=== PATIENT | female | born 1965 | race Two or more races ===

== ENCOUNTER 2020-04-18 11:33 | Emergency (ER) | payer OTHER, SELFPAY ==
--- NOTE | 2020-04-18 | US_ITS ---
EXAMINATION: UNILATERAL TRIPLEX SCANNING OF THE RIGHT LOWER EXTREMITY CLINICAL INFORMATION: Right lower extremity pain and swelling. COMPARISON: None. TECHNIQUE: Color-flow triplex imaging with spectral analysis and compression Doppler were performed on the right lower extremity. FINDINGS: Respiratory variation, normal compression and augmented flow are noted throughout the lower extremity. The visualized common femoral vein, superficial femoral vein, profunda femoral vein, popliteal vein and mid calf peroneal and posterior tibial venous segments show no evidence of deep venous thrombosis. There is no Winter's cyst. IMPRESSION: Normal triplex scan without evidence of deep venous thrombosis involving the right lower extremity.
--- NOTE | 2020-04-18 | XR_ITS ---
EXAMINATION: XR KNEE, RIGHT CLINICAL INFORMATION: Knee pain COMPARISON: None TECHNIQUE: Three views of the right knee. FINDINGS: Normal alignment. No fracture. No joint effusion. Mild medial and patellofemoral compartment osteoarthritis. IMPRESSION: Mild medial and patellofemoral compartment osteoarthritis.
--- NOTE | 2020-04-18 11:39 | ED_ITS ---
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 NKI. No redness, fevers, chills. Has some swelling and pain of the posterior knee. No calf pain. No cough/sob or CP. No h/o DVT. No family history of same. No OCP/estrogen use, recent surgery or travel. MD Complaint: extremity pain Onset (ago): day(s) Pain Consistency: constant Location: right Quality: sharp Radiation: none Relieving factors: immobilization Exacerbating factors: range of motion, weight bearing, walking, exertion and palpation Associated symptoms: denies other symptoms Related Data Previous Rx's Medication Instructions Recorded naproxen 500 mg PO BID #20 tab 04/18/20 Allergies Allergy/AdvReac Type Severity Reaction Status Date / Time Sulfa (Sulfonamide Allergy Unknown headache Verified 01/24/20 00:00 Antibiotics) SEAFOOD Allergy Intermediate RASH Uncoded 03/29/20 18:39 SEASONAL ALLERGIES Allergy Mild RUNNY Uncoded 03/29/20 18:39 NOSE/SNEEZING Clindamycin Phosphate Allergy Unknown Unknown Uncoded 04/18/20 11:35 crab Allergy Unknown itch Uncoded 12/27/19 00:00 crabs Allergy Unknown itch Uncoded 01/24/20 00:00 Sulfacetamide Sodium Allergy Unknown Unknown Uncoded 04/18/20 11:35 Review of Systems Review of Systems: Yes all other systems are reviewed and are negative Constitutional: Constitutional: Reports no additional constitutional complaints, Denies body ache(s), Denies chills, Denies fever(s), Denies headache(s) and Denies weakness Eyes: Eyes: Reports no additional eye complaints and Denies change in vision ENT: Reports system reviewed and no additional complaints, except as documented, Denies dizziness, Denies headache(s), Denies nasal congestion, Denies nasal discharge and Denies neck pain Cardiovascular: Cardiovascular: Reports no additional cardiovascular complaints, Denies chest pain, Denies leg edema and Denies dyspnea Respiratory: Respiratory: Reports no additional respiratory complaints, Denies cough and Denies dyspnea Gastrointestinal: Gastrointestinal: Reports no additional gastrointestinal complaints, Denies abdominal pain, Denies diarrhea, Denies nausea and Denies vomiting Genitourinary: Genitourinary: Reports no additional female genitourinary complaints and Denies urinary incontinence Musculoskeletal: Musculoskeletal: Reports no additional musculoskeletal complaints, Denies back pain, Reports arthralgias, Denies joint swelling, Reports limited range of motion, Denies neck pain, Denies numbness and Denies tingling Integumentary/Breasts: Skin/Breast: Reports system reviewed and no additional complaints, except as docu and Denies rash Neurologic: Reports system reviewed and no additional complaints, except as documented, Denies Abnormal speech present, Denies dizziness, Denies headache(s), Denies numbness, Denies tingling and Denies weakness PMFSH Past Medical History Attestation statement: The following information was validated with the patient. Source: obtained from family and nursing notes reviewed Medical History Colon polyps Diabetes High cholesterol Surgical History H/O thyroidectomy H/O: hysterectomy History of cholecystectomy Social History Social History Alcohol intake: never Smoking Status: Never smoker Use of substances other than those prescribed or required for medical reasons: No Advance Directives: No Advance Directives Information Provided: Yes Physical Exam Vital Signs and I&O and Narrative: Vital Signs and I&O: Vital Signs Temp 97.6 F 04/18/20 11:45 Pulse 85 04/18/20 11:45 Resp 16 04/18/20 11:45 BP 127/76 04/18/20 11:45 Pulse Ox 97 04/18/20 11:45 Intake & Output 04/17/20 04/18/20 04/18/20 18:59 06:59 18:59 Weight 88.451 kg Body Mass Index 35.6 Const: General: cooperative, healthy appearing, comfortable and no acute distress Orientation/consciousness: patient oriented x3 Limitations: no limitations HENMT: Head: Yes normal to inspection Ears: hearing grossly normal bilaterally General nose exam: Normal external nose present Face and sinus: Yes normal facial exam Mouth: Normal oral and palatal mucosa present Throat: Yes posterior oropharynx normal Eyes: General: appearance normal, both eyes and all related structures Pupils: Equal, round and reactive pupils present Neck: Neck: Yes normal visual inspection Chest: Chest palpation & inspection: normal inspection of the chest Resp: Effort & Inspection: normal respiratory effort Auscultation: clear to auscultation bilaterally Cardio: Rate: regular rate Rhythm: regular rhythm Peripheral pulses: Peripheral pulses 2+ throughout GI: Inspection: Yes normal to inspection Palpation (GI): Soft to palpation and nontender Auscultation: normal bowel sounds Back/Spine/Pelvis: Thoracic/Lumbar Spine: thoracic and lumbar spine normal to inspection Skin: General skin exam: no rashes or lesions noted Neuro: General: patient oriented x3, no focal motor deficits and normal sensation to monofilament Cranial nerves: Yes Equal, round and reactive pupils present Cognition (Neuro): normal cognition Speech: No Abnormal speech present Gait exam (Neuro): Normal gait present Motor exam (neuro): 5/5 motor strength present throughout Extrem: Other: pain with flexion of right knee. Able to extend with no difficultly. Pain to both posterior and medial knee with swelling. No calf tenderness. No warmth/redness. NV intact distally. General: Yes normal to inspection MDM - Extremity (Nontraumatic) MDM Narrative Medical decision making narrative: Atraumatic right knee medial and posterior pain and swelling. Will need imaging including x-ray and US (r/o DVT). 1400- x-rays shows arthritic changes. Ultrasound negative for DVT. Imaging Data knee x-ray: My impression: OA R knee Radiologist's impression: EXAMINATION: XR KNEE, RIGHT CLINICAL INFORMATION: Knee pain COMPARISON: None TECHNIQUE: Three views of the right knee. FINDINGS: Normal alignment. No fracture. No joint effusion. Mild medial and patellofemoral compartment osteoarthritis. IMPRESSION: Mild medial and patellofemoral compartment osteoarthritis. US venous RLE: Attestation: I personally reviewed and interpreted this imaging study as follows: My impression: Unremarkable Radiologist's impression: EXAMINATION: UNILATERAL TRIPLEX SCANNING OF THE RIGHT LOWER EXTREMITY CLINICAL INFORMATION: Right lower extremity pain and swelling. COMPARISON: None. TECHNIQUE: Color-flow triplex imaging with spectral analysis and compression Doppler were performed on the right lower extremity. FINDINGS: Respiratory variation, normal compression and augmented flow are noted throughout the lower extremity. The visualized common femoral vein, superficial femoral vein, profunda femoral vein, popliteal vein and mid calf peroneal and posterior tibial venous segments show no evidence of deep venous thrombosis. There is no Winter's cyst. IMPRESSION: Normal triplex scan without evidence of deep venous thrombosis involving the right lower extremity. Discharge Plan Discharge Clinical Impression: Osteoarthritis Qualifiers: Osteoarthritis location: knee Osteoarthritis type: primary Laterality: right Qualified Code(s): M17.11 - Unilateral primary osteoarthritis, right knee Patient Disposition: Home, Self-Care Instructions: Osteoarthritis (ED) Additional Instructions: follow-up with primary care doctor in 5-7 days if no improvement in her symptoms Ice, elevation of the extremity on 3 or more pillows. Prescriptions: New naproxen 500 mg tablet 500 mg PO BID Qty: 20 RF: 0
[2020-04-18 11:45] VITALS: BP 127/76; PULSE 85; RESP 16; TEMP 36.4; O2SAT 97; BMI 35.6
== END 2020-04-18 14:35 | disposition home or self-care (01) ==
PROVIDERS: Emergency Provider Emergency Medicine; PCP Internal Medicine
DX: M17.11 Unilateral primary osteoarthritis, right knee (principal); E11.9 Type 2 diabetes mellitus without complications
CPT/HCPCS: 73562; 93971; 99284

== ENCOUNTER 2020-05-03 13:12 | Outpatient (REF) | payer OTHER, SELFPAY ==
--- NOTE | 2020-05-03 | US_ITS ---
EXAMINATION: US RETROPERITONEAL LIMITED (RENAL ONLY) CLINICAL INFORMATION: Nephrolithiasis. COMPARISON: X-ray abdomen KUB same date and 06/29/2019. Renal ultrasound 07/20/2019. CT abdomen and pelvis 03/18/2019. Ultrasound abdomen complete 02/08/2019. TECHNIQUE: Real-time imaging of the kidney. FINDINGS: RIGHT KIDNEY: 12.0 x 4.8 x 4.7 cm (SAG x AP x TRV). The kidney is normal in size, contour and echogenicity. Renal cortical thickness is normal. No renal calculi or hydronephrosis. There is an anechoic cyst lower pole measuring 1.3 x 0.9 x 1.2 cm. LEFT KIDNEY: 12.1 x 5.1 x 4.4 cm (SAG x AP x TRV). The kidney is normal in size, contour and echogenicity. Renal cortical thickness is normal. No focal parenchymal lesions or hydronephrosis. There is an echogenic stone in the lower pole measuring 0.7 x 0.4 x 0.5 cm. No additional echogenic stone seen. No caliectasis. Previously visualized cyst is not seen on the present exam. US/US renal BI IMPRESSION: Right renal cyst measuring 1.3 cm. On the previous ultrasound 07/20/2027, it measured 1.0 cm. Left renal cyst has resolved and not seen. There is an echogenic stone lower pole measuring 0.7 cm. Previously, it measured 1.1 cm. No caliectasis or hydronephrosis seen.
--- NOTE | 2020-05-03 13:31 | XR_ITS ---
EXAMINATION: XR ABDOMEN KUB CLINICAL INDICATION: Nephrolithiasis. COMPARISON: 06/29/[address] scan of 03/18/2019 TECHNIQUE: AP view of the abdomen. FINDINGS: There are 4 stone fragments seen overlying the lower pole of the left kidney, the largest of which is 4 mm diameter. No definite new calcifications along the paths of the ureters are identified, and no calcifications are seen overlying the expected location of the ureters. Multiple calcified phleboliths are seen about the pelvis. Psoas margins are intact. No dilated loops of large or small bowel. Degenerative disc disease is seen L4 through S1 with facet arthropathy L5 through S1. XR/XR KUB IMPRESSION: 4 calcific densities seen overlying the expected location of the lower pole of the left kidney, as described. Previously, there had been a 1.1 cm calculus present.
== END 2020-05-03 13:13 | disposition home or self-care (01) ==
LOC: HO.US 13:12
PROVIDERS: PCP Internal Medicine; Visit Provider Urology
DX: N20.0 Calculus of kidney (principal)
CPT/HCPCS: 74018; 76775

== ENCOUNTER 2020-05-08 10:09 | Outpatient (REF) | payer OTHER, SELFPAY ==
--- NOTE | 2020-05-08 10:47 | MM_ITS ---
EXAMINATION: MM SCREENING DIGITAL BREAST TOMOSYNTHESIS, BILATERAL CLINICAL INFORMATION: Screening. Asymptomatic. The lifetime risk of breast cancer based on the Tyrer-Cuzick Model is 7%. COMPARISON: Mammography: 03/04/2019; outside mammography 03/12/2018 ([place], [place]). TECHNIQUE: Digital breast tomosynthesis is performed in both the craniocaudal and mediolateral oblique views along with computer-aided detection (CAD). Synthesized 2D images are generated from the tomosynthesis. FINDINGS: There are scattered areas of fibroglandular density (ACR BI-RADS breast composition Category b). There are no significant masses, abnormal calcifications, or other abnormalities. Parenchymal pattern is similar to prior studies. No significant changes. MM/MM tomosynthesis screening BI IMPRESSION: No significant changes from prior exams. ASSESSMENT: BI-RADS 1: Negative RECOMMENDATION: Routine annual mammography screening. This patient's information was entered into a reminder system with a target due date for their next mammogram.
[2020-05-08 11:15] LABS: MANUAL DIFF FLAG NO
[2020-05-08 11:27] LABS: Basophils Percent Auto 0.8 % (0-2); Eosinophils Absolute Auto 0.1 X10*3/uL (0.0-0.4); Eosinophils Percent Auto 2.6 % (0-4); Hematocrit 39.4 % (37-47); Imm Gran Abs Auto 0.01 X10*3/uL (0.00-0.03); Imm Gran Pct Auto 0.3 % (0.0-0.4); Lymphocytes Absolute Auto 1.5 X10*3/uL (1.2-4.9); Mean Corpuscular Hemoglobin 30.2 pg (27.0-33.0); Mean Corpuscular Volume 91.6 fL (80-98); Mean Platelet Volume 10.5 fL (9.4-12.3); Monocytes Absolute Auto 0.2 X10*3/uL (0.1-1.2); Monocytes Percent Auto 4.4 % (2-11); Neutrophils Absolute Auto 2.1 X10*3/uL (2.0-8.3); Neutrophils Percent Auto 53.9 % (45-73); Platelet Count 272 X10*3/uL (160-400); Red Cell Distribution Width 12.7 % (11.0-16.0); White Blood Count 3.8 X10*3/uL (4.8-10.8)
[2020-05-08 12:05] LABS: Alanine Aminotransferase 16 U/L (0-31); Albumin Level 4.4 g/dL (3.5-5.0); Alkaline Phosphatase 94 U/L (39-117); Anion Gap 12 (12-20); Aspartate Amino Transferase 17 U/L (5-31); Bilirubin Total 0.6 mg/dL (0.0-1.0); Blood Urea Nitrogen 14 mg/dL (9-16); Calcium 9.1 mg/dL (8.4-10.2); Carbon Dioxide 29 mmol/L (22-29); Chloride 105 mmol/L (96-108); Cholesterol 149 mg/dL; Estimated Glomerular Filt Rate > 60; Glucose Fasting 110 mg/dL (60-99); HDL Cholesterol 52 mg/dL; LDL Cholesterol Calculated 73 mg/dl; Potassium 4.3 mmol/l (3.3-5.1); Sodium 142 mmol/L (135-145); Total Protein 7.8 g/dL (6.5-8.0); Triglycerides 123 mg/dL
[2020-05-08 12:15] LABS: TSH reflex Free T4 1.45 mIU/mL (0.32-4.0)
[2020-05-08 12:28] LABS: Folate 8.8 ng/mL (> or = 4.0); Vitamin B12 193 pg/mL (200-900)
== END 2020-05-08 10:10 | disposition home or self-care (01) ==
LOC: HO.MAMMO 10:09
PROVIDERS: PCP Internal Medicine; Visit Provider Internal Medicine
DX: E78.00 Pure hypercholesterolemia, unspecified (principal); E03.9 Hypothyroidism, unspecified; E11.9 Type 2 diabetes mellitus without complications; E53.8 Deficiency of other specified B group vitamins
CPT/HCPCS: 36415; 77063; 77067; 80053; 80061; 82607; 82746; 84443; 85025

== ENCOUNTER → 2020-05-17 12:01 | Outpatient (BNVA) | payer OTHER, SELFPAY | PROVIDERS: PCP Internal Medicine; Referring Provider Internal Medicine; Visit Provider Urology | DX: Z76.89 Persons encountering health services in other specified circumstances (principal) ==

== ENCOUNTER 2020-06-20 08:11 | Day surgery (SDC) | payer OTHER, SELFPAY ==
[2020-06-14 10:45] VITALS: BMI 36.0
--- NOTE | 2020-06-19 09:02 | HO.ANESPROP2 ---
Documented by User: Aleisha Mc 06/19/20 09:04 HPI - Anesthesia Eval Consult details Narrative: 54yo F for Colonoscopy PMFSH Past Medical History Medical History (Updated 06/20/20 @ 09:20 by Esther Salcido) Anxiety and depression Arthritis Colon polyps Diabetes GERD (gastroesophageal reflux disease) High cholesterol History of postoperative nausea and vomiting Hx of gastritis Hx of renal calculi Hypothyroid Surgical History Surgical History (Updated 06/14/20 @ 10:44 by Maile Whitfield) H/O thyroidectomy H/O: hysterectomy History of cholecystectomy History of esophagogastroduodenoscopy (EGD) Hx of colonoscopy Hx of lithotripsy Social History Social History (Updated 06/14/20 @ 10:39 by Maile Whitfield) Alcohol intake: never Smoking Status: Never smoker Use of substances other than those prescribed or required for medical reasons: No Advance Directives: No Advance Directives Information Provided: No Advance Directives on File: No Meds Allergies Allergy/AdvReac Type Severity Reaction Status Date / Time Sulfa (Sulfonamide Allergy Unknown headache Verified 06/14/20 10:38 Antibiotics) SEAFOOD Allergy Intermediate RASH Uncoded 06/14/20 10:38 SEASONAL ALLERGIES Allergy Mild RUNNY Uncoded 06/14/20 10:38 NOSE/SNEEZING Clindamycin Phosphate Allergy Unknown Unknown Uncoded 06/14/20 10:38 crabs Allergy Unknown itch Uncoded 06/14/20 10:38 Home Medications Medication Instructions Recorded Confirmed Type atorvastatin 10 mg tablet 10 mg PO DAILY 05/14/20 06/14/20 History blood sugar diagnostic #10 ea 05/14/20 05/17/20 History buspirone 5 mg tablet 5 mg PO TID 05/14/20 06/14/20 History clonazepam 0.5 mg tablet 1.5 mg PO Q OTHER DAY PRN 05/14/20 06/14/20 History folic acid 1 mg tablet 1 mg PO DAILY 05/14/20 06/14/20 History glipizide 5 mg tablet 5 mg PO DAILY 05/14/20 06/14/20 History loratadine 10 mg tablet 10 mg PO DAILY 05/14/20 06/14/20 History nortriptyline 10 mg capsule 10 mg PO BEDTIME 05/14/20 06/14/20 History polyethylene glycol 3350 17 g PO DIRECTED 05/14/20 05/17/20 History gram/dose oral powder syringe with needle 3 mL 25 x 5/8 #1 ea 05/14/20 05/17/20 History zolpidem 10 mg tablet 10 mg PO BEDTIME PRN 05/14/20 06/14/20 History omeprazole 1 cap PO DAILY 06/14/20 06/14/20 History Exam Exam Date and Time: June 19, 2020 09 Height,Weight and Vital Signs: Height 5 ft 2 in Weight 89.358 kg Pertinent Lab Results Pertinent Lab Results: Laboratory Tests 05/08/20 05/08/20 10:30 10:30 WBC 3.8 L Hgb 13.0 Hct 39.4 Plt Count 272 Sodium 142 Potassium 4.3 Chloride 105 Carbon Dioxide 29 BUN 14 Creatinine 0.79 Assessment and Plan Assessment Anesthesia Assessment: Chart Reviewed Documented by User: Esther Salcido 06/20/20 09:21 [facility] Past Medical History Medical History (Updated 06/20/20 @ 09:20 by Esther Salcido) Anxiety and depression Arthritis Colon polyps Diabetes GERD (gastroesophageal reflux disease) High cholesterol History of postoperative nausea and vomiting Hx of gastritis Hx of renal calculi Hypothyroid Family History Family history of problems with anesthesia: No Surgical History Surgical History (Updated 06/14/20 @ 10:44 by Maile Whitfield) H/O thyroidectomy H/O: hysterectomy History of cholecystectomy History of esophagogastroduodenoscopy (EGD) Hx of colonoscopy Hx of lithotripsy History of Problems with Anesthesia: No (Denies h/o N/V) Social History Social History (Updated 06/14/20 @ 10:39 by Maile Whitfield) Alcohol intake: never Smoking Status: Never smoker Use of substances other than those prescribed or required for medical reasons: No Advance Directives: No Advance Directives Information Provided: No Advance Directives on File: No Meds Allergies Allergy/AdvReac Type Severity Reaction Status Date / Time Sulfa (Sulfonamide Allergy Unknown headache Verified 06/14/20 10:38 Antibiotics) SEAFOOD Allergy Intermediate RASH Uncoded 06/14/20 10:38 SEASONAL ALLERGIES Allergy Mild RUNNY Uncoded 06/14/20 10:38 NOSE/SNEEZING Clindamycin Phosphate Allergy Unknown Unknown Uncoded 06/14/20 10:38 crabs Allergy Unknown itch Uncoded 06/14/20 10:38 Home Medications Medication Instructions Recorded Confirmed Type atorvastatin 10 mg tablet 10 mg PO DAILY 05/14/20 06/14/20 History blood sugar diagnostic #10 ea 05/14/20 05/17/20 History buspirone 5 mg tablet 5 mg PO TID 05/14/20 06/14/20 History clonazepam 0.5 mg tablet 1.5 mg PO Q OTHER DAY PRN 05/14/20 06/14/20 History folic acid 1 mg tablet 1 mg PO DAILY 05/14/20 06/14/20 History glipizide 5 mg tablet 5 mg PO DAILY 05/14/20 06/14/20 History loratadine 10 mg tablet 10 mg PO DAILY 05/14/20 06/14/20 History nortriptyline 10 mg capsule 10 mg PO BEDTIME 05/14/20 06/14/20 History polyethylene glycol 3350 17 g PO DIRECTED 05/14/20 05/17/20 History gram/dose oral powder syringe with needle 3 mL 25 x 5/8 #1 ea 05/14/20 05/17/20 History zolpidem 10 mg tablet 10 mg PO BEDTIME PRN 05/14/20 06/14/20 History omeprazole 1 cap PO DAILY 06/14/20 06/14/20 History Exam Height,Weight and Vital Signs: Vital Signs Temp Pulse Resp BP Pulse Ox 06/20/20 08:49 96.2 F L 86 16 110/75 98 Pertinent Lab Results Pertinent Lab Results: Lab Results 06/20/20 Range/Units 08:24 POC Glucose 131 H (60-115) mg/dL Airway Mallampati Class: II TM Dist: >3cm Neck ROM: Full Heart: RRR Lungs: CTAB Assessment and Plan Assessment Anesthesia Assessment: Anesthesia Plan Discussed and Chart Reviewed Final Anesthetic Review NPO: Yes ASA Class: II Final Preanesthetic Review: No Changes in Pt Med Stat, Meds/Allgs Chart Reviewed, Consent Obtained/Reviewed and Anes Risks/Benef Reviewed Patient Risk: Low Procedure Risk: Low Anesthetic Plan Anesthetic Plan: MAC:
[2020-06-20 08:29] LABS: Glucose, Whole Blood 131 mg/dL (60-115)
[2020-06-20 08:49] VITALS: BP 110/75; PULSE 86; RESP 16; TEMP 35.7; O2SAT 98
--- NOTE | 2020-06-20 08:58 | P.HPSUR_ITS ---
Pre-Procedural Eval Section B Chief Complaint: HX OF POLYP Relevant Social History: None Present Medications: see Short Stay Collaborative assessment Medical History: Significant History (Arthritis Colon polyps Diabetes GERD (gastroesophageal reflux disease) High cholesterol History of postoperative nausea and vomiting, Hx of gastritis, Hx of renal calculi Hypothyroid) History of Previous Operations: Relevant previous surgery/procedure and date(s) (cholecystectomy, hysterectomy, thyroidectomy, lithotripsy) Allergies: Allergies Allergy/AdvReac Type Severity Reaction Status Date / Time Sulfa (Sulfonamide Allergy Unknown headache Verified 06/14/20 10:38 Antibiotics) SEAFOOD Allergy Intermediate RASH Uncoded 06/14/20 10:38 SEASONAL ALLERGIES Allergy Mild RUNNY Uncoded 06/14/20 10:38 NOSE/SNEEZING Clindamycin Phosphate Allergy Unknown Unknown Uncoded 06/14/20 10:38 crabs Allergy Unknown itch Uncoded 06/14/20 10:38 Review of Systems Sugical H&P ROS: Negative: Constitution, Cardiovascular, Respiratory, Neurological, Psychiatric, Hem-Onc, Allergic/Immunologic, Gastrointestinal, Apoorva tourinary, Musculoskeletal, Integumentary, Endocrine and Eyes/Ears/Nose/Throat Exam Surgical H&P Exam: Normal: HEENT, Normal: Heart, Normal: Lungs, Normal: Extremities, Normal: Abdomen, Normal: Skin and Normal: Neurological Plan Diagnosis/Plan: Unchanged Patient has been examined and remains a candidate for the planned procedure
--- NOTE | 2020-06-20 09:00 | PM.OP ---
Brief Operative Note Date of Service: 06/20/20 Pre-op diagnosis: colon screen, hx of poor prep and polyps Post-op diagnosis: same Procedure: see op note Surgeon: Papi Greene MD Anesthesia: MAC Estimated blood loss (mL): 0 Condition: stable Disposition: PACU
--- NOTE | 2020-06-20 09:01 | W.PM.OPN ---
Operative Note Operative Note Date of Service: 06/20/20 Narrative: Operative Information Procedure Description: Colonoscopy COLONOSCOPY Instrument: Olympus variable stiffness pediatric scope 190L Colonoscopy Monitoring: Vital signs and clinical assessment, continuous EKG monitoring, Pulse oximetry, Carbon Dioxide monitoring and blood pressure monitoring were done throughout the procedure. Colon withdrawal time was 9 minutes. Procedure: The patient was placed in the left lateral decubitis position and pre-procedure medications were administered. After a digital rectal examination of the ano-rectum, the video colonoscope was inserted into the rectum and advanced through the colon to the cecum/TI. The colonoscope was slowly withdrawn in a retrograde panoramic fashion and the colon mucosa was carefully examined including a retroflexed view of the rectum. Findings and interventions are described below. Procedure Difficulty:moderate difficulty due to redundant colon, had to use adult scope and sigmoid lift Findings: Terminal Ileum-unable to intubate due to looping Cecum:normal Ascending Colon: normal Transverse Colon -normal Descending Colon:normal Sigmoid Colon: diverticular disease, 10 mm sessile polyp removed with cold snare, another sessile polyp 6-7 mm removed with forceps Rectum: Retroflexion with small internal hemorrhoids, grade I Anorectum - normal Colon preparation: [place] Bowel Preparation Scale Right colon; 3 Transverse colon: 3 Left colon; 3 (0 = Unprepared colon segment with mucosa not seen due to solid stool that cannot be cleared. 1 = Portion of mucosa of the colon segment seen, but other areas of the colon segment not well seen due to staining, residual stool and/or opaque liquid. 2 = Minor amount of residual staining, small fragments of stool and/or opaque liquid, but mucosa of colon segment seen well. 3 = Entire mucosa of colon segment seen well with no residual staining, small fragments of stool or opaque liquid) Impression and Post Procedure Diagnosis: polyps internal hemorrhoids diverticular disease Plan: High fiber diet leaflet Avoid straining at stool, epsom salts and sitz bath, anusol supps or cream prn Repeat Colonoscopy in 5 years or earlier if clinically indicated Above findings were reviewed with the patient and relevant handouts were provided if indicated.
[2020-06-20] MEDS: Lactated Ringers 1,000 ML 100 ML IVCONT (09:11)
[2020-06-20 09:59] VITALS: BP 110/59; PULSE 71; RESP 16; TEMP 36.4; O2SAT 98
[2020-06-20 10:13] VITALS: BP 102/59; PULSE 76; RESP 16; TEMP 36.4; O2SAT 99
--- NOTE | 2020-06-20 10:42 | HO.POSTANES ---
Post Anesthesia Evaluation Post Anesthesia Evaluation Vital Signs: Vital Signs Temp Pulse Resp BP Pulse Ox 06/20/20 10:13 97.5 F 76 16 102/59 L 99 06/20/20 09:59 97.5 F 71 16 110/59 L 98 06/20/20 08:49 96.2 F L 86 16 110/75 98 Anesthesia: Monitored Mental Status: Awake Pain Control: Satisfactory Nausea/Vomiting: None Hydration: Adequate Anesthesia-Related Issues: No Anes. Related Issues
--- NOTE | 2020-06-20 11:34 | PC.NURSE ---
INTERPRETTOR USED FOR [employer] INSTRUCTIONS
== END 2020-06-20 11:20 | disposition home or self-care (01) ==
PROVIDERS: PCP Internal Medicine; Visit Provider Internal Medicine Gastroenterology
PROC: 0DJD8ZZ Inspection of Lower Intestinal Tract, Via Natural or Artificial Opening Endoscopic (ICD-10-PCS; CPT 45378; principal; 2020-06-20 09:30)
DX: Z12.11 Encounter for screening for malignant neoplasm of colon (principal); D12.5 Benign neoplasm of sigmoid colon; K63.5 Polyp of colon; K64.0 First degree hemorrhoids; K57.30 Diverticulosis of large intestine without perforation or abscess without bleeding; K56.2 Volvulus; Q43.8 Other specified congenital malformations of intestine; Z86.010 Personal history of colon polyps; E11.9 Type 2 diabetes mellitus without complications; Z79.84 Long term (current) use of oral hypoglycemic drugs; Z80.0 Family history of malignant neoplasm of digestive organs; Z88.2 Allergy status to sulfonamides
CPT/HCPCS: 45385; 45380; 82947; 88305; J2370

== ENCOUNTER → 2020-06-26 09:25 | Outpatient (BNVA) | payer OTHER, SELFPAY | PROVIDERS: PCP Internal Medicine; Referring Provider Internal Medicine; Visit Provider Internal Medicine Gastroenterology | DX: Z76.89 Persons encountering health services in other specified circumstances (principal) ==

== ENCOUNTER → 2020-07-12 15:45 | Outpatient (BNV) | payer OTHER, SELFPAY | PROVIDERS: PCP Internal Medicine; Visit Provider Internal Medicine Medical Oncology | DX: D72.819 Decreased white blood cell count, unspecified (principal); E55.9 Vitamin D deficiency, unspecified | CPT/HCPCS: 99212; 99213; 99214 ==

== ENCOUNTER 2020-07-25 14:19 | Outpatient (REF) | payer OTHER, SELFPAY ==
--- NOTE | 2020-07-25 | US_ITS ---
EXAMINATION: ULTRASOUND PELVIS COMPLETE. CLINICAL INFORMATION: Lower abdominal pain. Rule out pelvic lesion. History of hysterectomy and oophorectomy. COMPARISON: None TECHNIQUE: Transabdominal and transvaginal imaging of pelvis was performed. FINDINGS: Imaging through the pelvis reveals nonvisualization of uterus and ovaries from previous hysterectomy and oophorectomy. There is no adnexal mass, free fluid or collection. US/US transvaginal IMPRESSION: Unremarkable ultrasound pelvis.
--- NOTE | 2020-07-25 14:25 | US_ITS ---
EXAMINATION: ULTRASOUND PELVIS COMPLETE. CLINICAL INFORMATION: Lower abdominal pain. Rule out pelvic lesion. History of hysterectomy and oophorectomy. COMPARISON: None TECHNIQUE: Transabdominal and transvaginal imaging of pelvis was performed. FINDINGS: Imaging through the pelvis reveals nonvisualization of uterus and ovaries from previous hysterectomy and oophorectomy. There is no adnexal mass, free fluid or collection. US/US pelvic complete IMPRESSION: Unremarkable ultrasound pelvis.
--- NOTE | 2020-07-25 14:25 | XR_ITS ---
EXAMINATION: XR ABDOMEN KUB CLINICAL INDICATION: Renal calculus. COMPARISON: 05/03/2020 TECHNIQUE: AP view of the abdomen. FINDINGS: There is a stable appearance of a few left renal lower pole calculi, the largest one measures 4 mm in diameter. No calculi seen overlying the right kidney. No definite calculi seen along the expected paths of the ureters. Numerous phleboliths are seen about the pelvis. Psoas margins are intact. No dilatation of loops of large or small bowel evident. There is mild scoliosis of the lumbar spine convex left. There is some degenerative disc disease seen at the L5-S1 level. Sacroiliac joints appear unremarkable. XR/XR KUB IMPRESSION: Stable appearance of multiple left renal calculi overlying the expected location of the lower pole.
== END 2020-07-25 14:20 | disposition home or self-care (01) ==
LOC: HO.US 14:19
PROVIDERS: Visit Provider Internal Medicine Gastroenterology
DX: R10.30 Lower abdominal pain, unspecified (principal); N20.0 Calculus of kidney
CPT/HCPCS: 74018; 76830; 76856

== ENCOUNTER 2020-07-31 10:52 | Outpatient (REF) | payer OTHER, SELFPAY ==
[2020-07-31 12:23] LABS: Alanine Aminotransferase 13 U/L (0-31); Albumin Level 4.4 g/dL (3.5-5.0); Alkaline Phosphatase 98 U/L (39-117); Anion Gap 14 (12-20); Aspartate Amino Transferase 16 U/L (5-31); Bilirubin Total 0.5 mg/dL (0.0-1.0); Blood Urea Nitrogen 13 mg/dL (9-16); Calcium 9.3 mg/dL (8.4-10.2); Carbon Dioxide 27 mmol/L (22-29); Chloride 105 mmol/L (96-108); Cholesterol 170 mg/dL; Estimated Glomerular Filt Rate > 60; Glucose Fasting 112 mg/dL (60-99); HDL Cholesterol 52 mg/dL; LDL Cholesterol Calculated 96 mg/dl; Potassium 4.2 mmol/l (3.3-5.1); Sodium 142 mmol/L (135-145); Total Protein 7.8 g/dL (6.5-8.0); Triglycerides 110 mg/dL
== END 2020-07-31 10:53 | disposition home or self-care (01) ==
LOC: HO.LAB 10:52
PROVIDERS: Visit Provider Internal Medicine
DX: E78.5 Hyperlipidemia, unspecified (principal); E03.9 Hypothyroidism, unspecified
CPT/HCPCS: 36415; 80053; 80061; 84443

== ENCOUNTER 2020-08-08 12:10 | Outpatient (REF) | payer OTHER, SELFPAY ==
--- NOTE | 2020-08-08 12:16 | XR_ITS ---
EXAMINATION: XR KNEE AP STANDING CLINICAL INFORMATION: Pain. M25.569 - Pain in unspecified knee COMPARISON: Radiographs right knee 04/18/2020 and left knee 03/23/2019 TECHNIQUE: AP view of both knees is performed with patient weightbearing. FINDINGS: Right: Normal bony mineralization. No significant joint narrowing. No erosive change or chondrocalcinosis. No destructive process. Left: Mild periarticular demineralization. Marginal osteophyte medial femoral condyle and medial tibial plateau with sharpening tibial spines. No erosive change or chondrocalcinosis. No destructive process. XR/XR knee standing BI IMPRESSION: 1. Right: Unremarkable. 2. Left: Mild degenerative changes medial compartment.
== END 2020-08-08 12:11 | disposition home or self-care (01) ==
LOC: HO.XRAY 12:10
PROVIDERS: PCP Internal Medicine; Visit Provider Internal Medicine
DX: M25.559 Pain in unspecified hip (principal)
CPT/HCPCS: 73565

== ENCOUNTER → 2020-08-22 10:18 | Outpatient (BNVA) | payer OTHER, SELFPAY | PROVIDERS: PCP Internal Medicine; Visit Provider Orthopaedic Surgery | DX: M22.2X1 Patellofemoral disorders, right knee (principal) | CPT/HCPCS: 20610; 99202; J1040 ==

== ENCOUNTER 2020-08-29 13:38 | Outpatient (REF) | payer OTHER, SELFPAY ==
--- NOTE | ~2020-08-29 | CT_ITS ---
EXAMINATION: CT ABDOMEN AND PELVIS WITH CONTRAST CLINICAL INFORMATION: Lower abdominal pain. COMPARISON: Previous CT of the abdomen and pelvis March 2019, renal ultrasound April 2020 and pelvic ultrasound July 2020 TECHNIQUE: Multidetector volumetric images were obtained from the superior aspect of the liver through the pubic symphysis following administration 85 mL of Omnipaque 350 intravenous contrast. Sagittal and coronal reformatted images were obtained on the technologist's workstation. Oral Contrast: Yes. This CT examination was performed using dose optimization techniques as appropriate, variously including the following: *Automated exposure control. *Adjustment of mA and/or kV according to patient size (this includes techniques or standardized protocols for targeted exams where dose is matched to indication/reason for exam; i.e. extremities or head). *Use of iterative reconstruction technique. DLP: 589 mGy-cm FINDINGS: LUNG BASES: The visualized lung bases are unremarkable. LIVER, GALLBLADDER, AND BILIARY TREE: The liver is low in attenuation suggestive of fatty infiltration. No focal liver lesion is seen. The gallbladder has been removed. There is no biliary duct dilatation. PANCREAS: Unremarkable. SPLEEN: Unremarkable. ADRENAL GLANDS: Unremarkable. KIDNEYS AND URETERS: There are bilateral renal stones. There is a 2 mm stone in the lower pole of the right kidney. There are 4 adjacent small 2 mm stones in the lower pole of the left kidney. There is a small 1 cm cyst in the lower pole of the right kidney. No hydronephrosis, ureteral dilatation or ureteral stone is seen. BLADDER: Unremarkable. GASTROINTESTINAL TRACT: There are duodenal diverticuli adjacent to the pancreas. There is mild diverticulosis of the colon. Small and large bowel is otherwise unremarkable. The appendix is unremarkable. ABDOMINAL WALL: There are postsurgical changes to the anterior abdominal wall. LYMPH NODES: Normal. VASCULAR: Unremarkable. PELVIC VISCERA: The uterus appears to have been removed. No pelvic mass is seen. OSSEOUS STRUCTURES: There is scoliosis and degenerative change of the spine. CT/CT abdomen pelvis w con IMPRESSION: 1. Small bilateral renal stones. 2. Fatty liver. 3. Diverticulosis.
[2020-08-29] MEDS: iohexoL 350 MG/ML 100 ML INFUS..BTL 85 ML IV (14:39)
== END 2020-08-29 13:39 | disposition home or self-care (01) ==
LOC: HO.CT 13:38
PROVIDERS: PCP Internal Medicine; Visit Provider Internal Medicine
DX: R10.30 Lower abdominal pain, unspecified (principal)
CPT/HCPCS: 74177; Q9967

== ENCOUNTER → 2020-09-04 08:15 | Outpatient (BNVA) | payer OTHER, SELFPAY | PROVIDERS: PCP Internal Medicine; Visit Provider Internal Medicine Gastroenterology ==

== ENCOUNTER 2020-09-07 11:30 | Outpatient (REF) | payer OTHER, SELFPAY | END 2020-09-07 11:31 | disposition home or self-care (01) | LOC: HO.LAB 11:30 | PROVIDERS: PCP Internal Medicine; Visit Provider Internal Medicine Gastroenterology | DX: R10.13 Epigastric pain (principal) | CPT/HCPCS: 36415 ==

== ENCOUNTER 2020-10-05 14:00 | Outpatient (RCR) | payer OTHER, SELFPAY ==
--- NOTE | 2020-09-07 13:55 | MHC.PT.EP ---
[facility] [place] Office [place] Office [place] Office [address] Dianelys Juárez [address] [phone] F: [phone] F: [phone] F: [phone] F: [phone] Physical Therapy Plan of Care Date of Evaluation: 09/07/20 Date of Surgery: N/A Diagnosis: patellofemoral disorders, right knee Assessment: pt presents w/ weakness of hip and knee musculature and knee valgus alignment which are likely contributing to her pain. pt presents to physical therapy with pain, decreased range of motion, decreased strength, impaired functional mobility, impaired postural awareness, and gait deviations. pt is a good candidate for skilled PT due to age, potential remediation of impairments, typical disease/condition progression and prognosis, comorbidities, and motivation. pt would benefit from tailored strengthening and stretching exercise program, fun ctional training, gait training, postural re-training, neuromuscular re-education, modalities as needed for pain, equipment safety demonstration. Frequency and Duration: The patient will be seen 2x/wk for 4 wks Short Term Goals: pt will be I w/ HEP to promote self-management of condition. pt will improve B quad strength by 1 MMT grade to facilitate ease in ascending/descending stairs to access primary living spaces. Detention Goals: pt will report statistically significant improvement in self-reported outcome measure, LEFI, to promote return to PLOF. pt will ascend/descend 12 stairs w/ LRAD reporting <2/10 knee pain to promote easier access to primary living spaces. Treatment Plan: Modalities to reduce pain, spasms and effusion. Manual therapy to restore motion and function. Therapeutic exercise to improve strength and flexibility. Neuromuscular re-education for posture and balance. Therapeutic activities to return to functional activities of daily living. Electronically signed by: Ro Wilhelm PT, DPT Please sign and return to therapist. Thank you for your referral.
--- NOTE | 2020-10-05 14:53 | MHC.PT.DC ---
[facility] [place] Office [place] Office [place] Office [address] Dianelys Juárez [address] [facility] [phone] F: [phone] F: [phone] F: [phone] F: [phone] Physical Therapy Discharge Report Diagnosis: patellofemoral disorders, right knee Date of Surgery: N/A Date of Evaluation: 09/07/20 Date of Discharge: 10/05/20 Treatments to Date: 9 Cancellations to Date: 0 No Shows to Date: 0 Discharge Status: Recommend MD Follow-up Discharge Summary: The patient overall reported no change in her pain tolerance or ability to tolerate activities of daily living. Upon assessment today her pain appears to be referred from her lumbar spine. She responded well to repeated extensions and was able to abolish her pain. Her current script is for treatment of her knee. She was educated to contact her primary care physician to receive a new order to return to physical therapy for her lumbar spine. She verbalized understanding. She is discharged from this physical therapy plan of care at this time. Electronically signed by: Ro Wilhelm PT, DPT Please sign and return to therapist. Thank you for your referral.
== END 2020-10-05 14:54 | disposition other institution (70) ==
LOC: HO.PT 14:00
PROVIDERS: Visit Provider Orthopaedic Surgery
DX: M22.2X1 Patellofemoral disorders, right knee (principal)
CPT/HCPCS: 97110; 97140; 97162; 97530

== ENCOUNTER → 2020-10-17 11:38 | Outpatient (BNVA) | payer OTHER, SELFPAY | PROVIDERS: PCP Internal Medicine; Visit Provider Orthopaedic Surgery | DX: S83.241D Other tear of medial meniscus, current injury, right knee, subsequent encounter (principal) | CPT/HCPCS: 99212 ==

== ENCOUNTER 2020-10-19 15:20 | Outpatient (REF) | payer OTHER, SELFPAY ==
--- NOTE | ~2020-10-19 | MR_ITS ---
EXAMINATION: MR KNEE WITHOUT CONTRAST, RIGHT CLINICAL INFORMATION: Right knee pain and swelling. Evaluate for a medial meniscal tear. COMPARISON: Multiple priors, most recent knee radiographs dated 08/08/2020. TECHNIQUE: MRI of the knee without contrast was performed using routine sequences on a high-field scanner. FINDINGS: MENISCI: Medial Meniscus: Minimal inner margin fraying of the posterior horn. Lateral Meniscus: Intact LIGAMENTS: Cruciate: Intact Collateral: Minimal grade 1 sprain of the medial collateral ligament. Intact fibular collateral ligament. EXTENSOR MECHANISM: The quadriceps and patellar tendons are intact. ARTICULAR CARTILAGE/BONE: Patellofemoral Compartment: Full-thickness articular cartilage loss at the inferior aspect of the lateral patellar facet with diffuse bilateral facet articular cartilage signal heterogeneity and surface irregularity. Mild underlying subchondral cystic change. Diffuse trochlear articular cartilage signal heterogeneity and surface irregularity with areas of full-thickness loss and underlying subchondral cystic change. Marginal osteophytes. Medial Compartment: Full-thickness articular cartilage loss at the weightbearing medial femoral condyle with diffuse articular cartilage thinning and signal heterogeneity. Minimal underlying subchondral cystic change. Medial tibial plateau articular cartilage thinning. Marginal osteophytes. Lateral Compartment: Mild articular cartilage signal heterogeneity with tiny marginal osteophytes. JOINT FLUID AND BURSAE: Small joint effusion and small Winter's cyst. MR/MR knee RT wo con IMPRESSION: 1. Minimal inner margin fraying of the medial meniscus posterior horn. 2. Grade 1 sprain of the medial collateral ligament. 3. Moderate patellofemoral and medial compartment as well as mild lateral compartment osteoarthritis. Small joint effusion and small Winter's cyst.
== END 2020-10-19 15:21 | disposition home or self-care (01) ==
LOC: HO.MRI 15:20
PROVIDERS: Visit Provider Orthopaedic Surgery
DX: S83.241A Other tear of medial meniscus, current injury, right knee, initial encounter (principal)
CPT/HCPCS: 73721

== ENCOUNTER 2020-11-02 13:09 | Outpatient (REF) | payer OTHER, SELFPAY ==
--- NOTE | ~2020-11-02 | XR_ITS ---
EXAMINATION: XR CHEST CLINICAL INFORMATION: Chest pain COMPARISON: None TECHNIQUE: 2 views of the chest were obtained. FINDINGS: No significant abnormality is noted involving the heart, lungs, mediastinum, bony thorax or soft tissues. XR/XR chest 2V IMPRESSION: Unremarkable examination.
== END 2020-11-02 13:10 | disposition home or self-care (01) ==
LOC: HO.XRAY 13:09
PROVIDERS: PCP Internal Medicine; Visit Provider Internal Medicine
DX: R07.9 Chest pain, unspecified (principal)
CPT/HCPCS: 71046

== ENCOUNTER → 2020-11-07 12:53 | Outpatient (BNVA) | payer OTHER, SELFPAY | PROVIDERS: PCP Internal Medicine; Visit Provider Orthopaedic Surgery | DX: M17.11 Unilateral primary osteoarthritis, right knee (principal) | CPT/HCPCS: 99212 ==

== ENCOUNTER 2020-11-14 11:11 | Outpatient (REF) | payer OTHER, SELFPAY ==
[2020-11-14 12:10] LABS: MANUAL DIFF FLAG NO
[2020-11-14 12:15] LABS: Basophils Percent Auto 0.7 % (0-2); Eosinophils Absolute Auto 0.1 X10*3/uL (0.0-0.4); Eosinophils Percent Auto 3.3 % (0-4); Hemoglobin 12.5 g/dl (12.0-16.0); Imm Gran Abs Auto 0.01 X10*3/uL (0.00-0.03); Imm Gran Pct Auto 0.3 % (0.0-0.4); Lymphocytes Absolute Auto 1.2 X10*3/uL (1.2-4.9); Lymphocytes Percent Auto 38.7 % (20-40); Mean Corpuscular HGB Conc 32.9 g/dl (31.0-35.0); Mean Corpuscular Hemoglobin 30.2 pg (27.0-33.0); Mean Corpuscular Volume 91.8 fL (80-98); Mean Platelet Volume 10.3 fL (9.4-12.3); Monocytes Absolute Auto 0.2 X10*3/uL (0.1-1.2); Monocytes Percent Auto 6.3 % (2-11); Neutrophils Absolute Auto 1.5 X10*3/uL (2.0-8.3); Neutrophils Percent Auto 50.7 % (45-73); Platelet Count 260 X10*3/uL (160-400); Red Blood Count 4.14 X10*6/uL (4.20-5.50)
[2020-11-14 12:40] LABS: Alanine Aminotransferase 23 U/L (0-31); Albumin Level 4.3 g/dL (3.5-5.0); Alkaline Phosphatase 96 U/L (39-117); Anion Gap 13 (12-20); Aspartate Amino Transferase 21 U/L (5-31); Bilirubin Total 0.5 mg/dL (0.0-1.0); Blood Urea Nitrogen 12 mg/dL (9-16); Calcium 9.6 mg/dL (8.4-10.2); Carbon Dioxide 28 mmol/L (22-29); Chloride 107 mmol/L (96-108); Cholesterol 206 mg/dL; Estimated Glomerular Filt Rate > 60; Glucose Random 123 mg/dL (60-115); HDL Cholesterol 51 mg/dL; LDL Cholesterol Calculated 118 mg/dl; Potassium 4.2 mmol/L (3.3-5.1); Sodium 144 mmol/L (135-145); Total Protein 7.5 g/dL (6.5-8.0); Triglycerides 185 mg/dL
[2020-11-14 12:53] LABS: Ferritin 38 ng/mL (10-250); Thyroid Stimulating Hormone 0.36 uIU/mL (0.32-4.0)
== END 2020-11-14 11:12 | disposition home or self-care (01) ==
LOC: HO.LAB 11:11
PROVIDERS: Internal Medicine Medical Oncology; PCP Internal Medicine; Visit Provider Internal Medicine
DX: D64.9 Anemia, unspecified (principal); E78.5 Hyperlipidemia, unspecified; E03.9 Hypothyroidism, unspecified
CPT/HCPCS: 36415; 80053; 80061; 82728; 84443; 85025

== ENCOUNTER → 2020-12-04 07:44 | Outpatient (REF) | payer OTHER, SELFPAY ==
--- NOTE | ~2020-12-04 | NM_ITS ---
EXAMINATION: NM RADIONUCLIDE SOLID FOOD GASTRIC EMPTYING 4-HOUR STUDY CLINICAL INFORMATION: Early satiety COMPARISON: None TECHNIQUE: A standard meal consisting of 4 oz of Egg Beaters brand tagged with 1.0 microcuries Tc-99m Sulfur Colloid, 8 oz water and half slice of toast with jelly was administered orally to the patient. Images were obtained using a dual head gamma camera in the anterior and posterior projections over of the stomach immediately post ingestion and at hourly intervals up to 4 hours post ingestion. The anterior and posterior counts at each time interval were averaged using the geometric mean and expressed as percentage of the immediate post ingestion counts. FINDINGS: There is good visualization of activity in the stomach immediately post ingestion. As the study progresses, there is good clearance of activity from the stomach and visualization of progressively increasing small bowel activity. By the end of the study, there is almost no retention noted in the stomach. Retention in the stomach at each time interval was: 1 hour 26% (normal 37%-90%) 2 hours 2% (normal 30%-60%) 3 hours 0% 4 hours 0% (normal 0%-10%) NM/NM gastric emptying study IMPRESSION: Normal 4-hour solid food gastric emptying study.
== END ==
LOC: HO.NUCMED 07:44
PROVIDERS: PCP Internal Medicine; Visit Provider Internal Medicine Gastroenterology
DX: R68.81 Early satiety (principal)
CPT/HCPCS: 78264; A9541

== ENCOUNTER 2020-12-11 11:40 | Outpatient (REF) | payer OTHER, SELFPAY ==
--- NOTE | ~2020-12-11 | XR_ITS ---
EXAMINATION: XR ABDOMEN KUB CLINICAL INDICATION: Nephrolithiasis. COMPARISON: None TECHNIQUE: AP view of the abdomen. FINDINGS: Scattered stool and gas seen throughout the colon consistent mild constipation. No organomegaly. There are small radiopaque densities in the lower pole left kidney likely small stones. No radiopaque calculi seen in the right kidney. There are karissa in the right upper quadrant from previous cholecystectomy. There are several phleboliths in the pelvis. No gross bony abnormality seen. XR/XR KUB IMPRESSION: Thick small to the tumor radiopaque calculi lower pole left kidney. No radiopaque calculi seen in the right kidney. Mild constipation with evidence of previous cholecystectomy.
== END 2020-12-11 11:41 | disposition home or self-care (01) ==
LOC: HO.XRAY 11:40
PROVIDERS: PCP Internal Medicine; Visit Provider Urology
DX: N20.0 Calculus of kidney (principal)
CPT/HCPCS: 74018

== ENCOUNTER → 2020-12-21 11:02 | Outpatient (BNVA) | payer OTHER, SELFPAY | PROVIDERS: Visit Provider Urology ==

== ENCOUNTER → 2020-12-25 09:07 | Outpatient (BNVA) | payer OTHER, SELFPAY | PROVIDERS: PCP Internal Medicine; Visit Provider Advanced Practice Midwife | DX: Z01.419 Encounter for gynecological examination (general) (routine) without abnormal findings (principal); N89.8 Other specified noninflammatory disorders of vagina; N64.4 Mastodynia; R10.13 Epigastric pain | CPT/HCPCS: 99212 ==

== ENCOUNTER 2021-01-04 13:20 | Outpatient (REF) | payer OTHER, SELFPAY ==
--- NOTE | ~2021-01-04 | MM_ITS ---
EXAMINATION: MM DIAGNOSTIC DIGITAL BREAST TOMOSYNTHESIS, BILATERAL US DIAGNOSTIC ULTRASOUND BREAST, LEFT CLINICAL INFORMATION: Left lateral breast pain. No palpable mass or discharge. No known family history breast cancer. The lifetime risk of breast cancer based on the Tyrer-Cuzick Model is 6%. COMPARISON: Mammography: 05/08/2020, 03/04/2019, 03/12/2018 TECHNIQUE: Digital breast tomosynthesis is performed in both the craniocaudal and mediolateral oblique views along with computer-aided detection (CAD). Synthesized 2D images are generated from the tomosynthesis. Ultrasound left breast is targeted to the clinical concern outer breast with grayscale imaging and color Doppler without and with harmonics. FINDINGS: There are scattered areas of fibroglandular density (ACR BI-RADS breast composition Category b). There are no significant masses, abnormal calcifications, or other abnormalities. The skin contours are smooth. The axilla are unremarkable. There is no skin thickening or coarsening of the Michael's ligaments. Ultrasound demonstrates no cystic or solid mass or architectural abnormality. No focal duct ectasia. No hyperemia, skin thickening, or edema tracking in soft tissue planes. Results are discussed with the patient at time of visit. MM/MM tomosynthesis diagnostic BI IMPRESSION: 1. No mammographic evidence of malignancy or inflammatory changes. 2. Unremarkable targeted left breast ultrasound.. ASSESSMENT: BI-RADS 1: Negative RECOMMENDATION: 1. Patient's breast pain should be managed based on the clinical impression. 2. Otherwise, routine annual screening mammography. This patient's information was entered into a reminder system with a target due date for their next mammogram.
== END 2021-01-04 13:21 | disposition home or self-care (01) ==
LOC: HO.MAMMO 13:20
PROVIDERS: Visit Provider Advanced Practice Midwife
DX: N64.4 Mastodynia (principal)
CPT/HCPCS: 76642; 77062; 77066

== ENCOUNTER → 2021-01-21 14:14 | Outpatient (BNVA) | payer OTHER, SELFPAY | PROVIDERS: PCP Internal Medicine; Visit Provider Advanced Practice Midwife ==

== ENCOUNTER 2021-02-28 10:50 | Outpatient (REF) | payer OTHER, SELFPAY ==
[2021-02-28 11:51] LABS: MANUAL DIFF FLAG NO
[2021-02-28 11:54] LABS: Basophils Percent Auto 0.8 % (0-2); Eosinophils Absolute Auto 0.1 X10*3/uL (0.0-0.4); Eosinophils Percent Auto 2.3 % (0-4); Hematocrit 36.2 % (37-47); Hemoglobin 12.4 g/dl (12.0-16.0); Imm Gran Abs Auto 0.01 X10*3/uL (0.00-0.03); Imm Gran Pct Auto 0.3 % (0.0-0.4); Lymphocytes Absolute Auto 1.3 X10*3/uL (1.2-4.9); Lymphocytes Percent Auto 36.3 % (20-40); Mean Corpuscular HGB Conc 34.3 g/dl (31.0-35.0); Mean Corpuscular Hemoglobin 30.6 pg (27.0-33.0); Mean Corpuscular Volume 89.4 fL (80-98); Monocytes Absolute Auto 0.2 X10*3/uL (0.1-1.2); Monocytes Percent Auto 5.1 % (2-11); Neutrophils Percent Auto 55.2 % (45-73); Platelet Count 246 X10*3/uL (160-400); Red Blood Count 4.05 X10*6/uL (4.20-5.50); Red Cell Distribution Width 12.9 % (11.0-16.0); White Blood Count 3.5 X10*3/uL (4.8-10.8)
[2021-02-28 12:21] LABS: Alanine Aminotransferase 24 U/L (0-31); Albumin Level 4.3 g/dL (3.5-5.0); Alkaline Phosphatase 92 U/L (39-117); Anion Gap 13 (12-20); Aspartate Amino Transferase 24 U/L (5-31); Bilirubin Total 0.4 mg/dL (0.0-1.0); Blood Urea Nitrogen 14 mg/dL (9-16); C Reactive Protein 0.49 mg/dL (< or = 0.50); Calcium 9.5 mg/dL (8.4-10.2); Carbon Dioxide 25 mmol/L (22-29); Chloride 111 mmol/L (96-108); Estimated Glomerular Filt Rate > 60; Glucose Random 94 mg/dL (60-115); Potassium 3.5 mmol/L (3.3-5.1); Rheumatoid Factor < 15.0 IU/mL (<15.0); Sodium 145 mmol/L (135-145); Total Protein 7.5 g/dL (6.5-8.0)
[2021-02-28 12:42] LABS: Erythrocyte Sedimentation Rate 13 MM/HR (0-20)
[2021-03-01 13:32] LABS: Anti Nuclear Antibody Screen NEGATIVE (NEGATIVE)
[2021-03-05 16:28] LABS: Cyclic Citrullinated Peptide <16 UNITS
== END 2021-02-28 10:51 | disposition home or self-care (01) ==
LOC: HO.LAB 10:50
PROVIDERS: PCP Internal Medicine; Visit Provider Student in an Organized Health Care Education/Training Program
DX: M79.7 Fibromyalgia (principal)
CPT/HCPCS: 36415; 80053; 85025; 85652; 86038; 86039; 86140; 86200; 86431; 99202

== ENCOUNTER 2021-03-13 14:23 | Emergency (ER) | payer OTHER, SELFPAY ==
--- NOTE | 2021-03-13 | ECG_ITS ---
Test Reason : CP Blood Pressure : / mmHG Vent. Rate : 087 BPM Atrial Rate : 087 BPM P-R Int : 132 ms QRS Dur : 080 ms QT Int : 366 ms P-R-T Axes : 054 012 041 degrees QTc Int : 440 ms Normal sinus rhythm Normal ECG When compared with ECG of 19-SEP-2013 07:00, No significant change was found Referred By: Generic ED Physician Electronically Signed By:KWAKU ARELLANO
[2021-03-13 14:37] VITALS: BP 125/74; PULSE 98; RESP 16; TEMP 36.9; O2SAT 98; BMI 36.6
[2021-03-13 15:11] LABS: COVID-19 Test Positive (Negative); IDNOW Serial# 08D9AD1C
--- NOTE | 2021-03-13 15:44 | ED_ITS ---
HPI - General Adult General Chief complaint: Upper Respiratory Symptoms Stated complaint: flu like symptoms Time Seen by Provider: 03/13/21 15:42 Source: patient Mode of arrival: ambulatory Limitations: no limitations History of Present Illness HPI narrative: 55 y/o Slovak speaking female with history of DM, HLD, fibromyalgia, hypothyroidism, OA, anxiety/depression who is presenting to the ER from home with 3 days of fever, chills, back pain, body pain, skin pain. She received the J&J COVID vaccine. She has no known sick contacts but lives in a home with multiple people who have separate rooms. She reports some central chest pain when she coughs but none at rest or with exertion. No SOB or VIEIRA. She has been taking Tylenol with minimal relief. MD complaint: body aches Onset (ago): day(s) (3) Location: head, back, left, right, upper extremity and lower extremity Radiation: non-radiation Severity: severe Severity scale (1-10): 8 Quality: aching Pain Consistency: constant Relieving factors: medication Exacerbating factors: movement Associated symptoms: cough, fever/chills, headaches, loss of appetite, malaise and weakness Treatments prior to arrival: none Related Data Home Medications Medication Instructions Recorded Confirmed buspirone 5 mg tablet 5 mg PO TID 05/14/20 02/28/21 clonazepam 0.5 mg tablet 0.5 mg PO Q OTHER DAY PRN 05/14/20 02/28/21 folic acid 1 mg tablet 1 mg PO DAILY 05/14/20 02/28/21 syringe with needle 3 mL 25 x 5/8 #1 ea 05/14/20 01/10/21 zolpidem 10 mg tablet 10 mg PO BEDTIME PRN 05/14/20 02/28/21 lancets 28 gauge (FreeStyle #100 ea 08/27/20 01/10/21 Lancets) atorvastatin 20 mg tablet 20 mg PO BEDTIME 01/10/21 02/28/21 bisacodyl 5 mg tablet,delayed 10 mg PO ONCE PRN 01/10/21 01/10/21 release (Dulcolax (bisacodyl)) Previous Rx's Medication Instructions Recorded gabapentin 300 mg capsule 300 mg PO DAILY 90 Days #90 cap 04/20/20 cyanocobalamin (vitamin B-12) 1,000 mcg IM .once a month 30 Days 05/03/20 1,000 mcg/mL injection solution #1 ml syringe with needle, safety 3 mL #1 ea 05/03/20 25 gauge x 5/8 (BD Safety-Nisha Detachable Needle) ibuprofen 600 mg tablet 600 mg PO TID PRN 90 Days #270 tab 07/03/20 lancets 28 gauge (FreeStyle 28 gauge TOPICAL BID 30 Days #100 08/27/20 Lancets) cap loratadine 10 mg tablet 10 mg PO DAILY #30 tab 08/28/20 diclofenac sodium 50 mg 50 mg PO TID PRN 30 Days #90 tab 09/04/20 tablet,delayed release paroxetine HCl 40 mg tablet 40 mg PO QAM #30 tab 09/13/20 diclofenac sodium 1 % topical gel 2 g TOPICAL QID 30 Days #100 g 10/02/20 (Arthritis Pain (diclofenac)) ondansetron 4 mg disintegrating 4 mg PO BID #60 tab 12/06/20 tablet Synthroid 150 mcg tablet 150 mcg PO DAILY 90 Days #90 tab NS 12/13/20 (levothyroxine) pyridoxine (vitamin B6) 100 mg 100 mg PO DAILY 90 Days #90 tab 12/21/20 tablet psyllium husk 3.4 gram/5.4 gram 1 tbsp PO BID #660 g 12/25/20 oral powder (Metamucil) simethicone 80 mg chewable tablet 160 mg PO BID-TID PRN #90 tab 12/25/20 (Gas Relief (simethicone)) blood sugar diagnostic #10 ea 01/10/21 dicyclomine 20 mg tablet 20 mg PO BID #60 tab 01/21/21 glipizide 5 mg tablet 5 mg PO DAILY 90 Days #90 tab 01/21/21 pantoprazole 40 mg tablet,delayed 40 mg PO DAILY #30 tab 01/22/21 release sucralfate 100 mg/mL oral 10 ml PO BID #420 ml 02/07/21 suspension Allergies Allergy/AdvReac Type Severity Reaction Status Date / Time clindamycin Allergy Intermediate Rash Verified 02/28/21 10:57 crab Allergy Intermediate Itch Verified 02/28/21 10:57 seafood Allergy Intermediate Itch,Rash Verified 02/28/21 10:57 Sulfa (Sulfonamide Allergy Intermediate headache Verified 02/28/21 10:57 Antibiotics) milk Allergy Unknown Verified 02/28/21 10:57 shrimp Allergy Unknown Verified 02/28/21 10:57 wheat Allergy Unknown Verified 02/28/21 10:57 SEASONAL ALLERGIES Allergy Mild RUNNY Uncoded 12/05/20 13:14 NOSE/SNEEZING Review of Systems Review of Systems: Constitutional: + Fever, + Chills ENT/Mouth: No sore throat, No Rhinorrhea, No Swallowing Difficulty Cardiovascular: + Chest Pain, No SOB, No Orthopnea, No Edema Respiratory: + Cough, No Sputum, No Wheezing, No dyspnea Gastrointestinal: No Nausea, No Vomiting, No Diarrhea, No abdominal Pain, No Hematochezia, No Melena Genitourinary: No Dysuria, No Urinary Frequency, No Hematuria Musculoskeletal: + joint pain, + Myalgias Skin: No Skin Lesions, No rash Neuro: + Weakness, No Numbness, No Dizziness, + Headache Psych: + Anxiety/Panic, No Depression Heme/Lymph: No Bruising, No Lymphadenopathy Endocrine: No Polyuria, No Polydipsia PMFSH Past Medical History Medical History Anxiety and depression B12 deficiency Colon polyps COVID-19 vaccine administered Diabetes Dyslipidemia GERD (gastroesophageal reflux disease) History of postoperative nausea and vomiting Hx of gastritis Hx of renal calculi Hypothyroid Osteoarthritis of right knee Polyarthralgia Surgical History H/O thyroidectomy H/O: hysterectomy History of cholecystectomy History of esophagogastroduodenoscopy (EGD) History of tubal ligation Hx of colonoscopy Hx of lithotripsy Family History Family History Father Hx of heat stroke History of dementia Mother Hx of benign gastric tumor Family history of high blood pressure Hx of type 1 diabetes mellitus Colon cancer Maternal Uncle Pancreatic cancer Daughter Thyroid cancer Social History Social History Household Members: None Alcohol intake: current Alcohol intake frequency: does not drink Patient Tobacco Use Status: Never used Tobacco Second Hand Smoke Exposure: Yes Advance Directives: No Advance Directives Information Provided: No Physical Exam Vital Signs: Vital Signs: Last Vital Signs Temp 98.4 F 03/13/21 14:37 Pulse 98 03/13/21 14:37 Resp 16 03/13/21 14:37 BP 125/74 03/13/21 14:37 Pulse Ox 98 03/13/21 14:37 Body Mass Index 36.6 Appearance: Alert. Oriented X3. No acute distress. Eyes: Pupils equal, round and reactive to light. ENT: Pharynx normal. Neck: Normal inspection. Neck supple. CVS: Normal heart rate and rhythm. Pulses normal. Respiratory: No respiratory distress. Breath sounds normal. Skin: Skin warm and dry. Normal skin color. Normal skin turgor. No rashes. Extremities: No lower extremity edema. Neuro: Oriented X 3. No motor deficit. No sensory deficit. Course Course Course Narrative: 55 y/o female presenting with COVID symptoms, biggest complaint is muscle and body aches. She is vitally stable with no respiratory distress or abnormal lung sounds. Respiratory symptoms are minimal. Her EKG sh owed no ischemic changes. Her COVID test was found to be positive. Used production staff worker to discuss results, management and warning signs to prompt urgent re-evaluation in the hospital. She is currently stable for d/c home with supportive care. Medical Decision Making Lab Data Labs: Lab Results 03/13/21 Range/Units 14:47 COVID-19 (OZZIE) Positive A (Negative) COVID-19 Clin Com See Note ECG Data Attestation: I personally reviewed and interpreted this ECG as follows: Interpretation: normal sinus rhythm, HR 87 bpm, normal MN interval, normal QTc, no ST segment elevations or depressions Discharge Plan Discharge Clinical Impression: COVID-19 Patient Disposition: Home, Self-Care Instructions: COVID-19 (Coronavirus Disease 2019) (ED) Additional Instructions: You were found to be COVID-19 POSITIVE today. Your exam oxygen levels were normal. Rest. Drink plenty of fluids. Do not go out in public for the next 10 days. Take over the counter cold/flu medications as needed for your symptoms. Take Tylenol and/or Motrin as needed for fevers and body aches. Follow up with your doctor this week. If you shortness of breath worsens , if you develop difficulty breathing or any other concerning symptom come back to the ER for further evaluation. Se descubri? que hoy es COVID-19 POSITIVO. Los niveles de ox?lyndsey de gutierrez examen alessio normales. Descansar. Beber mucho l?quido. No salga en p?blico basil los pr?ximos 10 d?as. [facility] [place] medicamentos de venta [place] para el resfriado / la gripe seg?n sea necesario para basilio s?ntomas. [facility] [place] Tylenol y / o Motrin seg?n sea necesario para la fiebre y los adarsh corporales. Van un seguimiento con gutierrez m?dico esta semana. Si gutierrez dificultad para respirar empeora, si presenta dificultad para respirar o cualquier otro s?ntoma preocupante, regrese a la ac de emergencias para guanaco evaluaci?n adicional. Prescriptions: No Action gabapentin 300 mg capsule 300 mg PO DAILY 90 Days Qty: 90 RF: 3 (DME) BD Safety-Nisha Detachable Needl 3 mL 25 gauge x 5/8 syringe See Rx Instructions .ROUTE .MEDSUPPLY Qty: 1 RF: 11 cyanocobalamin (vitamin B-12) 1,000 mcg/mL solution 1,000 mcg IM .once a month 30 Days Qty: 1 RF: 11 ibuprofen 600 mg tablet 600 mg PO TID PRN (Reason: fever or pain) 90 Days Qty: 270 RF: 1 (DME) lancets [FreeStyle Lancets] 28 gauge misc See Rx Instructions .ROUTE .MEDSUPPLY Qty: 100 RF: 0 lancets [FreeStyle Lancets] 28 gauge misc 28 gauge topical BID 30 Days Qty: 100 RF: 11 loratadine 10 mg tablet 10 mg PO DAILY Qty: 30 RF: 6 diclofenac sodium 50 mg tablet,delayed release (DR/EC) 50 mg PO TID PRN (Reason: pain) 30 Days Qty: 90 RF: 2 paroxetine HCl 40 mg tablet 40 mg PO QAM Qty: 30 RF: 6 diclofenac sodium [Arthritis Pain (diclofenac)] 1 % gel 2 g topical QID 30 Days Qty: 100 RF: 1 ondansetron 4 mg tablet,disintegrating 4 mg PO BID Qty: 60 RF: 1 levothyroxine [Synthroid] 150 mcg tablet 150 mcg PO DAILY 90 Days Qty: 90 RF: 1 (DME) blood sugar diagnostic Strip See Rx Instructions strip Not Applicable BID Qty: 10 RF: 11 glipizide 5 mg tablet 5 mg PO DAILY 90 Days Qty: 90 RF: 2 dicyclomine 20 mg tablet 20 mg PO BID Qty: 60 RF: 1 pantoprazole 40 mg tablet,delayed release (DR/EC) 40 mg PO DAILY Qty: 30 RF: 4 sucralfate 100 mg/mL suspension 10 ml PO BID Qty: 420 RF: 2 atorvastatin 20 mg tablet 20 mg PO BEDTIME RF: 0 bisacodyl [Dulcolax (bisacodyl)] 5 mg tablet,delayed release (DR/EC) 10 mg PO ONCE PRN (Reason: Constipation) RF: 0 buspirone 5 mg tablet 5 mg PO TID RF: 0 (DME) BD Luer-Nisha Syringe 3 mL 25 x 5/8 syringe See Rx Instructions ea .ROUTE .MEDSUPPLY Qty: 1 RF: 0 folic acid 1 mg tablet 1 mg PO DAILY RF: 0 zolpidem 10 mg tablet 10 mg PO BEDTIME PRN (Reason: Insomnia) RF: 0 clonazepam 0.5 mg tablet 0.5 mg PO Q OTHER DAY PRN (Reason: Anxiety) RF: 0 pyridoxine (vitamin B6) 100 mg tablet 100 mg PO DAILY 90 Days Qty: 90 RF: 1 Metamucil 3.4 gram/5.4 gram powder 1 tbsp PO BID Qty: 660 RF: 2 simethicone [Gas Relief (simethicone)] 80 mg tablet,chewable 160 mg PO BID-TID PRN (Reason: abdominal distention) Qty: 90 RF: 1
== END 2021-03-13 16:49 | disposition home or self-care (01) ==
LOC: HO.ED 15:51
PROVIDERS: Emergency Provider Emergency Medicine Emergency Medical Services; PCP Internal Medicine
DX: U07.1 COVID-19 (principal); R50.9 Fever, unspecified; E11.9 Type 2 diabetes mellitus without complications; E78.5 Hyperlipidemia, unspecified; Z79.02 Long term (current) use of antithrombotics/antiplatelets; Z79.899 Other long term (current) drug therapy; Z79.4 Long term (current) use of insulin
CPT/HCPCS: 36415; 87635; 93005; 99283

== ENCOUNTER 2021-03-26 10:46 | Outpatient (REF) | payer OTHER, SELFPAY ==
--- NOTE | ~2021-03-26 | XR_ITS ---
EXAMINATION: XR CHEST CLINICAL INFORMATION: COVID 19. COMPARISON: Chest radiograph done on 11/02/2020. TECHNIQUE: 2 views of the chest were obtained. FINDINGS: Asymmetric elevated left hemidiaphragm is noted. Both lung balbuena are otherwise symmetrically expanded and appear clear, unchanged. No evidence of any interstitial or alveolar pneumonia. Cardiac mediastinal silhouette is within normal limit. No evidence of any pleural effusion or pneumothorax. The visualized upper abdomen shows postsurgical changes of prior cholecystectomy, unchanged. XR/XR chest 2V IMPRESSION: No radiographic evidence of acute cardiopulmonary disease. Persistent stable asymmetric elevated left hemidiaphragm.
[2021-03-26 11:49] LABS: MANUAL DIFF FLAG NO
[2021-03-26 12:02] LABS: Basophils Percent Auto 0.6 % (0-2); Eosinophils Absolute Auto 0.1 X10*3/uL (0.0-0.4); Hematocrit 38.1 % (37-47); Hemoglobin 12.5 g/dl (12.0-16.0); Lymphocytes Absolute Auto 1.5 X10*3/uL (1.2-4.9); Lymphocytes Percent Auto 43.3 % (20-40); Mean Corpuscular HGB Conc 32.8 g/dl (31.0-35.0); Mean Corpuscular Hemoglobin 29.8 pg (27.0-33.0); Mean Corpuscular Volume 90.7 fL (80-98); Mean Platelet Volume 9.5 fL (9.4-12.3); Monocytes Absolute Auto 0.2 X10*3/uL (0.1-1.2); Monocytes Percent Auto 6.1 % (2-11); Neutrophils Absolute Auto 1.6 X10*3/uL (2.0-8.3); Platelet Count 381 X10*3/uL (160-400); Red Cell Distribution Width 13.2 % (11.0-16.0); White Blood Count 3.4 X10*3/uL (4.8-10.8)
[2021-03-26 12:08] LABS: Alanine Aminotransferase 21 U/L (0-31); Albumin Level 4.3 g/dL (3.5-5.0); Alkaline Phosphatase 82 U/L (39-117); Anion Gap 13 (12-20); Aspartate Amino Transferase 23 U/L (5-31); Bilirubin Total 0.7 mg/dL (0.0-1.0); Blood Urea Nitrogen 12 mg/dL (9-16); Calcium 9.7 mg/dL (8.4-10.2); Carbon Dioxide 27 mmol/L (22-29); Chloride 110 mmol/L (96-108); Cholesterol 230 mg/dL; Estimated Glomerular Filt Rate > 60; Glucose Fasting 116 mg/dL (60-99); HDL Cholesterol 45 mg/dL; LDL Cholesterol Calculated 133 mg/dl; Potassium 4.7 mmol/L (3.3-5.1); Sodium 145 mmol/L (135-145); Total Protein 7.4 g/dL (6.5-8.0); Triglycerides 263 mg/dL
[2021-03-26 12:31] LABS: Thyroid Stimulating Hormone 16.43 uIU/mL (0.32-4.0)
[2021-03-26 12:42] LABS: Folate 11.9 ng/mL (> or = 4.0); Vitamin B12 579 pg/mL (200-900)
[2021-03-26 13:33] LABS: Microalbum/Creatinine Ratio Ur 5.4 ug/mg cr
[2021-04-01 13:02] LABS: Vitamin D 25-OH, D2 <4 ng/mL; Vitamin D 25-OH, D3 15 ng/mL; Vitamin D 25-OH, Total 15 ng/mL (30-100)
== END 2021-03-26 10:47 | disposition home or self-care (01) ==
LOC: HO.XRAY 10:46
PROVIDERS: PCP Internal Medicine; Visit Provider Internal Medicine
DX: U07.1 COVID-19 (principal); E55.9 Vitamin D deficiency, unspecified; D64.9 Anemia, unspecified; E53.8 Deficiency of other specified B group vitamins; E11.9 Type 2 diabetes mellitus without complications; E03.9 Hypothyroidism, unspecified; E78.5 Hyperlipidemia, unspecified
CPT/HCPCS: 36415; 71046; 80053; 80061; 82043; 82306; 82607; 82746; 84443; 85025

== ENCOUNTER → 2021-04-23 10:44 | Outpatient (BNVA) | payer OTHER, SELFPAY | PROVIDERS: Referring Provider Internal Medicine; Visit Provider Internal Medicine Gastroenterology | DX: R10.11 Right upper quadrant pain (principal) | CPT/HCPCS: 99212 ==

== ENCOUNTER 2021-05-13 12:55 | Outpatient (REF) | payer OTHER, SELFPAY | END 2021-05-13 12:56 | disposition home or self-care (01) | LOC: HO.MAMMO 12:55 | PROVIDERS: Visit Provider Internal Medicine | DX: Z13.89 Encounter for screening for other disorder (principal) ==

== ENCOUNTER 2021-06-10 10:29 | Outpatient (REF) | payer OTHER, SELFPAY ==
[2021-06-10 12:34] LABS: Thyroid Stimulating Hormone 0.84 uIU/mL (0.32-4.0)
[2021-06-10 12:35] LABS: Vitamin B12 220 pg/mL (200-900)
== END 2021-06-10 10:30 | disposition home or self-care (01) ==
LOC: HO.LAB 10:29
PROVIDERS: PCP Internal Medicine; Visit Provider Internal Medicine
DX: E53.8 Deficiency of other specified B group vitamins (principal); E03.9 Hypothyroidism, unspecified
CPT/HCPCS: 36415; 82607; 82746; 84443

== ENCOUNTER 2021-06-12 10:29 | Outpatient (REF) | payer OTHER, SELFPAY ==
--- NOTE | ~2021-06-12 | XR_ITS ---
EXAMINATION: XR HAND, LEFT CLINICAL INFORMATION: Pain COMPARISON: None TECHNIQUE: PA, lateral, and oblique views of the left hand. FINDINGS: Visualized portions of the distal radius and ulna demonstrate no fracture. No carpal, metacarpal or phalangeal fracture. No focal soft tissue swelling. No appreciable degenerative changes of the left hand. No radiopaque foreign body. XR/XR hand LT min 3V IMPRESSION: Unremarkable left hand.
== END 2021-06-12 10:30 | disposition home or self-care (01) ==
LOC: HO.XRAY 10:29
PROVIDERS: PCP Internal Medicine; Visit Provider Nurse Practitioner Family
DX: M79.7 Fibromyalgia (principal); M79.642 Pain in left hand
CPT/HCPCS: 73130; 99212

== ENCOUNTER 2021-06-20 08:18 | Outpatient (REF) | payer OTHER, SELFPAY ==
--- NOTE | ~2021-06-20 | US_ITS ---
EXAMINATION: US ABDOMEN LIMITED WITH LIVER ELASTOGRAPHY CLINICAL INFORMATION: Right upper quadrant pain COMPARISON: Previous CT of the abdomen and pelvis most recent August 2020 and abdominal ultrasound January 2019 TECHNIQUE: Real-time imaging of the abdominal viscera. Noninvasive ultrasound liver fibrosis assessment is performed using Jossy ElastPQ point quantification shear wave elastography (pSWE) with a C5-2 MHz transducer. Multiple elastography samples are obtained. FINDINGS: PANCREAS: The visualized pancreatic head and body are normal in appearance. The remainder of the pancreas is obscured from visualization by the overlying bowel gas. LIVER: Liver echotexture is increased. The liver is normal in size and contour. There is a 1.4 x 1.4 1.6 cm hypoechoic lesion in the right lobe of the liver. There is a 1 x 0.5 x 1 cm cyst in the very posterior left lobe. The lesion in the right lobe may be identified on CT for example axial image 46 series 3 and coronal reconstructed image 64. The left lobe liver lesion is not identified on prior exams. There is no biliary duct dilatation. The right lobe measures 14 cm in length. The left lobe measures 12 cm in length. Portal flow is normal/hepatopedal Shear wave liver elastography median stiffness is 1.3 m/s (reference: normal median stiffness is 1.3 m/s or less). IQR/median stiffness to assess sampling precision is 0.15 (reference: good quality data set is IQR/median stiffness of 0.15 or less). GALLBLADDER: Surgically removed. COMMON BILE DUCT: Normal in caliber measuring 0.3 cm in diameter. RIGHT KIDNEY: There are 2 cysts measuring 1.3 cm and 1.6 cm in the lower pole. No hydronephrosis. No renal calculi or focal parenchymal lesions. The kidney measures 11.6 cm in maximum dimension. FREE FLUID: None. US/US abdomen davidson w elastography IMPRESSION: 1. Impression: echogenic liver suggestive of fatty infiltration. 2 liver lesions not definitely appreciated on previous exams. Follow-up liver MRI should be considered. Right renal cysts. Limited visualization of the tail the pancreas. 2. Liver elastography: Adequate liver sampling. Normal liver stiffness. REFERENCE: Society of Radiologists in Ultrasound Liver Stiffness Thresholds (2020): LIVER STIFFNESS THRESHOLDS: *Liver Stiffness equal or less than 1.3 m/s: High probability of being normal. *Liver Stiffness less than 1.7 m/s: In the absence of other known clinical signs, rules out compensated advanced chronic liver disease. *Liver Stiffness 1.7-2.1 m/s: Suggestive of compensated advanced chronic liver disease but need further test for confirmation. *Liver Stiffness over 2.1 m/s: Rules in compensated advanced chronic liver disease. *Liver Stiffness over 2.4 m/s: Suggestive of clinically significant portal hypertension. QUALITY OF DATA SET: *IQR/Median value equal or less than 0.15 implies a quality data set. *IQR/Median value over 0.15 implies a poor quality data set. SIGNIFICANT CHANGE FROM PRIOR EXAM: Significant change if liver stiffness measurement is 10% or greater from prior exam. OTHER CONSIDERATIONS: The stage of liver fibrosis may be overestimated in the setting of acute hepatitis, liver inflammation, elevated liver function tests, hepatic vascular congestion, obstructive cholestasis, non-fasting state, and infiltrative diseases such as amyloidosis and lymphoma. In some patients with NAFLD, the liver stiffness thresholds for compensated advanced chronic liver disease may be lower. In causes other than viral hepatitis and NAFLD, liver stiffness thresholds are not well established.
== END 2021-06-20 08:19 | disposition home or self-care (01) ==
LOC: HO.US 08:18
PROVIDERS: PCP Internal Medicine; Visit Provider Internal Medicine Gastroenterology
DX: R10.11 Right upper quadrant pain (principal)
CPT/HCPCS: 76705; 76981

== ENCOUNTER 2021-07-08 15:33 | Outpatient (REF) | payer OTHER, SELFPAY ==
--- NOTE | ~2021-07-08 | MR_ITS ---
EXAMINATION: MR ABDOMEN WITHOUT AND WITH CONTRAST CLINICAL INFORMATION: Further evaluation of liver lesions noted on a recent ultrasound. COMPARISON: Abdominal ultrasound dated from 06/20/[address] abdomen/pelvis dated 08/29/2020. TECHNIQUE: MR abdomen was performed without and with use of 10 mL intravenous Gadavist gadolinium contrast. Postcontrast images are performed in multiphase dynamic sequences. Imaging was performed in 3 planes. FINDINGS: LUNG BASES: The visualized lung bases are unremarkable. LIVER, GALLBLADDER, AND BILIARY TREE: There is diffuse loss of signal on opposed phase gradient echo T1 weighted images consistent with diffuse hepatic steatosis. Otherwise, the liver is normal in size and shape. Corresponding to the liver lesion in question within the segment 6 of the right hepatic lobe, there is a 1.5 cm homogeneously arterially enhancing observation (100:87) that is isointense with respect to the background liver parenchyma in other phases. No other liver lesions. The previously described tiny cyst in the very posterior left lobe is not visualized in this examination. Prior cholecystectomy. There is no biliary ductal dilatation. PANCREAS: No focal abnormalities. The main pancreatic duct is nondilated. SPLEEN: Anterior splenule. ADRENAL GLANDS: Normal. KIDNEYS AND URETERS: The lower pole of both kidneys are out of the [id number] on axial images and only included in the sagittal and coronal T2 sequences. The visualized renal parenchyma on postcontrast images demonstrate symmetric enhancement. No hydronephrosis or perinephric fat stranding. On coronal T2 images, there is a 1.1 cm T2 bright lesion in the lower pole of the right kidney (3:12) which correlates with a tiny cyst described on the prior ultrasound. GASTROINTESTINAL TRACT: The visualized segments of the bowel are within normal limits. No ascites. ABDOMINAL WALL: No significant hernia is appreciated. LYMPH NODES: No lymphadenopathy by size criteria. VASCULAR: Unremarkable. OSSEOUS STRUCTURES: No acute or aggressive osseous abnormalities. MR/MR abdomen wo/w con IMPRESSION: The lesion in question on the most recent ultrasound corresponds to a 1.5 cm arterially enhancing observation in segment 6 which blends with the liver parenchyma in the other sequences and later phases of contrast. 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 If definite characterization is desired, further evaluation with an MRI utilizing Eovist could be obtained. If there is a known malignancy or chronic underlying liver disease, this lesion remains indeterminate and should be followed closely. Hepatic steatosis.
[2021-07-08 16:03] LABS: Blood Urea Nitrogen 17 mg/dL (9-16); Estimated Glomerular Filt Rate > 60
== END 2021-07-08 15:34 | disposition home or self-care (01) ==
LOC: HO.MRI 15:33
PROVIDERS: PCP Internal Medicine; Visit Provider Internal Medicine Gastroenterology
DX: R10.11 Right upper quadrant pain (principal); K76.9 Liver disease, unspecified; K21.9 Gastro-esophageal reflux disease without esophagitis
CPT/HCPCS: 36415; 74183; 82565; 84520; A9585

== ENCOUNTER 2021-07-22 12:59 | Outpatient (REF) | payer OTHER, SELFPAY ==
--- NOTE | ~2021-07-22 | US_ITS ---
EXAMINATION: US RETROPERITONEAL LIMITED (RENAL ONLY) CLINICAL INFORMATION: Calculus of kidney. COMPARISON: MRI abdomen 07/08/2021. Limited abdominal ultrasound with elastography 06/20/2021. TECHNIQUE: Real-time imaging of the kidneys. FINDINGS: RIGHT KIDNEY: 12.0 x 4.7 x 5.3 cm (SAG x AP x TRV). The kidney is normal in size, contour, and echogenicity. Renal cortical thickness is normal. No hydronephrosis. There is a 1.1 cm simple cyst in lower pole and a 0.4 cm nonobstructive calculus in the lower pole. LEFT KIDNEY: 10.7 x 5.5 x 4.2 cm (SAG x AP x TRV). The kidney is normal in size and echogenicity. Renal cortical thickness is normal. No calculi or focal parenchymal lesions. No hydronephrosis.Lobulated contour along the lateral surface, corresponding to normal renal parenchyma on the most recent MR and likely related with an anatomic variant. US/US renal BI IMPRESSION: Nonobstructive 0.4 cm calculus in the lower pole the right kidney. Otherwise, unremarkable study.
== END 2021-07-22 13:00 | disposition home or self-care (01) ==
LOC: HO.US 12:59
PROVIDERS: PCP Internal Medicine; Visit Provider Urology
DX: N20.0 Calculus of kidney (principal)
CPT/HCPCS: 76775

== ENCOUNTER → 2021-08-06 09:43 | Outpatient (BNVA) | payer OTHER, SELFPAY | PROVIDERS: PCP Internal Medicine ==

== ENCOUNTER 2021-08-07 09:08 | Outpatient (REF) | payer OTHER, SELFPAY ==
[2021-08-07 10:09] LABS: Alanine Aminotransferase 18 U/L (0-31); Albumin Level 4.2 g/dL (3.5-5.0); Alkaline Phosphatase 97 U/L (39-117); Anion Gap 14 (12-20); Aspartate Amino Transferase 18 U/L (5-31); Bilirubin Total 0.4 mg/dL (0.0-1.0); Blood Urea Nitrogen 13 mg/dL (9-16); Calcium 9.6 mg/dL (8.4-10.2); Carbon Dioxide 24 mmol/L (22-29); Chloride 109 mmol/L (96-108); Cholesterol 151 mg/dL; Estimated Glomerular Filt Rate > 60; Glucose Fasting 150 mg/dL (60-99); HDL Cholesterol 42 mg/dL; LDL Cholesterol Calculated 76 mg/dl; Potassium 4.1 mmol/L (3.3-5.1); Sodium 143 mmol/L (135-145); Total Protein 7.7 g/dL (6.5-8.0); Triglycerides 165 mg/dL
[2021-08-07 10:29] LABS: Creatinine Urine 435.43 mg/dL; Microalbum/Creatinine Ratio Ur 14.4 ug/mg cr
== END 2021-08-07 09:09 | disposition home or self-care (01) ==
LOC: HO.LAB 09:08
PROVIDERS: PCP Internal Medicine; Visit Provider Internal Medicine
DX: E78.5 Hyperlipidemia, unspecified (principal); E11.9 Type 2 diabetes mellitus without complications
CPT/HCPCS: 36415; 80053; 80061; 82043

== ENCOUNTER → 2021-08-20 12:59 | Outpatient (BNVA) | payer OTHER, SELFPAY | PROVIDERS: PCP Internal Medicine; Visit Provider Nurse Practitioner Family | DX: M25.50 Pain in unspecified joint (principal); M47.816 Spondylosis without myelopathy or radiculopathy, lumbar region; M79.18 Myalgia, other site; R10.11 Right upper quadrant pain; E11.40 Type 2 diabetes mellitus with diabetic neuropathy, unspecified | CPT/HCPCS: 99202 ==

== ENCOUNTER → 2021-09-18 12:56 | Outpatient (BNVA) | payer OTHER, SELFPAY | PROVIDERS: PCP Internal Medicine; Visit Provider Nurse Practitioner Family | DX: M25.50 Pain in unspecified joint (principal); M47.816 Spondylosis without myelopathy or radiculopathy, lumbar region; M79.18 Myalgia, other site; R10.11 Right upper quadrant pain; E11.40 Type 2 diabetes mellitus with diabetic neuropathy, unspecified | CPT/HCPCS: 99212 ==

== ENCOUNTER 2021-10-18 11:58 | Outpatient (REF) | payer OTHER, SELFPAY | END 2021-10-18 11:59 | disposition home or self-care (01) | LOC: HO.US 11:58 | PROVIDERS: Visit Provider Internal Medicine Gastroenterology | DX: Z13.89 Encounter for screening for other disorder (principal) ==

== ENCOUNTER 2021-10-29 12:57 | Outpatient (REF) | payer OTHER, SELFPAY ==
[2021-10-29 14:16] LABS: Alanine Aminotransferase 16 U/L (0-31); Albumin Level 4.1 g/dL (3.5-5.0); Alkaline Phosphatase 96 U/L (39-117); Anion Gap 13 (12-20); Aspartate Amino Transferase 17 U/L (5-31); Bilirubin Total 0.5 mg/dL (0.0-1.0); Blood Urea Nitrogen 13 mg/dL (9-16); Calcium 9.6 mg/dL (8.4-10.2); Carbon Dioxide 25 mmol/L (22-29); Chloride 107 mmol/L (96-108); Cholesterol 136 mg/dL; Estimated Glomerular Filt Rate > 60; Glucose Random 141 mg/dL (60-115); HDL Cholesterol 45 mg/dL; LDL Cholesterol Calculated 65 mg/dl; Potassium 4.2 mmol/L (3.3-5.1); Sodium 141 mmol/L (135-145); Total Protein 7.3 g/dL (6.5-8.0); Triglycerides 132 mg/dL
[2021-10-29 14:38] LABS: TSH reflex Free T4 0.36 uIU/mL (0.32-4.0); Vitamin D 25-OH Total 11.5 ng/mL (>30)
[2021-10-29 14:54] LABS: Vitamin B12 152 pg/mL (200-900)
[2021-11-02 13:15] LABS: Vitamin D 25-OH, D2 9 ng/mL; Vitamin D 25-OH, D3 6 ng/mL; Vitamin D 25-OH, Total 15 ng/mL (30-100)
== END 2021-10-29 12:58 | disposition home or self-care (01) ==
LOC: HO.LAB 12:57
PROVIDERS: Nurse Practitioner Family; PCP Internal Medicine; Visit Provider Internal Medicine Gastroenterology
DX: R79.89 Other specified abnormal findings of blood chemistry (principal); E53.8 Deficiency of other specified B group vitamins; E11.9 Type 2 diabetes mellitus without complications; E03.9 Hypothyroidism, unspecified; E78.2 Mixed hyperlipidemia
CPT/HCPCS: 36415; 80053; 80061; 82306; 82607; 82746; 84443

== ENCOUNTER 2021-11-07 11:13 | Outpatient (REF) | payer OTHER, SELFPAY ==
--- NOTE | ~2021-11-07 | MR_ITS ---
EXAMINATION: MR ABDOMEN WITHOUT AND WITH CONTRAST CLINICAL INFORMATION: Liver disease. Liver lesion. COMPARISON: 07/08/2021 TECHNIQUE: MR abdomen was performed without and with use of 9 mL intravenous Eovist gadolinium contrast. Postcontrast images are performed in multiphase dynamic sequences. Imaging was performed in 3 planes. FINDINGS: LUNG BASES: The visualized lung bases are unremarkable. LIVER, GALLBLADDER, AND BILIARY TREE: The liver is normal in size, smooth in contour, with dropout of signal on out of phase imaging, consistent with hepatic steatosis. No biliary ductal dilatation. Once again seen at the inferior aspect of segment 6 of the liver there is an arterially enhancing lesion measuring 1.3 cm. This is faintly hyperintense compared to the surrounding liver on the subsequent phases. On the delayed phase, this is faintly hyperintense in signal compared to the surrounding liver parenchyma. This appearance is consistent with focal nodular hyperplasia. No new liver lesion. The gallbladder is absent. PANCREAS: Unremarkable. SPLEEN: Normal. ADRENAL GLANDS: Normal. KIDNEYS AND URETERS: The kidneys are normal in size, shape, and enhance symmetrically. No hydronephrosis. No perinephric stranding. GASTROINTESTINAL TRACT: No bowel obstruction. No ascites or fluid collection. ABDOMINAL WALL: No significant hernia is appreciated. LYMPH NODES: No lymphadenopathy. VASCULAR: Unremarkable. OSSEOUS STRUCTURES: Marrow signal normal. MR/MR abdomen wo/w con IMPRESSION: 1.3 cm arterially enhancing lesion in the right lobe of the liver, which remains slightly hyperintense in signal on delayed post contrast imaging. This is therefore consistent with focal nodular hyperplasia. Hepatic steatosis.
[2021-11-07] MEDS: Gadoxetate Disodium 10 ML VIAL IVPUSH (12:53)
[2021-11-08 12:11] LABS: Glucose, Whole Blood 90 mg/dL (60-115)
[2021-11-11 08:02] LABS: Glucose, Whole Blood 90 mg/dL (60-115)
== END 2021-11-07 11:14 | disposition home or self-care (01) ==
LOC: HO.MRI 11:13
PROVIDERS: Visit Provider Internal Medicine Gastroenterology
DX: K76.9 Liver disease, unspecified (principal)
CPT/HCPCS: 74183; 82947; A9581

== ENCOUNTER 2021-12-25 09:05 | Outpatient (REF) | payer OTHER, SELFPAY ==
[2021-12-25 10:57] LABS: Alanine Aminotransferase 19 U/L (0-31); Albumin Level 4.3 g/dL (3.5-5.0); Alkaline Phosphatase 100 U/L (39-117); Anion Gap 15 (12-20); Aspartate Amino Transferase 19 U/L (5-31); Bilirubin Total 0.5 mg/dL (0.0-1.0); Blood Urea Nitrogen 10 mg/dL (9-16); Calcium 9.4 mg/dL (8.4-10.2); Carbon Dioxide 25 mmol/L (22-29); Chloride 108 mmol/L (96-108); Estimated Glomerular Filt Rate > 60; Glucose Random 146 mg/dL (60-115); Potassium 4.6 mmol/L (3.3-5.1); Sodium 143 mmol/L (135-145); Total Protein 7.5 g/dL (6.5-8.0)
[2021-12-25 11:04] LABS: Vitamin D 25-OH Total 23.7 ng/mL (>30)
[2021-12-25 11:37] LABS: Folate 16.7 ng/mL (> or = 4.0); Vitamin B12 741 pg/mL (200-900)
== END 2021-12-25 09:06 | disposition home or self-care (01) ==
LOC: HO.LAB 09:05
PROVIDERS: Internal Medicine Gastroenterology; PCP Internal Medicine; Visit Provider Nurse Practitioner Family
DX: K75.81 Nonalcoholic steatohepatitis (NASH) (principal); R79.89 Other specified abnormal findings of blood chemistry; E53.8 Deficiency of other specified B group vitamins
CPT/HCPCS: 36415; 80053; 82306; 82607; 82746

== ENCOUNTER 2021-12-26 14:04 | Outpatient (REF) | payer OTHER, SELFPAY ==
[2021-12-27 07:32] LABS: Syphilis Screen Nonreactive (Nonreactive)
[2021-12-27 07:41] LABS: HBc Num1 0.11 S/CO (0.00-0.79); HIV AB/AG Nonreactive (Nonreactive); HIV Num 1 0.11 S/CO (0.00-0.99); Hepatitis B Core Antibody Nonreactive (Nonreactive); ~HepC Num1 0.09 S/CO (0.00-0.79); ~Hepatitis C Antibody Nonreactive (Nonreactive)
== END 2021-12-26 14:05 | disposition home or self-care (01) ==
LOC: HO.LAB 14:04
PROVIDERS: PCP Internal Medicine; Visit Provider Advanced Practice Midwife
DX: Z11.4 Encounter for screening for human immunodeficiency virus [HIV] (principal); Z20.2 Contact with and (suspected) exposure to infections with a predominantly sexual mode of transmission
CPT/HCPCS: 36415; 86704; 86780; 86803; 87389

== ENCOUNTER 2022-01-02 09:53 | Outpatient (REF) | payer OTHER, SELFPAY ==
[2022-01-02 11:12] LABS: Creatinine Urine 389.38 mg/dL; Microalbum/Creatinine Ratio Ur 11.8 ug/mg cr
[2022-01-02 11:15] LABS: Alanine Aminotransferase 17 U/L (0-31); Albumin Level 4.4 g/dL (3.5-5.0); Alkaline Phosphatase 103 U/L (39-117); Anion Gap 13 (12-20); Aspartate Amino Transferase 17 U/L (5-31); Bilirubin Total 0.6 mg/dL (0.0-1.0); Blood Urea Nitrogen 11 mg/dL (9-16); Calcium 9.5 mg/dL (8.4-10.2); Carbon Dioxide 27 mmol/L (22-29); Chloride 107 mmol/L (96-108); Cholesterol 154 mg/dL; Estimated Glomerular Filt Rate > 60; Glucose Fasting 137 mg/dL (60-99); HDL Cholesterol 48 mg/dL; LDL Cholesterol Calculated 73 mg/dl; Potassium 4.2 mmol/L (3.3-5.1); Sodium 143 mmol/L (135-145); Total Protein 7.7 g/dL (6.5-8.0); Triglycerides 166 mg/dL
[2022-01-02 11:25] LABS: Vitamin D 25-OH Total 23.6 ng/mL (>30)
[2022-01-02 11:35] LABS: Thyroid Stimulating Hormone 0.69 uIU/mL (0.32-4.0)
== END 2022-01-02 09:54 | disposition home or self-care (01) ==
LOC: HO.LAB 09:53
PROVIDERS: Internal Medicine Gastroenterology; Nurse Practitioner Family; PCP Internal Medicine; Visit Provider Internal Medicine
DX: E11.40 Type 2 diabetes mellitus with diabetic neuropathy, unspecified (principal); E78.5 Hyperlipidemia, unspecified; E03.9 Hypothyroidism, unspecified; R79.89 Other specified abnormal findings of blood chemistry
CPT/HCPCS: 36415; 80053; 80061; 82043; 82306; 84443

== ENCOUNTER 2022-01-06 12:54 | Outpatient (REF) | payer OTHER, SELFPAY ==
--- NOTE | ~2022-01-06 | MM_ITS ---
EXAMINATION: MM SCREENING DIGITAL BREAST TOMOSYNTHESIS, BILATERAL CLINICAL INFORMATION: Screening. Asymptomatic. The lifetime risk of breast cancer based on the Tyrer-Cuzick Model is 8%. COMPARISON: Mammography: 01/04/2021, 05/08/2020, 03/04/2019, outside mammography 03/12/2018 ([place], [place]). TECHNIQUE: Digital breast tomosynthesis is performed in both the craniocaudal and mediolateral oblique views along with computer-aided detection (CAD). Synthesized 2D images are generated from the tomosynthesis. FINDINGS: There are scattered areas of fibroglandular density (ACR BI-RADS breast composition Category b). Parenchymal pattern is similar to prior studies. Minor bilateral parenchymal asymmetries are stable. There is no developing density or interval mass or architectural abnormality. No abnormal calcifications. The axilla and skin contours are unremarkable. MM/MM tomosynthesis screening BI IMPRESSION: No mammographic evidence of malignancy. ASSESSMENT: BI-RADS 2: Benign RECOMMENDATION: Routine annual mammography screening. This patient's information was entered into a reminder system with a target due date for their next mammogram.
== END 2022-01-06 12:55 | disposition home or self-care (01) ==
LOC: HO.MAMMO 12:54
PROVIDERS: PCP Internal Medicine; Visit Provider Internal Medicine
DX: Z12.31 Encounter for screening mammogram for malignant neoplasm of breast (principal)
CPT/HCPCS: 77063; 77067

== ENCOUNTER 2022-01-17 12:06 | Outpatient (REF) | payer OTHER, SELFPAY ==
[2022-01-17 13:59] LABS: Blood Urea Nitrogen 14 mg/dL (9-16); Estimated Glomerular Filt Rate > 60
== END 2022-01-17 12:07 | disposition home or self-care (01) ==
LOC: HO.LAB 12:06
PROVIDERS: PCP Internal Medicine; Visit Provider Internal Medicine Gastroenterology
DX: R10.13 Epigastric pain (principal)
CPT/HCPCS: 36415; 82565; 84520

== ENCOUNTER 2022-01-22 13:55 | Outpatient (REF) | payer OTHER, SELFPAY ==
--- NOTE | ~2022-01-22 | US_ITS ---
EXAMINATION: US RETROPERITONEAL LIMITED (RENAL ONLY) CLINICAL INFORMATION: Kidney stone. COMPARISON: MR abdomen 11/07/2021. Ultrasound renal 07/22/2021. Ultrasound abdomen 06/20/2021. X-ray KUB 12/11/2020. CT abdomen pelvis 08/29/2020. TECHNIQUE: Real-time imaging of the kidneys. FINDINGS: RIGHT KIDNEY: 11.8 x 4.8 x 5.9 cm (SAG x AP x TRV). The kidney is normal in size, contour, and echogenicity. Renal cortical thickness is normal. No renal calculi or hydronephrosis. There is an anechoic cyst in the midpole measuring 0.90 x 0.97 x 0.68 cm. LEFT KIDNEY: 11.5 x 5.0 x 5.0 cm (SAG x AP x TRV). The kidney is normal in size, contour, and echogenicity. Renal cortical thickness is normal. No focal parenchymal lesions or hydronephrosis. There is an echogenic area measuring 0.30 x 0.1 x 0.25 cm. Question vascular calcification or tiny stone. US/US renal BI IMPRESSION: 1. Anechoic cyst midpole right kidney. 2. Likely vascular calcification left kidney. 3. There is no caliectasis or hydronephrosis.
== END 2022-01-22 13:56 | disposition home or self-care (01) ==
LOC: HO.US 13:55
DX: N20.0 Calculus of kidney (principal)
CPT/HCPCS: 76775

== ENCOUNTER → 2022-01-28 13:57 | Outpatient (BNVA) | payer OTHER, SELFPAY | PROVIDERS: PCP Internal Medicine | DX: N20.0 Calculus of kidney (principal) | CPT/HCPCS: 99212 ==

== ENCOUNTER 2022-01-31 10:57 | Emergency (ER) | payer OTHER, SELFPAY ==
--- NOTE | 2022-01-31 | ECG_ITS ---
Test Reason : chest pain Blood Pressure : / mmHG Vent. Rate : 089 BPM Atrial Rate : 089 BPM P-R Int : 152 ms QRS Dur : 080 ms QT Int : 356 ms P-R-T Axes : 025 003 040 degrees QTc Int : 433 ms Normal sinus rhythm Normal ECG When compared with ECG of 13-MAR-2021 14:43, No significant change was found Referred By: Generic ED Physician Electronically Signed By:Panfilo Romero
--- NOTE | ~2022-01-31 | XR_ITS ---
EXAMINATION: XR CHEST CLINICAL INFORMATION: Shortness of breath COMPARISON: March 26, 2021 TECHNIQUE: AP portable view of the chest was obtained. FINDINGS: No significant abnormality is noted involving the heart, lungs, mediastinum, bony thorax or soft tissues. XR/XR chest 1V IMPRESSION: No acute disease.
[2022-01-31 11:05] VITALS: BP 149/82; PULSE 92; RESP 20; TEMP 36.7; O2SAT 96; BMI 34.5
[2022-01-31 12:08] LABS: MANUAL DIFF FLAG NO
[2022-01-31 12:10] LABS: Basophils Percent Auto 0.3 % (0-2); Eosinophils Absolute Auto 0.1 X10*3/uL (0.0-0.4); Eosinophils Percent Auto 3.2 % (0-4); Hematocrit 34.7 % (37.0-47.0); Hemoglobin 11.5 g/dl (12.0-16.0); Imm Gran Abs Auto 0.01 X10*3/uL (0.00-0.03); Imm Gran Pct Auto 0.3 % (0.0-0.4); Lymphocytes Absolute Auto 1.2 X10*3/uL (1.2-4.9); Lymphocytes Percent Auto 32.9 % (20-40); Mean Corpuscular HGB Conc 33.1 g/dl (31.0-35.0); Mean Corpuscular Hemoglobin 29.7 pg (27.0-33.0); Mean Corpuscular Volume 89.7 fL (80.0-98.0); Mean Platelet Volume 9.6 fL (9.4-12.3); Monocytes Absolute Auto 0.2 X10*3/uL (0.1-1.2); Monocytes Percent Auto 5.7 % (2-11); Neutrophils Absolute Auto 2.1 x10*3/uL (2.0-8.3); Neutrophils Percent Auto 57.6 % (45-73); Platelet Count 218 X10*3/uL (160-400); Red Blood Count 3.87 X10*6/uL (4.20-5.50); Red Cell Distribution Width 13.1 % (11.0-16.0); White Blood Count 3.7 X10*3/uL (4.8-10.8)
[2022-01-31 12:29] LABS: Troponin-I High Sensitivity < 3.5 ng/L (<3.5-17.0)
[2022-01-31 12:30] LABS: Anion Gap 10 (12-20); Blood Urea Nitrogen 13 mg/dL (9-16); Carbon Dioxide 26 mmol/L (22-29); Chloride 112 mmol/L (96-108); Creatinine Clr Calc Pharmacy 77.9; Estimated Glomerular Filt Rate > 60; Glucose Random 89 mg/dL (60-115); Potassium 4.2 mmol/L (3.3-5.1); Sodium 144 mmol/L (135-145)
--- NOTE | 2022-01-31 14:20 | ED_ITS ---
HPI - Chest Pain General Chief Complaint: Chest Pain Stated Complaint: DIFFICULT BREATHING, CHEST PAIN Time Seen by Provider: 01/31/22 14:20 History of Present Illness HPI narrative: Patient complains of a week of increased burning pain radiating from her upper abdomen into her chest similar to prior episodes of GERD This had been controlled with pantoprazole but now the symptoms have returned, they do radiate into the chest and when she has these symptoms she feels mild shortness of breath The episodes have been happening frequently for the past week and are not related to exertion, no sweating, no fainting or feeling faint no palpitations The symptoms she has had for the last week are similar to the symptoms she had before she started pantoprazole No vomiting, no anorexia no fever no chills no dysuria no diarrhea no blood in the stool Nurse's note stated chest pain and shortness of breath, patient says the chest pain is only when she has the burning epigastric pain radiating up into her chest Related Data Home Medications Medication Instructions Recorded Confirmed buspirone 5 mg tablet 5 mg PO TID 05/14/20 01/10/22 clonazepam 0.5 mg tablet 0.5 mg PO Q OTHER DAY PRN Anxiety 05/14/20 01/10/22 folic acid 1 mg tablet 1 mg PO DAILY 05/14/20 01/10/22 syringe with needle 3 mL 25 x 5/8 #1 ea 05/14/20 01/10/22 zolpidem 10 mg tablet 10 mg PO BEDTIME PRN Insomnia 05/14/20 01/10/22 venlafaxine 37.5 mg 37.5 mg PO DAILY 08/06/21 01/10/22 capsule,extended release 24 hr (Effexor XR) Previous Rx's Medication Instructions Recorded ibuprofen 600 mg tablet 600 mg PO TID PRN fever or pain 90 07/03/20 days #270 tabs pyridoxine (vitamin B6) 100 mg 100 mg PO DAILY 90 days #90 tabs 12/21/20 tablet psyllium husk 3.4 gram/5.4 gram 1 tbsp PO BID #660 grams 12/25/20 oral powder (Metamucil) simethicone 80 mg chewable tablet 160 mg PO BID-TID PRN abdominal 12/25/20 (Gas Relief (simethicone)) distention #90 tabs sucralfate 100 mg/mL oral 10 ml PO BID #420 mL 02/07/21 suspension blood sugar diagnostic #30 ea 04/23/21 lancets 28 gauge (FreeStyle #100 ea 05/13/21 Lancets) blood sugar diagnostic (FreeStyle #200 ea 05/15/21 Lite Strips) syringe with needle, safety 3 mL #1 ea 05/15/21 25 gauge x 5/8 (BD Safety-Nisha Detachable Needle) nabumetone 500 mg tablet 500 mg PO BID #28 tabs 05/23/21 lidocaine 4 % topical patch 1 patch topical DAILY PRN pain #15 08/15/21 (Aspercreme (lidocaine)) ea tizanidine 2 mg tablet 2 mg PO BEDTIME PRN muscle 08/23/21 spasticity #30 tabs atorvastatin 40 mg tablet 40 mg PO BEDTIME 90 days #90 tabs 09/25/21 dicyclomine 20 mg tablet 20 mg PO BID #60 tabs 10/01/21 glipizide 5 mg tablet 5 mg PO DAILY 90 days #90 tabs 10/06/21 cyanocobalamin (vitamin B-12) 1,000 mcg PO DAILY #90 caps 10/30/21 1,000 mcg capsule paroxetine HCl 40 mg tablet 40 mg PO QAM #30 tabs 10/30/21 cholecalciferol (vitamin D3) 25 25 mcg PO DAILY 90 days #90 caps 11/18/21 mcg (1,000 unit) capsule ondansetron 4 mg disintegrating 4 mg PO BID #60 tabs 11/27/21 tablet gabapentin 300 mg capsule 300 mg PO DAILY 90 days #90 caps 12/02/21 pantoprazole 40 mg tablet,delayed 40 mg PO DAILY #90 tabs 12/02/21 release Synthroid 150 mcg tablet 150 mcg PO DAILY 90 days #90 tabs 12/09/21 (levothyroxine) docusate sodium 100 mg capsule 100 mg PO DAILY PRN constipation 12/20/21 90 days #90 caps fenofibrate 54 mg tablet 54 mg PO DAILY 90 days #90 tabs 12/22/21 acetaminophen 500 mg tablet 500 - 1,000 mg PO Q6H PRN pain 30 12/31/21 days #120 tabs famotidine 20 mg tablet (Pepcid) 20 mg PO BEDTIME PRN For reflux 01/31/22 #10 tabs Allergies Allergy/AdvReac Type Severity Reaction Status Date / Time clindamycin Allergy Intermediate Rash Verified 01/28/22 14:00 crab Allergy Intermediate Itch Verified 01/28/22 14:00 seafood Allergy Intermediate Itch,Rash Verified 01/28/22 14:00 Sulfa (Sulfonamide Allergy Intermediate headache Verified 01/28/22 14:00 Antibiotics) milk Allergy Unknown Verified 01/28/22 14:00 shrimp Allergy Unknown Verified 01/28/22 14:00 wheat Allergy Unknown Verified 01/28/22 14:00 SEASONAL ALLERGIES Allergy Mild RUNNY Uncoded 01/28/22 14:00 NOSE/SNEEZING Review of Systems Review of Systems: Positive for burning epigastric pain radiating into the chest Negatives are no fever no chills no dizziness or weakness no fainting no feeling faint no palpitations no headache no difficulty breathing or swallowing no neck pain no stiff neck no no difficulty breathing or chest pain now no vomiting no diarrhea no blood in the stool no dysuria no rash Yes all other systems are reviewed and are negative PMFSH Past Medical History Source: nursing notes reviewed Medical History (Updated 01/31/22 @ 16:17 by NICOLÁS Gordon) Anxiety and depression B12 deficiency Colon polyps COVID-19 vaccine administered Diabetes Dyslipidemia GERD (gastroesophageal reflux disease) History of postoperative nausea and vomiting Hx of gastritis Hx of renal calculi Hypothyroid Mild recurrent major depression Mixed hyperlipidemia Osteoarthritis of right knee Polyarthralgia Renal calculi Renal cyst Surgical History H/O thyroidectomy H/O: hysterectomy History of cholecystectomy History of esophagogastroduodenoscopy (EGD) History of tubal ligation Hx of colonoscopy Hx of lithotripsy Family History Family History Father Hx of heat stroke History of dementia Mother Hx of benign gastric tumor Family history of high blood pressure Hx of type 1 diabetes mellitus Colon cancer Maternal Uncle Pancreatic cancer Daughter Thyroid cancer Maternal Aunt Ovarian cancer Social History Social History Household Members: None Housing: Apartment Are you a primary child care attendant to a significant other at home: No Do you presently have visiting nurse or other home services: No Alcohol intake: never Patient Tobacco Use Status: Never used Tobacco e-Cigarette/Vaping Use: Never Used Second Hand Smoke Exposure: Yes Advance Directives: No Advance Directives Information Provided: Yes service: No Current occupational status: disabled Cognitive needs: No Hearing needs: No Vision needs: No Physical Exam Vital Signs: Vital Signs: Last Vital Signs Temp 98.1 F 01/31/22 11:05 Pulse 92 01/31/22 11:05 Resp 20 01/31/22 11:05 BP 149/82 H 01/31/22 11:05 Pulse Ox 96 01/31/22 11:05 O2 Del Method 01/31/22 11:05 BMI result Body Mass Index 34.5 General appearance is no acute distress The eyes anicteric no pallor The pharynx is clear with moist mucous membranes Neck is supple Chest clear to auscultation bilateral no chest wall tenderness Heart no murmur Abdomen is soft and nontender Rectal exam was guaiac-negative, nontender no masses palpated Extremities full range of motion x4 Neuro no gross focal deficits Course Course Course Narrative: Patient symptoms are consistent with acid reflux, as it is the same as prior episodes and the description of a burning sensation radiating up with some reflux into her throat and sometimes into her nose are likely reflux To rule out cardiac disease EKG was done EKG was a normal sinus rhythm with a rate of 89 normal UT normal QRS, no ST elevations no acute ischemic changes Patient had no exertional symptoms and the chest pain from reflex radiating upwards was similar to many prior episodes that had previously been controlled with pantoprazole CB see showed hemoglobin hematocrit 11 and 34, rectal exam was negative for any bleeding, patient does not feel dizzy or weak and has no symptoms of anemia, will follow with primary doctor Other lab evaluation was unremarkable Pepcid will be added at night for 10 days once a day to see if that reduces her reflux symptoms, she will contact her GI doctor, and will continue her pantoprazole MDM - Chest Pain Lab Data Attestation: I reviewed the patient's lab results. Result diagrams: 01/31/22 12:03 01/31/22 12:03 Labs: Lab Results 01/31/22 01/31/22 01/31/22 Range/Units 12:03 12:03 12:03 WBC 3.7 L (4.8-10.8) X10*3/uL RBC 3.87 L (4.20-5.50) X10*6/uL Hgb 11.5 L (12.0-16.0) g/dl Hct 34.7 L (37.0-47.0) % MCV 89.7 (80.0-98.0) fL MCH 29.7 (27.0-33.0) pg MCHC 33.1 (31.0-35.0) g/dl RDW 13.1 (11.0-16.0) % Plt Count 218 (160-400) X10*3/uL MPV 9.6 (9.4-12.3) fL Immature Gran % (Auto) 0.3 (0.0-0.4) % Neut % (Auto) 57.6 (45-73) % Lymph % (Auto) 32.9 (20-40) % [place] % (Auto) 5.7 (2-11) % Eos % (Auto) 3.2 (0-4) % Baso % (Auto) 0.3 (0-2) % Lymph # (Auto) 1.2 (1.2-4.9) X10*3/uL [place] # (Auto) 0.2 (0.1-1.2) X10*3/uL Eos # (Auto) 0.1 (0.0-0.4) X10*3/uL Baso # (Auto) 0.0 (0.0-0.2) X10*3/uL Abs Immat Gran (auto) 0.01 (0.00-0.03) X10*3/uL Absolute Neuts (auto) 2.1 (2.0-8.3) x10*3/uL Absolute Nucleated RBC 0.000 (0.0-0.012) X10*3/uL Nucleated RBC % (auto) 0.0 (0.0-0.2) /100WBC Sodium 144 (135-145) mmol/L Potassium 4.2 (3.3-5.1) mmol/L Chloride 112 H (96-108) mmol/L Carbon Dioxide 26 (22-29) mmol/L Anion Gap 10 L (12-20) BUN 13 (9-16) mg/dL Creatinine 0.80 (0.5-1.4) mg/dL Estim Creat Clear Calc 77.9 Estimated GFR > 60 Random Glucose 89 (60-115) mg/dL Calcium 9.0 (8.4-10.2) mg/dL Total Bilirubin 0.4 (0.0-1.0) mg/dL Direct Bilirubin 0.2 (0.0-0.5) mg/dL AST 17 (5-31) U/L ALT 18 (0-31) U/L Alkaline Phosphatase 93 (39-117) U/L Troponin I High Sens < 3.5 (<3.5-17.0) ng/L Total Protein 7.2 (6.5-8.0) g/dL Albumin 4.2 (3.5-5.0) g/dL Lipase 13 (8-78) U/L 01/31/22 Range/Units 14:58 WBC (4.8-10.8) X10*3/uL RBC (4.20-5.50) X10*6/uL Hgb (12.0-16.0) g/dl Hct (37.0-47.0) % MCV (80.0-98.0) fL MCH (27.0-33.0) pg MCHC (31.0-35.0) g/dl RDW (11.0-16.0) % Plt Count (160-400) X10*3/uL MPV (9.4-12.3) fL Immature Gran % (Auto) (0.0-0.4) % Neut % (Auto) (45-73) % Lymph % (Auto) (20-40) % [place] % (Auto) (2-11) % Eos % (Auto) (0-4) % Baso % (Auto) (0-2) % Lymph # (Auto) (1.2-4.9) X10*3/uL [place] # (Auto) (0.1-1.2) X10*3/uL Eos # (Auto) (0.0-0.4) X10*3/uL Baso # (Auto) (0.0-0.2) X10*3/uL Abs Immat Gran (auto) (0.00-0.03) X10*3/uL Absolute Neuts (auto) (2.0-8.3) x10*3/uL Absolute Nucleated RBC (0.0-0.012) X10*3/uL Nucleated RBC % (auto) (0.0-0.2) /100WBC Sodium (135-145) mmol/L Potassium (3.3-5.1) mmol/L Chloride (96-108) mmol/L Carbon Dioxide (22-29) mmol/L Anion Gap (12-20) BUN (9-16) mg/dL Creatinine (0.5-1.4) mg/dL Estim Creat Clear Calc Estimated GFR Random Glucose (60-115) mg/dL Calcium (8.4-10.2) mg/dL Total Bilirubin (0.0-1.0) mg/dL Direct Bilirubin (0.0-0.5) mg/dL AST (5-31) U/L ALT (0-31) U/L Alkaline Phosphatase (39-117) U/L Troponin I High Sens < 3.5 (<3.5-17.0) ng/L Total Protein (6.5-8.0) g/dL Albumin (3.5-5.0) g/dL Lipase (8-78) U/L Discharge Plan Discharge Clinical Impression: Chest pain due to GERD Patient Disposition: Home, Self-Care Additional Instructions: Our workup today did not show any dangerous condition Her EKG and blood tests for heart attack or negative, the pain you are having is similar to prior reflux and is most likely a flare up of her reflux Continue your pantoprazole for reflux and we are adding 10 days of Pepcid only at night as well as Maalox to be used only if you have reflux symptoms Maalox is inexpensive and available [id number] Do not take your muscle relaxer tizanidine while you using Pepcid Contact your regulatory compliance manager for an appointment Return to the ER any time for vomiting difficulty breathing worse pain any worse condition or any concerns Prescriptions: New famotidine [Pepcid] 20 mg tablet 20 mg PO BEDTIME PRN (Reason: For reflux) Qty: 10 0RF No Action ibuprofen 600 mg tablet 600 mg PO TID PRN (Reason: fever or pain) 90 Days Qty: 270 1RF Hold Instructions: new NSAIDs short term sucralfate 100 mg/mL suspension 10 ml PO BID Qty: 420 2RF (DME) blood sugar diagnostic Strip See Rx Instructions Not Applicable BID Qty: 30 11RF Rx Instructions: Use 1 test strip once a day (DME) lancets [FreeStyle Lancets] 28 gauge misc See Rx Instructions .ROUTE .MEDSUPPLY Qty: 100 3RF Rx Instructions: Test 2 times daily (DME) FreeStyle Lite Strips Strip See Rx Instructions .Route Qty: 200 3RF Rx Instructions: Test 2 times daily (DME) BD Safety-Nisha Detachable Needl 3 mL 25 gauge x 5/8 syringe See Rx Instructions .ROUTE .MEDSUPPLY Qty: 1 11RF Rx Instructions: once a month tizanidine 2 mg tablet 2 mg PO BEDTIME PRN (Reason: muscle spasticity) Qty: 30 0RF Rx Instructions: start with 1/2 tab as medication can be sedating atorvastatin 40 mg tablet 40 mg PO BEDTIME 90 Days Qty: 90 1RF dicyclomine 20 mg tablet 20 mg PO BID Qty: 60 3RF glipizide 5 mg tablet 5 mg PO DAILY 90 Days Qty: 90 2RF paroxetine HCl 40 mg tablet 40 mg PO QAM Qty: 30 6RF cyanocobalamin (vitamin B-12) 1,000 mcg capsule 1,000 mcg PO DAILY Qty: 90 0RF cholecalciferol (vitamin D3) 25 mcg (1,000 unit) capsule 25 mcg PO DAILY 90 Days Qty: 90 0RF ondansetron 4 mg tablet,disintegrating 4 mg PO BID Qty: 60 1RF gabapentin 300 mg capsule 300 mg PO DAILY 90 Days Qty: 90 0RF pantoprazole 40 mg tablet,delayed release (DR/EC) 40 mg PO DAILY Qty: 90 1RF levothyroxine [Synthroid] 150 mcg tablet 150 mcg PO DAILY 90 Days Qty: 90 1RF docusate sodium 100 mg capsule 100 mg PO DAILY PRN (Reason: constipation) 90 Days Qty: 90 0RF fenofibrate 54 mg tablet 54 mg PO DAILY 90 Days Qty: 90 2RF buspirone 5 mg tablet 5 mg PO TID (DME) BD Luer-Nisha Syringe 3 mL 25 x 5/8 syringe See Rx Instructions .ROUTE .MEDSUPPLY Qty: 1 Rx Instructions: As directed folic acid 1 mg tablet 1 mg PO DAILY zolpidem 10 mg tablet 10 mg PO BEDTIME PRN (Reason: Insomnia) clonazepam 0.5 mg tablet 0.5 mg PO Q OTHER DAY PRN (Reason: Anxiety) lidocaine [Aspercreme (lidocaine)] 4 % adhesive patch,medicated 1 patch topical DAILY PRN (Reason: pain) Qty: 15 0RF nabumetone 500 mg tablet 500 mg PO BID Qty: 28 0RF acetaminophen 500 mg tablet 500 - 1,000 mg PO Q6H PRN (Reason: pain) 30 Days Qty: 120 0RF pyridoxine (vitamin B6) 100 mg tablet 100 mg PO DAILY 90 Days Qty: 90 1RF Metamucil 3.4 gram/5.4 gram powder 1 tbsp PO BID Qty: 660 2RF Rx Instructions: mix into at least 8 oz of water or juice before administering simethicone [Gas Relief (simethicone)] 80 mg tablet,chewable 160 mg PO BID-TID PRN (Reason: abdominal distention) Qty: 90 1RF venlafaxine [Effexor XR] 37.5 mg capsule,extended release 24hr 37.5 mg PO DAILY
[2022-01-31 15:30] LABS: Troponin-I High Sensitivity < 3.5 ng/L (<3.5-17.0)
[2022-01-31 15:51] LABS: Alanine Aminotransferase 18 U/L (0-31); Albumin Level 4.2 g/dL (3.5-5.0); Alkaline Phosphatase 93 U/L (39-117); Aspartate Amino Transferase 17 U/L (5-31); Bilirubin Direct 0.2 mg/dL (0.0-0.5); Bilirubin Total 0.4 mg/dL (0.0-1.0); Lipase 13 U/L (8-78); Total Protein 7.2 g/dL (6.5-8.0)
[2022-01-31 16:00] VITALS: BP 122/86; PULSE 76; RESP 16; TEMP 36.4; O2SAT 97
== END 2022-01-31 16:58 | disposition home or self-care (01) ==
PROVIDERS: Physician Assistant Medical; Emergency Provider Internal Medicine; PCP Internal Medicine
DX: R07.89 Other chest pain (principal); K21.9 Gastro-esophageal reflux disease without esophagitis; R10.13 Epigastric pain; E11.9 Type 2 diabetes mellitus without complications; E78.5 Hyperlipidemia, unspecified; Z90.49 Acquired absence of other specified parts of digestive tract; Z90.710 Acquired absence of both cervix and uterus; Z98.51 Tubal ligation status; Z79.02 Long term (current) use of antithrombotics/antiplatelets; Z79.899 Other long term (current) drug therapy
CPT/HCPCS: 36415; 71045; 80048; 80076; 83690; 84484; 85025; 93005; 99283; 99284

== ENCOUNTER → 2022-02-17 11:19 | Outpatient (BNVA) | payer OTHER, SELFPAY | PROVIDERS: PCP Internal Medicine; Visit Provider Internal Medicine Gastroenterology | DX: R07.2 Precordial pain (principal) | CPT/HCPCS: 99212 ==

== ENCOUNTER 2022-03-27 08:58 | Day surgery (SDC) | payer OTHER, SELFPAY ==
--- NOTE | 2022-03-26 11:48 | P.CONAN_ITS ---
Documented by User: Aleisha Mc NP 03/26/22 11:50 HPI - Anesthesia Eval Consult details Narrative: 56yo F for Upper Endo Srivastava PH Pillcam PMFSH Active Problems Active Problems: All Active Problems (Updated 02/01/22 @ 00:02 by Naveen Pierce) Renal cyst (Acute) Leukopenia (Acute) Encounter for annual routine gynecological examination (Acute) B12 deficiency (Acute) Myofascial pain (Acute) Spondylosis of lumbar region without myelopathy or radiculopathy (Acute) Diabetic neuropathy (Acute) Swelling of lower leg (Acute) Low vitamin D level (Acute) Cough (Acute) Renal calculi (Acute) Liver lesion (Acute) Left hand pain (Acute) Cervicalgia (Acute) Right low back pain (Acute) Low back pain (Acute) Right flank pain (Acute) RUQ pain (Acute) Mild recurrent major depression (Acute) GERD (gastroesophageal reflux disease) (Acute) Mixed hyperlipidemia (Acute) COVID-19 (Acute) Fibromyalgia (Acute) Breast pain, left (Acute) Vaginal dryness (Acute) Encounter for annual routine gynecological examination (Acute) B12 deficiency (Acute) Polyarthralgia (Acute) Epigastric abdominal pain (Acute) Patellofemoral pain syndrome of right knee (Acute) Osteoarthritis of right knee (Acute) Diabetes (Acute) Dyslipidemia (Acute) Leukopenia (Acute) Lower abdominal pain (Acute) Anxiety and depression (Acute) Nephrolithiasis (Acute) Hypothyroid (Acute) Past Medical History Medical History Anxiety and depression B12 deficiency Colon polyps COVID-19 vaccine administered Diabetes Dyslipidemia GERD (gastroesophageal reflux disease) History of postoperative nausea and vomiting Hx of gastritis Hx of renal calculi Hypothyroid Mild recurrent major depression Mixed hyperlipidemia Osteoarthritis of right knee Polyarthralgia Renal calculi Renal cyst Family History Family History Father Hx of heat stroke History of dementia Mother Hx of benign gastric tumor Family history of high blood pressure Hx of type 1 diabetes mellitus Colon cancer Maternal Uncle Pancreatic cancer Daughter Thyroid cancer Maternal Aunt Ovarian cancer Family history of problems with anesthesia: No Surgical History Surgical History H/O thyroidectomy H/O: hysterectomy History of cholecystectomy History of esophagogastroduodenoscopy (EGD) History of tubal ligation Hx of colonoscopy Hx of lithotripsy History of Problems with Anesthesia: No (Denies h/o N/V) Social History Social History Household Members: None Housing: Apartment Are you a primary healthcare risk control consultant to a significant other at home: No Do you presently have visiting nurse or other home services: No Alcohol intake: never Patient Tobacco Use Status: Never used Tobacco e-Cigarette/Vaping Use: Never Used Second Hand Smoke Exposure: Yes service: No Current occupational status: disabled Cognitive needs: No Hearing needs: No Vision needs: No Meds Allergies Allergy/AdvReac Type Severity Reaction Status Date / Time clindamycin Allergy Intermediate Rash Verified 02/17/22 11:31 crab Allergy Intermediate Itch Verified 02/17/22 11:31 seafood Allergy Intermediate Itch,Rash Verified 02/17/22 11:31 Sulfa (Sulfonamide Allergy Intermediate headache Verified 02/17/22 11:31 Antibiotics) milk Allergy Unknown Verified 02/17/22 11:31 shrimp Allergy Unknown Verified 02/17/22 11:31 wheat Allergy Unknown Verified 02/17/22 11:31 SEASONAL ALLERGIES Allergy Mild RUNNY Uncoded 02/17/22 11:31 NOSE/SNEEZING Home Medications Medication Instructions Recorded Confirmed Last Taken Type buspirone 5 mg tablet 5 mg PO TID 05/14/20 01/10/22 Unknown History clonazepam 0.5 mg tablet 0.5 mg PO Q OTHER DAY PRN Anxiety 05/14/20 01/10/22 Unknown History folic acid 1 mg tablet 1 mg PO DAILY 05/14/20 01/10/22 Unknown History syringe with needle 3 mL 25 x 5/8 #1 ea 05/14/20 01/10/22 Unknown History zolpidem 10 mg tablet 10 mg PO BEDTIME PRN Insomnia 05/14/20 01/10/22 Unknown History venlafaxine 37.5 mg 37.5 mg PO DAILY 08/06/21 01/10/22 Unknown History capsule,extended release 24 hr (Effexor XR) Exam Exam Date and Time: March 26, 2022 1148 Pertinent Lab Results Pertinent Lab Results: Laboratory Tests 01/31/22 01/31/22 12:03 12:03 WBC 3.7 L Hgb 11.5 L Hct 34.7 L Plt Count 218 Sodium 144 Potassium 4.2 Chloride 112 H Carbon Dioxide 26 BUN 13 Creatinine 0.80 Narrative Narrative: EKG 01/2022 Vent. Rate : 089 BPM ? ? Atrial Rate : 089 BPM ?? P-R Int : 152 ms? QRS Dur : 080 ms ? ? QT Int : 356 ms ? ? ? P-R-T Axes : 025 003 040 degrees ?? QTc Int : 433 ms ? Normal sinus rhythm Normal ECG When compared with ECG of 13-MAR-2021 14:43, No significant change was found Assessment and Plan Assessment Anesthesia Assessment: Chart Reviewed Final Anesthetic Review Family History of Problems with Anesthesia: No History of Problems with Anesthesia: No (Denies h/o N/V) Documented by User: Samm Blandon MD 03/27/22 16:57 HPI - Anesthesia Eval Consult details Narrative: 56yo F for Upper Endo Srivastava PH [facility]cam back pain with radiation to b/l LE right greater than left with tingling and numbness . neck pain b/l UE radiation with tingling and numbness PMFSH Past Medical History Medical History Anxiety and depression B12 deficiency Colon polyps COVID-19 vaccine administered Diabetes Dyslipidemia GERD (gastroesophageal reflux disease) History of postoperative nausea and vomiting Hx of gastritis Hx of renal calculi Hypothyroid Mild recurrent major depression Mixed hyperlipidemia Osteoarthritis of right knee Polyarthralgia Renal calculi Renal cyst Family History Family History Father Hx of heat stroke History of dementia Mother Hx of benign gastric tumor Family history of high blood pressure Hx of type 1 diabetes mellitus Colon cancer Maternal Uncle Pancreatic cancer Daughter Thyroid cancer Maternal Aunt Ovarian cancer Surgical History Surgical History H/O thyroidectomy H/O: hysterectomy History of cholecystectomy History of esophagogastroduodenoscopy (EGD) History of tubal ligation Hx of colonoscopy Hx of lithotripsy Social History Social History Household Members: None Housing: Apartment Are you a primary healthcare risk control consultant to a significant other at home: No Do you presently have visiting nurse or other home services: No Alcohol intake: never Patient Tobacco Use Status: Never used Tobacco e-Cigarette/Vaping Use: Never Used Second Hand Smoke Exposure: Yes service: No Current occupational status: disabled Cognitive needs: No Hearing needs: No Vision needs: No Meds Allergies Allergy/AdvReac Type Severity Reaction Status Date / Time clindamycin Allergy Intermediate Rash Verified 02/17/22 11:31 crab Allergy Intermediate Itch Verified 02/17/22 11:31 seafood Allergy Intermediate Itch,Rash Verified 02/17/22 11:31 Sulfa (Sulfonamide Allergy Intermediate headache Verified 02/17/22 11:31 Antibiotics) milk Allergy Unknown Verified 02/17/22 11:31 shrimp Allergy Unknown Verified 02/17/22 11:31 wheat Allergy Unknown Verified 02/17/22 11:31 SEASONAL ALLERGIES Allergy Mild RUNNY Uncoded 02/17/22 11:31 NOSE/SNEEZING Home Medications Medication Instructions Recorded Confirmed Last Taken Type buspirone 5 mg tablet 5 mg PO TID 05/14/20 01/10/22 Unknown History clonazepam 0.5 mg tablet 0.5 mg PO Q OTHER DAY PRN Anxiety 05/14/20 01/10/22 Unknown History folic acid 1 mg tablet 1 mg PO DAILY 05/14/20 01/10/22 Unknown History syringe with needle 3 mL 25 x 5/8 #1 ea 05/14/20 01/10/22 Unknown History zolpidem 10 mg tablet 10 mg PO BEDTIME PRN Insomnia 05/14/20 01/10/22 Unknown History venlafaxine 37.5 mg 37.5 mg PO DAILY 08/06/21 01/10/22 Unknown History capsule,extended release 24 hr (Effexor XR) Exam Airway Mallampati Class: III TM Dist: >3cm Neck ROM: Limited Loose/Missing/Broken Teeth: Yes (Cracked/chipped upper tooth ) Heart: S1,S2 Lungs: b/l breath sounds Assessment and Plan Assessment Anesthesia Assessment: Anesthesia Plan Discussed Final Anesthetic Review NPO: Yes ASA Class: III Final Preanesthetic Review: Meds/Allgs Chart Reviewed, Consent Obtained/Reviewed and Anes Risks/Benef Reviewed Patient Risk: Intermediate Procedure Risk: Intermediate Anesthetic Plan Anesthetic Plan: MAC: Disposition: Standard PACU
--- NOTE | 2022-03-27 09:21 | MHC.SHP ---
Pre-Procedural Eval Section A Date of Service: 03/27/22 Section B Chief Complaint: Gastro-esophageal reflux disease with esophagitis, Relevant Family History (Specify if Yes): No Relevant Social History: None Present Medications: see Short Stay Collaborative assessment Medical History: Significant History (Anxiety and depression B12 deficiency Colon polyps COVID-19 vaccine administered Diabetes Dyslipidemia GERD (gastroesophageal reflux disease) History of postoperative nausea and vomiting Hx of gastritis Hx of renal calculi Hypothyroid Mild recurrent major depression Mixed hyperlipidemia Osteoarthrit) History of Previous Operations: Relevant previous surgery/procedure and date(s) (H/O thyroidectomy H/O: hysterectomy History of cholecystectomy History of esophagogastroduodenoscopy (EGD) History of tubal ligation Hx of colonoscopy Hx of lithotripsy) Allergies: Allergies Allergy/AdvReac Type Severity Reaction Status Date / Time clindamycin Allergy Intermediate Rash Verified 02/17/22 11:31 crab Allergy Intermediate Itch Verified 02/17/22 11:31 seafood Allergy Intermediate Itch,Rash Verified 02/17/22 11:31 Sulfa (Sulfonamide Allergy Intermediate headache Verified 02/17/22 11:31 Antibiotics) milk Allergy Unknown Verified 02/17/22 11:31 shrimp Allergy Unknown Verified 02/17/22 11:31 wheat Allergy Unknown Verified 02/17/22 11:31 SEASONAL ALLERGIES Allergy Mild RUNNY Uncoded 02/17/22 11:31 NOSE/SNEEZING Review of Systems Sugical H&P ROS: Negative: Constitution, Cardiovascular, Respiratory, Neurological, Psychiatric, Hem-Onc, Allergic/Immunologic, Gastrointestinal, Genitourinary, Musculoskeletal, Integumentary, Endocrine and Eyes/Ears/Nose/Throat Exam Surgical H&P Exam: Normal: HEENT, Normal: Heart, Normal: Lungs, Normal: Extremities, Normal: Abdomen, Normal: Skin and Normal: Neurological Plan Diagnosis/Plan: Unchanged I have reviewed the history and physical and performed a pertinent physical examination on my patient. No changes have occurred unless specified.
[2022-03-27 09:27] VITALS: BMI 35.8
[2022-03-27 09:28] LABS: Glucose, Whole Blood 140 mg/dL (60-115)
[2022-03-27 09:31] VITALS: BP 122/80; PULSE 87; RESP 16; TEMP 36.1; O2SAT 98
[2022-03-27] MEDS: Lactated Ringers 1,000 ML 100 ML IVCONT (09:57)
[2022-03-27 13:34] VITALS: BP 97/61; PULSE 89; RESP 16; TEMP 36.1; O2SAT 100
--- NOTE | 2022-03-27 13:35 | W.PM.OPN ---
Operative Note Operative Note Date of Service: 03/27/22 Narrative: Procedure Description: EGD Indication: GERD Anesthesia: MAC FLEXIBLE TRANSORAL UPPER GASTROINTESTINAL ENDOSCOPY UPPER ENDOSCOPY Consent: Indications for the procedure and potential complications of bleeding, perforation, reaction to medications and missed diagnosis were discussed with the patient and informed consent was obtained. Instrument: Olympus GIF H 190 J mid size upper endoscope Monitoring: Vital signs and clinical assessment, continuous EKG monitoring, Pulse oximetry, Carbon Dioxide monitoring and blood pressure monitoring were done throughout the procedure. Procedure: The patient was placed in the left lateral decubitis position and pre-procedure medications were administered and a bite block was placed. The endoscope was inserted into the mouth and advanced under direct vision to the third part of duodenum. A careful inspection was made as the upper endoscope was withdrawn including a retroflexed examination of the proximal stomach; Findings and interventions are described below. Findings: Larynx:normal Esophagus: GE junction at 36 cm, diaphragm hiatus at 36 cm, irregular z line, bx taken---lax Stomach: Patchy gastric erythema. Biopsies were obtained. Grade 3 flap valve on retroflexed examination of the cardia. BRUSH device was deployed at 30 cm. Duodenum: Normal bulb and descending duodenum, Intervention: Biopsies as noted above, BRUSH deployment Impression/Findings: gastritis irregular z line PLAN: await BRUSH data
[2022-03-27 13:50] VITALS: BP 116/76; PULSE 88; RESP 20; TEMP 36.1; O2SAT 97
== END 2022-03-27 14:35 | disposition home or self-care (01) ==
PROVIDERS: PCP Internal Medicine; Visit Provider Internal Medicine Gastroenterology
PROC: (CPT 43239; principal; 2022-03-27 10:40)
DX: K21.00 Gastro-esophageal reflux disease with esophagitis, without bleeding (principal); K29.50 Unspecified chronic gastritis without bleeding; K22.89 Other specified disease of esophagus; K44.9 Diaphragmatic hernia without obstruction or gangrene; E11.9 Type 2 diabetes mellitus without complications; E03.9 Hypothyroidism, unspecified; E78.2 Mixed hyperlipidemia; E53.8 Deficiency of other specified B group vitamins; F33.0 Major depressive disorder, recurrent, mild; Z79.899 Other long term (current) drug therapy; Z88.1 Allergy status to other antibiotic agents; Z88.2 Allergy status to sulfonamides
CPT/HCPCS: 43239; 82947; 88305; 88342

== ENCOUNTER → 2022-03-31 14:34 | Day surgery (SDC) | payer OTHER, SELFPAY | END | disposition home or self-care (01) | PROVIDERS: Visit Provider Internal Medicine Gastroenterology | DX: R10.13 Epigastric pain (principal); Z53.9 Procedure and treatment not carried out, unspecified reason; K21.9 Gastro-esophageal reflux disease without esophagitis ==

== ENCOUNTER 2022-04-30 10:05 | Outpatient (REF) | payer OTHER, SELFPAY ==
[2022-04-30 12:31] LABS: Alanine Aminotransferase 12 U/L (0-31); Albumin Level 4.5 g/dL (3.5-5.0); Alkaline Phosphatase 93 U/L (39-117); Anion Gap 16 (12-20); Aspartate Amino Transferase 15 U/L (5-31); Bilirubin Total 0.6 mg/dL (0.0-1.0); Blood Urea Nitrogen 14 mg/dL (9-16); Calcium 9.4 mg/dL (8.4-10.2); Carbon Dioxide 25 mmol/L (22-29); Chloride 107 mmol/L (96-108); Cholesterol 143 mg/dL; Estimated Glomerular Filt Rate > 60; Glucose Fasting 119 mg/dL (60-99); HDL Cholesterol 45 mg/dL; LDL Cholesterol Calculated 72 mg/dl; Potassium 3.9 mmol/L (3.3-5.1); Sodium 144 mmol/L (135-145); Total Protein 7.8 g/dL (6.5-8.0); Triglycerides 131 mg/dL
[2022-04-30 12:52] LABS: Creatinine Urine 366.18 mg/dL; Microalbum/Creatinine Ratio Ur 9.2 ug/mg cr
[2022-04-30 12:54] LABS: Thyroid Stimulating Hormone 0.11 uIU/mL (0.32-4.0); Vitamin D 25-OH Total 13.3 ng/mL (>30)
[2022-04-30 12:59] LABS: Folate 17.1 ng/mL (> or = 4.0); Vitamin B12 627 pg/mL (200-900)
== END 2022-04-30 10:06 | disposition home or self-care (01) ==
LOC: HO.LAB 10:05
PROVIDERS: PCP Internal Medicine; Visit Provider Internal Medicine
DX: E11.40 Type 2 diabetes mellitus with diabetic neuropathy, unspecified (principal); E78.5 Hyperlipidemia, unspecified; E03.9 Hypothyroidism, unspecified; E53.8 Deficiency of other specified B group vitamins; E55.9 Vitamin D deficiency, unspecified
CPT/HCPCS: 36415; 80053; 80061; 82043; 82306; 82607; 82746; 84443

== ENCOUNTER → 2022-05-19 13:57 | Outpatient (BNVA) | payer OTHER, SELFPAY | PROVIDERS: PCP Internal Medicine; Visit Provider Anesthesiology | DX: M47.816 Spondylosis without myelopathy or radiculopathy, lumbar region (principal); M79.18 Myalgia, other site; R10.11 Right upper quadrant pain; M25.50 Pain in unspecified joint; E11.40 Type 2 diabetes mellitus with diabetic neuropathy, unspecified | CPT/HCPCS: 99212 ==

== ENCOUNTER → 2022-06-11 09:58 | Outpatient (BNVA) | payer OTHER, SELFPAY | PROVIDERS: PCP Internal Medicine; Referring Provider Internal Medicine; Visit Provider Nurse Practitioner Family | DX: M79.7 Fibromyalgia (principal) | CPT/HCPCS: 99212 ==

== ENCOUNTER 2022-06-13 12:56 | Outpatient (REF) | payer OTHER, SELFPAY ==
--- NOTE | ~2022-06-13 | US_ITS ---
EXAMINATION: US RETROPERITONEAL LIMITED (RENAL ONLY) CLINICAL INFORMATION: Calculus of kidney. COMPARISON: Ultrasound retroperitoneal limited (renal only) 01/22/2022 and 07/22/2021. MR abdomen without and with contrast 11/07/2021. CT abdomen and pelvis with contrast 08/29/2020. X-ray abdomen KUB 12/11/2020 and 07/25/2020. TECHNIQUE: Real-time imaging of the kidneys. FINDINGS: RIGHT KIDNEY: 11.0 x 4.3 x 5.5 cm (SAG x AP x TRV). The kidney is normal in size, contour, and echogenicity. Renal cortical thickness is normal. No hydronephrosis. At the lower pole, a 4 mm nonobstructing calculus is seen, with twinkle artifact. At the interpolar aspect, a 6 mm anechoic, simple cyst is seen. LEFT KIDNEY: 10.7 x 4.7 x 4.9 cm (SAG x AP x TRV). The kidney is normal in size, contour, and echogenicity. Renal cortical thickness is normal. No focal parenchymal lesions or hydronephrosis. At the lower pole, a 4 mm nonobstructing calculus is seen, with twinkle artifact. US/US renal BI IMPRESSION: 1. Nonobstructing bilateral renal calculi are seen, as detailed. There is no hydronephrosis noted bilaterally. 2. A 6 mm right renal interpolar benign, simple cyst is seen, for which no imaging follow-up is recommended.
== END 2022-06-13 12:57 | disposition home or self-care (01) ==
LOC: HO.US 12:56
DX: N20.0 Calculus of kidney (principal); N28.1 Cyst of kidney, acquired
CPT/HCPCS: 76775

== ENCOUNTER 2022-06-24 09:00 | Outpatient (REF) | payer OTHER, SELFPAY ==
[2022-06-24 10:11] LABS: Thyroid Stimulating Hormone 1.14 uIU/mL (0.32-4.0)
== END 2022-06-24 09:01 | disposition home or self-care (01) ==
LOC: HO.LAB 09:00
PROVIDERS: PCP Internal Medicine; Visit Provider Internal Medicine
DX: E03.9 Hypothyroidism, unspecified (principal)
CPT/HCPCS: 36415; 84443

== ENCOUNTER → 2022-07-31 13:37 | Outpatient (BNVA) | payer OTHER, SELFPAY | PROVIDERS: PCP Internal Medicine; Visit Provider Nurse Practitioner Family | DX: Z13.89 Encounter for screening for other disorder (principal) ==

== ENCOUNTER 2022-12-01 08:55 | Outpatient (REF) | payer OTHER, SELFPAY ==
[2022-12-01 10:19] LABS: Creatinine Urine 310.11 mg/dL; Microalbum/Creatinine Ratio Ur 7.7 ug/mg cr
[2022-12-01 10:36] LABS: Alanine Aminotransferase 14 U/L (0-31); Albumin Level 4.2 g/dL (3.5-5.0); Alkaline Phosphatase 86 U/L (39-117); Anion Gap 11 (12-20); Aspartate Amino Transferase 18 U/L (5-31); Bilirubin Total 0.7 mg/dL (0.0-1.0); Blood Urea Nitrogen 14 mg/dL (9-16); Calcium 9.3 mg/dL (8.4-10.2); Carbon Dioxide 27 mmol/L (22-29); Chloride 110 mmol/L (96-108); Cholesterol 137 mg/dL; Estimated Glomerular Filt Rate > 60; Glucose Fasting 142 mg/dL (60-99); HDL Cholesterol 45 mg/dL; LDL Cholesterol Calculated 71 mg/dl; Potassium 3.9 mmol/L (3.3-5.1); Sodium 144 mmol/L (135-145); Total Protein 7.1 g/dL (6.5-8.0); Triglycerides 105 mg/dL
[2022-12-01 10:53] LABS: Vitamin D 25-OH Total 17.8 ng/mL (>30)
== END 2022-12-01 08:56 | disposition home or self-care (01) ==
LOC: HO.LAB 08:55
PROVIDERS: PCP Internal Medicine; Visit Provider Internal Medicine
DX: E78.5 Hyperlipidemia, unspecified (principal); E11.9 Type 2 diabetes mellitus without complications; E55.9 Vitamin D deficiency, unspecified
CPT/HCPCS: 36415; 80053; 80061; 82043; 82306

== ENCOUNTER 2022-12-15 10:56 | Outpatient (REF) | payer OTHER, SELFPAY ==
[2022-12-15 13:22] LABS: TSH reflex Free T4 4.66 uIU/mL (0.32-4.0)
[2022-12-15 13:56] LABS: Free T4 (Free Thyroxine) 0.95 ng/dL (0.71-1.85)
== END 2022-12-15 10:57 | disposition home or self-care (01) ==
LOC: HO.LAB 10:56
PROVIDERS: PCP Internal Medicine; Referring Provider Nurse Practitioner Family; Visit Provider Internal Medicine Gastroenterology
DX: E03.9 Hypothyroidism, unspecified (principal); K21.9 Gastro-esophageal reflux disease without esophagitis
CPT/HCPCS: 36415; 84439; 84443; 99212

== ENCOUNTER 2023-01-06 14:39 | Outpatient (REF) | payer OTHER, SELFPAY ==
[2023-01-07 04:31] LABS: Syphilis Screen Nonreactive (Nonreactive)
[2023-01-07 04:36] LABS: HBc Num1 0.31 S/CO (0.00-0.79); HIV AB/AG Nonreactive (Nonreactive); HIV Num 1 0.07 S/CO (0.00-0.99); Hepatitis B Core Antibody Nonreactive (Nonreactive); ~Hepatitis C Antibody Nonreactive (Nonreactive)
== END 2023-01-06 14:40 | disposition home or self-care (01) ==
LOC: HO.LAB 14:39
PROVIDERS: PCP Internal Medicine; Visit Provider Advanced Practice Midwife
DX: Z01.419 Encounter for gynecological examination (general) (routine) without abnormal findings (principal); R10.2 Pelvic and perineal pain; N83.209 Unspecified ovarian cyst, unspecified side; Z90.710 Acquired absence of both cervix and uterus; Z87.42 Personal history of other diseases of the female genital tract; Z20.2 Contact with and (suspected) exposure to infections with a predominantly sexual mode of transmission
CPT/HCPCS: 36415; 86704; 86780; 86803; 87389

== ENCOUNTER 2023-01-07 12:52 | Outpatient (REF) | payer OTHER, SELFPAY ==
--- NOTE | ~2023-01-07 | MM_ITS ---
EXAMINATION: MM SCREENING DIGITAL BREAST TOMOSYNTHESIS, BILATERAL CLINICAL INFORMATION: Screening. Asymptomatic. The lifetime risk of breast cancer based on the Tyrer-Cuzick Model is 7.8%. COMPARISON: Mammography: This study is compared with the prior exams dating back to 2020. TECHNIQUE: Digital breast tomosynthesis is performed in both the craniocaudal and mediolateral oblique views along with computer-aided detection (CAD). Synthesized 2D images are generated from the tomosynthesis. FINDINGS: There are scattered areas of fibroglandular density (ACR BI-RADS breast composition Category b). There are no significant masses, abnormal calcifications, or other abnormalities. MM/MM tomosynthesis screening BI IMPRESSION: No mammographic evidence of malignancy. ASSESSMENT: BI-RADS BI-RADS 1 - Negative RECOMMENDATION: Routine annual mammography screening. 1 year F/U This patient's information was entered into a reminder system with a target due date for their next mammogram.
== END 2023-01-07 12:53 | disposition home or self-care (01) ==
LOC: HO.MAMMO 12:52
PROVIDERS: PCP Internal Medicine; Visit Provider Internal Medicine
DX: Z12.31 Encounter for screening mammogram for malignant neoplasm of breast (principal)
CPT/HCPCS: 77063; 77067

== ENCOUNTER → 2023-01-07 13:15 | Outpatient (BNV) | payer OTHER, SELFPAY | PROVIDERS: PCP Internal Medicine; Visit Provider Radiology Diagnostic Radiology | DX: Z12.31 Encounter for screening mammogram for malignant neoplasm of breast (principal) | CPT/HCPCS: 77063; 77067 ==

== ENCOUNTER 2023-01-16 12:55 | Outpatient (REF) | payer OTHER, SELFPAY ==
--- NOTE | ~2023-01-16 | US_ITS ---
EXAMINATION: US RETROPERITONEAL LIMITED (RENAL ONLY) CLINICAL INFORMATION: Cyst of kidney, acquired. COMPARISON: Renal ultrasound 06/13/2022 and 01/22/2022. MRI abdomen 11/07/2021. X-ray KUB 12/11/2020 and 07/25/2020. CT abdomen and pelvis 08/29/2020. TECHNIQUE: Real-time imaging of the kidneys. FINDINGS: RIGHT KIDNEY: 11.7 x 4.6 x 5.4 cm (SAG x AP x TRV). The kidney is normal in size, contour, and echogenicity. Renal cortical thickness is normal. No hydronephrosis. Within the midpole there is again noted to be a simple-appearing cyst measuring 7 mm in diameter for which no imaging followup is recommended. Within the lower pole there is a 4 mm echogenic focus consistent with calculus. LEFT KIDNEY: 10.4 x 5.7 x 4.1 cm (SAG x AP x TRV). The kidney is normal in size, contour, and echogenicity. Renal cortical thickness is normal. No focal parenchymal lesions identified. No hydronephrosis. Within the midpole region there is an echogenic focus measuring 4 x 2 x 4 mm in size without definite twinkle artifact and may represent grouping of small calculi or vascular interface. US/US renal BI IMPRESSION: No evidence of obstructive uropathy. Right nephrolithiasis and probable left nephrolithiasis.
== END 2023-01-16 12:56 | disposition home or self-care (01) ==
LOC: HO.US 12:55
PROVIDERS: PCP Internal Medicine; Visit Provider Nurse Practitioner Family
DX: N20.0 Calculus of kidney (principal); N28.1 Cyst of kidney, acquired
CPT/HCPCS: 76775

== ENCOUNTER 2023-02-06 09:39 | Outpatient (REF) | payer OTHER, SELFPAY ==
[2023-02-06 11:14] LABS: Thyroid Stimulating Hormone 2.27 uIU/mL (0.32-4.0)
== END 2023-02-06 09:40 | disposition home or self-care (01) ==
LOC: HO.LAB 09:39
PROVIDERS: PCP Internal Medicine; Visit Provider Internal Medicine
DX: E03.9 Hypothyroidism, unspecified (principal)
CPT/HCPCS: 36415; 84443

== ENCOUNTER 2023-02-24 11:05 | Outpatient (AMB) | payer OTHER, SELFPAY ==
--- NOTE | 2023-02-24 11:06 | A.OFFVIS_ITS ---
Intake Intake Visit Reasons: 6 month follow up (US 01/16) Intake Note: Patient presents for follow up ultrasound/kidney stone (imaging 01/16/23) Urology Medication: none Blood Thinner: none Exchange Consultant Required: Yes Accompanied by: Self / Same As Patient Allergies clindamycin Allergy (Intermediate, Verified 02/24/23 11:32) Rash crab Allergy (Intermediate, Verified 02/24/23 11:32) Itch seafood Allergy (Intermediate, Verified 02/24/23 11:32) Itch,Rash Sulfa (Sulfonamide Antibiotics) Allergy (Intermediate, Verified 02/24/23 11:32) headache milk Allergy (Verified 02/24/23 11:32) Unknown shrimp Allergy (Verified 02/24/23 11:32) Unknown wheat Allergy (Verified 02/24/23 11:32) Unknown SEASONAL ALLERGIES Allergy (Mild, Uncoded 02/24/23 11:32) RUNNY NOSE/SNEEZING Medication List - Last Reconciled 02/24/23 by ADEEL Cohn acetaminophen 500 - 1,000 mg (1 - 2 x 500 mg) PO Q6H PRN 30 days atorvastatin 40 mg PO BEDTIME 90 days blood sugar diagnostic Use 1 test strip once a day blood sugar diagnostic (FreeStyle Lite Strips) Test 2 times daily blood-glucose meter (FreeStyle Lite Meter kit) As directed buspirone 5 mg PO TID cholecalciferol (vitamin D3) 125 mcg PO DAILY 90 days clonazepam 0.5 mg PO Q OTHER DAY PRN dicyclomine 20 mg PO BID docusate sodium 100 mg PO DAILY PRN fenofibrate 54 mg PO DAILY 90 days fluticasone propionate 50 mcg/actuation (Flonase Allergy Relief) 1 spray intranasal DAILY 30 days folic acid 1 mg PO DAILY gabapentin 300 mg PO DAILY 90 days glipizide 5 mg PO DAILY 90 days lancets (FreeStyle Lancets) Test 2 times daily lansoprazole 30 mg PO DAILY levothyroxine (Synthroid) 137 mcg PO DAILY 90 days loratadine (Claritin) 10 mg PO DAILY PRN nortriptyline 10 mg PO BEDTIME ondansetron 4 mg PO BID pyridoxine (vitamin B6) 100 mg PO DAILY 90 days Shower Chair As directed simethicone (Gas Relief (simethicone)) 160 mg (2 x 80 mg) PO BID-TID PRN syringe with needle As directed syringe with needle, safety (BD Safety-Nisha Detachable Needle) once a month tizanidine 2 mg PO Q8H PRN 30 days venlafaxine ER (Effexor XR) 37.5 mg PO DAILY zolpidem 10 mg PO BEDTIME PRN HPI HPI Comments History of Present Illness Details Kamille is a 57-year-old Sammarinese-speaking female of Dr. Mora. She has a past medical history of anxiety, depression, vitamin B12 deficiency, diabetes, GERD, dyslipidemia, osteoarthritis, renal calculi, and renal cysts. She presents to the office today for a follow-up of her renal calculi and renal cyst. In discussion with the patient today she reports to be doing and feeling well. Recent renal imaging results reviewed with the patient today. Right kidney with no hydronephrosis. Simple 7 mm mid pole cyst. With no imaging follow-up recommended per radiology report. 4 mm right lower pole calculi present. Left kidney with no lesions or hydronephrosis noted. Within the midpole region there is an echogenic focus measuring 4 x 2 x 4 mm in size without definite twinkle artifact and may represent grouping of small calculi or vascular interface. In office urinalysis results reviewed with the patient today. She does report intermittent issues with dysuria and vaginal itching. She otherwise denies urinary urgency, urinary frequency, incontinence, nocturia, hematuria, foul smelling urine, changes to urinary stream, flank pain, fever, and or chills. She is happy with her current voiding parameters. She reports to be drinking plenty of water daily and adding 1 oz of lemon juice to water daily. She continues with vitamin B6 as prescribed. She otherwise offers no issues or concerns at this time. [facility] Medical History Anxiety and depression B12 deficiency Colon polyps COVID-19 vaccine administered Diabetes Dyslipidemia GERD (gastroesophageal reflux disease) History of ovarian cyst History of postoperative nausea and vomiting Hx of gastritis Hx of renal calculi Hypothyroid Mild recurrent major depression Mixed hyperlipidemia Osteoarthritis of right knee Polyarthralgia Renal calculi Renal cyst Surgical History H/O thyroidectomy H/O: hysterectomy History of cholecystectomy History of esophagogastroduodenoscopy (EGD) History of tubal ligation Hx of colonoscopy Hx of lithotripsy Family History Father Hx of heat stroke History of dementia Mother Hx of benign gastric tumor Family history of high blood pressure Hx of type 1 diabetes mellitus Colon cancer Maternal Uncle Pancreatic cancer Daughter Thyroid cancer Maternal Aunt Ovarian cancer Social History Household Members: None Housing: Apartment Are you a primary home care scheduler to a significant other at home: No Do you presently have visiting nurse or other home services: No Alcohol intake: never Patient Tobacco Use Status: Never used Tobacco e-Cigarette/Vaping Use: Never Used Second Hand Smoke Exposure: Yes service: No Current occupational status: disabled Sexual orientation: Straight/Heterosexual Gender identity: Female Cognitive needs: No Hearing needs: No Vision needs: No Review of Systems Const Reports as per HPI Eyes Reports no additional complaints ENT Reports no additional complaints Card Reports as per HPI Resp Reports no additional complaints GI Reports as per HPI Reports as per HPI Musc Reports no additional complaints Neuro Reports no additional complaints Psych Reports as per HPI Endo Reports as per HPI Osman/Lymph Reports no additional complaints Aller/Immun Reports no additional complaints Physical Exam Const General: cooperative, healthy appearing, comfortable, no acute distress, well developed, alert and awake Orientation/consciousness: patient oriented x3 Limitations: no limitations HEENT Head: Yes normal to inspection, Yes normocephalic and Yes atraumatic Ears: hearing grossly normal bilaterally Eyes General: appearance normal, both eyes and all related structures Neck Neck: Yes normal visual inspection and Yes trachea midline Chest Chest palpation & inspection: normal inspection of the chest Resp Effort & Inspection: normal respiratory effort and able to speak in complete sentences Cardio Rate: regular rate GI Inspection: Yes normal to inspection General: Yes no CVA tenderness Back/Spine/Pelvis Back: no CVA tenderness Skin General skin exam: no rashes or lesions noted Neuro General: patient oriented x3 Extrem General: Yes normal to inspection Psych Appearance: grossly normal and well kempt Mental Status: mental status grossly normal Speech and movement: Normal speech and movement present and Clear speech present Affect: normal affect Attitude: cooperative Thought process: Normal thought process present Thought content: Normal thought content present Insight: Fair insight present (Psych) Judgement: Fair judgement present (Psych) Results AMB Urinalysis, Automated UA Leukoctes 125 Karin/uL Last Edit by [employer] on 02/24/23 11:29 UA Nitrite Last Edit by [employer] on 02/24/23 11:29 UA Urobilinogen 0.2 mg/dL Last Edit by Brandyce Bress on 02/24/23 11:29 UA Protein 15 mg/dL Last Edit by [employer] on 02/24/23 11:29 UA pH 6.0 Last Edit by Tengrade[employer] Bress on 02/24/23 11:29 UA Blood 10 Davidson/uL Last Edit by [employer] on 02/24/23 11:29 UA Specific [place] 1.030 Last Edit by [employer] on 02/24/23 11:29 UA Ketone Last Edit by [employer] on 02/24/23 11:29 UA Bilirubin 1 mg/dL Last Edit by [employer] on 02/24/23 11:29 UA Glucose 0 mg/dL Last Edit by [employer] on 02/24/23 11:29 Results Reviewed Results Reviewed: Laboratory Last Values Urine pH (Auto) 6.0 02/24/23 11:07 Specific [place] (Auto) 1.030 02/24/23 11:07 Urine Protein (Auto) 15 mg/dL 02/24/23 11:07 Glucose (UA)(Auto) 0 mg/dL 02/24/23 11:07 Urine Blood (Auto) 10 Davidson/uL 02/24/23 11:07 Urine Bilirubin (Auto) 1 mg/dL 02/24/23 11:07 Urine Urobilinogen (Auto) 0.2 mg/dL 02/24/23 11:07 Leukocyte Esterase (Auto) 125 Karin/uL 02/24/23 11:07 Date of Service: 01/16/23 EXAMINATION: US RETROPERITONEAL LIMITED (RENAL ONLY) CLINICAL INFORMATION: Cyst of kidney, acquired. COMPARISON: Renal ultrasound 06/13/2022 and 01/22/2022. MRI abdomen 11/07/2021. X-ray KUB 12/11/2020 and 07/25/2020. CT abdomen and pelvis 08/29/2020. TECHNIQUE: Real-time imaging of the kidneys.? FINDINGS: RIGHT KIDNEY: 11.7 x 4.6 x 5.4 cm (SAG x AP x TRV). The kidney is normal in size, contour, and echogenicity. Renal cortical thickness is normal. No hydronephrosis. Within the midpole there is again noted to be a simple-appearing cyst measuring 7 mm in diameter for which no imaging followup is recommended. Within the lower pole there is a 4 mm echogenic focus consistent with calculus. LEFT KIDNEY: 10.4 x 5.7 x 4.1 cm (SAG x AP x TRV). The kidney is normal in size, contour, and echogenicity. Renal cortical thickness is normal. No focal parenchymal lesions identified. No hydronephrosis. Within the midpole region there is an echogenic focus measuring 4 x 2 x 4 mm in size without definite twinkle artifact and may represent grouping of small calculi or vascular interface. IMPRESSION: No evidence of obstructive uropathy. ? Right nephrolithiasis and probable left nephrolithiasis. Assessment & Plan Assessment & Plan (1) Renal cyst: Code(s): N28.1 - Cyst of kidney, acquired (2) Nephrolithiasis: Code(s): N20.0 - Calculus of kidney (3) Dysuria: Code(s): R30.0 - Dysuria (4) Vaginal pruritus: Code(s): N89.8 - Other specified noninflammatory disorders of vagina Plan In office urinalysis results reviewed with the patient today; will send for urine culture. Recent renal ultrasound results reviewed with the patient today; as noted above. Start Estrace cream as discussed and prescribed. Discussed symptoms can be related to diabetes Discussed at length importance of managing diabetes for improvement in urinary symptoms for improvement in urinary symptoms as well as overall health and well being. Discussed and educated on the importance of drinking plenty of water daily Discussed adding one ounce of lemon juice to water daily Continue vitamin b6 daily as discussed and prescribed Renal ultrasound in 6 months Follow up in 6 months with imaging to be completed prior; or sooner with any questions, concerns, or issues. Orders: Orders US renal BI 6 Months N20.0 - Calculus of kidney, N28.1 - Cyst of kidney, acquired Urine Culture Today N39.0 - Urinary tract infection, site not specified AMB Urinalysis Automated Today Z13.9 - Encounter for screening, unspecified Medications: New estradiol 0.01%(0.1mg/gram) vaginally 3 times a week; pea sized amount to urethra 3 times a week 42.5 grams 0RF 30 days pyridoxine (vitamin B6) 50 mg (1/2 x 100 mg) PO DAILY 45 tabs 3RF 90 days Discontinued pyridoxine (vitamin B6) Discontinued Reason: Doctor's Order 100 mg PO DAILY 90 tabs 2RF 90 days N20.0 - Calculus of kidney Patient Instructions: The patient had an opportunity to ask questions regarding the treatment plan. All questions were answered. Physical exam, labs, and imaging were discussed and reviewed in detail. As well as risks, benefits, and discussion of treatment choices. No major barriers to understanding were identified. The patient expressed understanding and agreement with the above treatment plan. The patient was made aware they should contact our office by phone for worsening of their current condition, the appearance of new symptoms, or with any questions or concerns. Compliance is encouraged with any medications and follow up testing that is ordered. It is a privilege to be allowed the opportunity to participate in? your urological care.? Again, if you have any questions or concerns If you have any questions or concerns please do not hesitate to contact me. The office is [phone]. This note is constructed using voice recognition software. While every effort has been made to ensure accuracy poultry hatchery supervisor errors may have been included. Yours sincerely, ADEEL Cohn Coding Level of Care Code Est Pt Level 4 (48803) Diagnoses Renal cyst N28.1 Nephrolithiasis N20.0 Dysuria R30.0 Vaginal pruritus N89.8
== END 2023-02-24 11:46 | disposition home or self-care (01) ==
PROVIDERS: Visit Provider Nurse Practitioner Family
DX: N28.1 Cyst of kidney, acquired (principal); N20.0 Calculus of kidney; R30.0 Dysuria; N89.8 Other specified noninflammatory disorders of vagina
CPT/HCPCS: 99214

== ENCOUNTER 2023-02-24 11:05 | Outpatient (REF) | payer OTHER, SELFPAY | END 2023-02-24 11:06 | disposition home or self-care (01) | LOC: HO.LNP 11:05 | PROVIDERS: Visit Provider Nurse Practitioner Family | DX: N39.0 Urinary tract infection, site not specified (principal); N28.1 Cyst of kidney, acquired; N20.0 Calculus of kidney; R30.0 Dysuria; N89.8 Other specified noninflammatory disorders of vagina | CPT/HCPCS: 87086; 99212 ==

== ENCOUNTER 2023-03-24 09:59 | Outpatient (REF) | payer OTHER, SELFPAY ==
[2023-03-24 11:16] LABS: Appearance Urine Cloudy; Color Urine Yellow; Glucose Urine UA Negative (Negative); Leukocyte Esterase Urine Small (1+) (Negative); Nitrite Urine Negative (Negative); PH 5.5 (5.0-9.0); Specific Gravity - Urine >= 1.030 (1.005-1.025); UMIC TRIGGER UACC YES; Urine Blood Negative (Negative); Urine Ketones Negative (Negative); Urine Protein Trace mg/dL (Neg-Trace)
[2023-03-24 11:16] LABS: Thyroid Stimulating Hormone 1.28 uIU/mL (0.32-4.0)
[2023-03-24 11:21] LABS: Bacteria Urine 1+ (None Seen); Hyaline Casts Urine 0-2 /LPF (0-2); UACC Culture Trigger YES
== END 2023-03-24 10:00 | disposition home or self-care (01) ==
LOC: HO.LAB 09:59
PROVIDERS: Absent Provider Internal Medicine; PCP Internal Medicine; Visit Provider Nurse Practitioner Family
DX: E03.9 Hypothyroidism, unspecified (principal); R82.90 Unspecified abnormal findings in urine
CPT/HCPCS: 36415; 81001; 84443; 87086

== ENCOUNTER 2023-04-09 13:54 | Outpatient (AMB) | payer OTHER, SELFPAY ==
--- NOTE | 2023-04-09 13:57 | MHC.PC.OV ---
Vital Signs 04/09/23 14:00 Height 5 ft 2 in Weight 199 lb BMI 36.4 BP 102/70 Blood Pressure Location Lt brachial Position Sitting Intake Visit Reasons: DM Intake Note: Patient here for a follow up DM Cat Operator Required: No Accompanied by: Self / Same As Patient Allergies clindamycin Allergy (Intermediate, Verified 04/09/23 14:07) Rash crab Allergy (Intermediate, Verified 04/09/23 14:07) Itch seafood Allergy (Intermediate, Verified 04/09/23 14:07) Itch,Rash Sulfa (Sulfonamide Antibiotics) Allergy (Intermediate, Verified 04/09/23 14:07) headache milk Allergy (Verified 04/09/23 14:07) Unknown shrimp Allergy (Verified 04/09/23 14:07) Unknown wheat Allergy (Verified 04/09/23 14:07) Unknown nitrofurantoin Allergy (Severe, Uncoded 04/09/23 14:07) Abdominal Pain ciprofloxacin Allergy (Intermediate, Uncoded 04/09/23 14:07) Abdominal Pain SEASONAL ALLERGIES Allergy (Mild, Uncoded 04/09/23 14:07) RUNNY NOSE/SNEEZING Medication List - Last Reconciled 04/09/23 by Karyna Murphy MD acetaminophen 500 - 1,000 mg (1 - 2 x 500 mg) PO Q6H PRN 30 days atorvastatin 40 mg PO BEDTIME 90 days blood sugar diagnostic Use 1 test strip once a day blood sugar diagnostic (FreeStyle Lite Strips) Test 2 times daily blood-glucose meter (FreeStyle Lite Meter kit) As directed buspirone 5 mg PO TID cholecalciferol (vitamin D3) 125 mcg PO DAILY 90 days clonazepam 0.5 mg PO Q OTHER DAY PRN dicyclomine 20 mg PO BID docusate sodium 100 mg PO DAILY PRN estradiol 0.01%(0.1mg/gram) vaginally 3 times a week; pea sized amount to urethra 3 times a week 30 days fenofibrate 54 mg PO DAILY 90 days fluticasone propionate 50 mcg/actuation (Flonase Allergy Relief) 1 spray intranasal DAILY 30 days folic acid 1 mg PO DAILY gabapentin 300 mg PO DAILY 90 days glipizide 5 mg PO DAILY 90 days lancets (FreeStyle Lancets) Test 2 times daily lansoprazole 30 mg PO DAILY levothyroxine (Synthroid) 137 mcg PO DAILY 90 days loratadine (Claritin) 10 mg PO DAILY PRN nortriptyline 10 mg PO BEDTIME ondansetron 4 mg PO BID pyridoxine (vitamin B6) 50 mg (1/2 x 100 mg) PO DAILY 90 days Shower Chair As directed simethicone (Gas Relief (simethicone)) 160 mg (2 x 80 mg) PO BID-TID PRN syringe with needle As directed syringe with needle, safety (BD Safety-Nisha Detachable Needle) once a month tizanidine 2 mg PO Q8H PRN 30 days venlafaxine ER (Effexor XR) 37.5 mg PO DAILY zolpidem 10 mg PO BEDTIME PRN Tobacco use date assessed: 12/05/22 Dental Screening Dental Screen Date: 04/09/23 Did you have a dental visit in the last 12 months?: Yes Did you have a dental problem in the last 6 months where you did not have access to dental care?: No Was dental information given to patient?: Patient has dentist HPI HPI Comments History of Present Illness Details This is a 57-year-old female with diabetes mellitus type 2, hypothyroidism, mixed hyperlipidemia, GERD and mild recurrent major depression that comes today for follow-up on her conditions. A1c within goal. Last TSH was normal. Lipid panel will be repeated. GERD stable with medications depression also stable with venlafaxine. No chest pain or shortness of breath. Vitamin B6 for kidney stone prophylaxis. [facility] Medical History History of ovarian cyst Renal cyst Renal calculi Mild recurrent major depression Mixed hyperlipidemia COVID-19 vaccine administered B12 deficiency Polyarthralgia Osteoarthritis of right knee Dyslipidemia Anxiety and depression History of postoperative nausea and vomiting Hx of renal calculi Hx of gastritis GERD (gastroesophageal reflux disease) Hypothyroid Colon polyps Diabetes Surgical History History of tubal ligation Hx of lithotripsy History of esophagogastroduodenoscopy (EGD) Hx of colonoscopy H/O: hysterectomy H/O thyroidectomy History of cholecystectomy Family History Father Hx of heat stroke History of dementia Mother Hx of benign gastric tumor Family history of high blood pressure Hx of type 1 diabetes mellitus Colon cancer Maternal Uncle Pancreatic cancer Daughter Thyroid cancer Maternal Aunt Ovarian cancer Social History Household Members: None Housing: Apartment Are you a primary career consultant to a significant other at home: No Do you presently have visiting nurse or other home services: No Alcohol intake: never Patient Tobacco Use Status: Never used Tobacco e-Cigarette/Vaping Use: Never Used Second Hand Smoke Exposure: Yes service: No Current occupational status: disabled Sexual orientation: Straight/Heterosexual Gender identity: Female Cognitive needs: No Hearing needs: No Vision needs: No Questionnaire Thrive Questionnaire Date Thrive assessed: 12/05/22 JUDY-7 AMB Questionnaire JUDY-7 Date JUDY - 7 assessed: 12/05/22 Source: Developed by Drs. Tom Crawford, Olivia Tesfaye, Jay Jay Stover and colleagues, with an educational reddy from [email or web address]. Review of Systems Const All systems reviewed & are unremarkable except as noted in HPI and below Eyes Reports no additional complaints, Denies change in vision and Denies other visual disturbances Card Denies chest pain at rest, Denies chest pain with activity, Denies edema, Denies irregular heart rhythm, Denies claudication, Denies dyspnea, Denies dyspnea on exertion, Denies orthopnea, Denies paroxysmal nocturnal dyspnea and Denies slow heart rate Resp Denies cough, Denies dyspnea and Denies dyspnea on exertion GI Denies abdominal pain, Denies change in bowel habits, Denies excessive flatus, Denies nausea and Denies vomiting Denies urinary incontinence, Denies urinary hesitancy and Denies urinary urgency Musc Denies abnormal gait, Denies atrophy, Denies deformity and Denies limited range of motion Skin/Breast Denies bleeding lesions, Denies changing lesions and Denies rash Neuro Denies abnormal gait and Denies lack of coordination Physical exam (Primary Care) Vital Signs: Last Vital Signs BP 102/70 04/09/23 14:00 BMI result Body Mass Index 36.4 Tobacco/Smoking Status: Tobacco use Status Tobacco use date assessed 12/05/22 04/09/23 13:59 Patient Tobacco Use Status Never used Tobacco 04/09/23 13:59 e-Cigarette/Vaping Use Never Used 04/09/23 13:59 Thrive Assessment: Date of Thrive Assessment Date Thrive assessed 12/05/22 04/09/23 13:59 Eyes General: appearance normal, both eyes and all related structures Eyelids: Yes eyelids normal Conjunctivae: conjunctivae normal Neck Neck: Yes normal visual inspection and Yes supple Resp Effort & Inspection: normal respiratory effort Auscultation: clear to auscultation bilaterally Cardio Jugular venous distension: no JVD Rate: regular rate Rhythm: regular rhythm Heart sounds: S1 normal heart sound present and S2 normal heart sound present Extrem General: Yes full ROM Results AMB Hemoglobin A1c AMB Hemoglobin A1c 6.3 % Last Edit by KAMRON Sanchez on 04/09/23 14:06 Results Reviewed Results Reviewed: Laboratory Last Values Hgb A1c (Clinic) 6.3 % (4.0-6.0) H 04/09/23 13:56 Assessment and Plan Assessment & Plan (1) Mild recurrent major depression: Code(s): F33.0 - Major depressive disorder, recurrent, mild Plan: Continue venlafaxine. (2) GERD (gastroesophageal reflux disease): Code(s): K21.9 - Gastro-esophageal reflux disease without esophagitis Plan: Continue PPIs as needed. 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 A1c goal is equal or less than 7%. (4) Mixed hyperlipidemia: Code(s): E78.2 - Mixed hyperlipidemia Plan: Continue statins and fibrates. LDL goal is less than 70. (5) Hypothyroid: Code(s): E03.9 - Hypothyroidism, unspecified Qualifiers: Hypothyroidism type: acquired Qualified Code(s): E03.9 - Hypothyroidism, unspecified Plan: Continue levothyroxine. Orders: Orders Lipid Panel Today E78.5 - Hyperlipidemia, unspecified Microalbumin, Random (w Creat) Today E11.9 - Type 2 diabetes mellitus without complications AMB Hemoglobin A1c Today E11.9 - Type 2 diabetes mellitus without complications Vitamin D 25-OH Total Today E55.9 - Vitamin D deficiency, unspecified Thyroid Stimulating Hormone Today E03.9 - Hypothyroidism, unspecified Medications: New fluconazole (Diflucan) 150 mg PO Q3D 2 tabs 0RF 2 doses Refilled fluticasone propionate 50 mcg/actuation (Flonase Allergy Relief) administer into each nostril 1 spray intranasal DAILY 16 grams 2RF 30 days J32.9 - Chronic sinusitis, unspecified Coding Level of Care Code Est Pt Level 4 (35629) Diagnoses Mild recurrent major depression F33.0 GERD (gastroesophageal reflux disease) K21.9 Type 2 diabetes mellitus without complication, without long-term current use of insulin E11.9 Diabetes mellitus type: type 2 Diabetes mellitus hot dimpling machine operator insulin use: without hot dimpling machine operator use Diabetes mellitus complication status: without complication Mixed hyperlipidemia E78.2 Acquired hypothyroidism E03.9 Hypothyroidism type: acquired Time Spent (min) 23
[2023-04-09 14:00] VITALS: BP 102/70; BMI 36.4
== END 2023-04-09 14:19 | disposition home or self-care (01) ==
PROVIDERS: Visit Provider Internal Medicine
DX: E11.9 Type 2 diabetes mellitus without complications (principal); F33.0 Major depressive disorder, recurrent, mild; K21.9 Gastro-esophageal reflux disease without esophagitis; E78.2 Mixed hyperlipidemia; E03.9 Hypothyroidism, unspecified
CPT/HCPCS: 83036; 99214

== ENCOUNTER 2023-04-27 10:55 | Outpatient (REF) | payer OTHER, SELFPAY ==
[2023-04-27 12:47] LABS: MANUAL DIFF FLAG NO
[2023-04-27 12:50] LABS: Basophils Percent Auto 0.9 % (0-2); Eosinophils Absolute Auto 0.1 X10*3/uL (0.0-0.4); Eosinophils Percent Auto 2.6 % (0-4); Hematocrit 39.1 % (37.0-47.0); Hemoglobin 13.1 g/dl (12.0-16.0); Imm Gran Abs Auto 0.01 X10*3/uL (0.00-0.03); Imm Gran Pct Auto 0.3 % (0.0-0.4); Lymphocytes Absolute Auto 1.2 X10*3/uL (1.2-4.9); Lymphocytes Percent Auto 33.7 % (20-40); Mean Corpuscular HGB Conc 33.5 g/dl (31.0-35.0); Mean Corpuscular Hemoglobin 30.3 pg (27.0-33.0); Mean Corpuscular Volume 90.3 fL (80.0-98.0); Monocytes Absolute Auto 0.2 X10*3/uL (0.1-1.2); Monocytes Percent Auto 4.3 % (2-11); Neutrophils Percent Auto 58.2 % (45-73); Platelet Count 245 X10*3/uL (160-400); Red Blood Count 4.33 X10*6/uL (4.20-5.50); Red Cell Distribution Width 12.6 % (11.0-16.0); White Blood Count 3.5 X10*3/uL (4.8-10.8)
[2023-04-27 13:28] LABS: Alanine Aminotransferase 19 U/L (0-31); Albumin Level 4.6 g/dL (3.5-5.0); Alkaline Phosphatase 92 U/L (39-117); Anion Gap 15 (12-20); Aspartate Amino Transferase 20 U/L (5-31); Bilirubin Total 0.5 mg/dL (0.0-1.0); Blood Urea Nitrogen 16 mg/dL (9-16); Calcium 9.9 mg/dL (8.4-10.2); Carbon Dioxide 25 mmol/L (22-29); Chloride 107 mmol/L (96-108); Estimated Glomerular Filt Rate > 60; Ferritin 47 ng/mL (10-250); Glucose Random 115 mg/dL (60-115); Potassium 3.7 mmol/L (3.3-5.1); Sodium 143 mmol/L (135-145); TSH reflex Free T4 0.89 uIU/mL (0.32-4.0); Total Protein 8.4 g/dL (6.5-8.0); Vitamin D 25-OH Total 32.6 ng/mL (>30)
[2023-04-27 13:44] LABS: Folate 13.5 ng/mL (> or = 4.0); Vitamin B12 693 pg/mL (200-900)
[2023-04-30 09:13] LABS: Vitamin A 46 mcg/dL (38-98)
[2023-04-30 15:32] LABS: Vitamin B6 8.3 ng/mL (2.1-21.7)
[2023-05-01 04:53] LABS: Alpha-Tocopherol 8.8 mg/L (5.7-19.9); Beta-Gamma Tocopherol 2.4 mg/L (<=4.3)
[2023-05-01 17:39] LABS: Vitamin K1 369 pg/mL (130-1500)
[2023-05-01 19:28] LABS: Vitamin B5 (Pantothenic Acid) 45 ng/mL (<275)
[2023-05-02 10:28] LABS: Vitamin B1 12 nmol/L (8-30)
[2023-05-02 16:34] LABS: Vitamin C 0.2 mg/dL (0.3-2.7)
[2023-05-02 20:50] LABS: Nicotinamide <20 ng/mL; Vit B3 - Nicotinic Acid <20 ng/mL
== END 2023-04-27 10:56 | disposition home or self-care (01) ==
LOC: HO.LAB 10:55
PROVIDERS: PCP Internal Medicine; Visit Provider Internal Medicine Gastroenterology
DX: E46 Unspecified protein-calorie malnutrition (principal); E53.8 Deficiency of other specified B group vitamins; D72.819 Decreased white blood cell count, unspecified; R79.89 Other specified abnormal findings of blood chemistry; K75.81 Nonalcoholic steatohepatitis (NASH)
CPT/HCPCS: 36415; 80053; 82180; 82306; 82607; 82728; 82746; 84207; 84425; 84443; 84446; 84590; 84591; 84597; 85025; 99212

== ENCOUNTER 2023-04-27 10:55 | Outpatient (AMB) | payer OTHER, SELFPAY ==
--- NOTE | 2023-04-27 11:25 | A.OFFVIS_ITS ---
Intake Vital Signs 04/27/23 11:36 Height 5 ft 2 in Weight 198 lb 6.656 oz BMI 36.3 Intake Visit Reasons: 4 month follow up Intake Note: Kamille presents in the office as a 4 month follow up. CC: She states that she is getting dryness in her mouth and she is not having any saliva. She has to get up in he middle of the night due to this and this has never happened before. Body And Fender Mechanic Apprentice Required: Yes Body And Fender Mechanic Apprentice Name: [id number] Allergies clindamycin Allergy (Intermediate, Verified 04/27/23 11:36) Rash crab Allergy (Intermediate, Verified 04/27/23 11:36) Itch seafood Allergy (Intermediate, Verified 04/27/23 11:36) Itch,Rash Sulfa (Sulfonamide Antibiotics) Allergy (Intermediate, Verified 04/27/23 11:36) headache milk Allergy (Verified 04/27/23 11:36) Unknown shrimp Allergy (Verified 04/27/23 11:36) Unknown wheat Allergy (Verified 04/27/23 11:36) Unknown nitrofurantoin Allergy (Severe, Uncoded 04/27/23 11:36) Abdominal Pain ciprofloxacin Allergy (Intermediate, Uncoded 04/27/23 11:36) Abdominal Pain SEASONAL ALLERGIES Allergy (Mild, Uncoded 04/27/23 11:36) RUNNY NOSE/SNEEZING HPI 4 month follow up HPI Details RECAP: ? She had noted more constipation, new for her ? she wants to go, but she can't pass any stool, sometimes 2 d before passes stool ? takes laxatives to help ? denies blood in stool but had pos stool FOB 10/2018 ? going on for 2 months ? before that she was going every other day to toilet, but no tenesmus like sensation ? she also has epigastric pain and discomfort, worse wt food ? she takes advil occasionally, meloxicam on chart but takes occasionally ? she has nausea, and some reflux sx ? she is on omeprazole 40 mg once daily ? seh also has pernicious anemia, on b12 shots ? she had EGD 08/12/2017- severe gastritis noted ? colonoscopy done 5 yrs ago and one polyp removed ? FH of crc in mother aged 72 ? [facility], hgb 12.6. ? She had EGD/colonoscopy:04/2019-- chronic gastritis, and chronic GEJ junction, severe diverticulosis, mycosis, ADENOMATOUS polyps prep was fair ? H pylori breath test done and was negative ? advised on high fiber diet ? she still had epigastric pain and discomfort at f/u, she was stressed due to daughter with thyroid cancer and mum with stomach tumour she endorsed anxiety ? she was changed from omeprazole to pantoprazole and given low dose TCA she had been taking the pantoprazole and it was helping a lot ? ? she was given flagly in case of SIBO and pelvic us was ordered (CT then ordered by PCP-as below) she feels nortriptiline didn;t help her she did feel lansoprazole has been helping a lot Srivastava with out any significant reflux REPT COLONOSCOPY 2019-- redundant colon, tubular adenoma and hyperplastic polyps pelvic us 07/2020--nml CT A/P- 08/2020--renal stones, diverticuli, incl duodenum, fatty liver GES 11/2020--rapid gastric emptying,? 1 hr 26% left and 2 hr 2% left RAST--low level pos for wheat, cows milk, shrimp TSH--nml MRI 11/01 steatosis, focal nodular hyperplasia US 01/31: 1. Anechoic cyst midpole right kidney. ? 2. Likely vascular calcification left ki dney. ? 3. There is no caliectasis or hydronephr osis. ?INTERIM: she has dryness of the throat which irritates her she also has dry eyes, no nausea or vomiting appetite is good, bloating at times no diarrhea, no constipation uses bentyl prn and it helps with abdo cramps, uses 3 times a week EXAM: GENERAL: The patient is well developed and nontoxic. VITAL SIGNS:see workflow HEENT: Nonicteric sclerae, PERRLA, EOMI. Oropharynx clear. Moist mucous membranes. Conjunctivae appear well perfused. No thyroid mass. CHEST: Chest wall is nontender. HEART: Regular rate and rhythm without murmurs. LUNGS: Clear to auscultation bilaterally. ABDOMEN: Soft, positive bowel sounds, mildly tender epigastrium, no organomegaly.no flank tenderness SKIN: No rash, no excessive bruising, petechiae, or purpura. NEUROLOGIC: Cranial nerves II-XII intact without motor/sensory deficit. Assessment & Plan (1) Retrosternal pain and reflux type sy mptoms, much improved, now mostly c/o dry mouth and eyes --on multiple meds and also has DM which may be playing a role, also possible vit A defc ? ? ? Plan: 1/ cont lansoprazole and, can use zofran prn 2/ mutliviatamin daily, is taking vit D daily 3/ check Vit levels, mallory Vit A 4/ articifical saliva sent [facility] Medical History History of ovarian cyst Renal cyst Renal calculi Mild recurrent major depression Mixed hyperlipidemia COVID-19 vaccine administered B12 deficiency Polyarthralgia Osteoarthritis of right knee Dyslipidemia Anxiety and depression History of postoperative nausea and vomiting Hx of renal calculi Hx of gastritis GERD (gastroesophageal reflux disease) Hypothyroid Colon polyps Diabetes Surgical History History of tubal ligation Hx of lithotripsy History of esophagogastroduodenoscopy (EGD) Hx of colonoscopy H/O: hysterectomy H/O thyroidectomy History of cholecystectomy Family History Father Hx of heat stroke History of dementia Mother Hx of benign gastric tumor Family history of high blood pressure Hx of type 1 diabetes mellitus Colon cancer Maternal Uncle Pancreatic cancer Daughter Thyroid cancer Maternal Aunt Ovarian cancer Social History Household Members: None Housing: Apartment Are you a primary healthcare social worker to a significant other at home: No Do you presently have visiting nurse or other home services: No Alcohol intake: never Patient Tobacco Use Status: Never used Tobacco e-Cigarette/Vaping Use: Never Used Second Hand Smoke Exposure: Yes service: No Current occupational status: disabled Sexual orientation: Straight/Heterosexual Gender identity: Female Cognitive needs: No Hearing needs: No Vision needs: No Physical Exam Vital Signs: BMI result Body Mass Index 36.3 Assessment & Plan Assessment & Plan (1) Malnutrition: Code(s): E46 - Unspecified protein-calorie malnutrition (2) B12 deficiency: Code(s): E53.8 - Deficiency of other specified B group vitamins (3) Leukopenia: Code(s): D72.819 - Decreased white blood cell count, unspecified (4) Low vitamin D level: Code(s): R79.89 - Other specified abnormal findings of blood chemistry (5) B12 deficiency: Code(s): E53.8 - Deficiency of other specified B group vitamins Orders: Orders Vitamin B12 and Folate Today D72.819 - Decreased white blood cell count, unspecified, E46 - Unspecified protein-calorie malnutrition, E53.8 - Deficiency of other specified B group vitamins, R79.89 - Other specified abnormal findings of blood chemistry Vitamin B3 (Niacin) Today D72.819 - Decreased white blood cell count, unspecified, E46 - Unspecified protein-calorie malnutrition, E53.8 - Deficiency of other specified B group vitamins, R79.89 - Other specified abnormal findings of blood chemistry Vitamin B5 (Pantothenic Acid) Today D72.819 - Decreased white blood cell count, unspecified, E46 - Unspecified protein-calorie malnutrition, E53.8 - Deficiency of other specified B group vitamins, R79.89 - Other specified abnormal findings of blood chemistry Vitamin B6 Today D72.819 - Decreased white blood cell count, unspecified, E46 - Unspecified protein-calorie malnutrition, E53.8 - Deficiency of other specified B group vitamins, R79.89 - Other specified abnormal findings of blood chemistry Vitamin D 25-OH Total Today D72.819 - Decreased white blood cell count, unspecified, E46 - Unspecified protein-calorie malnutrition, E53.8 - Deficiency of other specified B group vitamins, R79.89 - Other specified abnormal findings of blood chemistry Zinc Today D72.819 - Decreased white blood cell count, unspecified, E46 - Unspecified protein-calorie malnutrition, E53.8 - Deficiency of other specified B group vitamins, R79.89 - Other specified abnormal findings of blood chemistry Ferritin Today D72.819 - Decreased white blood cell count, unspecified, E46 - Unspecified protein-calorie malnutrition, E53.8 - Deficiency of other specified B group vitamins, R79.89 - Other specified abnormal findings of blood chemistry Complete Blood Count Auto Diff Today D72.819 - Decreased white blood cell count, unspecified, E46 - Unspecified protein-calorie malnutrition, E53.8 - Deficiency of other specified B group vitamins, R79.89 - Other specified abnormal findings of blood chemistry TSH reflex Free T4 Today D72.819 - Decreased white blood cell count, unspecified, E46 - Unspecified protein-calorie malnutrition, E53.8 - Deficiency of other specified B group vitamins, R79.89 - Other specified abnormal findings of blood chemistry Vitamin A Today D72.819 - Decreased white blood cell count, unspecified, E46 - Unspecified protein-calorie malnutrition, E53.8 - Deficiency of other specified B group vitamins, R79.89 - Other specified abnormal findings of blood chemistry Vitamin B1 Today D72.819 - Decreased white blood cell count, unspecified, E46 - Unspecified protein-calorie malnutrition, E53.8 - Deficiency of other specified B group vitamins, R79.89 - Other specified abnormal findings of blood chemistry Vitamin C Today D72.819 - Decreased white blood cell count, unspecified, E46 - Unspecified protein-calorie malnutrition, E53.8 - Deficiency of other specified B group vitamins, R79.89 - Other specified abnormal findings of blood chemistry Vitamin E Today D72.819 - Decreased white blood cell count, unspecified, E46 - Unspecified protein-calorie malnutrition, E53.8 - Deficiency of other specified B group vitamins, R79.89 - Other specified abnormal findings of blood chemistry Vitamin K1 Today D72.819 - Decreased white blood cell count, unspecified, E46 - Unspecified protein-calorie malnutrition, E53.8 - Deficiency of other specified B group vitamins, R79.89 - Other specified abnormal findings of blood chemistry Comprehensive Met. Panel Today D72.819 - Decreased white blood cell count, unspecified, E46 - Unspecified protein-calorie malnutrition, E53.8 - Deficiency of other specified B group vitamins, K75.81 - Nonalcoholic steatohepatitis ([place]), R79.89 - Other specified abnormal findings of blood chemistry Medications: New saliva stimulant comb. no.4 administer directly into mouth; do not follow immediately with water/other beverage/food 3 sprays mucous membrane Q2-3H PRN 45 mL 3RF dry mouth Coding Level of Care Code Est Pt Level 3 (78128) Diagnoses Malnutrition E46 B12 deficiency E53.8 Leukopenia D72.819 Low vitamin D level R79.89
[2023-04-27 11:36] VITALS: BMI 36.3
== END 2023-04-27 12:17 | disposition home or self-care (01) ==
PROVIDERS: PCP Internal Medicine; Visit Provider Internal Medicine Gastroenterology
DX: E46 Unspecified protein-calorie malnutrition (principal); E53.8 Deficiency of other specified B group vitamins; D72.819 Decreased white blood cell count, unspecified; R79.89 Other specified abnormal findings of blood chemistry
CPT/HCPCS: 99213

== ENCOUNTER 2023-05-08 12:50 | Emergency (ER) | payer OTHER, SELFPAY ==
[2023-05-08 12:59] VITALS: BP 125/74; PULSE 87; RESP 18; TEMP 35.8; O2SAT 97; BMI 37.0
--- NOTE | 2023-05-08 12:59 | ED_ITS ---
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 Patient also reports dry cough. Patient had 1 episode yesterday of cough with blood streaks. Patient denies any runny nose, nasal congestion, fevers, chills, headache, neck stiffness or neck pain, shortness of breath, chest pain, vomiting or diarrhea, Leg swelling or leg pain, difficulty swallowing. Related Data Home Medications Medication Instructions Recorded Confirmed buspirone 5 mg tablet 5 mg PO TID 05/14/20 04/09/23 clonazepam 0.5 mg tablet 0.5 mg PO Q OTHER DAY PRN Anxiety 05/14/20 04/09/23 folic acid 1 mg tablet 1 mg PO DAILY 05/14/20 04/09/23 syringe with needle 3 mL 25 x 5/8 #1 ea 05/14/20 04/09/23 zolpidem 10 mg tablet 10 mg PO BEDTIME PRN Insomnia 05/14/20 04/09/23 venlafaxine 37.5 mg 37.5 mg PO DAILY 08/06/21 04/09/23 capsule,extended release 24 hr (Effexor XR) Previous Rx's Medication Instructions Recorded blood sugar diagnostic #30 ea 04/23/21 syringe with needle, safety 3 mL #1 ea 05/15/21 25 gauge x 5/8 (BD Safety-Nisha Detachable Needle) blood sugar diagnostic (FreeStyle #200 ea 07/28/22 Lite Strips) fenofibrate 54 mg tablet 54 mg PO DAILY 90 days #90 tabs 09/14/22 blood-glucose meter (FreeStyle #1 ea 12/02/22 Lite Meter kit) loratadine 10 mg tablet (Claritin) 10 mg PO DAILY PRN allergy 12/05/22 symptoms #14 tabs simethicone 80 mg chewable tablet 160 mg (2 x 80 mg) PO BID-TID PRN 12/15/22 (Gas Relief (simethicone)) abdominal distention #90 tabs levothyroxine 137 mcg tablet 137 mcg PO DAILY 90 days #90 tabs 12/25/22 (Synthroid) Shower Chair #1 ea 01/01/23 estradiol 0.01% (0.1 mg/gram) See Rx Instructions vaginal 3XW 30 02/24/23 vaginal cream days #42.5 grams pyridoxine (vitamin B6) 100 mg 50 mg (1/2 x 100 mg) PO DAILY 90 02/24/23 tablet days #45 tabs tizanidine 2 mg tablet 2 mg PO Q8H PRN muscle spasticity 03/01/23 30 days #30 tabs atorvastatin 40 mg tablet 40 mg PO BEDTIME 90 days #90 tabs 03/14/23 glipizide 5 mg tablet 5 mg PO DAILY 90 days #90 tabs 03/14/23 acetaminophen 500 mg tablet 500 - 1,000 mg (1 - 2 x 500 mg) PO 03/17/23 Q6H PRN pain 30 days #120 tabs ondansetron 4 mg disintegrating 4 mg PO BID #60 tabs 03/17/23 tablet cholecalciferol (vitamin D3) 125 125 mcg PO DAILY 90 days #90 caps 03/19/23 mcg (5,000 unit) capsule lancets 28 gauge (FreeStyle #100 ea 03/19/23 Lancets) lansoprazole 30 mg capsule,delayed 30 mg PO DAILY #90 caps 03/31/23 release fluconazole 150 mg tablet 150 mg PO Q3D 2 doses #2 tabs 04/09/23 (Diflucan) fluticasone propionate 50 1 spray intranasal DAILY 30 days 04/09/23 mcg/actuation nasal #16 grams spray,suspension (Flonase Allergy Relief) dicyclomine 20 mg tablet 20 mg PO BID #60 tabs 04/27/23 nortriptyline 10 mg capsule 10 mg PO BEDTIME #30 caps 04/27/23 saliva stimulant comb. no.4 3 spray mucous membrane Q2-3H PRN 04/27/23 dry mouth #45 mL ascorbic acid (vitamin C) 1,000 mg 1 g PO DAILY #90 tabs 05/03/23 tablet docusate sodium 100 mg capsule 100 mg PO DAILY PRN for 05/04/23 constipation #90 caps gabapentin 300 mg capsule 300 mg PO DAILY #90 caps 05/05/23 benzonatate 200 mg capsule 200 mg PO TID PRN cough #20 caps 05/08/23 ibuprofen 600 mg tablet 600 mg PO Q8H PRN pain #30 tabs 05/08/23 prednisone 20 mg tablet 20 mg PO DAILY #5 tabs 05/08/23 Allergies Allergy/AdvReac Type Severity Reaction Status Date / Time clindamycin Allergy Intermediate Rash Verified 04/27/23 11:36 crab Allergy Intermediate Itch Verified 04/27/23 11:36 seafood Allergy Intermediate Itch,Rash Verified 04/27/23 11:36 Sulfa (Sulfonamide Allergy Intermediate headache Verified 04/27/23 11:36 Antibiotics) milk Allergy Unknown Verified 04/27/23 11:36 shrimp Allergy Unknown Verified 04/27/23 11:36 wheat Allergy Unknown Verified 04/27/23 11:36 nitrofurantoin Allergy Severe Abdominal Uncoded 04/27/23 11:36 Pain ciprofloxacin Allergy Intermediate Abdominal Uncoded 04/27/23 11:36 Pain SEASONAL ALLERGIES Allergy Mild RUNNY Uncoded 04/27/23 11:36 NOSE/SNEEZING Review of Systems 2 Review of Systems: Yes all other systems are reviewed and are negative Constitutional: Constitutional: Reports no additional constitutional complaints, Denies body ache(s), Denies chills, Denies fever(s), Denies headache(s) and Denies weakness Eyes: Eyes: Reports no additional eye complaints and Denies change in vision ENT: Reports system reviewed and no additional complaints, except as documented, Denies dizziness, Denies headache(s), Denies nasal congestion, Denies nasal discharge, Denies neck pain and Reports sore throat Cardiovascular: Cardiovascular: Reports no additional cardiovascular complaints, Denies chest pain, Denies leg edema and Denies dyspnea Respiratory: Respiratory: Reports no additional respiratory complaints, Reports cough and Denies dyspnea Gastrointestinal: Gastrointestinal: Reports no additional gastrointestinal complaints, Denies abdominal pain, Denies diarrhea, Denies nausea and Denies vomiting Genitourinary: Genitourinary: Reports no additional female genitourinary complaints and Denies urinary incontinence Musculoskeletal: Musculoskeletal: Reports no additional musculoskeletal complaints, Denies back pain, Denies arthralgias, Denies joint swelling, Denies neck pain, Denies numbness and Denies tingling Integumentary/Breasts: Skin/Breast: Reports system reviewed and no additional complaints, except as docu and Denies rash Neurologic: Reports system reviewed and no additional complaints, except as documented, Denies Abnormal speech present, Denies dizziness, Denies headache(s), Denies numbness, Denies tingling and Denies weakness PMFSH Past Medical History Attestation statement: The following information was validated with the patient. Source: old records reviewed and nursing notes reviewed Medical History History of ovarian cyst Renal cyst Renal calculi Mild recurrent major depression Mixed hyperlipidemia COVID-19 vaccine administered B12 deficiency Polyarthralgia Osteoarthritis of right knee Dyslipidemia Anxiety and depression History of postoperative nausea and vomiting Hx of renal calculi Hx of gastritis GERD (gastroesophageal reflux disease) Hypothyroid Colon polyps Diabetes Surgical History History of tubal ligation Hx of lithotripsy History of esophagogastroduodenoscopy (EGD) Hx of colonoscopy H/O: hysterectomy H/O thyroidectomy History of cholecystectomy Family History Family History Father Hx of heat stroke History of dementia Mother Hx of benign gastric tumor Family history of high blood pressure Hx of type 1 diabetes mellitus Colon cancer Maternal Uncle Pancreatic cancer Daughter Thyroid cancer Maternal Aunt Ovarian cancer Social History Social History Household Members: None Housing: Apartment Are you a primary complex care nurse practitioner to a significant other at home: No Do you presently have visiting nurse or other home services: No Alcohol intake: never Patient Tobacco Use Status: Never used Tobacco e-Cigarette/Vaping Use: Never Used Second Hand Smoke Exposure: Yes Advance Directives: No Advance Directives Information Provided: Yes service: No Current occupational status: disabled Sexual orientation: Straight/Heterosexual Gender identity: Female Cognitive needs: No Hearing needs: No Vision needs: No Physical Exam ED Vital Signs: Vital Signs - 24 hr 05/08/23 12:59 Temperature 96.5 F L Pulse Rate 87 Respiratory Rate 18 Blood Pressure 125/74 Pulse Oximetry 97 Oxygen Delivery Method Room Air BMI result Body Mass Index 37.0 Const General: cooperative, healthy appearing, comfortable and no acute distress Orientation/consciousness: patient oriented x3 Limitations: no limitations HENMT Head: Yes normal to inspection Ears: hearing grossly normal bilaterally and TM's normal bilaterally General nose exam: Normal external nose present Face and sinus: Yes normal facial exam Mouth: Normal oral and palatal mucosa present Throat: Yes posterior oropharynx normal, Yes tonsils normal and Yes uvula midline Eyes General: appearance normal, both eyes and all related structures Pupils: Equal, round and reactive pupils present Neck Neck: Yes normal visual inspection, Yes full ROM, Yes no lymphadenopathy and Yes no meningeal signs Chest Chest palpation & inspection: normal inspection of the chest Resp Effort & Inspection: normal respiratory effort Auscultation: clear to auscultation bilaterally Cardio Rate: regular rate Rhythm: regular rhythm Peripheral pulses: Peripheral pulses 2+ throughout GI Inspection: Yes normal to inspection Palpation (GI): Soft to palpation and nontender Auscultation: normal bowel sounds Back/Spine/Pelvis Thoracic/Lumbar Spine: thoracic and lumbar spine normal to inspection Skin General skin exam: no rashes or lesions noted Neuro General: patient oriented x3, no meningeal signs, no focal motor deficits and normal sensation to monofilament Cranial nerves: Yes Equal, round and reactive pupils present Cognition (Neuro): normal cognition Speech: No Abnormal speech present Gait exam (Neuro): Normal gait present Motor exam (neuro): 5/5 motor strength present throughout Extrem General: Yes normal to inspection, Yes no pedal edema and Yes no calf tenderness Course Course Course Narrative: RME- 57 year old female presents for evaluation of sore throat and pain radiating down into her chest. She follows with GI and reports that she spit up blood. Possibly GERD/ peptic ulcer disease. Plan for labs and a rapid strep Reevaluation(s) Reevaluation #1: labs are at baseline. Strep and COVID testing are negative. Likely viral pharyngitis. Will discharge home with supportive care. Recommend patient follow-up with primary care doctor for any continued system as she may need additional testing at that point. Reviewed worrisome signs and symptoms of when to return to the emergency room. Comfortable plan for discharge home. Medical Decision Making Medical Decision Making MDM Narrative: 57-year-old female with a history of diabetes, high cholesterol, fibromyalgia, hypothyroidism, osteoarthritis, anxiety, depression presents to the ER with complaints of sore throat for 5 days. Patient also reports dry cough. Patient had 1 episode yesterday of cough with blood streaks. Patient denies any runny nose, nasal congestion, fevers, chills, headache, neck stiffness or neck pain, shortness of breath, chest pain, vomiting or diarrhea, Leg swelling or leg pain, difficulty swallowing. exam is benign. Patient tolerating secretions with no difficulty. No meningeal signs or lymphadenopathy. Lungs are clear. No stridor. Patient had labs, COVID and strep testing ordered from triage which I will review. Differential Diagnosis Differential Diagnoses: The differential diagnosis associated with the presentation includes Likely viral syndrome exam not consistent with strep pharyngitis, RPA, COOK HELPER JUICE, Gaurav's angina, epiglottitis Admission/Observation Consideration of admission/observation: Escalation of care including admission/observation considered patient tolerating secretions with no difficulty. No need for IV fluids or admission Lab Data MDM Lab Attestation statement: I reviewed the patient's lab results. at baseline for patient 05/08/23 13:14 05/08/23 13:14 Labs: Lab Results 05/08/23 05/08/23 Range/Units 13:14 13:29 WBC 3.6 L (4.8-10.8) X10*3/uL RBC 4.10 L (4.20-5.50) X10*6/uL Hgb 12.5 (12.0-16.0) g/dl Hct 36.8 L (37.0-47.0) % MCV 89.8 (80.0-98.0) fL MCH 30.5 (27.0-33.0) pg MCHC 34.0 (31.0-35.0) g/dl RDW 12.8 (11.0-16.0) % Plt Count 231 (160-400) X10*3/uL MPV 10.0 (9.4-12.3) fL Immature Gran % (Auto) 0.3 (0.0-0.4) % Neut % (Auto) 63.0 (45-73) % Lymph % (Auto) 29.6 (20-40) % [place] % (Auto) 4.5 (2-11) % Eos % (Auto) 2.0 (0-4) % Baso % (Auto) 0.6 (0-2) % Lymph # (Auto) 1.1 L (1.2-4.9) X10*3/uL [place] # (Auto) 0.2 (0.1-1.2) X10*3/uL Eos # (Auto) 0.1 (0.0-0.4) X10*3/uL Baso # (Auto) 0.0 (0.0-0.2) X10*3/uL Abs Immat Gran (auto) 0.01 (0.00-0.03) X10*3/uL Absolute Neuts (auto) 2.3 (2.0-8.3) x10*3/uL Absolute Nucleated RBC 0.000 (0.0-0.012) X10*3/uL Nucleated RBC % (auto) 0.0 (0.0-0.2) /100WBC PT 10.8 L (11.1-13.3) SEC INR 0.9 (0.9-1.1) APTT 27.1 (26.0-36.4) SEC Sodium 143 (135-145) mmol/L Potassium 3.4 (3.3-5.1) mmol/L Chloride 110 H (96-108) mmol/L Carbon Dioxide 25 (22-29) mmol/L Anion Gap 11 L (12-20) BUN 12 (9-16) mg/dL Creatinine 0.81 (0.5-1.4) mg/dL Estim Creat Clear Calc 78.7 Estimated GFR > 60 Random Glucose 155 H (60-115) mg/dL Calcium 9.9 (8.4-10.2) mg/dL Total Bilirubin 0.4 (0.0-1.0) mg/dL AST 19 (5-31) U/L ALT 18 (0-31) U/L Alkaline Phosphatase 86 (39-117) U/L Total Protein 7.7 (6.5-8.0) g/dL Albumin 4.2 (3.5-5.0) g/dL Lipase 16 (8-78) U/L COVID-19 (OZZIE) Negative (Negative) COVID-19 Clin Com See Note S. pyogenes GrpA TAMMIE Negative (Negative) Tests considered The following testing was considered but not selected: exam not consistent with COOK HELPER JUICE, no concern for RPA to suggest need for CT soft tissue Prescription Management I considered prescription management with: Antibiotic Chronic Conditions Patient?s care impacted by: Diabetes Discharge Plan Discharge Clinical Impression: Pharyngitis Patient Disposition: Home, Self-Care Instructions: Pharyngitis (ED) Additional Instructions: your blood work is reassuring. Your testing for COVID and strep throat are negative. You likely have a virus. Take the medications as prescribed. Increase fluids, rest at home. We discussed that if you have continued or persistent symptoms you may need to follow-up with your primary care doctor for additional testing. Tu an?lisis de kathleen es tranquilizador. Brandy pruebas de COVID y faringitis estreptoc?cica son negativas. Probablemente tengas un virus. [place] los medicamentos seg?n lo recetado. Aumentar l?quidos, descansar en casa. Discutimos que si tiene s?ntomas continuos o persistentes, es posible que necesite realizar un seguimiento con gutierrez m?dico de atenci?n primaria para realizar pruebas adicionales. Prescriptions: New prednisone 20 mg tablet 20 mg PO DAILY Qty: 5 0RF ibuprofen 600 mg tablet 600 mg PO Q8H PRN (Reason: pain) Qty: 30 0RF benzonatate 200 mg capsule 200 mg PO TID PRN (Reason: cough) Qty: 20 0RF No Action (DME) blood sugar diagnostic Strip See Rx Instructions Not Applicable BID Qty: 30 11RF Rx Instructions: Use 1 test strip once a day (DME) BD Safety-Nisha Detachable Needl 3 mL 25 gauge x 5/8 syringe See Rx Instructions .ROUTE .MEDSUPPLY Qty: 1 11RF Rx Instructions: once a month (DME) FreeStyle Lite Strips Strip See Rx Instructions .Route Qty: 200 3RF Rx Instructions: Test 2 times daily fenofibrate 54 mg tablet 54 mg PO DAILY 90 Days Qty: 90 2RF (DME) blood-glucose meter [FreeStyle Lite Meter] Kit See Rx Instructions .Route Qty: 1 0RF Rx Instructions: As directed levothyroxine [Synthroid] 137 mcg tablet 137 mcg PO DAILY 90 Days Qty: 90 1RF (DME) Shower Chair Misc See Rx Instructions .Route Qty: 1 0RF Rx Instructions: As directed tizanidine 2 mg tablet 2 mg PO Q8H PRN (Reason: muscle spasticity) 30 Days Qty: 30 0RF glipizide 5 mg tablet 5 mg PO DAILY 90 Days Qty: 90 2RF atorvastatin 40 mg tablet 40 mg PO BEDTIME 90 Days Qty: 90 1RF ondansetron 4 mg tablet,disintegrating 4 mg PO BID Qty: 60 1RF acetaminophen 500 mg tablet 500 - 1,000 mg PO Q6H PRN (Reason: pain) 30 Days Qty: 120 0RF cholecalciferol (vitamin D3) 125 mcg (5,000 unit) capsule 125 mcg PO DAILY 90 Days Qty: 90 2RF (DME) lancets [FreeStyle Lancets] 28 gauge misc See Rx Instructions .ROUTE .MEDSUPPLY Qty: 100 3RF Rx Instructions: Test 2 times daily lansoprazole 30 mg capsule,delayed release(DR/EC) 30 mg PO DAILY Qty: 90 3RF nortriptyline 10 mg capsule 10 mg PO BEDTIME Qty: 30 2RF dicyclomine 20 mg tablet 20 mg PO BID Qty: 60 3RF ascorbic acid (vitamin C) 1,000 mg tablet 1 g PO DAILY Qty: 90 1RF docusate sodium 100 mg capsule 100 mg PO DAILY PRN (Reason: for constipation) Qty: 90 0RF gabapentin 300 mg capsule 300 mg PO DAILY Qty: 90 0RF buspirone 5 mg tablet 5 mg PO TID (DME) BD Luer-Nisha Syringe 3 mL 25 x 5/8 syringe See Rx Instructions .ROUTE .MEDSUPPLY Qty: 1 Rx Instructions: As directed folic acid 1 mg tablet 1 mg PO DAILY zolpidem 10 mg tablet 10 mg PO BEDTIME PRN (Reason: Insomnia) clonazepam 0.5 mg tablet 0.5 mg PO Q OTHER DAY PRN (Reason: Anxiety) fluconazole [Diflucan] 150 mg tablet 150 mg PO Q3D Qty: 2 0RF fluticasone propionate [Flonase Allergy Relief] 50 mcg/actuation spray,suspension 1 spray intranasal DAILY 30 Days Qty: 16 2RF Rx Instructions: administer into each nostril loratadine [Claritin] 10 mg tablet 10 mg PO DAILY PRN (Reason: allergy symptoms) Qty: 14 0RF venlafaxine [Effexor XR] 37.5 mg capsule,extended release 24hr 37.5 mg PO DAILY simethicone [Gas Relief (simethicone)] 80 mg tablet,chewable 160 mg PO BID-TID PRN (Reason: abdominal distention) Qty: 90 1RF estradiol 0.01 % (0.1 mg/gram) cream See Rx Instructions vaginal 3XW 30 Days Qty: 42.5 0RF Rx Instructions: vaginally 3 times a week; pea sized amount to urethra 3 times a week pyridoxine (vitamin B6) 100 mg tablet 50 mg PO DAILY 90 Days Qty: 45 3RF saliva stimulant comb. no.4 [place],Non-Aerosol 3 spray mucous membrane Q2-3H PRN (Reason: dry mouth) Qty: 45 3RF Rx Instructions: administer directly into mouth; do not follow immediately with water/other beverage/food Referrals: Karyna Coruch MD [Primary Care Provider] - 1 week Interventions: ED Discharge Assessment Last Done: 05/08/23 14:33 Discharge Date/Time: 05/08/23 14:33 Print Language: Maltese
--- NOTE | 2023-05-08 13:04 | ECG_ITS ---
Test Reason : pain Blood Pressure : / mmHG Vent. Rate : 079 BPM Atrial Rate : 079 BPM P-R Int : 154 ms QRS Dur : 082 ms QT Int : 372 ms P-R-T Axes : 020 -02 013 degrees QTc Int : 426 ms Normal sinus rhythm Minimal voltage criteria for LVH, may be normal variant ( R in aVL ) Borderline ECG When compared with ECG of 31-JAN-2022 11:02, No significant change was found Referred By: John Joe Electronically Signed By:JAYA RANDLE MD
[2023-05-08 13:18] LABS: MANUAL DIFF FLAG NO
[2023-05-08 13:27] LABS: INTERNATIONAL NORM RATIO 0.9 (0.9-1.1); Prothrombin Time 10.8 SEC (11.1-13.3)
[2023-05-08 13:28] LABS: Basophils Percent Auto 0.6 % (0-2); Eosinophils Absolute Auto 0.1 X10*3/uL (0.0-0.4); Hematocrit 36.8 % (37.0-47.0); Hemoglobin 12.5 g/dl (12.0-16.0); Imm Gran Abs Auto 0.01 X10*3/uL (0.00-0.03); Imm Gran Pct Auto 0.3 % (0.0-0.4); Lymphocytes Absolute Auto 1.1 X10*3/uL (1.2-4.9); Lymphocytes Percent Auto 29.6 % (20-40); Mean Corpuscular Hemoglobin 30.5 pg (27.0-33.0); Mean Corpuscular Volume 89.8 fL (80.0-98.0); Monocytes Absolute Auto 0.2 X10*3/uL (0.1-1.2); Monocytes Percent Auto 4.5 % (2-11); Neutrophils Absolute Auto 2.3 x10*3/uL (2.0-8.3); Platelet Count 231 X10*3/uL (160-400); Red Cell Distribution Width 12.8 % (11.0-16.0); White Blood Count 3.6 X10*3/uL (4.8-10.8)
[2023-05-08 13:29] LABS: Partial Thromboplastin Time 27.1 SEC (26.0-36.4)
[2023-05-08 13:31] LABS: IDNOW Serial# 08D9AD1C; Strep A Nucleic Acid Negative (Negative)
[2023-05-08 13:37] LABS: Alanine Aminotransferase 18 U/L (0-31); Albumin Level 4.2 g/dL (3.5-5.0); Alkaline Phosphatase 86 U/L (39-117); Anion Gap 11 (12-20); Aspartate Amino Transferase 19 U/L (5-31); Bilirubin Total 0.4 mg/dL (0.0-1.0); Blood Urea Nitrogen 12 mg/dL (9-16); Calcium 9.9 mg/dL (8.4-10.2); Carbon Dioxide 25 mmol/L (22-29); Chloride 110 mmol/L (96-108); Creatinine Clr Calc Pharmacy 78.7; Estimated Glomerular Filt Rate > 60; Glucose Random 155 mg/dL (60-115); Lipase 16 U/L (8-78); Potassium 3.4 mmol/L (3.3-5.1); Sodium 143 mmol/L (135-145); Total Protein 7.7 g/dL (6.5-8.0)
[2023-05-08 14:16] LABS: COVID-19 Test Negative (Negative); IDNOW Serial# 9DB6401D
== END 2023-05-08 14:33 | disposition home or self-care (01) ==
PROVIDERS: Physician Assistant; Emergency Provider Emergency Medicine Emergency Medical Services; PCP Internal Medicine
DX: J02.9 Acute pharyngitis, unspecified (principal); Z11.52 Encounter for screening for COVID-19; E11.9 Type 2 diabetes mellitus without complications; E78.00 Pure hypercholesterolemia, unspecified; Z79.899 Other long term (current) drug therapy
CPT/HCPCS: 36415; 80053; 83690; 85025; 85610; 85730; 87635; 87651; 93005; 99283; 99284

== ENCOUNTER 2023-05-18 09:53 | Outpatient (REF) | payer OTHER, SELFPAY ==
[2023-05-18 10:55] LABS: Cholesterol 155 mg/dL (<200); HDL Cholesterol 47 mg/dL (>40); LDL Cholesterol Calculated 68 mg/dL (<100); Triglycerides 201 mg/dL (<150)
[2023-05-18 11:06] LABS: Vitamin D 25-OH Total 33.7 ng/mL (>30)
[2023-05-18 14:08] LABS: Creatinine Urine 333.63 mg/dL; Microalbum/Creatinine Ratio Ur 8.6 ug/mg cr (<30)
[2023-05-20 21:59] LABS: Zinc 60 mcg/dL (60-130)
== END 2023-05-18 09:54 | disposition home or self-care (01) ==
LOC: HO.LAB 09:53
PROVIDERS: Internal Medicine Gastroenterology; PCP Internal Medicine; Visit Provider Internal Medicine
DX: E78.5 Hyperlipidemia, unspecified (principal); E11.9 Type 2 diabetes mellitus without complications; E03.9 Hypothyroidism, unspecified; E55.9 Vitamin D deficiency, unspecified; E46 Unspecified protein-calorie malnutrition; E53.8 Deficiency of other specified B group vitamins; D72.819 Decreased white blood cell count, unspecified
CPT/HCPCS: 36415; 80061; 82043; 82306; 82570; 84443; 84630

== ENCOUNTER 2023-05-25 12:54 | Outpatient (AMB) | payer OTHER, SELFPAY ==
--- NOTE | 2023-05-25 12:58 | A.OFFPC_ITS ---
Vital Signs 05/25/23 12:59 Height 5 ft 2 in Weight 198 lb BMI 36.2 BP 118/82 Blood Pressure Location Lt brachial Position Sitting Pulse 86 Pulse Source Pulse Oximeter Pulse Oximetry (%) 99 Oxygen Delivery Method Room Air Intake Visit Reasons: Annual Exam Intake Note: Patient here for a physical exam Instrument Sterilizer Required: No Accompanied by: Self / Same As Patient Allergies clindamycin Allergy (Intermediate, Verified 05/25/23 13:13) Rash crab Allergy (Intermediate, Verified 05/25/23 13:13) Itch seafood Allergy (Intermediate, Verified 05/25/23 13:13) Itch,Rash Sulfa (Sulfonamide Antibiotics) Allergy (Intermediate, Verified 05/25/23 13:13) headache milk Allergy (Verified 05/25/23 13:13) Unknown shrimp Allergy (Verified 05/25/23 13:13) Unknown wheat Allergy (Verified 05/25/23 13:13) Unknown nitrofurantoin Allergy (Severe, Uncoded 05/25/23 13:13) Abdominal Pain ciprofloxacin Allergy (Intermediate, Uncoded 05/25/23 13:13) Abdominal Pain SEASONAL ALLERGIES Allergy (Mild, Uncoded 05/25/23 13:13) RUNNY NOSE/SNEEZING Medication List - Last Reconciled 05/25/23 by Karyna Murphy MD acetaminophen 500 - 1,000 mg (1 - 2 x 500 mg) PO Q6H PRN 30 days ascorbic acid (vitamin C) 1 g PO DAILY atorvastatin 40 mg PO BEDTIME 90 days benzonatate 200 mg PO TID PRN blood sugar diagnostic Use 1 test strip once a day blood sugar diagnostic (FreeStyle Lite Strips) Test 2 times daily blood-glucose meter (FreeStyle Lite Meter kit) As directed buspirone 5 mg PO TID cholecalciferol (vitamin D3) 125 mcg PO DAILY 90 days clonazepam 0.5 mg PO Q OTHER DAY PRN dicyclomine 20 mg PO BID docusate sodium 100 mg PO DAILY PRN estradiol 0.01%(0.1mg/gram) vaginally 3 times a week; pea sized amount to urethra 3 times a week 30 days fenofibrate 54 mg PO DAILY 90 days fluticasone propionate 50 mcg/actuation (Flonase Allergy Relief) 1 spray intranasal DAILY 30 days folic acid 1 mg PO DAILY gabapentin 300 mg PO DAILY glipizide 5 mg PO DAILY 90 days ibuprofen 600 mg PO Q8H PRN lancets (FreeStyle Lancets) Test 2 times daily lansoprazole 30 mg PO DAILY levothyroxine (Synthroid) 137 mcg PO DAILY 90 days loratadine (Claritin) 10 mg PO DAILY PRN nortriptyline 10 mg PO BEDTIME ondansetron 4 mg PO BID pyridoxine (vitamin B6) 50 mg (1/2 x 100 mg) PO DAILY 90 days saliva stimulant comb. no.4 3 sprays mucous membrane Q2-3H PRN Shower Chair As directed simethicone (Gas Relief (simethicone)) 160 mg (2 x 80 mg) PO BID-TID PRN syringe with needle As directed syringe with needle, safety (BD Safety-Nisha Detachable Needle) once a month tizanidine 2 mg PO Q8H PRN 30 days venlafaxine ER (Effexor XR) 37.5 mg PO DAILY zolpidem 10 mg PO BEDTIME PRN Tobacco use date assessed: 12/05/22 Dental Screening Dental Screen Date: 05/25/23 Did you have a dental visit in the last 12 months?: No Did you have a dental problem in the last 6 months where you did not have access to dental care?: No Was dental information given to patient?: Patient has dentist HPI HPI Comments History of Present Illness Details This is a 57-year-old female with mild recurrent major depression and diabetes mellitus type 2 that comes for her physical exam. Depression stable with medications. A1c within goal. Last mammogram 2022 was normal. Last colonoscopy was 2019 showing tubular adenoma and hyperplastic polyp. No need for Pap smears due to hysterectomy. [facility] Medical History (Updated 05/25/23 @ 13:29 by Karyna Murphy MD) Malnutrition History of ovarian cyst Renal cyst Renal calculi Mild recurrent major depression Mixed hyperlipidemia COVID-19 vaccine administered B12 deficiency Polyarthralgia Osteoarthritis of right knee Dyslipidemia Anxiety and depression History of postoperative nausea and vomiting Hx of renal calculi Hx of gastritis GERD (gastroesophageal reflux disease) Hypothyroid Colon polyps Diabetes Surgical History History of tubal ligation Hx of lithotripsy History of esophagogastroduodenoscopy (EGD) Hx of colonoscopy H/O: hysterectomy H/O thyroidectomy History of cholecystectomy Family History Father Hx of heat stroke History of dementia Mother Hx of benign gastric tumor Family history of high blood pressure Hx of type 1 diabetes mellitus Colon cancer Maternal Uncle Pancreatic cancer Daughter Thyroid cancer Maternal Aunt Ovarian cancer Social History Household Members: None Housing: Apartment Are you a primary health care specialist to a significant other at home: No Do you presently have visiting nurse or other home services: No Alcohol intake: never Patient Tobacco Use Status: Never used Tobacco e-Cigarette/Vaping Use: Never Used Second Hand Smoke Exposure: Yes service: No Current occupational status: disabled Sexual orientation: Straight/Heterosexual Gender identity: Female Cognitive needs: No Hearing needs: No Vision needs: No Questionnaire Thrive Questionnaire Date Thrive assessed: 12/05/22 JUDY-7 AMB Questionnaire JUDY-7 Date JUDY - 7 assessed: 12/05/22 Source: Developed by Drs. Tom Crawford, Olivia Tesfaye, Jay Jay Stover and colleagues, with an educational reddy from [employer]. Review of Systems Const All systems reviewed & are unremarkable except as noted in HPI and below Eyes Reports no additional complaints, Denies change in vision and Denies other visual disturbances Card Denies chest pain at rest, Denies chest pain with activity, Denies edema, Denies irregular heart rhythm, Denies claudication, Denies dyspnea, Denies dyspnea on exertion, Denies orthopnea, Denies paroxysmal nocturnal dyspnea and Denies slow heart rate Resp Denies cough, Denies dyspnea and Denies dyspnea on exertion GI Denies abdominal pain, Denies change in bowel habits, Denies excessive flatus, Denies nausea and Denies vomiting Denies urinary incontinence, Denies urinary hesitancy and Denies urinary urgency Musc Denies abnormal gait, Denies atrophy, Denies deformity and Denies limited range of motion Skin/Breast Denies bleeding lesions, Denies changing lesions and Denies rash Neuro Denies abnormal gait and Denies lack of coordination Physical exam (Primary Care) Vital Signs: Last Vital Signs Pulse 86 05/25/23 12:59 BP 118/82 05/25/23 12:59 Pulse Ox 99 05/25/23 12:59 Oxygen Delivery Method Room Air 05/25/23 12:59 BMI result Body Mass Index 36.2 Tobacco/Smoking Status: Tobacco use Status Tobacco use date assessed 12/05/22 05/25/23 12:58 Patient Tobacco Use Status Never used Tobacco 05/25/23 12:58 e-Cigarette/Vaping Use Never Used 05/25/23 12:58 Thrive Assessment: Date of Thrive Assessment Date Thrive assessed 12/05/22 05/25/23 12:58 Const Orientation/consciousness: patient oriented x3 HENMT Head: Yes normal to inspection, Yes normocephalic and Yes atraumatic Ears: external ears normal Eyes General: appearance normal, both eyes and all related structures Eyelids: Yes eyelids normal Conjunctivae: conjunctivae normal Neck Neck: Yes normal visual inspection and Yes supple Resp Effort & Inspection: normal respiratory effort Auscultation: clear to auscultation bilaterally Cardio Jugular venous distension: no JVD Rate: regular rate Rhythm: regular rhythm Heart sounds: S1 normal heart sound present and S2 normal heart sound present GI Inspection: Yes normal to inspection Palpation (GI): Soft to palpation and nontender Auscultation: normal bowel sounds Skin General skin exam: no rashes or lesions noted Neuro General: patient oriented x3 and no focal motor deficits Extrem General: Yes full ROM Psych Appearance: grossly normal Office Procedures Flu Questionnaire Does the patient have a severe egg allergy?: No Immunizations flu vacc [id number] 6mos up(PF) 60 mcg(15 mcgx4)/0.5 mL IM syringe Performing Provider: Karyna Murphy MD [facility] Documented (not given) by: KAMRON Sanchez on 05/25/23 13:07 Reason Not Given: Patient Refused Assessment and Plan Assessment & Plan (1) Physical exam: Code(s): Z00.00 - Encounter for general adult medical examination without abnormal findings Plan: Repeat in a year (2) Diabetes: Comment: NIDDM Code(s): E11.9 - Type 2 diabetes mellitus without complications Qualifiers: Diabetes mellitus type: type 2 Diabetes mellitus correction insulin use: without termite exterminator helper use Diabetes mellitus complication status: without complication Qualified Code(s): E11.9 - Type 2 diabetes mellitus without complications Plan: Continue glipizide. A1c goal is equal or less than 7%. (3) Mild recurrent major depression: Code(s): F33.0 - Major depressive disorder, recurrent, mild Plan: Continue venlafaxine. Orders: Orders Influenza [id number] Immunization Today Z23 - Encounter for immunization Vitamin D 25-OH Total 4 Months E55.9 - Vitamin D deficiency, unspecified Comprehensive Tiller. Panel Fast 4 Months E11.9 - Type 2 diabetes mellitus without complications Thyroid Stimulating Hormone 4 Months E03.9 - Hypothyroidism, unspecified Sjogren's Antibodies 4 Months R68.2 - Dry mouth, unspecified Lipid Panel 4 Months E78.5 - Hyperlipidemia, unspecified Microalbumin, Random (w Creat) 4 Months E11.9 - Type 2 diabetes mellitus without complications Medications: Refilled fenofibrate 54 mg PO DAILY 90 days 90 tabs 2RF Coding Level of Care Code Est Pt Prev Care 40-64y(77032) Diagnoses Physical exam Z00.00 Type 2 diabetes mellitus without complication, without long-term current use of insulin E11.9 Diabetes mellitus type: type 2 Diabetes mellitus correction insulin use: without correction use Diabetes mellitus complication status: without complication Mild recurrent major depression F33.0 Time Spent (min) 35
[2023-05-25 12:59] VITALS: BP 118/82; PULSE 86; O2SAT 99; BMI 36.2
== END 2023-05-25 13:27 | disposition home or self-care (01) ==
PROVIDERS: Visit Provider Internal Medicine
DX: Z00.00 Encounter for general adult medical examination without abnormal findings (principal); E11.9 Type 2 diabetes mellitus without complications; F33.0 Major depressive disorder, recurrent, mild
CPT/HCPCS: 99396

== ENCOUNTER → 2023-05-26 13:53 | Outpatient (BNVA) | payer OTHER, SELFPAY | PROVIDERS: PCP Internal Medicine; Visit Provider Urology ==

== ENCOUNTER 2023-06-18 12:59 | Outpatient (REF) | payer OTHER, SELFPAY | END 2023-06-18 13:00 | disposition home or self-care (01) | LOC: HO.US 12:59 | PROVIDERS: PCP Internal Medicine; Visit Provider Internal Medicine | DX: Z13.89 Encounter for screening for other disorder (principal) ==

== ENCOUNTER 2023-08-11 12:56 | Outpatient (REF) | payer OTHER, SELFPAY ==
--- NOTE | ~2023-08-11 | US_ITS ---
EXAMINATION: US RETROPERITONEAL LIMITED (RENAL ONLY) CLINICAL INFORMATION: Calculus of kidney. COMPARISON: Renal ultrasound 01/16/2023 and 06/13/2022. MRI abdomen 11/07/2021. X-ray abdomen KUB 12/11/2020. CT abdomen and pelvis 08/29/2020. TECHNIQUE: Real-time imaging of the kidneys. FINDINGS: RIGHT KIDNEY: 11.6 x 4.8 x 5.1 cm (SAG x AP x TRV). The kidney is normal in size, contour, and echogenicity. Renal cortical thickness is normal. No hydronephrosis. At the lower pole, a 5 mm nonobstructing calculus is seen, with twinkle artifact. At the lower pole laterally, a 9 mm benign, simple cyst is seen, which requires no imaging follow-up. LEFT KIDNEY: 10.5 x 5.1 x 4.3 cm (SAG x AP x TRV). The kidney is normal in size, contour, and echogenicity. Renal cortical thickness is normal. No focal parenchymal lesions. No hydronephrosis. At the lower pole, a 4 mm nonobstructing calculus is redemonstrated, consistent with prior ultrasound and CT findings. US/US renal BI IMPRESSION: There are nonobstructing bilateral renal calculi. No hydronephrosis is seen.
== END 2023-08-11 12:57 | disposition home or self-care (01) ==
LOC: HO.US 12:56
PROVIDERS: PCP Internal Medicine; Visit Provider Nurse Practitioner Family
DX: N20.0 Calculus of kidney (principal); N28.1 Cyst of kidney, acquired
CPT/HCPCS: 76775

== ENCOUNTER 2023-08-18 09:02 | Outpatient (REF) | payer OTHER, SELFPAY ==
[2023-08-18 11:31] LABS: Alanine Aminotransferase 18 U/L (0-31); Albumin Level 4.2 g/dL (3.5-5.0); Alkaline Phosphatase 83 U/L (39-117); Anion Gap 16 (12-20); Aspartate Amino Transferase 21 U/L (5-31); Bilirubin Total 0.6 mg/dL (0.0-1.0); Blood Urea Nitrogen 13 mg/dL (9-16); Calcium 9.2 mg/dL (8.4-10.2); Carbon Dioxide 22 mmol/L (22-29); Chloride 109 mmol/L (96-108); Cholesterol 139 mg/dL (<200); Estimated Glomerular Filt Rate > 60; Glucose Fasting 154 mg/dL (60-99); HDL Cholesterol 46 mg/dL (>40); LDL Cholesterol Calculated 65 mg/dL (<100); Potassium 3.5 mmol/L (3.3-5.1); Sodium 143 mmol/L (135-145); Total Protein 7.4 g/dL (6.5-8.0); Triglycerides 142 mg/dL (<150)
[2023-08-18 11:35] LABS: Thyroid Stimulating Hormone 2.16 uIU/mL (0.32-4.0); Vitamin D 25-OH Total 31.4 ng/mL (>30)
[2023-08-18 12:05] LABS: Microalbum/Creatinine Ratio Ur 11.7 ug/mg cr (<30)
[2023-08-19 18:33] LABS: Antibody to SS-A Antigen <1.0 NEG AI (<1.0 NEG); Antibody to SS-B Antigen <1.0 NEG AI (<1.0 NEG)
== END 2023-08-18 09:03 | disposition home or self-care (01) ==
LOC: HO.LAB 09:02
PROVIDERS: PCP Internal Medicine; Visit Provider Internal Medicine
DX: E11.9 Type 2 diabetes mellitus without complications (principal); E03.9 Hypothyroidism, unspecified; E78.5 Hyperlipidemia, unspecified; E55.9 Vitamin D deficiency, unspecified; R68.2 Dry mouth, unspecified
CPT/HCPCS: 36415; 80053; 80061; 82043; 82306; 82570; 84443; 86235

== ENCOUNTER 2023-10-06 11:04 | Outpatient (AMB) | payer OTHER, SELFPAY ==
--- NOTE | 2023-10-06 11:04 | MHC.OFFVIS ---
Intake Intake Visit Reasons: OV-3m follow up/PVR Intake Note: Patient presents today for a telehealth follow up on PVR Meds- Vitamin B6 Allergies to Antibiotic- Clindamycin, Sulfa, Nitrofurantoin, Ciprofloxacin Blood Thinner- None Patient would like to discuss MRI results. Fisher Sponge Hooking Required: Yes Fisher Sponge Hooking Name: LASHAWN RIVAS-[facility]I Allergies clindamycin Allergy (Intermediate, Verified 10/06/23 11:27) Rash crab Allergy (Intermediate, Verified 10/06/23 11:27) Itch seafood Allergy (Intermediate, Verified 10/06/23 11:27) Itch,Rash Sulfa (Sulfonamide Antibiotics) Allergy (Intermediate, Verified 10/06/23 11:27) headache milk Allergy (Verified 10/06/23 11:27) Unknown shrimp Allergy (Verified 10/06/23 11:27) Unknown wheat Allergy (Verified 10/06/23 11:27) Unknown nitrofurantoin Allergy (Severe, Uncoded 10/06/23 11:27) Abdominal Pain ciprofloxacin Allergy (Intermediate, Uncoded 10/06/23 11:27) Abdominal Pain SEASONAL ALLERGIES Allergy (Mild, Uncoded 10/06/23 11:27) RUNNY NOSE/SNEEZING Medication List - Last Reconciled 10/06/23 by LISA Cohn-GEE acetaminophen 500 - 1,000 mg (1 - 2 x 500 mg) PO Q6H PRN 30 days ascorbic acid (vitamin C) 1 g PO DAILY ascorbic acid (vitamin C) 1,000 mg (2 x 500 mg) PO DAILY 90 days atorvastatin 40 mg PO BEDTIME 90 days benzonatate 200 mg PO TID PRN blood sugar diagnostic Use 1 test strip once a day blood sugar diagnostic (FreeStyle Lite Strips) Test 2 times daily blood-glucose meter (FreeStyle Lite Meter kit) As directed buspirone 5 mg PO TID cholecalciferol (vitamin D3) 125 mcg PO DAILY 90 days clonazepam 0.5 mg PO Q OTHER DAY PRN dicyclomine 20 mg PO BID docusate sodium 100 mg PO DAILY PRN fenofibrate 54 mg PO DAILY 90 days fluticasone propionate 50 mcg/actuation (Flonase Allergy Relief) 1 spray intranasal DAILY 30 days folic acid 1 mg PO DAILY gabapentin 300 mg PO DAILY glipizide 5 mg PO DAILY 90 days ibuprofen 600 mg PO Q8H PRN lancets (FreeStyle Lancets) Test 2 times daily lansoprazole 30 mg PO DAILY levothyroxine (Synthroid) 137 mcg PO DAILY 90 days loratadine (Claritin) 10 mg PO DAILY PRN nortriptyline 10 mg PO BEDTIME ondansetron 4 mg PO BID pyridoxine (vitamin B6) 50 mg (1/2 x 100 mg) PO DAILY 90 days saliva stimulant comb. no.4 3 sprays mucous membrane Q2-3H PRN saliva substitute combo no.2 1 appl mucous membrane Q4H PRN Shower Chair As directed simethicone (Gas Relief (simethicone)) 160 mg (2 x 80 mg) PO BID-TID PRN syringe with needle As directed syringe with needle, safety (BD Safety-Nisha Detachable Needle) once a month tizanidine 2 mg PO Q8H PRN 30 days venlafaxine ER (Effexor XR) 37.5 mg PO DAILY zinc acetate (Galzin) 50 mg PO DAILY zolpidem 10 mg PO BEDTIME PRN HPI HPI Comments History of Present Illness Details Kamille is a 58-year-old Ivorian-speaking female of Dr. Mora. She has a past medical history of anxiety, depression, vitamin B12 deficiency, diabetes, GERD, dyslipidemia, osteoarthritis, renal calculi, and renal cysts. She is being followed up on today via telehealth for her renal calculi and renal cysts. In discussion with the patient today she reports to have changed her appointment today to telehealth as she believes she has a cold. Recent renal imaging results reviewed with the patient today. Bilateral kidneys with no hydronephrosis. At the lower pole of the right kidney a 5 mm nonobstructing calculus is seen. A 9 mm benign simple cyst is seen which requires no imaging follow-up per radiology. Left kidney with a 4 mm nonobstructing calculus. She does report intermittent infrequent episodes of bilateral flank pain. She otherwise denies urinary urgency, urinary frequency, incontinence, nocturia, hematuria, foul smelling urine, changes to urinary stream, flank pain, fever, and or chills. She is happy with her current voiding parameters. She reports to be drinking plenty of water daily and adding 1 oz of lemon juice to water daily. She continues with vitamin B6 as prescribed. Discussed at length surveillance monitoring verses further surgical intervention. Discussed further metabolic workup with 24 hour urine collection and labs. She otherwise offers no issues or concerns at this time. [facility] Medical History Malnutrition History of ovarian cyst Renal cyst Renal calculi Mild recurrent major depression Mixed hyperlipidemia COVID-19 vaccine administered B12 deficiency Polyarthralgia Osteoarthritis of right knee Dyslipidemia Anxiety and depression History of postoperative nausea and vomiting Hx of renal calculi Hx of gastritis GERD (gastroesophageal reflux disease) Hypothyroid Colon polyps Diabetes Surgical History History of tubal ligation Hx of lithotripsy History of esophagogastroduodenoscopy (EGD) Hx of colonoscopy H/O: hysterectomy H/O thyroidectomy History of cholecystectomy Family History Father Hx of heat stroke History of dementia Mother Hx of benign gastric tumor Family history of high blood pressure Hx of type 1 diabetes mellitus Colon cancer Maternal Uncle Pancreatic cancer Daughter Thyroid cancer Maternal Aunt Ovarian cancer Social History Household Members: None Housing: Apartment Are you a primary care administrative tech to a significant other at home: No Do you presently have visiting nurse or other home services: No Alcohol intake: never Patient Tobacco Use Status: Never used Tobacco e-Cigarette/Vaping Use: Never Used Second Hand Smoke Exposure: Yes service: No Current occupational status: disabled Sexual orientation: Straight/Heterosexual Gender identity: Female Cognitive needs: No Hearing needs: No Vision needs: No Review of Systems Const Reports as per HPI Eyes Reports no additional complaints ENT Reports no additional complaints Card Reports as per HPI Resp Reports no additional complaints GI Reports as per HPI Reports as per HPI Musc Reports no additional complaints Neuro Reports no additional complaints Psych Reports as per HPI Endo Reports as per HPI Osman/Lymph Reports no additional complaints Aller/Immun Reports no additional complaints Physical Exam Const General: cooperative Orientation/consciousness: patient oriented x3 Resp Effort & Inspection: able to speak in complete sentences Neuro General: patient oriented x3 Psych Affect: normal affect Attitude: cooperative Thought content: Normal thought content present Insight: Fair insight present (Psych) Judgement: Fair judgement present (Psych) Results Reviewed Results Reviewed: Date of Service: 08/11/23 EXAMINATION: US RETROPERITONEAL LIMITED (RENAL ONLY) FINDINGS: RIGHT KIDNEY: 11.6 x 4.8 x 5.1 cm (SAG x AP x TRV). The kidney is normal in size, contour, and echogenicity. Renal cortical thickness is normal. No hydronephrosis. At the lower pole, a 5 mm nonobstructing calculus is seen, with twinkle artifact. At the lower pole laterally, a 9 mm benign, simple cyst is seen, which requires no imaging follow-up. LEFT KIDNEY: 10.5 x 5.1 x 4.3 cm (SAG x AP x TRV). The kidney is normal in size, contour, and echogenicity. Renal cortical thickness is normal. No focal parenchymal lesions. No hydronephrosis. At the lower pole, a 4 mm nonobstructing calculus is redemonstrated, consistent with prior ultrasound and CT findings. IMPRESSION: There are nonobstructing bilateral renal calculi. No hydronephrosis is seen. Assessment & Plan Assessment & Plan (1) Renal cyst: Code(s): N28.1 - Cyst of kidney, acquired (2) Renal calculi: Code(s): N20.0 - Calculus of kidney Plan Recent renal imaging results reviewed with the patient today; as noted above. Discussed at length potential causes of nephrolithiasis as well as renal cysts Discussed further treatment options with surveillance monitoring versus surgical intervention; will continue with surveillance monitoring at this time. Discussed further metabolic workup with 24 hour urine collection and labs; however patient declines at this time. Continue vitamin B6 as discussed and prescribed; refill provided. Continue adding 1 oz of lemon juice to water daily. Continue drinking plenty of water daily. Discussed importance of managing diabetes for overall health and well-being. She currently denies any bothersome urinary issues or concerns. She is happy with her current voiding parameters. Will obtain renal ultrasound in 6 months. Follow-up in 6 months with imaging to be completed prior; or sooner with any issues, concerns, and or questions. Orders: Orders US renal BI 6 Months N20.0 - Calculus of kidney Medications: Refilled pyridoxine (vitamin B6) 50 mg (1/2 x 100 mg) PO DAILY 90 days 45 tabs 3RF Patient Instructions: The patient had an opportunity to ask questions regarding the treatment plan. All questions were answered. Physical exam, labs, and imaging were discussed and reviewed in detail. As well as risks, benefits, and discussion of treatment choices. No major barriers to understanding were identified. The patient expressed understanding and agreement with the above treatment plan. The patient was made aware they should contact our office by phone for worsening of their current condition, the appearance of new symptoms, or with any questions or concerns. Compliance is encouraged with any medications and follow up testing that is ordered. It is a privilege to be allowed the opportunity to participate in? your urological care.? Again, if you have any questions or concerns If you have any questions or concerns please do not hesitate to contact me. The office is [phone]. This note is constructed using voice recognition software. While every effort has been made to ensure accuracy electronics installer errors may have been included. Yours sincerely, LIZETH Cohn Telehealth Telehealth Location of provider rendering services: practice address Location of patient: address on file Patient Identification confirmed using: Name, : Yes Telehealth method: voice only Patient verbally consented to treatment: Yes Patient verbally consented to billing insurance company: Yes Patient informed of any privacy concerns related to visit: Yes Minutes spent on Phone/Video with Pt.: 20 Coding Level of Care Code Tele Est Pt Level 4 (60633) Diagnoses Renal cyst N28.1 Renal calculi N20.0 Time Spent (min) 20
== END 2023-10-06 11:23 | disposition home or self-care (01) ==
LOC: HO.HUSH 11:04
PROVIDERS: PCP Internal Medicine; Visit Provider Nurse Practitioner Family
DX: N28.1 Cyst of kidney, acquired (principal); N20.0 Calculus of kidney
CPT/HCPCS: 99214

== ENCOUNTER → 2023-10-06 11:04 | Outpatient (BNVA) | payer OTHER, SELFPAY | PROVIDERS: PCP Internal Medicine; Visit Provider Nurse Practitioner Family ==

== ENCOUNTER 2023-11-02 08:53 | Outpatient (REF) | payer OTHER, SELFPAY ==
[2023-11-02 10:15] LABS: Alanine Aminotransferase 15 U/L (0-31); Albumin Level 4.2 g/dL (3.5-5.0); Alkaline Phosphatase 79 U/L (39-117); Anion Gap 10 (12-20); Aspartate Amino Transferase 19 U/L (5-31); Bilirubin Total 0.7 mg/dL (0.0-1.0); Blood Urea Nitrogen 11 mg/dL (9-16); Calcium 9.2 mg/dL (8.4-10.2); Carbon Dioxide 27 mmol/L (22-29); Chloride 110 mmol/L (96-108); Estimated Glomerular Filt Rate > 60; Glucose Fasting 146 mg/dL (60-99); Potassium 3.3 mmol/L (3.3-5.1); Sodium 144 mmol/L (135-145); Total Protein 7.5 g/dL (6.5-8.0)
== END 2023-11-02 08:54 | disposition home or self-care (01) ==
LOC: HO.LAB 08:53
PROVIDERS: PCP Internal Medicine; Visit Provider Internal Medicine
DX: E11.40 Type 2 diabetes mellitus with diabetic neuropathy, unspecified (principal)
CPT/HCPCS: 36415; 80053

== ENCOUNTER 2023-11-06 08:53 | Outpatient (AMB) | payer OTHER, SELFPAY ==
--- NOTE | 2023-11-06 09:11 | MHC.OFFVIS ---
Vital Signs 11/06/23 09:19 Height 5 ft 2 in Weight 191 lb 12.835 oz BMI 35.1 BP 124/74 Blood Pressure Location Lt brachial Position Sitting Pulse 79 Intake Visit Reasons: 6 month follow up Intake Note: Kamille presents in the office as a 6 month follow up. CC: She states that she was given tamsulosin and prednisone - she has not received the tamsulosin yet. She states that she is having concerns today regarding her stomach and intestines. She has a discomfort with her bowels. Knock Out Hand Required: Yes Knock Out Hand Name: [id number] Angeline Allergies clindamycin Allergy (Intermediate, Verified 11/06/23 09:18) Rash crab Allergy (Intermediate, Verified 11/06/23 09:18) Itch seafood Allergy (Intermediate, Verified 11/06/23 09:18) Itch,Rash Sulfa (Sulfonamide Antibiotics) Allergy (Intermediate, Verified 11/06/23 09:18) headache milk Allergy (Verified 11/06/23 09:18) Unknown shrimp Allergy (Verified 11/06/23 09:18) Unknown wheat Allergy (Verified 11/06/23 09:18) Unknown nitrofurantoin Allergy (Severe, Uncoded 11/06/23 09:18) Abdominal Pain ciprofloxacin Allergy (Intermediate, Uncoded 11/06/23 09:18) Abdominal Pain SEASONAL ALLERGIES Allergy (Mild, Uncoded 11/06/23 09:18) RUNNY NOSE/SNEEZING HPI HPI 6 month follow up: Details: 58 yr old f here for f/u RECAP: She had noted more constipation, new for her she wants to go, but she can't pass any stool, sometimes 2 d before passes stool takes laxatives to help denies blood in stool but had pos stool FOB 10/2018 going on for 2 months before that she was going every other day to toilet, but no tenesmus like sensation she also has epigastric pain and discomfort, worse wt food she takes advil occasionally, meloxicam on chart but takes occasionally she has nausea, and some reflux sx she is on omeprazole 40 mg once daily seh also has pernicious anemia, on b12 shots she had EGD 08/12/2017- severe gastritis noted colonoscopy done 5 yrs ago and one polyp removed FH of crc in mother aged 72 [facility] normal, hgb 12.6. She had EGD/colonoscopy:04/2019-- chronic gastritis, and chronic GEJ junction, severe diverticulosis, mycosis, ADENOMATOUS polyps prep was fair H pylori breath test done and was negative advised on high fiber diet she still had epigastric pain and discomfort at f/u, she was stressed due to daughter with thyroid cancer and mum with stomach tumour she endorsed anxiety she was changed from omeprazole to pantoprazole and given low dose TCA she had been taking the pantoprazole and it was helping a lot she was given flagly in case of SIBO and pelvic us was ordered (CT then ordered by PCP-as below) she feels nortriptiline didn;t help her she did feel lansoprazole has been helping a lot Srivastava with out any significant reflux REPT COLONOSCOPY 2019-- redundant colon, tubular adenoma and hyperplastic polyps pelvic us 07/2020--nml CT A/P- 08/2020--renal stones, diverticuli, incl duodenum, fatty liver GES 11/2020--rapid gastric emptying, 1 hr 26% left and 2 hr 2% left RAST--low level pos for wheat, cows milk, shrimp TSH--nml MRI 11/01 steatosis, focal nodular hyperplasia US 01/31: 1. Anechoic cyst midpole right kidney. 2. Likely vascular calcification left kidney. 3. There is no caliectasis or hydronephrosis. INTERIM: she was in [place], while she was there she developed stomach problems-- she went there September and was there for 3 weeks whatever she ate was giving her pain her daughter gave her meds which helped she has diffuse abdominal pain now, she has some diarrhea but better some relief with bentyl no nausea or vomiting EXAM: GENERAL: The patient is well developed and nontoxic. VITAL SIGNS:see workflow HEENT: Nonicteric sclerae, PERRLA, EOMI. Oropharynx clear. Moist mucous membranes. Conjunctivae appear well perfused. No thyroid mass. CHEST: Chest wall is nontender. HEART: Regular rate and rhythm without murmurs. LUNGS: Clear to auscultation bilaterally. ABDOMEN: Soft, positive bowel sounds, mildly tender epigastrium and mid abdomen, no organomegaly. mild flank tenderness SKIN: No rash, no excessive bruising, petechiae, or purpura. NEUROLOGIC: Cranial nerves II-XII intact without motor/sensory deficit. Assessment & Plan (1) Diffuse abdominal pain, abn bowle habit, recent travel to [place]< could have been infectious etiology, and maybe now post infecitous IBS ddx: IBD, less likely neoplasia (pos FH), renal stones, renal infection Plan: 1/ cont bentyl since helps 2/ US abdo, KUB 3/ labs as below incl urine and stool testing, might need earlier colonoscopy PFSH Medical History Malnutrition History of ovarian cyst Renal cyst Renal calculi Mild recurrent major depression Mixed hyperlipidemia COVID-19 vaccine administered B12 deficiency Polyarthralgia Osteoarthritis of right knee Dyslipidemia Anxiety and depression History of postoperative nausea and vomiting Hx of renal calculi Hx of gastritis GERD (gastroesophageal reflux disease) Hypothyroid Colon polyps Diabetes Surgical History History of tubal ligation Hx of lithotripsy History of esophagogastroduodenoscopy (EGD) Hx of colonoscopy H/O: hysterectomy H/O thyroidectomy History of cholecystectomy Family History Father Hx of heat stroke History of dementia Mother Hx of benign gastric tumor Family history of high blood pressure Hx of type 1 diabetes mellitus Colon cancer Maternal Uncle Pancreatic cancer Daughter Thyroid cancer Maternal Aunt Ovarian cancer Social History Household Members: None Housing: Apartment Are you a primary home care assistant to a significant other at home: No Do you presently have visiting nurse or other home services: No Alcohol intake: never Patient Tobacco Use Status: Never used Tobacco e-Cigarette/Vaping Use: Never Used Second Hand Smoke Exposure: Yes service: No Current occupational status: disabled Sexual orientation: Straight/Heterosexual Gender identity: Female Cognitive needs: No Hearing needs: No Vision needs: No Physical Exam Vital Signs: Last Vital Signs Pulse 79 11/06/23 09:19 BP 124/74 11/06/23 09:19 BMI result Body Mass Index 35.1 Assessment & Plan Assessment & Plan (1) Diffuse abdominal pain: Code(s): R10.84 - Generalized abdominal pain Category: Medical Plan: Plan: 1/ cont bentyl since helps 2/ US abdo, KUB 3/ labs as below incl urine and stool testing, might need earlier colonoscopy Orders: Orders UA CC w/rflx Micro + Cult Today R10.84 - Generalized abdominal pain, R30.0 - Dysuria Comprehensive Met. Panel Today K75.81 - Nonalcoholic steatohepatitis ([place]), R10.84 - Generalized abdominal pain GI Panel Today R10.84 - Generalized abdominal pain, R19.7 - Diarrhea, unspecified Lactoferrin, Fecal, Quant. Today K51.50 - Left sided colitis without complications, R10.84 - Generalized abdominal pain CDiff Gene PCR Today R10.84 - Generalized abdominal pain XR KUB Today R10.84 - Generalized abdominal pain US abdomen complete Today R10.84 - Generalized abdominal pain Complete Blood Count Auto Diff Today R10.84 - Generalized abdominal pain Coding Level of Care Code Est Pt Level 4 (63357) Diagnoses Diffuse abdominal pain R10.84
[2023-11-06 09:19] VITALS: BP 124/74; PULSE 79; BMI 35.1
== END 2023-11-06 09:48 | disposition home or self-care (01) ==
PROVIDERS: PCP Internal Medicine; Visit Provider Internal Medicine Gastroenterology
DX: R10.84 Generalized abdominal pain (principal)
CPT/HCPCS: 99214

== ENCOUNTER 2023-11-06 08:53 | Outpatient (REF) | payer OTHER, SELFPAY ==
--- NOTE | ~2023-11-06 | XR_ITS ---
EXAMINATION: XR ABDOMEN KUB CLINICAL INDICATION: Generalized abdominal pain. COMPARISON: Abdominal x-ray December 2020. Renal ultrasound most recent July 2023. CT abdomen and pelvis August 2020. TECHNIQUE: AP view of the abdomen. FINDINGS: Surgical clips in the right abdomen. Multiple small calcifications overlying the left kidney region compatible with renal stones, 1 of which appears to be increased in size compared to prior x-ray. Stones seen in the left kidney on prior imaging exams. There is a mild convex left curvature of the lumbosacral spine, unchanged. The bone and soft tissues are otherwise unremarkable. Gas pattern is nonobstructive. XR/XR KUB IMPRESSION: 1. Left renal calculi redemonstrated. 2. No acute abnormality. Bowel gas pattern normal. 3. Surgical clips right abdomen.
[2023-11-06 10:14] LABS: MANUAL DIFF FLAG NO
[2023-11-06 10:37] LABS: Basophils Percent Auto 0.6 % (0-2); Eosinophils Absolute Auto 0.1 X10*3/uL (0.0-0.4); Eosinophils Percent Auto 2.2 % (0-4); Hematocrit 37.7 % (37.0-47.0); Hemoglobin 12.6 g/dl (12.0-16.0); Lymphocytes Absolute Auto 1.2 X10*3/uL (1.2-4.9); Lymphocytes Percent Auto 34.6 % (20-40); Mean Corpuscular HGB Conc 33.4 g/dl (31.0-35.0); Mean Corpuscular Hemoglobin 30.1 pg (27.0-33.0); Mean Corpuscular Volume 90.2 fL (80.0-98.0); Mean Platelet Volume 10.2 fL (9.4-12.3); Monocytes Absolute Auto 0.2 X10*3/uL (0.1-1.2); Monocytes Percent Auto 4.5 % (2-11); Neutrophils Absolute Auto 2.1 x10*3/uL (2.0-8.3); Neutrophils Percent Auto 58.1 % (45-73); Platelet Count 217 X10*3/uL (160-400); Red Blood Count 4.18 X10*6/uL (4.20-5.50); Red Cell Distribution Width 12.9 % (11.0-16.0); White Blood Count 3.6 X10*3/uL (4.8-10.8)
[2023-11-06 11:18] LABS: Appearance Urine Cloudy; Color Urine Yellow; Glucose Urine UA Negative (Negative); Leukocyte Esterase Urine Small (1+) (Negative); Nitrite Urine Negative (Negative); PH 5.5 (5.0-9.0); Specific Gravity - Urine >= 1.030 (1.005-1.025); UMIC TRIGGER UACC YES; Urine Blood Negative (Negative); Urine Ketones Trace mg/dL (Negative); Urine Protein Negative (Neg-Trace)
[2023-11-06 11:21] LABS: Bacteria Urine 2+ (None Seen); Hyaline Casts Urine 0-2 /LPF (0-2); RBC Urine 0-2 /HPF (0-2); UACC Culture Trigger YES
[2023-11-06 11:24] LABS: Alanine Aminotransferase 16 U/L (0-31); Albumin Level 4.3 g/dL (3.5-5.0); Alkaline Phosphatase 82 U/L (39-117); Anion Gap 11 (12-20); Aspartate Amino Transferase 17 U/L (5-31); Bilirubin Total 0.5 mg/dL (0.0-1.0); Blood Urea Nitrogen 14 mg/dL (9-16); Calcium 9.6 mg/dL (8.4-10.2); Carbon Dioxide 29 mmol/L (22-29); Chloride 107 mmol/L (96-108); Estimated Glomerular Filt Rate > 60; Glucose Random 147 mg/dL (60-115); Potassium 3.8 mmol/L (3.3-5.1); Sodium 143 mmol/L (135-145); Total Protein 7.8 g/dL (6.5-8.0)
[2023-11-06 15:09] LABS: CDiff Gene PCR NEGATIVE (Negative)
[2023-11-06 16:16] LABS: Adenovirus F 40/41 Not Detected (Not Detect.); Astrovirus Not Detected (Not Detect.); Campylobacter Not Detected (Not Detect.); Cryptosporidium Not Detected (Not Detect.); Cyclospora cayetanensis Not Detected (Not Detect.); E. coli EAEC Not Detected (Not Detect.); E. coli EPEC Not Detected (Not Detect.); E. coli ETEC Not Detected (Not Detect.); E. coli STEC Not Detected (Not Detect.); Entamoeba histolytica Not Detected (Not Detect.); Giardia lamblia Not Detected (Not Detect.); Norovirus GI/GII Not Detected (Not Detect.); Plesiomonas shigelloides Not Detected (Not Detect.); Rotavirus A Not Detected (Not Detect.); Salmonella Not Detected (Not Detect.); Sapovirus Not Detected (Not Detect.); Shigella sp./EIEC Not Detected (Not Detect.); Vibrio Not Detected (Not Detect.); Vibrio Cholerae Not Detected (Not Detect.); Yersinia enterocolitica Not Detected (Not Detect.)
[2023-11-11 21:59] LABS: Lactoferrin, Fecal, Quant. 21.95 mcg/mL (<7.25)
== END 2023-11-06 08:54 | disposition home or self-care (01) ==
LOC: HO.XRAY 08:53
PROVIDERS: PCP Internal Medicine; Visit Provider Internal Medicine Gastroenterology
DX: R10.84 Generalized abdominal pain (principal); K75.81 Nonalcoholic steatohepatitis (NASH); K51.50 Left sided colitis without complications; R19.7 Diarrhea, unspecified; R30.0 Dysuria
CPT/HCPCS: 36415; 74018; 80053; 81001; 83631; 85025; 87086; 87493; 87507; 99212

== ENCOUNTER 2023-11-11 08:17 | Outpatient (REF) | payer OTHER, SELFPAY ==
--- NOTE | ~2023-11-11 | US_ITS ---
EXAMINATION: US ABDOMEN COMPLETE CLINICAL INFORMATION: Generalized abdominal pain. COMPARISON: Renal ultrasound 08/11/2023 and 01/16/2023. MRI abdomen 11/07/2021. CT abdomen and pelvis 08/29/2020. TECHNIQUE: Real-time imaging of the abdominal viscera. FINDINGS: PANCREAS: Normal. ABDOMINAL AORTA: The proximal, mid, and distal segments are normal in caliber. INFERIOR VENA CAVA: Visualized portions are normal. LIVER: The liver is normal in size. The liver contour is normal. Hepatic steatosis. Stable 1.3 cm hypoechoic lesion in segment 6 which is felt to represent focal nodular hyperplasia on MRI. There is no intrahepatic biliary duct dilatation seen. GALLBLADDER: Surgically absent. COMMON BILE DUCT: Normal in caliber measuring 0.4 cm in diameter. RIGHT KIDNEY: No hydronephrosis. The kidney measures 12.5 cm in maximum dimension. 4 mm nonobstructing calculus in the lower pole. 8 mm simple cyst for which no imaging follow-up is recommended. LEFT KIDNEY: No hydronephrosis or focal parenchymal lesions. The kidney measures 11.0 cm in maximum dimension. 6 mm nonobstructing calculus in the lower pole. SPLEEN: Normal. The spleen measures 9.6 cm in maximum dimension. FREE FLUID: None. US/US abdomen complete IMPRESSION: Nonobstructing bilateral renal calculi. No hydronephrosis. Hepatic steatosis. Stable 1.3 cm lesion in segment 6 which on prior MRI was felt to represent focal nodular hyperplasia.
== END 2023-11-11 08:18 | disposition home or self-care (01) ==
LOC: HO.US 08:17
PROVIDERS: PCP Internal Medicine; Visit Provider Internal Medicine Gastroenterology
DX: R10.84 Generalized abdominal pain (principal)
CPT/HCPCS: 76700

== ENCOUNTER 2023-12-02 07:36 | Outpatient (REF) | payer OTHER, SELFPAY ==
--- NOTE | ~2023-12-02 | FL_ITS ---
EXAMINATION: XR FLUOROSCOPY BARIUM SWALLOW WITH AIR CLINICAL INFORMATION: Dysphagia COMPARISON: None TECHNIQUE: Fluoroscopic air contrast barium swallow examination was performed utilizing standard techniques with thin and thick barium and effervescent granules. Numerous spot images were obtained. FINDINGS: Lateral cine images of the oropharynx and hypopharynx demonstrate normal swallow mechanism with normal epiglottic inversion and soft palate elevation. No tracheal penetration, glottic or subglottic aspiration identified. No nasopharyngeal reflux present. Hypopharyngeal structures appear normal without evidence of mass or diverticulum. There was no significant cricopharyngeal achalasia. Dual and single contrast images of the esophagus demonstrate normal caliber, contour, and mucosal pattern. No evidence of stricture, mass, or ulcerations identified. Esophageal peristalsis is mildly disorganized. No evidence of hiatus hernia identified. Significant gastroesophageal reflux is seen up the thoracic inlet. Dual contrast and single contrast images of the stomach demonstrated normal contour and mucosal pattern without evidence of mass, ulceration, or other abnormality. Contrast freely passed into the gastric antrum and duodenal bulb without delay. Surgical clips are present in the right upper quadrant. Single and air-contrast images of the duodenal bulb demonstrate no abnormality. The duodenal sweep has a normal appearance, course, and mucosal fold appearance. There are second and third segment duodenal diverticula present. No malrotation. The imaged proximal jejunum has a normal fold pattern and caliber. FLUOROSCOPY TIME: 4 minutes 30 seconds Number of Spot Images: 10 Number of Cine: 14 DOSE AREA PRODUCT: 3043 uGy-m2 (microgray-meter squared) FL/FL barium swallow with air IMPRESSION: 1. Mildly disorganized esophageal peristalsis. 2. Severe gastroesophageal reflux. 3. Second segment and third segment duodenal diverticula. 4. Status post cholecystectomy. This procedure was performed by John Sanford PA-C, and supervised by Dr. Salamanca
== END 2023-12-02 07:37 | disposition home or self-care (01) ==
LOC: HO.XRAY 07:36
PROVIDERS: PCP Internal Medicine; Visit Provider Internal Medicine
DX: R13.10 Dysphagia, unspecified (principal)
CPT/HCPCS: 74221

== ENCOUNTER → 2023-12-02 07:38 | Outpatient (BNV) | payer OTHER, SELFPAY | PROVIDERS: PCP Internal Medicine; Visit Provider Physician Assistant Surgical | DX: R13.10 Dysphagia, unspecified (principal) | CPT/HCPCS: 74246 ==

== ENCOUNTER 2023-12-08 12:49 | Outpatient (AMB) | payer OTHER, SELFPAY ==
--- NOTE | 2023-12-08 12:57 | A.OFFPC_ITS ---
Vital Signs 12/08/23 12:58 Height 5 ft 2 in Weight 192 lb BMI 35.1 BP 116/72 Blood Pressure Location Lt brachial Position Sitting Intake Visit Reasons: 4 month follow up Intake Note: Patient here for a 4 month follow up Surgical Nurse Required: No Accompanied by: Child Allergies clindamycin Allergy (Intermediate, Verified 12/08/23 13:13) Rash crab Allergy (Intermediate, Verified 12/08/23 13:13) Itch seafood Allergy (Intermediate, Verified 12/08/23 13:13) Itch,Rash Sulfa (Sulfonamide Antibiotics) Allergy (Intermediate, Verified 12/08/23 13:13) headache milk Allergy (Verified 12/08/23 13:13) Unknown shrimp Allergy (Verified 12/08/23 13:13) Unknown wheat Allergy (Verified 12/08/23 13:13) Unknown metformin Adverse Reaction (Intermediate, Verified 12/08/23 13:20) Abdominal Pain nitrofurantoin Allergy (Severe, Uncoded 12/08/23 13:13) Abdominal Pain ciprofloxacin Allergy (Intermediate, Uncoded 12/08/23 13:13) Abdominal Pain SEASONAL ALLERGIES Allergy (Mild, Uncoded 12/08/23 13:13) RUNNY NOSE/SNEEZING Medication List - Last Reconciled 12/08/23 by Karyna Murphy MD acetaminophen 500 - 1,000 mg (1 - 2 x 500 mg) PO Q6H PRN 30 days ascorbic acid (vitamin C) (Vitamin C) 500 mg PO BID atorvastatin 40 mg PO BEDTIME 90 days blood sugar diagnostic Use 1 test strip once a day blood sugar diagnostic (FreeStyle Lite Strips) Test 2 times daily blood-glucose meter (FreeStyle Lite Meter kit) As directed budesonide DR-ER 9 mg (3 x 3 mg) PO DAILY buspirone 5 mg PO TID cholecalciferol (vitamin D3) 125 mcg PO DAILY 90 days clonazepam 0.5 mg PO Q OTHER DAY PRN dicyclomine 20 mg PO BID docusate sodium 100 mg PO DAILY PRN fenofibrate 54 mg PO DAILY 90 days fluticasone propionate 50 mcg/actuation (Flonase Allergy Relief) 1 spray intranasal DAILY 30 days folic acid 1 mg PO DAILY gabapentin 300 mg PO DAILY glipizide 5 mg PO DAILY 90 days lancets (FreeStyle Lancets) Test 2 times daily lansoprazole 30 mg PO DAILY levothyroxine (Synthroid) 137 mcg PO DAILY 90 days loratadine (Claritin) 10 mg PO DAILY PRN nortriptyline 10 mg PO BEDTIME ondansetron 4 mg PO BID pyridoxine (vitamin B6) 50 mg (1/2 x 100 mg) PO DAILY 90 days saliva stimulant comb. no.4 3 sprays mucous membrane Q2-3H PRN saliva substitute combo no.2 1 appl mucous membrane Q4H PRN Shower Chair As directed simethicone (Gas Relief (simethicone)) 160 mg (2 x 80 mg) PO BID-TID PRN syringe with needle As directed syringe with needle, safety (BD Safety-Nisha Detachable Needle) once a month tizanidine 2 mg PO Q8H PRN 30 days venlafaxine ER (Effexor XR) 37.5 mg PO DAILY zinc acetate (Galzin) 50 mg PO DAILY zolpidem 10 mg PO BEDTIME PRN Tobacco use date assessed: 12/08/23 Dental Screening Dental Screen Date: 12/08/23 Did you have a dental visit in the last 12 months?: No Did you have a dental problem in the last 6 months where you did not have access to dental care?: No Was dental information given to patient?: Patient has dentist HPI HPI Comments History of Present Illness Details This is a 58-year-old female with diabetes mellitus type 2, hypot hyroidism, GERD, dyslipidemia and mild major depression that comes today for follow-up on her conditions. A1c slightly elevated and I will increase glipizide from 5 mg to 10 mg. I will also add Ozempic. She has obese with a BMI of 35.1 and was advised to do diet and exercise to reach BMI goal less than 30. She does apply for weight loss surgery but declines it. Last TSH was normal. Last LDL was within goal. Had a recent barium swallow showing disorganized peristalsis and severe GERD and she is aware. Has an appointment with Gastroenterology in February. Mild major depression has improved with medications and this is follow by Psychiatry. [facility] Medical History (Updated 12/08/23 @ 13:47 by Karyna Murphy MD) Malnutrition History of ovarian cyst Renal cyst Renal calculi Mild recurrent major depression Mixed hyperlipidemia COVID-19 vaccine administered B12 deficiency Polyarthralgia Osteoarthritis of right knee Dyslipidemia Anxiety and depression History of postoperative nausea and vomiting Hx of renal calculi Hx of gastritis GERD (gastroesophageal reflux disease) Hypothyroid Colon polyps Diabetes Surgical History History of tubal ligation Hx of lithotripsy History of esophagogastroduodenoscopy (EGD) Hx of colonoscopy H/O: hysterectomy H/O thyroidectomy History of cholecystectomy Family History Father Hx of heat stroke History of dementia Mother Hx of benign gastric tumor Family history of high blood pressure Hx of type 1 diabetes mellitus Colon cancer Maternal Uncle Pancreatic cancer Daughter Thyroid cancer Maternal Aunt Ovarian cancer Social History Household Members: None Housing: Apartment Are you a primary health care coach to a significant other at home: No Do you presently have visiting nurse or other home services: No Alcohol intake: never Patient Tobacco Use Status: Never used Tobacco e-Cigarette/Vaping Use: Never Used Second Hand Smoke Exposure: Yes service: No Current occupational status: disabled Sexual orientation: Straight/Heterosexual Gender identity: Female Cognitive needs: No Hearing needs: No Vision needs: No Questionnaire PHQ-9 Over the last 2 weeks, how often have you been bothered by any of the following problems? 1. Little interest or pleasure in doing things: not at all 2. Feeling down, depressed, or hopeless: not at all 3. Trouble falling or staying asleep, or sleeping too much: not at all 4. Feeling tired or having little energy: not at all 5. Poor appetite or overeating: not at all 6. Feeling bad about yourself - or that you are a failure or have let yourself or your family down: not at all 7. Trouble concentrating on things, such as reading the newspaper or watching television: not at all 8. Moving or speaking so slowly that other people could have noticed. Or the opposite - being so fidgety or restless that you have been moving around a lot more than usual: not at all 9. Thoughts that you would be better off or of hurting yourself in some way: not at all Total score: 0 Depression Screening Interpretation: Negative Depression Screening Done: Yes 27222 - PHQ-9 Billing: Yes Source: Developed by Drs. Tom Crawford, Olivia Tesfaye, Jay Jay Stover and colleagues, with an educational reddy from [employer]. Thrive Questionnaire Date Thrive assessed: 12/08/23 I am a: Patient What is your living situation today?: I have a steady place to live Within the past 12 months, did the food you bought not last and you didn't have the money to get more?: Never true Within the past 12 months, did you worry whether your food would run out before you got money to buy more?: Never true Do you have trouble paying for medicines?: No Do you have trouble getting transportation to medical appointments?: No Do you have trouble paying your heating and electricity bill?: No Do you have trouble taking care of your child, family member or friend?: No Do you have trouble with day-to-day activities such as bathing, preparing meals, shopping, managing finances, etc.?: No Are you currently unemployed and looking for a job?: No Are you interested in more education?: No Please select the resources that you would like help with: None Currently or been in a relationship where the following occur: no concerns rep orted THRIVE Score: 0 AUDIT C Alcohol Use Questionnaire (AUDIT-C) 1. How often do you have a drink containing alcohol?: Never Total Score: 0 Score Reviewed/Action Taken: No JUDY-7 AMB Questionnaire JUDY-7 Date JUDY - 7 assessed: 12/08/23 Feeling nervous, anxious, or on edge: 0 = Not at all Not being able to stop or control worryin = Not at all Worrying too much about different things: 0 = Not at all Trouble relaxin = Not at all Being so restless that it is hard to sit still: 0 = Not at all Becoming easily annoyed or irritable: 0 = Not at all Feeling afraid as if something awful might happen: 0 = Not at all Total JUDY-7 score (0-4 normal; 5-9 mild; 10-14 moderate; 15-21 severe): 0 Source: Developed by Drs. Tom Crawford, Jay Jay Santizo and colleagues, with an educational reddy from [employer]. JUDY-7 Assessment Billing JUDY-7 Assessment Tool: JUDY-7 Assessment 99751 Review of Systems Const All systems reviewed & are unremarkable except as noted in HPI and below Card Denies chest pain at rest, Denies chest pain with activity, Denies edema, Denies irregular heart rhythm, Denies claudication, Denies dyspnea, Denies dyspnea on exertion, Denies orthopnea, Denies paroxysmal nocturnal dyspnea and Denies slow heart rate Resp Denies cough, Denies dyspnea and Denies dyspnea on exertion Physical exam (Primary Care) Vital Signs: Last Vital Signs BP 116/72 12/08/23 12:58 BMI result Body Mass Index 35.1 Tobacco/Smoking Status: Tobacco use Status Tobacco use date assessed 12/08/23 12/08/23 13:10 Patient Tobacco Use Status Never used Tobacco 12/08/23 12:58 e-Cigarette/Vaping Use Never Used 12/08/23 12:58 PHQ-9: PHQ-9 Score PHQ-9: Total score 0 12/08/23 13:41 Depression Screening Interpretation: Negative Thrive Assessment: Date of Thrive Assessment Date Thrive assessed 12/08/23 12/08/23 13:10 Currently or been in a relationship where the following occur: no concerns reported Resp Effort & Inspection: normal respiratory effort Auscultation: clear to auscultation bilaterally Cardio Jugular venous distension: no JVD Rate: regular rate Rhythm: regular rhythm Heart sounds: S1 normal heart sound present and S2 normal heart sound present Extrem General: Yes full ROM Results AMB Hemoglobin A1c AMB Hemoglobin A1c 7.4 % Last Edit by KAMRON Sanchez on 12/08/23 13:1 2 Results Reviewed Results Reviewed: Laboratory Last Values Hgb A1c (Clinic) 7.4 % (4.0-6.0) H 12/08/23 12:59 Assessment and Plan Assessment & Plan (1) Diabetes: Comment: NIDDM Code(s): E11.9 - Type 2 diabetes mellitus without complications Qualifiers: Diabetes mellitus type: type 2 Diabetes mellitus mcc insulin use: without mcc use Diabetes mellitus complication status: without comp lication Qualified Code(s): E11.9 - Type 2 diabetes mellitus without complications Plan: Increase glipizide. Start Ozempic. A1c goal is equal or less than 7%. (2) Hypothyroid: Code(s): E03.9 - Hypothyroidism, unspecified Qualifiers: Hypothyroidism type: acquired Qualified Code(s): E03.9 - Hypothyroidism, unspecified Plan: Continue Synthroid. Monitor TSH. (3) Dyslipidemia: Code(s): E78.5 - Hyperlipidemia, unspecified Plan: Continue statins. LDL goal is less than 70. (4) GERD (gastroesophageal reflux disease): Code(s): K21.9 - Gastro-esophageal reflux disease without esophagitis Qualifiers: Esophagitis presence: esophagitis presence not specified Qualified Code(s): K21.9 - Gastro-esophageal reflux disease without esophagitis Plan: Continue lansoprazole. Follow-up with Gastroenterology. (5) Mild recurrent major depression: Code(s): F33.0 - Major depressive disorder, recurrent, mild Plan: Continue venlafaxine. Follow-up with psychiatry. Orders: Orders AMB Hemoglobin A1c Today E11.9 - Type 2 diabetes mellitus without complications Medications: New semaglutide (Ozempic) for 4 weeks 0.25 mg (0.368 mL) subcut QWEEK 1.472 mL 0RF 4 weeks glipizide 10 mg PO DAILY 90 tabs 1RF 90 days cetirizine 10 mg PO DAILY PRN 90 tabs 0RF allergy symptoms 90 days Changed From levothyroxine (Synthroid) 137 mcg PO DAILY 90 days 90 tabs 1RF To Synthroid (levothyroxine) 137 mcg PO DAILY 90 tabs 1RF 90 days NS Discontinued glipizide Discontinued Reason: Patient Completed Course 5 mg PO DAILY 90 days 90 tabs 2RF loratadine (Claritin) Discontinued Reason: Patient Completed Course 10 mg PO DAILY PRN 14 tabs 0RF allergy symptoms J30.2 - Other seasonal allergic rhinitis Coding Level of Care Code Est Pt Level 4 (39897) Diagnoses Type 2 diabetes mellitus without complication, without long-term current use of insulin E11.9 Diabetes mellitus type: type 2 Diabetes mellitus mcc insulin use: without intermediate project manager use Diabetes mellitus complication status: without complication Acquired hypothyroidism E03.9 Hypothyroidism type: acquired Dyslipidemia E78.5 Gastroesophageal reflux disease, unspecified whether esophagitis present K21.9 Esophagitis presence: esophagitis presence not specified Mild recurrent major depression F33.0 Additional Codes JUDY-7 Assessment Billing - JUDY-7 Assessment Tool: JUDY-7 Assessment 39758 ([id number]) Time Spent (min) 22
[2023-12-08 12:58] VITALS: BP 116/72; BMI 35.1
== END 2023-12-08 13:35 | disposition home or self-care (01) ==
PROVIDERS: PCP Internal Medicine; Visit Provider Internal Medicine
DX: E11.69 Type 2 diabetes mellitus with other specified complication (principal); F33.0 Major depressive disorder, recurrent, mild; E03.9 Hypothyroidism, unspecified; E78.5 Hyperlipidemia, unspecified; K21.9 Gastro-esophageal reflux disease without esophagitis
CPT/HCPCS: 83036; 99214

== ENCOUNTER 2023-12-28 13:57 | Outpatient (AMB) | payer OTHER, SELFPAY ==
--- NOTE | 2023-12-28 14:52 | A.OFFVIS_ITS ---
Intake Visit Reasons: 8 week follow up with US Intake Note: Patient presents today for follow up on: renal cyst, kidney stone, and ultrasound results Imagin11/11/23 Urology Medications: Vitamin B6 Allergies to Antibiotic: Clindamycin, Sulfa, Nitrofurantoin, Ciprofloxacin Blood Thinner: None Sole Cementer Required: Yes Sole Cementer Name: [id number] Allergies clindamycin Allergy (Intermediate, Verified 12/28/23 20:36) Rash crab Allergy (Intermediate, Verified 12/28/23 20:36) Itch seafood Allergy (Intermediate, Verified 12/28/23 20:36) Itch,Rash Sulfa (Sulfonamide Antibiotics) Allergy (Intermediate, Verified 12/28/23 20:36) headache milk Allergy (Verified 12/28/23 20:36) Unknown shrimp Allergy (Verified 12/28/23 20:36) Unknown wheat Allergy (Verified 12/28/23 20:36) Unknown metformin Adverse Reaction (Intermediate, Verified 12/28/23 20:36) Abdominal Pain nitrofurantoin Allergy (Severe, Uncoded 12/28/23 20:36) Abdominal Pain ciprofloxacin Allergy (Intermediate, Uncoded 12/28/23 20:36) Abdominal Pain SEASONAL ALLERGIES Allergy (Mild, Uncoded 12/28/23 20:36) RUNNY NOSE/SNEEZING Medication List - Last Reconciled 12/28/23 by ADEEL Cohn acetaminophen 500 - 1,000 mg (1 - 2 x 500 mg) PO Q6H PRN 30 days ascorbic acid (vitamin C) (Vitamin C) 500 mg PO BID atorvastatin 40 mg PO BEDTIME 90 days blood sugar diagnostic Use 1 test strip once a day blood sugar diagnostic (FreeStyle Lite Strips) Test 2 times daily blood-glucose meter (FreeStyle Lite Meter kit) As directed budesonide DR-ER 9 mg (3 x 3 mg) PO DAILY buspirone 5 mg PO TID cetirizine 10 mg PO DAILY PRN 90 days cholecalciferol (vitamin D3) 125 mcg PO DAILY 90 days clonazepam 0.5 mg PO Q OTHER DAY PRN dicyclomine 20 mg PO BID docusate sodium 100 mg PO DAILY PRN fenofibrate 54 mg PO DAILY 90 days fluticasone propionate 50 mcg/actuation (Flonase Allergy Relief) 1 spray intranasal DAILY 30 days folic acid 1 mg PO DAILY gabapentin 300 mg PO DAILY glipizide 10 mg PO DAILY 90 days lancets (FreeStyle Lancets) Test 2 times daily lansoprazole 30 mg PO DAILY nortriptyline 10 mg PO BEDTIME ondansetron 4 mg PO BID pyridoxine (vitamin B6) 50 mg (1/2 x 100 mg) PO DAILY 90 days saliva stimulant comb. no.4 3 sprays mucous membrane Q2-3H PRN saliva substitute combo no.2 1 appl mucous membrane Q4H PRN semaglutide (Ozempic) 0.25 mg (0.368 mL) subcut QWEEK 4 weeks Shower Chair As directed simethicone (Gas Relief (simethicone)) 160 mg (2 x 80 mg) PO BID-TID PRN Synthroid (levothyroxine) 137 mcg PO DAILY 90 days NS syringe with needle As directed syringe with needle, safety (BD Safety-Nisha Detachable Needle) once a month tizanidine 2 mg PO Q8H PRN 30 days venlafaxine ER (Effexor XR) 37.5 mg PO DAILY zinc acetate (Galzin) 50 mg PO DAILY zolpidem 10 mg PO BEDTIME PRN HPI Comments Details: Kamille is a 58-year-old Bulgarian-speaking female of Dr. Mora. She has a past medical history of anxiety, depression, vitamin B12 deficiency, hyperlipidemia, polyarthralgia, diabetes, GERD, dyslipidemia, osteoarthritis, renal calculi, and renal cysts. She presents to the office today for follow-up of her renal calculi and renal cysts. In discussion with the patient today she reports since her last office visit here she has since passed a kidney stone. Recent renal imaging results reviewed with the patient today. Bilateral kidneys with no hydronephrosis. Right-sided 4 mm nonobstructing calculus in the lower pole. 8 mm simple right renal cyst for which no imaging follow-up is recommended per radiology report. Left kidney with 6 mm nonobstructing calculus in the lower pole. She currently denies any bothersome urinary issues or concerns. She denies urinary urgency, urinary frequency, incontinence, nocturia, hematuria, foul smelling urine, changes to urinary stream, flank pain, fever, and or chills. She is happy with her current voiding parameters. She reports to be drinking plenty of water daily and adding 1 oz of lemon juice to water daily. She reports comlaince vitamin B6 as prescribed. Discussed at length surveillance monitoring verses further surgical intervention. Discussed further metabolic workup with 24 hour urine collection and labs. She otherwise offers no issues or concerns at this time. [facility] Medical History Malnutrition History of ovarian cyst Renal cyst Renal calculi Mild recurrent major depression Mixed hyperlipidemia COVID-19 vaccine administered B12 deficiency Polyarthralgia Osteoarthritis of right knee Dyslipidemia Anxiety and depression History of postoperative nausea and vomiting Hx of renal calculi Hx of gastritis GERD (gastroesophageal reflux disease) Hypothyroid Colon polyps Diabetes Surgical History History of tubal ligation Hx of lithotripsy History of esophagogastroduodenoscopy (EGD) Hx of colonoscopy H/O: hysterectomy H/O thyroidectomy History of cholecystectomy Family History Father Hx of heat stroke History of dementia Mother Hx of benign gastric tumor Family history of high blood pressure Hx of type 1 diabetes mellitus Colon cancer Maternal Uncle Pancreatic cancer Daughter Thyroid cancer Maternal Aunt Ovarian cancer Social History Household Members: None Housing: Apartment Are you a primary hospice care consultant to a significant other at home: No Do you presently have visiting nurse or other home services: No Alcohol intake: never Patient Tobacco Use Status: Never used Tobacco e-Cigarette/Vaping Use: Never Used Second Hand Smoke Exposure: Yes service: No Current occupational status: disabled Sexual orientation: Straight/Heterosexual Gender identity: Female Cognitive needs: No Hearing needs: No Vision needs: No Review of Systems Const Reports as per HPI Eyes Reports no additional complaints ENT Reports no additional complaints Card Reports as per HPI Resp Reports no additional complaints GI Reports as per HPI Reports as per HPI Musc Reports no additional complaints Neuro Reports no additional complaints Psych Reports as per HPI Endo Reports as per HPI Osman/Lymph Reports no additional complaints Aller/Immun Reports no additional complaints Physical Exam Const General: cooperative, healthy appearing, no acute distress, well developed, alert and awake Nutritional Appearance: overweight Orientation/consciousness: patient oriented x3 Limitations: no limitations HEENT Head: Yes normal to inspection, Yes normocephalic and Yes atraumatic Ears: hearing grossly normal bilaterally Eyes General: appearance normal, both eyes and all related structures Neck Neck: Yes normal visual inspection and Yes trachea midline Chest Chest palpation & inspection: normal inspection of the chest Resp Effort & Inspection: able to speak in complete sentences Cardio Rate: regular rate GI Inspection: Yes normal to inspection General: Yes no CVA tenderness Back/Spine/Pelvis Back: no CVA tenderness Skin General skin exam: no rashes or lesions noted Neuro General: patient oriented x3 Extrem General: Yes normal to inspection Psych Appearance: grossly normal and well kempt Mental Status: mental status grossly normal Speech and movement: Normal speech and movement present and Clear speech present Affect: normal affect Attitude: cooperative Thought process: Normal thought process present Thought content: Normal thought content present Insight: Fair insight present (Psych) Judgement: Fair judgement present (Psych) Results AMB Urinalysis, Automated UA Leukoctes 0 Karin/uL Last Edit by Trooval on 12/28/23 15:03 UA Nitrite Negative Last Edit by Organizer on 12/28/23 15:03 UA Urobilinogen 0.2 mg/dL Last Edit by Trooval on 12/28/23 15:03 UA Protein 15 mg/dL Last Edit by Trooval on 12/28/23 15:03 UA pH 6.0 Last Edit by Trooval on 12/28/23 15:03 UA Blood 0 Davidson/uL Last Edit by Trooval on 12/28/23 15:03 UA Specific [place] 1.030 Last Edit by Trooval on 12/28/23 15:03 UA Ketone Positive Last Edit by Trooval on 12/28/23 15:03 UA Bilirubin 1 mg/dL Last Edit by Trooval on 12/28/23 15:03 UA Glucose 0 mg/dL Last Edit by Trooval on 12/28/23 15:03 Results Reviewed Results Reviewed: Laboratory Last Values Urine pH (Auto) 6.0 12/28/23 15:02 Specific [place] (Auto) 1.030 12/28/23 15:02 Urine Protein (Auto) 15 mg/dL 12/28/23 15:02 Glucose (UA)(Auto) 0 mg/dL 12/28/23 15:02 Urine Ketones (Auto) Positive 12/28/23 15:02 Urine Blood (Auto) 0 Davidson/uL 12/28/23 15:02 Urine Nitrite (Auto) Negative 12/28/23 15:02 Urine Bilirubin (Auto) 1 mg/dL 12/28/23 15:02 Urine Urobilinogen (Auto) 0.2 mg/dL 12/28/23 15:02 Leukocyte Esterase (Auto) 0 Karin/uL 12/28/23 15:02 Date of Service: 11/11/23 EXAMINATION: US ABDOMEN COMPLETE FINDINGS: PANCREAS: Normal. ABDOMINAL AORTA: The proximal, mid, and distal segments are normal in caliber. INFERIOR VENA CAVA: Visualized portions are normal. LIVER: The liver is normal in size. The liver contour is normal. Hepatic steatosis. Stable 1.3 cm hypoechoic lesion in segment 6 which is felt to represent focal nodular hyperplasia on MRI. There is no intrahepatic biliary duct dilatation seen. GALLBLADDER: Surgically absent. COMMON BILE DUCT: Normal in caliber measuring 0.4 cm in diameter. RIGHT KIDNEY: No hydronephrosis. The kidney measures 12.5 cm in maximum dimension. 4 mm nonobstructing calculus in the lower pole. 8 mm simple cyst for which no imaging follow-up is recommended. LEFT KIDNEY: No hydronephrosis or focal parenchymal lesions. The kidney measures 11.0 cm in maximum dimension. 6 mm nonobstructing calculus in the lower pole. SPLEEN: Normal. The spleen measures 9.6 cm in maximum dimension. FREE FLUID: None. IMPRESSION: Nonobstructing bilateral renal calculi. No hydronephrosis. Hepatic steatosis. Stable 1.3 cm lesion in segment 6 which on prior MRI was felt to represent focal nodular hyperplasia. Assessment & Plan Assessment & Plan (1) Renal cyst: Code(s): N28.1 - Cyst of kidney, acquired Category: Medical (2) Renal calculi: Code(s): N20.0 - Calculus of kidney Category: Medical Plan In office urinalysis results reviewed with the patient today; as noted above. Recent renal imaging results reviewed with the patient today; as noted above. Patient currently denies any bothersome urinary issues or concerns. She reports be happy with current voiding parameters. Discussed, educated, and stressed the importance of adequate hydration in relation to nephrolithiasis as well as for overall health and well-being. Continue vitamin B6. Continue adding 1 oz of lemon juice to water daily. Will obtain 24 hour urine collection and labs for further metabolic workup. Follow-up in 3 months with labs and 24 hour urine collection to be completed prior; or sooner with any issues, concerns, and or questions. Orders: Orders AMB Urinalysis Automated 12/28/23 Z13.9 - Encounter for screening, unspecified URORISK 12/28/23 N20.0 - Calculus of kidney Uric Acid 12/28/23 N20.0 - Calculus of kidney Magnesium 12/28/23 N20.0 - Calculus of kidney Calcium 12/28/23 N20.0 - Calculus of kidney Basic Metabolic Panel 12/28/23 N20.0 - Calculus of kidney Phosphorus 12/28/23 N20.0 - Calculus of kidney Patient Instructions: The patient had an opportunity to ask questions regarding the treatment plan. All questions were answered. Physical exam, labs, and imaging were discussed and reviewed in detail. As well as risks, benefits, and discussion of treatment choices. No major barriers to understanding were identified. The patient expressed understanding and agreement with the above treatment plan. The patient was made aware they should contact our office by phone for worsening of their current condition, the appearance of new symptoms, or with any questions or concerns. Compliance is encouraged with any medications and follow up testing that is ordered. It is a privilege to be allowed the opportunity to participate in? your urological care.? Again, if you have any questions or concerns If you have any questions or concerns please do not hesitate to contact me. The office is [phone]. This note is constructed using voice recognition software. While every effort has been made to ensure accuracy plate stacker hand errors may have been included. Yours sincerely, ADEEL Cohn Coding Level of Care Code Est Pt Level 4 (88146) Complex EM visit Add On G2211 Diagnoses Renal cyst N28.1 Renal calculi N20.0 Time Spent (min) 25
== END 2023-12-28 15:37 | disposition home or self-care (01) ==
PROVIDERS: PCP Internal Medicine; Visit Provider Nurse Practitioner Family
DX: N28.1 Cyst of kidney, acquired (principal); N20.0 Calculus of kidney
CPT/HCPCS: 99214; G2211

== ENCOUNTER → 2023-12-28 13:57 | Outpatient (BNVA) | payer OTHER, SELFPAY | PROVIDERS: PCP Internal Medicine; Visit Provider Nurse Practitioner Family | DX: N28.1 Cyst of kidney, acquired (principal); N20.0 Calculus of kidney | CPT/HCPCS: 81003; 99212 ==

== ENCOUNTER 2024-01-11 11:56 | Outpatient (REF) | payer OTHER, SELFPAY ==
--- NOTE | ~2024-01-11 | US_ITS ---
EXAMINATION: US RETROPERITONEAL LIMITED (RENAL ONLY) CLINICAL INFORMATION: Calculus of kidney. COMPARISON: Ultrasound abdomen complete 11/11/2023. X-ray abdomen KUB 11/06/2023. Renal ultrasound 08/11/2023. MR abdomen 11/07/2021. X-ray abdomen KUB 12/11/2020. CT abdomen and pelvis 08/29/2020. TECHNIQUE: Real-time imaging of the kidneys. FINDINGS: RIGHT KIDNEY: 11.7 x 4.8 x 6.0 cm (SAG x AP x TRV). The kidney is normal in size, contour, and echogenicity. Renal cortical thickness is normal. No renal calculi or hydronephrosis. 1.0 x 0.6 x 0.6 cm simple cyst is seen in the lateral lower pole, no imaging follow-up is recommended LEFT KIDNEY: 11.1 x 5.2 x 4.1 cm (SAG x AP x TRV). The kidney is normal in size, contour, and echogenicity. Renal cortical thickness is normal. No focal parenchymal lesions or hydronephrosis. 0.9 x 0.4 x 0.5 cm nonobstructing calculus versus cluster of calculi is seen in the lower pole. US/US renal BI IMPRESSION: 0.9 cm nonobstructing calculus versus cluster of calculi in the lower pole of the left kidney.
== END 2024-01-11 11:57 | disposition home or self-care (01) ==
LOC: HO.US 11:56
PROVIDERS: PCP Internal Medicine; Visit Provider Nurse Practitioner Family
DX: N20.0 Calculus of kidney (principal)
CPT/HCPCS: 76775

== ENCOUNTER 2024-01-13 12:52 | Outpatient (REF) | payer OTHER, SELFPAY | END 2024-01-13 12:53 | disposition home or self-care (01) | LOC: HO.MAMMO 12:52 | PROVIDERS: PCP Internal Medicine; Visit Provider Internal Medicine | DX: Z12.31 Encounter for screening mammogram for malignant neoplasm of breast (principal) | CPT/HCPCS: 77063; 77067 ==

== ENCOUNTER → 2024-01-13 13:00 | Outpatient (BNV) | payer OTHER, SELFPAY | PROVIDERS: PCP Internal Medicine; Visit Provider Radiology Diagnostic Radiology | DX: Z12.31 Encounter for screening mammogram for malignant neoplasm of breast (principal) | CPT/HCPCS: 77063; 77067 ==

== ENCOUNTER 2024-02-02 08:54 | Outpatient (REF) | payer OTHER, SELFPAY ==
[2024-02-02 11:00] LABS: Alanine Aminotransferase 14 U/L (0-31); Albumin Level 4.2 g/dL (3.5-5.0); Alkaline Phosphatase 84 U/L (39-117); Anion Gap 13 (12-20); Aspartate Amino Transferase 12 U/L (5-31); Bilirubin Total 0.5 mg/dL (0.0-1.0); Blood Urea Nitrogen 16 mg/dL (9-16); Calcium 9.6 mg/dL (8.4-10.2); Carbon Dioxide 27 mmol/L (22-29); Chloride 108 mmol/L (96-108); Cholesterol 160 mg/dL (<200); Estimated Glomerular Filt Rate > 60; Glucose Fasting 136 mg/dL (60-99); HDL Cholesterol 52 mg/dL (>40); LDL Cholesterol Calculated 74 mg/dL (<100); Potassium 3.8 mmol/L (3.3-5.1); Sodium 144 mmol/L (135-145); Total Protein 7.5 g/dL (6.5-8.0); Triglycerides 171 mg/dL (<150)
[2024-02-02 11:24] LABS: Thyroid Stimulating Hormone 2.79 uIU/mL (0.32-4.0); Vitamin D 25-OH Total 34.4 ng/mL (>30)
[2024-02-02 12:20] LABS: Creatinine Urine 194.94 mg/dL; Microalbum/Creatinine Ratio Ur 8.2 ug/mg cr (<30)
== END 2024-02-02 08:55 | disposition home or self-care (01) ==
LOC: HO.LAB 08:54
PROVIDERS: PCP Internal Medicine; Visit Provider Internal Medicine
DX: E11.40 Type 2 diabetes mellitus with diabetic neuropathy, unspecified (principal); E03.9 Hypothyroidism, unspecified; E55.9 Vitamin D deficiency, unspecified; E78.5 Hyperlipidemia, unspecified; E11.9 Type 2 diabetes mellitus without complications
CPT/HCPCS: 36415; 80053; 80061; 82043; 82306; 82570; 84443

== ENCOUNTER 2024-02-11 13:54 | Outpatient (AMB) | payer OTHER, SELFPAY ==
[2024-02-11 14:09] VITALS: BP 110/70; BMI 35.9
--- NOTE | 2024-02-11 14:09 | MHC.PC.OV ---
Vital Signs 02/11/24 14:09 Height 5 ft 2 in Weight 196 lb 3.382 oz BMI 35.9 BP 110/70 Blood Pressure Location Lt brachial Position Sitting Intake Visit Reasons: 4 month f/u Intake Note: Patient here for a 4 month follow up Manager Workers Compensation Required: No Accompanied by: Self / Same As Patient Allergies clindamycin Allergy (Intermediate, Verified 02/11/24 14:23) Rash crab Allergy (Intermediate, Verified 02/11/24 14:23) Itch seafood Allergy (Intermediate, Verified 02/11/24 14:23) Itch,Rash Sulfa (Sulfonamide Antibiotics) Allergy (Intermediate, Verified 02/11/24 14:23) headache milk Allergy (Verified 02/11/24 14:23) Unknown shrimp Allergy (Verified 02/11/24 14:23) Unknown wheat Allergy (Verified 02/11/24 14:23) Unknown budesonide Adverse Reaction (Severe, Verified 02/11/24 14:23) Nausea metformin Adverse Reaction (Intermediate, Verified 02/11/24 14:23) Abdominal Pain nitrofurantoin Allergy (Severe, Uncoded 02/11/24 14:23) Abdominal Pain ciprofloxacin Allergy (Intermediate, Uncoded 02/11/24 14:23) Abdominal Pain SEASONAL ALLERGIES Allergy (Mild, Uncoded 02/11/24 14:23) RUNNY NOSE/SNEEZING Medication List - Last Reconciled 02/11/24 by Karyna Murphy MD acetaminophen 500 - 1,000 mg (1 - 2 x 500 mg) PO Q6H PRN 30 days ascorbic acid (vitamin C) (Vitamin C) 500 mg PO BID atorvastatin 40 mg PO BEDTIME 90 days blood sugar diagnostic Use 1 test strip once a day blood sugar diagnostic (FreeStyle Lite Strips) Test 2 times daily blood-glucose meter (FreeStyle Lite Meter kit) As directed buspirone 5 mg PO TID cetirizine 10 mg PO DAILY PRN 90 days cholecalciferol (vitamin D3) 125 mcg PO DAILY 90 days clonazepam 0.5 mg PO Q OTHER DAY PRN dicyclomine 20 mg PO BID docusate sodium 100 mg PO DAILY PRN fenofibrate 54 mg PO DAILY 90 days fluticasone propionate 50 mcg/actuation (Flonase Allergy Relief) 1 spray intranasal DAILY 30 days folic acid 1 mg PO DAILY gabapentin 300 mg PO DAILY glipizide 10 mg PO DAILY 90 days lancets (FreeStyle Lancets) Test 2 times daily lansoprazole 30 mg PO DAILY nortriptyline 10 mg PO BEDTIME ondansetron 4 mg PO BID pyridoxine (vitamin B6) 50 mg (1/2 x 100 mg) PO DAILY 90 days saliva stimulant comb. no.4 3 sprays mucous membrane Q2-3H PRN saliva substitute combo no.2 1 appl mucous membrane Q4H PRN Shower Chair As directed simethicone (Gas Relief (simethicone)) 160 mg (2 x 80 mg) PO BID-TID PRN Synthroid (levothyroxine) 137 mcg PO DAILY 90 days NS syringe with needle As directed syringe with needle, safety (BD Safety-Nisha Detachable Needle) once a month tizanidine 2 mg PO Q8H PRN 30 days venlafaxine ER (Effexor XR) 37.5 mg PO DAILY zinc acetate (Galzin) 50 mg PO DAILY zolpidem 10 mg PO BEDTIME PRN Tobacco use date assessed: 12/08/23 Dental Screening Dental Screen Date: 12/08/23 HPI HPI Comments History of Present Illness Details This is a 58-year-old female with mild recurrent major depression, diabetes mellitus type 2, mixed hyperlipidemia, GERD and hypothyroidism that comes today for follow-up on her conditions. Depression stable with venlafaxine. Last A1c was close to goal and I will add Trulicity. Metformin gave her abdominal discomfort. LDL close to goal. GERD stable with lansoprazole. TSH normal. Denies any chest pain or shortness on breath. [facility] Medical History (Updated 02/11/24 @ 17:20 by Karyna Murphy MD) History of ovarian cyst Renal cyst Renal calculi Mild recurrent major depression Mixed hyperlipidemia COVID-19 vaccine administered B12 deficiency Polyarthralgia Osteoarthritis of right knee Dyslipidemia Anxiety and depression History of postoperative nausea and vomiting Hx of renal calculi Hx of gastritis GERD (gastroesophageal reflux disease) Hypothyroid Colon polyps Diabetes Surgical History History of tubal ligation Hx of lithotripsy History of esophagogastroduodenoscopy (EGD) Hx of colonoscopy H/O: hysterectomy H/O thyroidectomy History of cholecystectomy Family History Father Hx of heat stroke History of dementia Mother Hx of benign gastric tumor Family history of high blood pressure Hx of type 1 diabetes mellitus Colon cancer Maternal Uncle Pancreatic cancer Daughter Thyroid cancer Maternal Aunt Ovarian cancer Social History Household Members: None Housing: Apartment Are you a primary day care assistant to a significant other at home: No Do you presently have visiting nurse or other home services: No Alcohol intake: never Patient Tobacco Use Status: Never used Tobacco e-Cigarette/Vaping Use: Never Used Second Hand Smoke Exposure: Yes service: No Current occupational status: disabled Sexual orientation: Straight/Heterosexual Gender identity: Female Cognitive needs: No Hearing needs: No Vision needs: No Questionnaire Thrive Questionnaire Date Thrive assessed: 12/08/23 JUDY-7 AMB Questionnaire JUDY-7 Date JUDY - 7 assessed: 12/08/23 Source: Developed by Drs. Tom Crawford, Olivia Tesfaye, Jay Jay Stover and colleagues, with an educational reddy from [employer]. Review of Systems Const All systems reviewed & are unremarkable except as noted in HPI and below Card Denies chest pain at rest, Denies chest pain with activity, Denies edema, Denies irregular heart rhythm, Denies claudication, Denies dyspnea, Denies dyspnea on exertion, Denies orthopnea, Denies paroxysmal nocturnal dyspnea and Denies slow heart rate Resp Denies cough, Denies dyspnea and Denies dyspnea on exertion GI Denies abdominal pain, Denies change in bowel habits, Denies excessive flatus, Denies nausea and Denies vomiting Denies urinary incontinence, Denies urinary hesitancy and Denies urinary urgency Physical exam (Primary Care) Vital Signs: Last Vital Signs BP 110/70 02/11/24 14:09 BMI result Body Mass Index 35.9 Tobacco/Smoking Status: Tobacco use Status Tobacco use date assessed 12/08/23 02/11/24 14:12 Patient Tobacco Use Status Never used Tobacco 02/11/24 14:12 e-Cigarette/Vaping Use Never Used 02/11/24 14:12 Thrive Assessment: Date of Thrive Assessment Date Thrive assessed 12/08/23 02/11/24 14:12 Resp Effort & Inspection: normal respiratory effort Auscultation: clear to auscultation bilaterally Cardio Jugular venous distension: no JVD Rate: regular rate Rhythm: regular rhythm Heart sounds: S1 normal heart sound present and S2 normal heart sound present Extrem General: Yes full ROM Assessment and Plan Assessment & Plan (1) Mild recurrent major depression: Code(s): F33.0 - Major depressive disorder, recurrent, mild Plan: Continue venlafaxine. (2) GERD (gastroesophageal reflux disease): Code(s): K21.9 - Gastro-esophageal reflux disease without esophagitis Qualifiers: Esophagitis presence: esophagitis presence not specified Qualified Code(s): K21.9 - Gastro-esophageal reflux disease without esophagitis Plan: Continue lansoprazole. (3) Mixed hyperlipidemia: Code(s): E78.2 - Mixed hyperlipidemia Plan: Continue statins and fibrates. LDL goal is less than 70. (4) Diabetes: Comment: NIDDM Code(s): E11.9 - Type 2 diabetes mellitus without complications Qualifiers: Diabetes mellitus type: type 2 Diabetes mellitus mcfp insulin use: without mcfp use Diabetes mellitus complication status: without complication Qualified Code(s): E11.9 - Type 2 diabetes mellitus without complications Plan: Continue glipizide. Start Trulicity. A1c goal is equal or less than 7%. (5) Hypothyroid: Code(s): E03.9 - Hypothyroidism, unspecified Qualifiers: Hypothyroidism type: acquired Qualified Code(s): E03.9 - Hypothyroidism, unspecified Plan: Continue levothyroxine. Monitor TSH. Orders: Orders Microalbumin, Random (w Creat) 4 Months E11.9 - Type 2 diabetes mellitus without complications Complete Blood Count Auto Diff 4 Months D64.9 - Anemia, unspecified Comprehensive [place]. Panel Fast 4 Months E11.40 - Type 2 diabetes mellitus with diabetic neuropathy, unspecified Thyroid Stimulating Hormone 4 Months E03.9 - Hypothyroidism, unspecified Lipid Panel 4 Months E78.5 - Hyperlipidemia, unspecified Vitamin D 25-OH Total 4 Months E55.9 - Vitamin D deficiency, unspecified IRON PROFILE 4 Months D64.9 - Anemia, unspecified Medications: New dulaglutide (Trulicity) 0.75 mg (0.5 mL) subcut QWEEK 6.5 mL 0RF 90 days Coding Level of Care Code Est Pt Level 4 (65420) Complex EM visit Add On G2211 Diagnoses Mild recurrent major depression F33.0 Gastroesophageal reflux disease, unspecified whether esophagitis present K21.9 Esophagitis presence: esophagitis presence not specified Mixed hyperlipidemia E78.2 Type 2 diabetes mellitus without complication, without long-term current use of insulin E11.9 Diabetes mellitus type: type 2 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
== END 2024-02-11 14:34 | disposition home or self-care (01) ==
PROVIDERS: PCP Internal Medicine; Visit Provider Internal Medicine
DX: E11.9 Type 2 diabetes mellitus without complications (principal); F33.0 Major depressive disorder, recurrent, mild; K21.9 Gastro-esophageal reflux disease without esophagitis; E78.2 Mixed hyperlipidemia; E03.9 Hypothyroidism, unspecified
CPT/HCPCS: 99214; G2211

== ENCOUNTER 2024-02-29 14:10 | Outpatient (AMB) | payer OTHER, SELFPAY ==
--- NOTE | 2024-02-29 14:12 | A.OFFVIS_ITS ---
Vital Signs 02/29/24 14:15 Height 5 ft 2 in Weight 194 lb 0.108 oz BMI 35.5 BP 118/77 Blood Pressure Location Lt brachial Position Sitting Pulse 91 Intake Visit Reasons: 4 month f/u Intake Note: Kamille presents in the office as a 4 month follow up. CC: She states that she is still having the issues with pains in her stomach. She states that she had to stop taking her medications because she was having nausea and headaches. When she was put on trulicity it got worse and she could not take it. She called but said there was noone that could help her in chinese so she called her PCP office. She wants you to see the study that she had in her throat - she states she is unsure of what study it. Dry Roller Required: Yes Dry Roller Name: [id number] [id number] Allergies clindamycin Allergy (Intermediate, Verified 02/29/24 14:17) Rash crab Allergy (Intermediate, Verified 02/29/24 14:17) Itch seafood Allergy (Intermediate, Verified 02/29/24 14:17) Itch,Rash Sulfa (Sulfonamide Antibiotics) Allergy (Intermediate, Verified 02/29/24 14:17) headache milk Allergy (Verified 02/29/24 14:17) Unknown shrimp Allergy (Verified 02/29/24 14:17) Unknown wheat Allergy (Verified 02/29/24 14:17) Unknown budesonide Adverse Reaction (Severe, Verified 02/29/24 14:17) Nausea metformin Adverse Reaction (Intermediate, Verified 02/29/24 14:17) Abdominal Pain nitrofurantoin Allergy (Severe, Uncoded 02/29/24 14:17) Abdominal Pain ciprofloxacin Allergy (Intermediate, Uncoded 02/29/24 14:17) Abdominal Pain SEASONAL ALLERGIES Allergy (Mild, Uncoded 02/29/24 14:17) RUNNY NOSE/SNEEZING HPI HPI 4 month f/u: Details: 58 yr old f here for f/u RECAP: She had noted more constipation, new for her she wants to go, but she can't pass any stool, sometimes 2 d before passes stool takes laxatives to help denies blood in stool but had pos stool FOB 10/2018 going on for 2 months before that she was going every other day to toilet, but no tenesmus like sensation she also has epigastric pain and discomfort, worse wt food she takes advil occasionally, meloxicam on chart but takes occasionally she has nausea, and some reflux sx she is on omeprazole 40 mg once daily seh also has pernicious anemia, on b12 shots she had EGD 08/12/2017- severe gastritis noted colonoscopy done 5 yrs ago and one polyp removed FH of crc in mother aged 72 cbc 02/2019 meditech was normal, hgb 12.6. She had EGD/colonoscopy:04/2019-- chronic gastritis, and chronic GEJ junction, severe diverticulosis, mycosis, ADENOMATOUS polyps prep was fair H pylori breath test done and was negative advised on high fiber diet she still had epigastric pain and discomfort at f/u, she was stressed due to daughter with thyroid cancer and mum with stomach tumour she endorsed anxiety she was changed from omeprazole to pantoprazole and given low dose TCA she had been taking the pantoprazole and it was helping a lot she was given flagly in case of SIBO and pelvic us was ordered (CT then ordered by PCP-as below) she feels nortriptiline didn;t help her she did feel lansoprazole has been helping a lot Srivastava with out any significant reflux REPT COLONOSCOPY 2019-- redundant colon, tubular adenoma and hyperplastic polyps pelvic us 07/2020--nml CT A/P- 08/2020--renal stones, diverticuli, incl duodenum, fatty liver GES 11/2020--rapid gastric emptying, 1 hr 26% left and 2 hr 2% left RAST--low level pos for wheat, cows milk, shrimp TSH--nml MRI 11/01 steatosis, focal nodular hyperplasia US 01/31: vascular calcification left kidney and cyst KUB 11/03-- left renal stone, moderate fecal loading, right side more US 11/11/23- renal stones, hepatic stetosis Ba swallow 12/02/23- severe gerd, esophageal dysmotility she did have a high lactoferrin in past but was intolerant of budeosnide trial INTERIM: she has been having ongoing epigastric pain she has ongoing nausea denies diarrhea she has constipation some days she feels reduction in pain if she passes gas and stool EXAM: GENERAL: The patient is well developed and nontoxic. VITAL SIGNS:see workflow HEENT: Nonicteric sclerae, PERRLA, EOMI. Oropharynx clear. Moist mucous membranes. Conjunctivae appear well perfused. No thyroid mass. CHEST: Chest wall is nontender. HEART: Regular rate and rhythm without murmurs. LUNGS: Clear to auscultation bilaterally. ABDOMEN: Soft, positive bowel sounds, mildly tender epigastrium and mid abdomen, no organomegaly. mild flank tenderness SKIN: No rash, no excessive bruising, petechiae, or purpura. NEUROLOGIC: Cranial nerves II-XII intact without motor/sensory deficit. Assessment & Plan (1) Epigastric pain, worsening reflux, prior elevated lactoferrin uncertain if she has underlying IBD, fucntional dyspepsia, severe reflux on ba swallow Plan: 1/ cont bentyl since helps 2/ check the fecal lactoferrin, if high then trial of mesalamine, or biologic 3/ gerd maybe related to inflammation, if neg then can change PPI, surgery or ARAT also discussed [facility] Medical History History of ovarian cyst Renal cyst Renal calculi Mild recurrent major depression Mixed hyperlipidemia COVID-19 vaccine administered B12 deficiency Polyarthralgia Osteoarthritis of right knee Dyslipidemia Anxiety and depression History of postoperative nausea and vomiting Hx of renal calculi Hx of gastritis GERD (gastroesophageal reflux disease) Hypothyroid Colon polyps Diabetes Surgical History History of tubal ligation Hx of lithotripsy History of esophagogastroduodenoscopy (EGD) Hx of colonoscopy H/O: hysterectomy H/O thyroidectomy History of cholecystectomy Family History Father Hx of heat stroke History of dementia Mother Hx of benign gastric tumor Family history of high blood pressure Hx of type 1 diabetes mellitus Colon cancer Maternal Uncle Pancreatic cancer Daughter Thyroid cancer Maternal Aunt Ovarian cancer Social History Household Members: None Housing: Apartment Are you a primary district manager primary care sales to a significant other at home: No Do you presently have visiting nurse or other home services: No Alcohol intake: never Patient Tobacco Use Status: Never used Tobacco e-Cigarette/Vaping Use: Never Used Second Hand Smoke Exposure: Yes service: No Current occupational status: disabled Sexual orientation: Straight/Heterosexual Gender identity: Female Cognitive needs: No Hearing needs: No Vision needs: No Physical Exam Vital Signs: BMI result Body Mass Index 35.5 Assessment & Plan Assessment & Plan (1) Colitis: Code(s): K52.9 - Noninfective gastroenteritis and colitis, unspecified Category: Medical Plan: see above Coding Level of Care Code Est Pt Level 3 (46444) Diagnoses Colitis K52.9
[2024-02-29 14:15] VITALS: BP 118/77; PULSE 91; BMI 35.5
== END 2024-02-29 15:01 | disposition home or self-care (01) ==
PROVIDERS: PCP Internal Medicine; Visit Provider Internal Medicine Gastroenterology
DX: K52.9 Noninfective gastroenteritis and colitis, unspecified (principal)
CPT/HCPCS: 99213

== ENCOUNTER → 2024-02-29 14:10 | Outpatient (BNVA) | payer OTHER, SELFPAY | PROVIDERS: PCP Internal Medicine; Visit Provider Internal Medicine Gastroenterology | DX: K52.9 Noninfective gastroenteritis and colitis, unspecified (principal) | CPT/HCPCS: 99212 ==

== ENCOUNTER 2024-03-02 11:59 | Outpatient (REF) | payer OTHER, SELFPAY ==
[2024-03-10 00:33] LABS: Lactoferrin, Fecal, Quant. 22.63 mcg/mL (<7.25)
== END 2024-03-02 12:00 | disposition home or self-care (01) ==
LOC: HO.LNP 11:59
PROVIDERS: Visit Provider Internal Medicine Gastroenterology
DX: K51.50 Left sided colitis without complications (principal)
CPT/HCPCS: 83631

== ENCOUNTER 2024-03-04 13:00 | Outpatient (REF) | payer OTHER, SELFPAY ==
[2024-03-05 12:59] LABS: Bacterial Vaginosis PCR POSITIVE (Negative); Candida Group PCR NOT DETECTED (Not Detect); Candida glab krusei PCR NOT DETECTED (Not Detect); Trichomonas vaginalis PCR NOT DETECTED (Not Detect)
== END 2024-03-04 13:01 | disposition home or self-care (01) ==
LOC: HO.LNP 13:00
PROVIDERS: PCP Internal Medicine; Visit Provider Advanced Practice Midwife
DX: Z01.419 Encounter for gynecological examination (general) (routine) without abnormal findings (principal); N89.8 Other specified noninflammatory disorders of vagina
CPT/HCPCS: 0352U; 99396

== ENCOUNTER 2024-03-04 13:00 | Outpatient (AMB) | payer OTHER, SELFPAY ==
--- NOTE | 2024-03-04 13:06 | A.OFFVIS_ITS ---
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/ DO not RS/ 30 mins Arc Cutter Plasma Arc Required: Yes Arc Cutter Plasma Arc Language: Ballast Regulator Operator Services: Arc Cutter Plasma Arc Present (in person) Arc Cutter Plasma Arc Name: Anne LUNDY Information Interpreted: non-clinical & clinical Multiple Effect Evaporator Operator: Multiple Effect Evaporator Operator Present (Anne LUNDY) Accompanied by: Self / Same As Patient Allergies clindamycin Allergy (Intermediate, Verified 03/04/24 13:17) Rash crab Allergy (Intermediate, Verified 03/04/24 13:17) Itch seafood Allergy (Intermediate, Verified 03/04/24 13:17) Itch,Rash Sulfa (Sulfonamide Antibiotics) Allergy (Intermediate, Verified 03/04/24 13:17) headache milk Allergy (Verified 03/04/24 13:17) Unknown shrimp Allergy (Verified 03/04/24 13:17) Unknown wheat Allergy (Verified 03/04/24 13:17) Unknown budesonide Adverse Reaction (Severe, Verified 03/04/24 13:17) Nausea metformin Adverse Reaction (Intermediate, Verified 03/04/24 13:17) Abdominal Pain nitrofurantoin Allergy (Severe, Uncoded 03/04/24 13:17) Abdominal Pain ciprofloxacin Allergy (Intermediate, Uncoded 03/04/24 13:17) Abdominal Pain SEASONAL ALLERGIES Allergy (Mild, Uncoded 03/04/24 13:17) RUNNY NOSE/SNEEZING Post menopausal: Yes HPI Comments Details: She is a postmenopausal woman 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 She is doing well with no concerns. Attempting to eat a healthy diet with calcium and vitamin D and stays active with exercise-walking. Currently not sexually active. Denies any vaginal dryness or irritation. STI testing offered; she declines. Last pap smear; 2019. Hysterectomy due to fibroids. Last mammogram; 2023. Colonoscopy is UTD. Denies any family history of breast or colon cancer. FH ovarian cancer. [facility] Medical History History of ovarian cyst Renal cyst Renal calculi Mild recurrent major depression Mixed hyperlipidemia COVID-19 vaccine administered B12 deficiency Polyarthralgia Osteoarthritis of right knee Dyslipidemia Anxiety and depression History of postoperative nausea and vomiting Hx of renal calculi Hx of gastritis GERD (gastroesophageal reflux disease) Hypothyroid Colon polyps Diabetes Surgical History History of tubal ligation Hx of lithotripsy History of esophagogastroduodenoscopy (EGD) Hx of colonoscopy H/O: hysterectomy H/O thyroidectomy History of cholecystectomy Family History Father Hx of heat stroke History of dementia Mother Hx of benign gastric tumor Family history of high blood pressure Hx of type 1 diabetes mellitus Colon cancer Maternal Uncle Pancreatic cancer Daughter Thyroid cancer Maternal Aunt Ovarian cancer Social History Household Members: None Housing: Apartment Are you a primary acute care registered nurse to a significant other at home: No Do you presently have visiting nurse or other home services: No Alcohol intake: never Patient Tobacco Use Status: Never used Tobacco e-Cigarette/Vaping Use: Never Used Second Hand Smoke Exposure: Yes service: No Current occupational status: disabled Sexual orientation: Straight/Heterosexual Gender identity: Female Cognitive needs: No Hearing needs: No Vision needs: No Female Reproductive History Menstrual Menopause type: surgical Total pregnancies: 3 Full term: 4 Number of Living Children: 4 Multiple births: 1 Date of last pap smear: 12/20/19 (neg pap and hpv) Date of Mammogram: 01/13/24 (Birad 1) Review of Systems Const All systems reviewed & are unremarkable except as noted in HPI and below Reports as per HPI Eyes Reports no additional complaints ENT Reports no additional complaints Card Reports no additional complaints Resp Reports no additional complaints GI Reports as per HPI and Reports no additional complaints Reports as per HPI Musc Reports no additional complaints Skin/Breast Reports as per HPI Neuro Reports no additional complaints Psych Reports no additional complaints Endo Reports no additional complaints Osman/Lymph Reports no additional complaints Aller/Immun Reports no additional complaints Physical Exam Vital Signs: Last Vital Signs BP 118/72 03/04/24 13:15 BMI result Body Mass Index 34.7 Const General: cooperative, healthy appearing, no acute distress, well developed and alert Orientation/consciousness: patient oriented x3 HEENT Head: Yes normal to inspection Eyes General: appearance normal, both eyes and all related structures Neck Neck: Yes normal visual inspection Thyroid: Thyroid normal Chest Chest palpation & inspection: normal inspection of the chest and other (no puckering, dimpling, peau de orange, retraction, discharge, masses) Breast/axilla inspection: normal inspection of the breasts Breast/axilla palpation: normal palpation of the breasts Resp Effort & Inspection: normal respiratory effort GI Inspection: Yes normal to inspection and Yes scar Palpation (GI): Soft to palpation Rectal Exam - Female: deferred General: Yes bladder normal to palpation External Female Exam: normal external appearance and normal appearance of the urethra Speculum Exam - Vagina: normal appearance of the vagina, normal palpation, normal vaginal discharge and vagina atrophic Speculum Exam - Cervix: Cervix absent (Vaginal cuff no lesions or nodules) Bimanual exam- vagina & uterus: normal bimanual exam, normal palpation and bladder normal to palpation Bimanual Exam- Adnexa, other: no masses Skin General skin exam: no rashes or lesions noted Rashes: no rashes Neuro General: patient oriented x3 Cognition (Neuro): normal cognition Extrem General: Yes normal to inspection Psych Attitude: cooperative Thought process: Normal thought process present Assessment & Plan Assessment & Plan (1) Encounter for well woman exam with routine gynecological exam: Code(s): Z01.419 - Encounter for gynecological examination (general) (routine) without abnormal findings Category: Medical Plan Discussed: Current recommendations for pap smears per ASCCP guidelines. Breast awareness, periodic self breast exams and yearly mammogram. Maintain a healthy lifestyle, well balanced diet including Calcium 1,200 mg and Vitamin D 600 IU daily, and routine exercise. BV panel taken, await results for plan of care. No external irritation noted, atrophic changes in menopause may contributed to dryness consider using a thin coat of Vaseline, if no improvement in the dry sensation to return to the office. Patient verbalizes understanding and agrees to the plan of care. She was given opportunity to ask questions and all questions were answered to the best of my ability. RTO in 1 year for annual quality assurance associate exam. This note is constructed using voice recognition software. While every effort has been made to ensure accuracy, roofing machine tender errors may have been included. Coding Level of Care Code Est Pt Prev Care 40-64y(22031) Diagnoses Encounter for well woman exam with routine gynecological exam Z01.419
[2024-03-04 13:15] VITALS: BP 118/72; BMI 34.7
== END 2024-03-04 13:43 | disposition home or self-care (01) ==
LOC: HO.HWS 13:00
PROVIDERS: PCP Internal Medicine; Visit Provider Advanced Practice Midwife
DX: Z01.419 Encounter for gynecological examination (general) (routine) without abnormal findings (principal)
CPT/HCPCS: 99396

== ENCOUNTER 2024-03-25 09:54 | Outpatient (REF) | payer OTHER, SELFPAY ==
[2024-03-25 11:07] LABS: Calcium 10.1 mg/dL (8.4-10.2)
[2024-03-25 11:08] LABS: Anion Gap 13 (12-20); Blood Urea Nitrogen 11 mg/dL (9-16); Calcium 9.8 mg/dL (8.4-10.2); Carbon Dioxide 27 mmol/L (22-29); Chloride 109 mmol/L (96-108); Cholesterol 144 mg/dL (<200); Estimated Glomerular Filt Rate > 60; Glucose Random 130 mg/dL (60-115); HDL Cholesterol 45 mg/dL (>40); LDL Cholesterol Calculated 65 mg/dL (<100); Magnesium 2.1 mg/dL (1.6-2.6); Phosphorus 3.9 mg/dL (2.7-4.5); Potassium 4.5 mmol/L (3.3-5.1); Sodium 144 mmol/L (135-145); Triglycerides 173 mg/dL (<150); Uric Acid 5.8 mg/dL (2.4-5.7)
[2024-03-25 11:13] LABS: Appearance Urine Clear; Color Urine Dark Yellow; Glucose Urine UA Negative (Negative); Leukocyte Esterase Urine Trace (Negative); Nitrite Urine Negative (Negative); PH 5.5 (5.0-9.0); Specific Gravity - Urine 1.025 (1.005-1.025); UMIC TRIGGER UACC YES; Urine Blood Negative (Negative); Urine Ketones Trace mg/dL (Negative); Urine Protein 30 (1+) mg/dL (Neg-Trace)
[2024-03-25 11:20] LABS: Bacteria Urine 1+ (None Seen); RBC Urine 0-2 /HPF (0-2); UACC Culture Trigger YES
== END 2024-03-25 09:55 | disposition home or self-care (01) ==
LOC: HO.LAB 09:54
PROVIDERS: Internal Medicine Gastroenterology; Nurse Practitioner Family; PCP Internal Medicine; Visit Provider Nurse Practitioner Family
DX: N20.0 Calculus of kidney (principal); R79.89 Other specified abnormal findings of blood chemistry; E78.5 Hyperlipidemia, unspecified
CPT/HCPCS: 36415; 80048; 80061; 81001; 81003; 82306; 82310; 83735; 84100; 84550; 87086

== ENCOUNTER 2024-03-29 12:52 | Outpatient (AMB) | payer OTHER, SELFPAY ==
--- NOTE | 2024-03-29 13:26 | A.OFFVIS_ITS ---
Intake Visit Reasons: 3m/labs/[facility] Intake Note: Patient presents today for follow up on: kidney stones, litholink and lab results Urology Medications: Vitamin B6 Allergies to Antibiotic: Clindamycin, Sulfa, Nitrofurantoin, Ciprofloxacin Blood Thinner: None Principal Web Developer Required: Yes Principal Web Developer Name: [employer] [id number] Accompanied by: Self / Same As Patient Allergies clindamycin Allergy (Intermediate, Verified 03/29/24 13:54) Rash crab Allergy (Intermediate, Verified 03/29/24 13:54) Itch seafood Allergy (Intermediate, Verified 03/29/24 13:54) Itch,Rash Sulfa (Sulfonamide Antibiotics) Allergy (Intermediate, Verified 03/29/24 13:54) headache milk Allergy (Verified 03/29/24 13:54) Unknown shrimp Allergy (Verified 03/29/24 13:54) Unknown wheat Allergy (Verified 03/29/24 13:54) Unknown budesonide Adverse Reaction (Severe, Verified 03/29/24 13:54) Nausea metformin Adverse Reaction (Intermediate, Verified 03/29/24 13:54) Abdominal Pain nitrofurantoin Allergy (Severe, Uncoded 03/29/24 13:54) Abdominal Pain ciprofloxacin Allergy (Intermediate, Uncoded 03/29/24 13:54) Abdominal Pain SEASONAL ALLERGIES Allergy (Mild, Uncoded 03/29/24 13:54) RUNNY NOSE/SNEEZING Medication List - Last Reconciled 03/29/24 by ADEEL Cohn acetaminophen 500 - 1,000 mg (1 - 2 x 500 mg) PO Q6H PRN 30 days ascorbic acid (vitamin C) (Vitamin C) 500 mg PO BID atorvastatin 10 mg PO BEDTIME blood sugar diagnostic Use 1 test strip once a day blood sugar diagnostic (FreeStyle Lite Strips) Test 2 times daily blood-glucose meter (FreeStyle Lite Meter kit) As directed buspirone 5 mg PO TID cetirizine 10 mg PO DAILY PRN 90 days cholecalciferol (vitamin D3) 125 mcg PO DAILY 90 days clonazepam 0.5 mg PO Q OTHER DAY PRN dicyclomine 20 mg PO BID docusate sodium 100 mg PO DAILY PRN dulaglutide (Trulicity) 0.75 mg (0.5 mL) subcut QWEEK 90 days famotidine 40 mg PO BEDTIME fenofibrate 54 mg PO DAILY 90 days fluticasone propionate 50 mcg/actuation (Flonase Allergy Relief) 1 spray intranasal DAILY 30 days folic acid 1 mg PO DAILY gabapentin 300 mg PO DAILY glipizide 10 mg PO DAILY 90 days lancets (FreeStyle Lancets) TEST 2 TIMES DAILY lansoprazole 30 mg PO BID mesalamine ER (Apriso) 1.5 grams (4 x 0.375 gram) PO QAM metronidazole 0.75%(37.5mg/5gram) 1 appful vaginal BEDTIME 5 days nortriptyline 10 mg PO BEDTIME ondansetron 4 mg PO BID pyridoxine (vitamin B6) 50 mg (1/2 x 100 mg) PO DAILY 90 days saliva stimulant comb. no.4 3 sprays mucous membrane Q2-3H PRN saliva substitute combo no.2 1 appl mucous membrane Q4H PRN Shower Chair As directed simethicone (Gas Relief (simethicone)) 160 mg (2 x 80 mg) PO BID-TID PRN Synthroid (levothyroxine) 137 mcg PO DAILY 90 days NS syringe with needle As directed syringe with needle, safety (BD Safety-Nisha Detachable Needle) once a month tizanidine 2 mg PO Q8H PRN 30 days zinc acetate (Galzin) 50 mg PO DAILY zolpidem 10 mg PO BEDTIME PRN HPI Comments Details: Kamille is a 58-year-old Bengali-speaking female of Dr. Mora. She has a past medical history of anxiety, depression, vitamin B12 deficiency, hyperlipidemia, polyarthralgia, diabetes, GERD, dyslipidemia, osteoarthritis, renal calculi, and renal cysts. She presents to the office today for follow-up of her renal calculi and renal cysts. Recent 24 hour urine collection and lab results reviewed with the patient today. Discussed low urine volume for 24 hour urine collection of 1.4 in correlation of these results with nephrolithiasis. 04/05 sodium 144, potassium 4.5, chloride 109, BUN 11, creatinine 0.88, uric acid 5.8, calcium 10.1, phosphorus 3.9, and magnesium 2.1 Previous workup has included a renal ultrasound 02/02 noting bilateral kidneys with no hydronephrosis. Right-sided 4 mm nonobstructing calculus in the lower pole. 8 mm simple right renal cyst for which no imaging follow-up is recommended per radiology report. Left kidney with 6 mm nonobstructing calculus in the lower pole. She currently denies any bothersome urinary issues or concerns. She denies urinary urgency, urinary frequency, incontinence, nocturia, hematuria, foul smelling urine, changes to urinary stream, flank pain, fever, and or chills. She is happy with her current voiding parameters. She reports to be drinking plenty of water daily and adding 1 oz of lemon juice to water daily. She reports comlaince vitamin B6 as prescribed. We discussed low urine output volume and elevated uric acid. We discussed further treatment options. At this time patient would like to continue with increased water intake. She discusses feeling that despite increase fluid intake she continues with low urine output. In office urinalysis results reviewed with the patient today. We discussed trace proteinuria. She does discuss newly started Trulicity for her diabetes. She otherwise offers no issues or concerns at this time. A1c 12/03 7.4. PFSH Medical History History of ovarian cyst Renal cyst Renal calculi Mild recurrent major depression Mixed hyperlipidemia COVID-19 vaccine administered B12 deficiency Polyarthralgia Osteoarthritis of right knee Dyslipidemia Anxiety and depression History of postoperative nausea and vomiting Hx of renal calculi Hx of gastritis GERD (gastroesophageal reflux disease) Hypothyroid Colon polyps Diabetes Surgical History History of tubal ligation Hx of lithotripsy History of esophagogastroduodenoscopy (EGD) Hx of colonoscopy H/O: hysterectomy H/O thyroidectomy History of cholecystectomy Family History Father Hx of heat stroke History of dementia Mother Hx of benign gastric tumor Family history of high blood pressure Hx of type 1 diabetes mellitus Colon cancer Maternal Uncle Pancreatic cancer Daughter Thyroid cancer Maternal Aunt Ovarian cancer Social History Household Members: None Housing: Apartment Are you a primary foster care social worker to a significant other at home: No Do you presently have visiting nurse or other home services: No Alcohol intake: never Patient Tobacco Use Status: Never used Tobacco e-Cigarette/Vaping Use: Never Used Second Hand Smoke Exposure: Yes service: No Current occupational status: disabled Sexual orientation: Straight/Heterosexual Gender identity: Female Cognitive needs: No Hearing needs: No Vision needs: No Review of Systems Const Reports as per HPI Eyes Reports no additional complaints ENT Reports no additional complaints Card Reports as per HPI Resp Reports no additional complaints GI Reports as per HPI Reports as per HPI Musc Reports no additional complaints Neuro Reports no additional complaints Psych Reports as per HPI Endo Reports as per HPI Osman/Lymph Reports no additional complaints Aller/Immun Reports no additional complaints Physical Exam Const General: cooperative, healthy appearing, comfortable, no acute distress, well developed, alert and awake Nutritional Appearance: overweight Orientation/consciousness: patient oriented x3 Limitations: no limitations HEENT Head: Yes normal to inspection, Yes normocephalic and Yes atraumatic Ears: hearing grossly normal bilaterally Eyes General: appearance normal, both eyes and all related structures Neck Neck: Yes normal visual inspection and Yes trachea midline Chest Chest palpation & inspection: normal inspection of the chest Resp Effort & Inspection: able to speak in complete sentences Cardio Rate: regular rate GI Inspection: Yes normal to inspection General: Yes no CVA tenderness Back/Spine/Pelvis Back: no CVA tenderness Skin General skin exam: no rashes or lesions noted Neuro General: patient oriented x3 Extrem General: Yes normal to inspection Psych Appearance: grossly normal and well kempt Mental Status: mental status grossly normal Speech and movement: Normal speech and movement present and Clear speech present Affect: normal affect Attitude: cooperative Thought process: Normal thought process present Thought content: Normal thought content present Insight: Fair insight present (Psych) Judgement: Fair judgement present (Psych) Results AMB Urinalysis, Automated UA Leukoctes 15 Karin/uL Last Edit by Paul Chou on 03/29/24 13:37 UA Nitrite Last Edit by Paul Chou on 03/29/24 13:37 UA Urobilinogen 0.2 mg/dL Last Edit by Paul Chou on 03/29/24 13:37 UA Protein 15 mg/dL Last Edit by Paul Chou on 03/29/24 13:37 UA pH 5.5 Last Edit by Paul Chou on 03/29/24 13:37 UA Blood 0 Davidson/uL Last Edit by Paul Chou on 03/29/24 13:37 UA Specific [place] 1.030 Last Edit by Paul Chou on 03/29/24 13:37 UA Ketone Last Edit by Paul Chou on 03/29/24 13:37 UA Bilirubin 1 mg/dL Last Edit by Paul Lynnparesh on 03/29/24 13:37 UA Glucose 0 mg/dL Last Edit by Paul Lynnparesh on 03/29/24 13:37 Results Reviewed Results Reviewed: Laboratory Last Values Urine pH (Auto) 5.5 03/29/24 13:36 Specific [place] (Auto) 1.030 03/29/24 13:36 Urine Protein (Auto) 15 mg/dL 03/29/24 13:36 Glucose (UA)(Auto) 0 mg/dL 03/29/24 13:36 Urine Blood (Auto) 0 Davidson/uL 03/29/24 13:36 Urine Bilirubin (Auto) 1 mg/dL 03/29/24 13:36 Urine Urobilinogen (Auto) 0.2 mg/dL 03/29/24 13:36 Leukocyte Esterase (Auto) 15 Karin/uL 03/29/24 13:36 Assessment & Plan Assessment & Plan (1) Proteinuria: Code(s): R80.9 - Proteinuria, unspecified Category: Medical (2) Renal cyst: Code(s): N28.1 - Cyst of kidney, acquired Category: Medical (3) Renal calculi: Code(s): N20.0 - Calculus of kidney Category: Medical Plan In office urinalysis results reviewed with the patient today; as noted above. We discuss trace proteinuria; discussed referral to Nephrology; however patient declines at this time. She currently denies any bothersome urinary issues or concerns. She reports be happy with current voiding parameters mentioned recent metabolic labs as well as 24 hour urine collection results reviewed with the patient today; as noted above. We discussed and stressed the importance Of Increase In Hydration to include urinalysis who of a proximally 2 L per day. Will continue with surveillance monitoring of nephrolithiasis. Will obtain renal ultrasound in 6 months. Follow-up in 6 months with imaging to be completed prior; or sooner with any issues, concerns, and or questions. Orders: Orders AMB Urinalysis Automated Today Z13.9 - Encounter for screening, unspecified US renal BI 6 Months N20.0 - Calculus of kidney Patient Instructions: The patient had an opportunity to ask questions regarding the treatment plan. All questions were answered. Physical exam, labs, and imaging were discussed and reviewed in detail. As well as risks, benefits, and discussion of treatment choices. No major barriers to understanding were identified. The patient expressed understanding and agreement with the above treatment plan. The patient was made aware they should contact our office by phone for worsening of their current condition, the appearance of new symptoms, or with any questions or concerns. Compliance is encouraged with any medications and follow up testing that is ordered. It is a privilege to be allowed the opportunity to participate in? your urological care.? Again, if you have any questions or concerns If you have any questions or concerns please do not hesitate to contact me. The office is [phone]. This note is constructed using voice recognition software. While every effort has been made to ensure accuracy drainage design coordinator errors may have been included. Yours sincerely, ADEEL Cohn Coding Level of Care Code Est Pt Level 3 (66324) Complex EM visit Add On G2211 Diagnoses Proteinuria R80.9 Renal cyst N28.1 Renal calculi N20.0
== END 2024-03-29 13:57 | disposition home or self-care (01) ==
PROVIDERS: PCP Internal Medicine; Visit Provider Nurse Practitioner Family
DX: R80.9 Proteinuria, unspecified (principal); N28.1 Cyst of kidney, acquired; N20.0 Calculus of kidney; Z13.9 Encounter for screening, unspecified
CPT/HCPCS: 99213; G2211

== ENCOUNTER → 2024-03-29 12:52 | Outpatient (BNVA) | payer OTHER, SELFPAY | PROVIDERS: PCP Internal Medicine; Visit Provider Nurse Practitioner Family | DX: N28.1 Cyst of kidney, acquired (principal); R80.9 Proteinuria, unspecified; N20.0 Calculus of kidney | CPT/HCPCS: 81003; 99212 ==

== ENCOUNTER 2024-04-04 11:53 | Outpatient (AMB) | payer OTHER, SELFPAY ==
--- NOTE | 2024-04-04 12:05 | A.OFFVIS_ITS ---
Vital Signs 04/04/24 12:11 Height 5 ft 2 in Weight 193 lb BMI 35.3 BP 96/58 L Blood Pressure Location Lt brachial Position Sitting Pulse 84 Intake Visit Reasons: 4 week follow up meds Intake Note: Patient follow up medication for intestine inflammation. Patient cc: abdominal pain/bloating, intestine pain, acid reflex with a lot of burping, between diarrhea and constipation and swallowing difficulty and dry mouth. Carpet Cleaner Required: Yes Carpet Cleaner Name: [facility] [place] [facility] Accompanied by: Self / Same As Patient Allergies clindamycin Allergy (Intermediate, Verified 04/04/24 12:05) Rash crab Allergy (Intermediate, Verified 04/04/24 12:05) Itch seafood Allergy (Intermediate, Verified 04/04/24 12:05) Itch,Rash Sulfa (Sulfonamide Antibiotics) Allergy (Intermediate, Verified 04/04/24 12:05) headache milk Allergy (Verified 04/04/24 12:05) Unknown shrimp Allergy (Verified 04/04/24 12:05) Unknown wheat Allergy (Verified 04/04/24 12:05) Unknown budesonide Adverse Reaction (Severe, Verified 04/04/24 12:05) Nausea metformin Adverse Reaction (Intermediate, Verified 04/04/24 12:05) Abdominal Pain nitrofurantoin Allergy (Severe, Uncoded 03/29/24 13:54) Abdominal Pain ciprofloxacin Allergy (Intermediate, Uncoded 03/29/24 13:54) Abdominal Pain SEASONAL ALLERGIES Allergy (Mild, Uncoded 03/29/24 13:54) RUNNY NOSE/SNEEZING HPI HPI 4 week follow up meds: Details: 58 yr old f here for f/u RECAP: She had noted more constipation, new for her she wants to go, but she can't pass any stool, sometimes 2 d before passes stool takes laxatives to help denies blood in stool but had pos stool FOB 10/2018 going on for 2 months before that she was going every other day to toilet, but no tenesmus like sensation she also has epigastric pain and discomfort, worse wt food she takes advil occasionally, meloxicam on chart but takes occasionally she has nausea, and some reflux sx she is on omeprazole 40 mg once daily seh also has pernicious anemia, on b12 shots she had EGD 08/12/2017- severe gastritis noted colonoscopy done 5 yrs ago and one polyp removed FH of crc in mother aged 72 cbc 02/2019 meditech was normal, hgb 12.6. She had EGD/colonoscopy:04/2019-- chronic gastritis, and chronic GEJ junction, severe diverticulosis, mycosis, ADENOMATOUS polyps prep was fair H pylori breath test done and was negative advised on high fiber diet she still had epigastric pain and discomfort at f/u, she was stressed due to daughter with thyroid cancer and mum with stomach tumour she endorsed anxiety she was changed from omeprazole to pantoprazole and given low dose TCA she had been taking the pantoprazole and it was helping a lot she was given flagly in case of SIBO and pelvic us was ordered (CT then ordered by PCP-as below) she feels nortriptiline didn;t help her she did feel lansoprazole has been helping a lot Srivastava with out any significant reflux REPT COLONOSCOPY 2019-- redundant colon, tubular adenoma and hyperplastic polyps pelvic us 07/2020--nml CT A/P- 08/2020--renal stones, diverticuli, incl duodenum, fatty liver GES 11/2020--rapid gastric emptying, 1 hr 26% left and 2 hr 2% left RAST--low level pos for wheat, cows milk, shrimp TSH--nml MRI 11/01 steatosis, focal nodular hyperplasia US 01/31: vascular calcification left kidney and cyst KUB 11/03-- left renal stone, moderate fecal loading, right side more US 11/11/23- renal stones, hepatic stetosis Ba swallow 12/02/23- severe gerd, esophageal dysmotility she did have a high lactoferrin in past but was intolerant of budeosnide trial INTERIM: she has not been trying mesalamine as capsules are too high she has dry mouth has trouble swallowing food and tabs she has abdo cramping, and diarrhea EXAM: GENERAL: The patient is well developed and nontoxic. VITAL SIGNS:see workflow HEENT: Nonicteric sclerae, PERRLA, EOMI. Oropharynx clear. Moist mucous membranes. Conjunctivae appear well perfused. No thyroid mass. CHEST: Chest wall is nontender. HEART: Regular rate and rhythm without murmurs. LUNGS: Clear to auscultation bilaterally. ABDOMEN: Soft, positive bowel sounds, mildly tender epigastrium and mid abdomen, no organomegaly. SKIN: No rash, no excessive bruising, petechiae, or purpura. NEUROLOGIC: Cranial nerves II-XII intact without motor/sensory deficit. Assessment & Plan (1) Epigastric pain, worsening reflux, prior elevated lactoferrin uncertain if she has underlying IBD, fucntional dyspepsia, severe reflux on ba swallow --having dysphagia 2/ diarrhea and high fecal lactoferrin, unable to take large caps and foods Plan: 1/ cont bentyl since helps 2/ try mesalamine enema 3/ repeat EGD with dilation 4/ check Vit A, and sjogrens antibodies [facility] Medical History History of ovarian cyst Renal cyst Renal calculi Mild recurrent major depression Mixed hyperlipidemia COVID-19 vaccine administered B12 deficiency Polyarthralgia Osteoarthritis of right knee Dyslipidemia Anxiety and depression History of postoperative nausea and vomiting Hx of renal calculi Hx of gastritis GERD (gastroesophageal reflux disease) Hypothyroid Colon polyps Diabetes Surgical History History of tubal ligation Hx of lithotripsy History of esophagogastroduodenoscopy (EGD) Hx of colonoscopy H/O: hysterectomy H/O thyroidectomy History of cholecystectomy Family History Father Hx of heat stroke History of dementia Mother Hx of benign gastric tumor Family history of high blood pressure Hx of type 1 diabetes mellitus Colon cancer Maternal Uncle Pancreatic cancer Daughter Thyroid cancer Maternal Aunt Ovarian cancer Social History Household Members: None Housing: Apartment Are you a primary dog daycare provider to a significant other at home: No Do you presently have visiting nurse or other home services: No Alcohol intake: never Patient Tobacco Use Status: Never used Tobacco e-Cigarette/Vaping Use: Never Used Second Hand Smoke Exposure: Yes service: No Current occupational status: disabled Sexual orientation: Straight/Heterosexual Gender identity: Female Cognitive needs: No Hearing needs: No Vision needs: No Physical Exam Vital Signs: Last Vital Signs Pulse 84 04/04/24 12:11 BP 96/58 L 04/04/24 12:11 BMI result Body Mass Index 35.3 Assessment & Plan Assessment & Plan (1) B12 deficiency: Code(s): E53.8 - Deficiency of other specified B group vitamins Category: Medical (2) Dysphagia: Code(s): R13.10 - Dysphagia, unspecified Category: Medical (3) Sore throat: Code(s): J02.9 - Acute pharyngitis, unspecified Category: Medical Plan see above Orders: Orders Vitamin A Today E53.8 - Deficiency of other specified B group vitamins Other Ref Test - Misc Today J02.9 - Acute pharyngitis, unspecified, R13.10 - Dysphagia, unspecified [place] Reflex Titer and Pattern Today J02.9 - Acute pharyngitis, unspecified, R13.10 - Dysphagia, unspecified, R79.82 - Elevated C-reactive protein (CRP) Rheumatoid Factor Today J02.9 - Acute pharyngitis, unspecified, R13.10 - Dysphagia, unspecified Medications: New mesalamine 4 grams (60 mL) [place] BEDTIME 1,680 mL 0RF Coding Level of Care Code Est Pt Level 4 (27348) Diagnoses B12 deficiency E53.8 Dysphagia R13.10 Sore throat J02.9
[2024-04-04 12:11] VITALS: BP 96/58; PULSE 84; BMI 35.3
== END 2024-04-04 12:39 | disposition home or self-care (01) ==
PROVIDERS: PCP Internal Medicine; Visit Provider Internal Medicine Gastroenterology
DX: E53.8 Deficiency of other specified B group vitamins (principal); R13.10 Dysphagia, unspecified; J02.9 Acute pharyngitis, unspecified
CPT/HCPCS: 99214

== ENCOUNTER 2024-04-04 11:53 | Outpatient (REF) | payer OTHER, SELFPAY ==
[2024-04-04 14:29] LABS: Rheumatoid Factor < 13.0 IU/mL (<15.0)
[2024-04-05 15:18] LABS: Anti Nuclear Antibody Screen NEGATIVE (NEGATIVE)
[2024-04-07 19:59] LABS: Vitamin A 54 mcg/dL (38-98)
== END 2024-04-04 11:54 | disposition home or self-care (01) ==
LOC: HO.LAB 11:53
PROVIDERS: PCP Internal Medicine; Visit Provider Internal Medicine Gastroenterology
DX: E53.8 Deficiency of other specified B group vitamins (principal); R79.82 Elevated C-reactive protein (CRP); J02.9 Acute pharyngitis, unspecified; R13.10 Dysphagia, unspecified
CPT/HCPCS: 36415; 84590; 86038; 86431; 99212

== ENCOUNTER 2024-05-13 11:54 | Outpatient (REF) | payer OTHER, SELFPAY ==
[2024-05-13 12:58] LABS: Appearance Urine Cloudy; Color Urine Dark Yellow; Glucose Urine UA Negative (Negative); Leukocyte Esterase Urine Small (1+) (Negative); Nitrite Urine Negative (Negative); PH 5.5 (5.0-9.0); Specific Gravity - Urine >= 1.030 (1.005-1.025); UMIC TRIGGER UACC YES; Urine Blood Negative (Negative); Urine Ketones Trace mg/dL (Negative); Urine Protein Trace mg/dL (Neg-Trace)
[2024-05-13 13:01] LABS: Bacteria Urine None Seen (None Seen); Hyaline Casts Urine 0-2 /LPF (0-2); RBC Urine 0-2 /HPF (0-2); UACC Culture Trigger YES
[2024-05-13 13:27] LABS: Creatinine Urine 353.31 mg/dL
[2024-05-18 07:38] LABS: Antibody to SS-A Antigen <1.0 NEG AI (<1.0 NEG); Antibody to SS-B Antigen <1.0 NEG AI (<1.0 NEG)
== END 2024-05-13 11:55 | disposition home or self-care (01) ==
LOC: HO.LAB 11:54
PROVIDERS: PCP Internal Medicine; Visit Provider Internal Medicine Gastroenterology
DX: R80.9 Proteinuria, unspecified (principal)
CPT/HCPCS: 36415; 81001; 82043; 82570; 86235; 87086

== ENCOUNTER 2024-05-19 12:54 | Outpatient (REF) | payer OTHER, SELFPAY ==
[2024-05-20 15:49] LABS: Creatinine POC 0.8 mg/dL (0.5-1.4); GFR POC > 60
== END 2024-05-19 12:55 | disposition home or self-care (01) ==
LOC: HO.CT 12:54
PROVIDERS: PCP Internal Medicine; Visit Provider Internal Medicine Gastroenterology
DX: R10.33 Periumbilical pain (principal)
CPT/HCPCS: 82565

== ENCOUNTER 2024-05-23 12:56 | Outpatient (REF) | payer OTHER, SELFPAY ==
--- NOTE | ~2024-05-23 | CT_ITS ---
EXAMINATION: CT ENTEROGRAPHY ABDOMEN AND PELVIS WITH CONTRAST CLINICAL INFORMATION: Periumbilical pain. COMPARISON: Abdominal ultrasound November 11, 2023 MRI abdomen November 07, 2021 TECHNIQUE: Study performed with oral VoLumen (1500 mL) and 500 mL of water to distend the abdomen. The patient was injected with 85 mL Omnipaque 350 intravenous contrast which was administered without adverse effect. Coronal and sagittal reformatted images were obtained at the technologist's workstation. This CT examination was performed using dose optimization techniques as appropriate, variously including the following: *Automated exposure control *Adjustment of mA and/or kV according to patient size (this includes techniques or standardized protocols for targeted exams where dose is matched to indication/reason for exam; i.e. extremities or head) *Use of iterative reconstruction technique DLP: 528 mGy-cm FINDINGS: GASTROINTESTINAL FINDINGS: Stomach: Satisfactorily distended and unremarkable in appearance. Small intestine: Suboptimally distended. No focal bowel wall thickening or mucosal hyperenhancement. No abnormal small bowel dilatation or small bowel obstruction.. Large intestine: Mucosal hyperenhancement of the rectum. There is rectal wall edema. No abnormal large bowel dilatation. Appendix is within normal limits. Additional findings: No abnormal enhancement of the vasa recta or significant mesenteric or retroperitoneal lymphadenopathy is seen. No abdominal abscess or fistulous tract demonstrated. ABDOMINAL AND PELVIC CT FINDINGS: Liver, gallbladder, biliary tract: The liver is decreased in attenuation. No biliary ductal dilatation. The gallbladder is surgically absent. Pancreas: Unremarkable. Spleen: Unremarkable. Adrenal glands and kidneys: No adrenal mass. The kidneys are symmetric in size and enhance normally. There are nonobstructing calculi in the lower poles of each kidney with the largest measuring 7 mm. No hydronephrosis or perinephric fluid collection. Ureters and bladder: Unremarkable. Lymphovascular structures: No bulky lymphadenopathy. Normal caliber abdominal aorta. Bones: No destructive bone lesions. Lung bases: No pleural or pericardial effusion. CT/CT enterography IMPRESSION: Mucosal hyperenhancement of the rectum with rectal wall edema. This may represent proctitis. Infectious and inflammatory etiologies should be considered. Mild hepatic steatosis. Nephrolithiasis without hydronephrosis. Electronically signed by: Miah Roberts MD 05/23/2024 04:00 PM [facility] [place]
[2024-05-23] MEDS: Sorbitol/Mannit/Xanth Imaging 500 ML LIQUID 1500 ML PO (14:12)
[2024-05-23] MEDS: iohexoL 350 MG/ML 100 ML INFUS..BTL 85 ML IV (14:34)
== END 2024-05-23 12:57 | disposition home or self-care (01) ==
LOC: HO.RADIR 12:56
PROVIDERS: Visit Provider Internal Medicine Gastroenterology
DX: R10.33 Periumbilical pain (principal)
CPT/HCPCS: 74177

== ENCOUNTER 2024-05-25 12:52 | Outpatient (REF) | payer OTHER, SELFPAY ==
[2024-05-25 14:45] LABS: Appearance Urine Clear; Color Urine Yellow; Glucose Urine UA Negative (Negative); Leukocyte Esterase Urine Small (1+) (Negative); Nitrite Urine Negative (Negative); UMIC TRIGGER UACC YES; Urine Blood Negative (Negative); Urine Ketones Negative (Negative); Urine Protein Negative (Neg-Trace)
[2024-05-25 14:50] LABS: Bacteria Urine Trace (None Seen); Hyaline Casts Urine 0-2 /LPF (0-2); RBC Urine 0-2 /HPF (0-2); UACC Culture Trigger YES
[2024-05-26 08:15] LABS: HBc Num1 0.23 S/CO (0.00-0.79); Hepatitis A Antibody IgM 0.16 Index (0-0.79); Hepatitis B Core Antibody Nonreactive (Nonreactive); Hepatitis B Surface Antigen Negative (Negative); ~HepC Num1 0.15 S/CO (0.00-0.79); ~Hepatitis A Antibody IgM Nonreactive (Nonreactive); ~Hepatitis B Surface Antibody NONREACTIVE (Nonreactive); ~Hepatitis C Antibody Nonreactive (Nonreactive)
[2024-05-28 05:13] LABS: TS Negative Control Passed; TS Panel A 1; TS Panel B 0; TS Positive Control Passed; TSpotTB Negative (Negative)
== END 2024-05-25 12:53 | disposition home or self-care (01) ==
LOC: HO.LAB 12:52
PROVIDERS: PCP Internal Medicine; Visit Provider Internal Medicine Gastroenterology
DX: K52.9 Noninfective gastroenteritis and colitis, unspecified (principal)
CPT/HCPCS: 36415; 81001; 86481; 86704; 86706; 86709; 86803; 87086; 87340

== ENCOUNTER 2024-07-18 09:56 | Outpatient (REF) | payer OTHER, SELFPAY ==
[2024-07-18 10:22] LABS: MANUAL DIFF FLAG NO
[2024-07-18 10:46] LABS: Basophils Percent Auto 0.5 % (0-2); Eosinophils Absolute Auto 0.1 X10*3/uL (0.0-0.4); Eosinophils Percent Auto 2.5 % (0-4); Hematocrit 37.3 % (37.0-47.0); Hemoglobin 12.8 g/dl (12.0-16.0); Lymphocytes Absolute Auto 1.3 X10*3/uL (1.2-4.9); Lymphocytes Percent Auto 36.5 % (20-40); Mean Corpuscular HGB Conc 34.3 g/dl (31.0-35.0); Mean Corpuscular Hemoglobin 30.6 pg (27.0-33.0); Mean Corpuscular Volume 89.2 fL (80.0-98.0); Mean Platelet Volume 10.1 fL (9.4-12.3); Monocytes Absolute Auto 0.2 X10*3/uL (0.1-1.2); Monocytes Percent Auto 5.7 % (2-11); Neutrophils Percent Auto 54.8 % (45-73); Platelet Count 226 X10*3/uL (160-400); Red Blood Count 4.18 X10*6/uL (4.20-5.50); Red Cell Distribution Width 12.8 % (11.0-16.0); White Blood Count 3.7 X10*3/uL (4.8-10.8)
[2024-07-18 12:12] LABS: Creatinine Urine 447.22 mg/dL; Microalbum/Creatinine Ratio Ur 8.4 ug/mg cr (<30)
[2024-07-18 12:23] LABS: Vitamin D 25-OH Total 24.1 ng/mL (>30)
[2024-07-18 12:26] LABS: Alanine Aminotransferase 21 U/L (0-31); Albumin Level 4.2 g/dL (3.5-5.0); Alkaline Phosphatase 87 U/L (39-117); Anion Gap 11 (12-20); Aspartate Amino Transferase 23 U/L (5-31); Bilirubin Total 0.4 mg/dL (0.0-1.0); Blood Urea Nitrogen 12 mg/dL (9-16); Calcium 9.5 mg/dL (8.4-10.2); Carbon Dioxide 25 mmol/L (22-29); Chloride 112 mmol/L (96-108); Cholesterol 145 mg/dL (<200); Estimated Glomerular Filt Rate > 60; Glucose Fasting 132 mg/dL (60-99); HDL Cholesterol 45 mg/dL (>40); Iron 53 mcg/dL (30-160); LDL Cholesterol Calculated 65 mg/dL (<100); Percent Iron Saturation 18 % (15-50); Potassium 3.7 mmol/L (3.3-5.1); Sodium 144 mmol/L (135-145); Total Iron Binding Capacity 299 mcg/dL (228-428); Total Protein 7.5 g/dL (6.5-8.0); Triglycerides 176 mg/dL (<150); Unsaturated Iron Binding 246 ug/dL
== END 2024-07-18 09:57 | disposition home or self-care (01) ==
LOC: HO.LAB 09:56
PROVIDERS: PCP Internal Medicine; Visit Provider Internal Medicine
DX: D64.9 Anemia, unspecified (principal); E11.40 Type 2 diabetes mellitus with diabetic neuropathy, unspecified; E03.9 Hypothyroidism, unspecified; E78.5 Hyperlipidemia, unspecified; E55.9 Vitamin D deficiency, unspecified
CPT/HCPCS: 36415; 80053; 80061; 82043; 82306; 82570; 83540; 84443; 85025

== ENCOUNTER 2024-07-26 13:55 | Outpatient (AMB) | payer OTHER, SELFPAY ==
--- NOTE | 2024-07-26 14:03 | MHC.PC.OV ---
Vital Signs 07/26/24 14:06 Height 5 ft 2 in Weight 195 lb BMI 35.7 BP 120/72 Blood Pressure Location Lt brachial Position Sitting Intake Visit Reasons: dm Intake Note: Patient here for a follow up DM Automotive Consultant Required: Yes Automotive Consultant Language: Lamination Spinner Name: Karyna Murphy MD Information Interpreted: non-clinical & clinical Accompanied by: Self / Same As Patient Allergies clindamycin Allergy (Intermediate, Verified 07/26/24 14:37) Rash crab Allergy (Intermediate, Verified 07/26/24 14:37) Itch seafood Allergy (Intermediate, Verified 07/26/24 14:37) Itch,Rash Sulfa (Sulfonamide Antibiotics) Allergy (Intermediate, Verified 07/26/24 14:37) headache milk Allergy (Verified 07/26/24 14:37) Unknown shrimp Allergy (Verified 07/26/24 14:37) Unknown wheat Allergy (Verified 07/26/24 14:37) Unknown budesonide Adverse Reaction (Severe, Verified 07/26/24 14:37) Nausea metformin Adverse Reaction (Intermediate, Verified 07/26/24 14:37) Abdominal Pain nitrofurantoin Allergy (Severe, Uncoded 07/26/24 14:37) Abdominal Pain ciprofloxacin Allergy (Intermediate, Uncoded 07/26/24 14:37) Abdominal Pain SEASONAL ALLERGIES Allergy (Mild, Uncoded 07/26/24 14:37) RUNNY NOSE/SNEEZING Medication List - Last Reconciled 07/26/24 by Karyna Murphy MD acetaminophen 500 - 1,000 mg (1 - 2 x 500 mg) PO Q6H PRN 30 days ascorbic acid (vitamin C) (Vitamin C) 500 mg PO BID atorvastatin 10 mg PO BEDTIME blood sugar diagnostic Use 1 test strip once a day blood sugar diagnostic (FreeStyle Lite Strips) Test 2 times daily blood-glucose meter (FreeStyle Lite Meter kit) As directed buspirone 5 mg PO TID cetirizine 10 mg PO DAILY PRN 90 days cholecalciferol (vitamin D3) 125 mcg PO DAILY 90 days clonazepam 0.5 mg PO Q OTHER DAY PRN dicyclomine 20 mg PO BID docusate sodium 100 mg PO DAILY PRN dulaglutide (Trulicity) 0.75 mg (0.5 mL) subcut QWEEK 90 days famotidine 40 mg PO BEDTIME fenofibrate 54 mg PO DAILY 90 days fluticasone propionate 50 mcg/actuation (Flonase Allergy Relief) 1 spray intranasal DAILY 30 days folic acid 1 mg PO DAILY gabapentin 300 mg PO DAILY glipizide 10 mg PO DAILY 90 days lancets (FreeStyle Lancets) TEST 2 TIMES DAILY lansoprazole 30 mg PO BID mesalamine 1 g (15 mL) [place] BEDTIME mesalamine ER (Apriso) 0.375 grams PO QAM metronidazole 0.75%(37.5mg/5gram) 1 appful vaginal BEDTIME 5 days nortriptyline 10 mg PO BEDTIME ondansetron 4 mg PO BID pyridoxine (vitamin B6) 50 mg (1/2 x 100 mg) PO DAILY 90 days saliva stimulant comb. no.4 3 sprays mucous membrane Q2-3H PRN saliva substitute combo no.2 1 appl mucous membrane Q4H PRN Shower Chair As directed simethicone (Gas Relief (simethicone)) 160 mg (2 x 80 mg) PO BID-TID PRN Synthroid (levothyroxine) 137 mcg PO DAILY 90 days NS syringe with needle As directed syringe with needle, safety (BD Safety-Nisha Detachable Needle) once a month tizanidine 2 mg PO Q8H PRN 30 days zinc acetate (Galzin) 50 mg PO DAILY zolpidem 10 mg PO BEDTIME PRN Tobacco use date assessed: 07/26/24 Dental Screening Dental Screen Date: 07/26/24 Did you have a dental visit in the last 12 months?: Yes Did you have a dental problem in the last 6 months where you did not have access to dental care?: No Was dental information given to patient?: Patient has dentist HPI HPI Comments History of Present Illness Details The patient is a 59-year-old female presenting with a follow-up for Type 2 Diabetes Mellitus. The patient's glycated hemoglobin (HbA1c) was reported to be 6%, indicating good glycemic control over the past two to three months. No specific symptoms or issues related to diabetes were discussed as being problematic currently. The patient has a history of Essential Hypertension, which was noted as being well-controlled. She also has a history of Dyslipidemia, with lipid levels currently within desired ranges. Additionally, the patient has a euthyroid goiter, with thyroid function tests indicating normal thyroid activity. The patient is engaged in regular follow-up and monitoring of these conditions, maintaining a stable clinical status. [facility] Medical History History of ovarian cyst Renal cyst Renal calculi Mild recurrent major depression Mixed hyperlipidemia COVID-19 vaccine administered B12 deficiency Polyarthralgia Osteoarthritis of right knee Dyslipidemia Anxiety and depression History of postoperative nausea and vomiting Hx of renal calculi Hx of gastritis GERD (gastroesophageal reflux disease) Hypothyroid Colon polyps Diabetes Surgical History History of tubal ligation Hx of lithotripsy History of esophagogastroduodenoscopy (EGD) Hx of colonoscopy H/O: hysterectomy H/O thyroidectomy History of cholecystectomy Family History Father Hx of heat stroke History of dementia Mother Hx of benign gastric tumor Family history of high blood pressure Hx of type 1 diabetes mellitus Colon cancer Maternal Uncle Pancreatic cancer Daughter Thyroid cancer Maternal Aunt Ovarian cancer Social History Household Members: None Housing: Apartment Are you a primary childbirth and infant care teacher to a significant other at home: No Do you presently have visiting nurse or other home services: No Alcohol intake: never Patient Tobacco Use Status: Never used Tobacco e-Cigarette/Vaping Use: Never Used Second Hand Smoke Exposure: Yes service: No Current occupational status: disabled Sexual orientation: Straight/Heterosexual Gender identity: Female Cognitive needs: No Hearing needs: No Vision needs: No Questionnaire PHQ-9 Over the last 2 weeks, how often have you been bothered by any of the following problems? 1. Little interest or pleasure in doing things: not at all 2. Feeling down, depressed, or hopeless: not at all 3. Trouble falling or staying asleep, or sleeping too much: not at all 4. Feeling tired or having little energy: not at all 5. Poor appetite or overeating: not at all 6. Feeling bad about yourself - or that you are a failure or have let yourself or your family down: not at all 7. Trouble concentrating on things, such as reading the newspaper or watching television: not at all 8. Moving or speaking so slowly that other people could have noticed. Or the opposite - being so fidgety or restless that you have been moving around a lot more than usual: not at all 9. Thoughts that you would be better off or of hurting yourself in some way: not at all Total score: 0 Depression Screening Interpretation: Negative Depression Screening Done: Yes 87656 - PHQ-9 Billing: Yes Source: Developed by Drs. Tom Crawford, Olivia Tesafye, Jay Jay Stover and colleagues, with an educational reddy from [employer]. Thrive Questionnaire Date Thrive assessed: 07/26/24 I am a: Patient What is your living situation today?: I have a steady place to live Within the past 12 months, did the food you bought not last and you didn't have the money to get more?: Never true Within the past 12 months, did you worry whether your food would run out before you got money to buy more?: Never true Do you have trouble paying for medicines?: No Do you have trouble getting transportation to medical appointments?: No Do you have trouble paying your heating and electricity bill?: No Do you have trouble taking care of your child, family member or friend?: No Do you have trouble with day-to-day activities such as bathing, preparing meals, shopping, managing finances, etc.?: No Are you currently unemployed and looking for a job?: No Are you interested in more education?: No Please select the resources that you would like help with: None Currently or been in a relationship where the following occur: No concerns reported THRIVE Score: 0 AUDIT C Alcohol Use Questionnaire (AUDIT-C) 1. How often do you have a drink containing alcohol?: Never Total Score: 0 Score Reviewed/Action Taken: No JUDY-7 AMB Questionnaire JUDY-7 Date JUDY - 7 assessed: 07/26/24 Feeling nervous, anxious, or on edge: 0 = Not at all Not being able to stop or control worryin = Not at all Worrying too much about different things: 0 = Not at all Trouble relaxin = Not at all Being so restless that it is hard to sit still: 0 = Not at all Becoming easily annoyed or irritable: 0 = Not at all Feeling afraid as if something awful might happen: 0 = Not at all Total JUDY-7 score (0-4 normal; 5-9 mild; 10-14 moderate; 15-21 severe): 0 Source: Developed by Drs. Tom Crawford, Olivia Tesfaye, Jay Jay Stover and colleagues, with an educational reddy from [employer]. JUDY-7 Assessment Billing JUDY-7 Assessment Tool: JUDY-7 Assessment 75579 Review of Systems Const All systems reviewed & are unremarkable except as noted in HPI and below Card Denies chest pain at rest, Denies chest pain with activity, Denies edema, Denies irregular heart rhythm, Denies claudication, Denies dyspnea, Denies dyspnea on exertion, Denies orthopnea, Denies paroxysmal nocturnal dyspnea and Denies slow heart rate Resp Denies cough, Denies dyspnea and Denies dyspnea on exertion Physical exam (Primary Care) Vital Signs: Last Vital Signs BP 120/72 07/26/24 14:06 BMI result Body Mass Index 35.7 Tobacco/Smoking Status: Tobacco use Status Tobacco use date assessed 07/26/24 07/26/24 14:12 Patient Tobacco Use Status Never used Tobacco 07/26/24 14:04 e-Cigarette/Vaping Use Never Used 07/26/24 14:04 PHQ-9: PHQ-9 Score PHQ-9: Total score 0 07/26/24 14:42 Depression Screening Interpretation: Negative Thrive Assessment: Date of Thrive Assessment Date Thrive assessed 07/26/24 07/26/24 14:12 Currently or been in a relationship where the following occur: No concerns reported Resp Effort & Inspection: normal respiratory effort Auscultation: clear to auscultation bilaterally Cardio Jugular venous distension: no JVD Rate: regular rate Rhythm: regular rhythm Heart sounds: S1 normal heart sound present and S2 normal heart sound present Extrem General: Yes full ROM Office Procedures Flu Questionnaire Does the patient have a severe egg allergy?: No Results AMB Hemoglobin A1c AMB Hemoglobin A1c 6.0 % Last Edit by KAMRON Sanchez on 07/26/24 14:14 Immunizations Fluarix Triv [id number] (PF) 45 mcg (15 mcg x 3)/0.5 mL IM syringe Performing Provider: Karyna Murphy MD [facility] [place] [facility] Documented (not given) by: KAMRON Sanchez on 07/26/24 14:12 Reason Not Given: Patient Refused Results Reviewed Results Reviewed: Laboratory Last Values Hgb A1c (Clinic) 6.0 % (4.0-6.0) 07/26/24 14:02 Coding Level of Care Code Est Pt Level 4 (90431) Complex EM visit Add On G2211 Diagnoses Mild recurrent major depression F33.0 Mixed hyperlipidemia E78.2 Gastroesophageal reflux disease, unspecified whether esophagitis present K21.9 Esophagitis presence: esophagitis presence not specified Type 2 diabetes mellitus without complication, without long-term current use of insulin E11.9 Diabetes mellitus type: type 2 Diabetes mellitus senior care insulin use: without senior care use Diabetes mellitus complication status: without complication Acquired hypothyroidism E03.9 Hypothyroidism type: acquired Additional Codes JUDY-7 Assessment Billing - JUDY-7 Assessment Tool: JUDY-7 Assessment 03724 ([id number]) PHQ-9 - 31936 - PHQ-9 Billing: Yes ([id number]) Time Spent (min) 23 Assessment & Plan Assessment & Plan (1) Mild recurrent major depression: Code(s): F33.0 - Major depressive disorder, recurrent, mild Category: Medical (2) Mixed hyperlipidemia: Code(s): E78.2 - Mixed hyperlipidemia Category: Medical (3) GERD (gastroesophageal reflux disease): Code(s): K21.9 - Gastro-esophageal reflux disease without esophagitis Category: Medical Qualifiers: Esophagitis presence: esophagitis presence not specified Qualified Code(s): K21.9 - Gastro-esophageal reflux disease without esophagitis (4) Diabetes: Comment: NIDDM Code(s): E11.9 - Type 2 diabetes mellitus without complications Category: Medical Qualifiers: Diabetes mellitus type: type 2 Diabetes mellitus human performance consultant insulin use: without human performance consultant use Diabetes mellitus complication status: without complication Qualified Code(s): E11.9 - Type 2 diabetes mellitus without complications (5) Hypothyroid: Code(s): E03.9 - Hypothyroidism, unspecified Category: Medical Qualifiers: Hypothyroidism type: acquired Qualified Code(s): E03.9 - Hypothyroidism, unspecified Plan - Continue with current management for Type 2 Diabetes Mellitus, as HbA1c indicates good control. - Maintain current antihypertensive regimen given stable blood pressure. - Continue current lipid-lowering therapy due to controlled cholesterol levels. - Euthyroid goiter does not require adjustment in management as thyroid function remains normal. Patient was informed and verbally consented to the use of an ambient scribe for clinic note documentation during this visit. During the visit, we discussed the current management plan and its effectiveness in controlling blood glucose, blood pressure, and lipid levels. The patient was informed about the importance of continuing her current medication regimen and dietary measures to maintain the stability of her conditions. Treatment options, their risks and benefits, were reviewed. We also discussed the importance of continued monitoring of her thyroid function, despite being euthyroid. Orders: Orders Influenza [id number] Immunization Today Z23 - Encounter for immunization AMB Hemoglobin A1c Today E11.9 - Type 2 diabetes mellitus without complications Lipid Panel 4 Months E78.5 - Hyperlipidemia, unspecified Microalbumin, Random (w Creat) 4 Months R80.9 - Proteinuria, unspecified Vitamin D 25-OH Total 4 Months E55.9 - Vitamin D deficiency, unspecified Comprehensive [place]. Panel Fast 4 Months E11.40 - Type 2 diabetes mellitus with diabetic neuropathy, unspecified Thyroid Stimulating Hormone 4 Months E03.9 - Hypothyroidism, unspecified Medications: New semaglutide (Ozempic) for 4 weeks 0.25 mg (0.368 mL) subcut QWEEK 1.472 mL 0RF 4 weeks E11.9 - Type 2 diabetes mellitus without complications, E78.5 - Hyperlipidemia, unspecified Discontinued dulaglutide (Trulicity) Discontinued Reason: Patient Completed Course 0.75 mg (0.5 mL) subcut QWEEK 90 days 6.5 mL 0RF Patient Instructions: - Continue taking all prescribed medications as directed. - Monitor blood glucose regularly at home. - Maintain a heart-healthy diet and regular exercise routine. - Return for routine monitoring as advised to ensure ongoing control of diabetes, hypertension, and dyslipidemia.
[2024-07-26 14:06] VITALS: BP 120/72; BMI 35.7
== END 2024-07-26 14:48 | disposition home or self-care (01) ==
PROVIDERS: PCP Internal Medicine; Visit Provider Internal Medicine
DX: F33.0 Major depressive disorder, recurrent, mild (principal); E78.2 Mixed hyperlipidemia; K21.9 Gastro-esophageal reflux disease without esophagitis; E11.9 Type 2 diabetes mellitus without complications; E03.9 Hypothyroidism, unspecified; Z23 Encounter for immunization

== ENCOUNTER → 2024-07-26 13:55 | Outpatient (BNVA) | payer OTHER, SELFPAY | PROVIDERS: PCP Internal Medicine; Visit Provider Internal Medicine | DX: E11.40 Type 2 diabetes mellitus with diabetic neuropathy, unspecified (principal); I10 Essential (primary) hypertension; E78.5 Hyperlipidemia, unspecified; F33.0 Major depressive disorder, recurrent, mild; E78.2 Mixed hyperlipidemia; K21.9 Gastro-esophageal reflux disease without esophagitis; E03.9 Hypothyroidism, unspecified; R80.9 Proteinuria, unspecified; Z23 Encounter for immunization; E55.9 Vitamin D deficiency, unspecified | CPT/HCPCS: 83036; 90471; 96127; 99212 ==

== ENCOUNTER 2024-08-08 11:04 | Outpatient (AMB) | payer OTHER, SELFPAY ==
[2024-08-08 11:25] VITALS: BP 143/78; PULSE 80; BMI 35.1
--- NOTE | 2024-08-08 11:25 | MHC.OFFVIS ---
Vital Signs 08/08/24 11:25 Height 5 ft 2 in Weight 191 lb 12.835 oz BMI 35.1 BP 143/78 H Blood Pressure Location Lt brachial Position Sitting Pulse 80 Intake Visit Reasons: 4 month follow up Intake Note: Patient in office today in 4 months follow up of dysphagia. CC: Patient c/o abdominal pain, pain from her intestine inside , and nausea. She states that she will be leaving to [place] to deal with her dad and she is unsure if she will be back for her procedure on 08/31. She also c/o dry mouth and lips and feeling like her tongue is dirty. Cattle Dipper Required: Yes Cattle Dipper Services: Cattle Dipper Present (KHALIF Campos) Cattle Dipper Name: KHALIF Campos Accompanied by: Self / Same As Patient Allergies clindamycin Allergy (Intermediate, Verified 08/08/24 11:51) Rash crab Allergy (Intermediate, Verified 08/08/24 11:51) Itch seafood Allergy (Intermediate, Verified 08/08/24 11:51) Itch,Rash Sulfa (Sulfonamide Antibiotics) Allergy (Intermediate, Verified 08/08/24 11:51) headache milk Allergy (Verified 08/08/24 11:51) Unknown shrimp Allergy (Verified 08/08/24 11:51) Unknown wheat Allergy (Verified 08/08/24 11:51) Unknown budesonide Adverse Reaction (Severe, Verified 08/08/24 11:51) Nausea metformin Adverse Reaction (Intermediate, Verified 08/08/24 11:51) Abdominal Pain nitrofurantoin Allergy (Severe, Uncoded 07/26/24 14:37) Abdominal Pain ciprofloxacin Allergy (Intermediate, Uncoded 07/26/24 14:37) Abdominal Pain SEASONAL ALLERGIES Allergy (Mild, Uncoded 07/26/24 14:37) RUNNY NOSE/SNEEZING HPI HPI 4 month follow up: Details: 59 yr old f here for f/u RECAP: She had noted more constipation, new for her she wants to go, but she can't pass any stool, sometimes 2 d before passes stool takes laxatives to help denies blood in stool but had pos stool FOB 10/2018 going on for 2 months before that she was going every other day to toilet, but no tenesmus like sensation she also has epigastric pain and discomfort, worse wt food she takes advil occasionally, meloxicam on chart but takes occasionally she has nausea, and some reflux sx she is on omeprazole 40 mg once daily seh also has pernicious anemia, on b12 shots she had EGD 08/12/2017- severe gastritis noted colonoscopy done 5 yrs ago and one polyp removed FH of crc in mother aged 72 [facility], hgb 12.6. She had EGD/colonoscopy:04/2019-- chronic gastritis, and chronic GEJ junction, severe diverticulosis, mycosis, ADENOMATOUS polyps prep was fair H pylori breath test done and was negative advised on high fiber diet she still had epigastric pain and discomfort at f/u, she was stressed due to daughter with thyroid cancer and mum with stomach tumour she endorsed anxiety she was changed from omeprazole to pantoprazole and given low dose TCA she had been taking the pantoprazole and it was helping a lot she was given flagly in case of SIBO and pelvic us was ordered (CT then ordered by PCP-as below) she feels nortriptiline didn;t help her she did feel lansoprazole has been helping a lot Srivastava with out any significant reflux REPT COLONOSCOPY 2019-- redundant colon, tubular adenoma and hyperplastic polyps pelvic us 07/2020--nml CT A/P- 08/2020--renal stones, diverticuli, incl duodenum, fatty liver GES 11/2020--rapid gastric emptying, 1 hr 26% left and 2 hr 2% left RAST--low level pos for wheat, cows milk, shrimp TSH--nml MRI 11/01 steatosis, focal nodular hyperplasia US 01/31: vascular calcification left kidney and cyst KUB 11/03-- left renal stone, moderate fecal loading, right side more US 11/11/23- renal stones, hepatic stetosis Ba swallow 12/02/23- severe gerd, esophageal dysmotility she did have a high lactoferrin in past but was intolerant of budeosnide trial --22 x 2 readings INTERIM: she just started entyvio and feels it is starting to help her bowels she has mild epigastric pain, dry mouth still no nausea or vomiting still waiting for EGD EXAM: GENERAL: The patient is well developed and nontoxic. VITAL SIGNS:see workflow HEENT: Nonicteric sclerae, PERRLA, EOMI. Oropharynx clear. Moist mucous membranes. Conjunctivae appear well perfused. No thyroid mass. CHEST: Chest wall is nontender. HEART: Regular rate and rhythm without murmurs. LUNGS: Clear to auscultation bilaterally. ABDOMEN: Soft, positive bowel sounds, mildly tender epigastrium and mid abdomen, no organomegaly. SKIN: No rash, no excessive bruising, petechiae, or purpura. NEUROLOGIC: Cranial nerves II-XII intact without motor/sensory deficit. Assessment & Plan (1) Epigastric pain, worsening reflux, prior elevated lactoferrin uncertain if she has underlying IBD, fucntional dyspepsia, severe reflux on ba swallow --having dysphagia 2/ diarrhea and high fecal lactoferrin, unable to take large caps and foods--now on entyvio Plan: 1/ cont entyvio 2/ await EGD -next month [facility] Medical History History of ovarian cyst Renal cyst Renal calculi Mild recurrent major depression Mixed hyperlipidemia COVID-19 vaccine administered B12 deficiency Polyarthralgia Osteoarthritis of right knee Dyslipidemia Anxiety and depression History of postoperative nausea and vomiting Hx of renal calculi Hx of gastritis GERD (gastroesophageal reflux disease) Hypothyroid Colon polyps Diabetes Surgical History History of tubal ligation Hx of lithotripsy History of esophagogastroduodenoscopy (EGD) Hx of colonoscopy H/O: hysterectomy H/O thyroidectomy History of cholecystectomy Family History Father Hx of heat stroke History of dementia Mother Hx of benign gastric tumor Family history of high blood pressure Hx of type 1 diabetes mellitus Colon cancer Maternal Uncle Pancreatic cancer Daughter Thyroid cancer Maternal Aunt Ovarian cancer Social History Household Members: None Housing: Apartment Are you a primary progressive care manager to a significant other at home: No Do you presently have visiting nurse or other home services: No Alcohol intake: never Patient Tobacco Use Status: Never used Tobacco e-Cigarette/Vaping Use: Never Used Second Hand Smoke Exposure: Yes service: No Current occupational status: disabled Sexual orientation: Straight/Heterosexual Gender identity: Female Cognitive needs: No Hearing needs: No Vision needs: No Physical Exam Vital Signs: Last Vital Signs Pulse 80 08/08/24 11:25 BP 143/78 H 08/08/24 11:25 BMI result Body Mass Index 35.1 Assessment & Plan Assessment & Plan (1) GERD (gastroesophageal reflux disease): Code(s): K21.9 - Gastro-esophageal reflux disease without esophagitis Category: Medical Qualifiers: Esophagitis presence: esophagitis presence not specified Qualified Code(s): K21.9 - Gastro-esophageal reflux disease without esophagitis Plan: as above (2) Colitis: Code(s): K52.9 - Noninfective gastroenteritis and colitis, unspecified Category: Medical Plan: as above Medications: Refilled lansoprazole 30 mg PO BID 90 caps 3RF ondansetron 4 mg PO BID 60 tabs 1RF Coding Level of Care Code Est Pt Level 3 (37765) Diagnoses Gastroesophageal reflux disease, unspecified whether esophagitis present K21.9 Esophagitis presence: esophagitis presence not specified Colitis K52.9
== END 2024-08-08 12:47 | disposition home or self-care (01) ==
PROVIDERS: PCP Internal Medicine; Visit Provider Internal Medicine Gastroenterology
DX: K21.9 Gastro-esophageal reflux disease without esophagitis (principal); K52.9 Noninfective gastroenteritis and colitis, unspecified
CPT/HCPCS: 99213

== ENCOUNTER → 2024-08-08 11:04 | Outpatient (BNVA) | payer OTHER, SELFPAY | PROVIDERS: PCP Internal Medicine; Visit Provider Internal Medicine Gastroenterology | DX: R13.10 Dysphagia, unspecified (principal); K21.9 Gastro-esophageal reflux disease without esophagitis; K52.9 Noninfective gastroenteritis and colitis, unspecified | CPT/HCPCS: 99212 ==

== ENCOUNTER 2024-11-01 10:56 | Outpatient (REF) | payer OTHER, SELFPAY ==
--- NOTE | ~2024-11-01 | US_ITS ---
CLINICAL HISTORY: N20.0 - Calculus of kidney Ultrasound kidneys. COMPARISON: None Technique: Real time sonographic imaging, including color-flow imaging, was performed by the locks tender. Multiple architectural representative static images were saved for review. FINDINGS: Right kidney: Cortical medullary differentiation is maintained. Normal color flow by Doppler. Question vascular calcification within the midpole of the right kidney. No hydronephrosis. Right kidney size: 10.9 x 5.0 x 4.6 cm Left kidney: Cortical medullary differentiation is maintained. Normal color flow by Doppler. Left lower calculus measuring 0.6 x 0.4 x 0.5 cm. Left lower calculus measuring 0.5 x 0.4 x 0.5 cm. No hydronephrosis. Left kidney size: 10.7 x 5.2 x 4.1 cm IMPRESSION: 1. No evidence of renal obstruction. 2. Nonobstructing left renal calculi measuring up to 0.6 cm. 3. Question vascular calcification within the midpole of the right kidney. This document has been electronically signed by: Reji Browne MD on 11/01/2024 21:02:53
== END 2024-11-01 10:57 | disposition home or self-care (01) ==
LOC: HO.US 10:56
PROVIDERS: PCP Internal Medicine; Visit Provider Nurse Practitioner Family
DX: N20.0 Calculus of kidney (principal)
CPT/HCPCS: 76775

== ENCOUNTER → 2024-11-01 10:58 | Outpatient (BNV) | payer OTHER, SELFPAY | PROVIDERS: PCP Internal Medicine; Visit Provider Radiology Diagnostic Radiology | DX: N20.0 Calculus of kidney (principal) | CPT/HCPCS: 76775 ==

== ENCOUNTER 2024-11-02 11:55 | Emergency (ER) | payer OTHER, SELFPAY ==
--- NOTE | ~2024-11-02 | XR_ITS ---
EXAMINATION: XR CHEST CLINICAL INFORMATION: cough, cp COMPARISON: Chest x-ray 01/31/2022 TECHNIQUE: 2 views of the chest were obtained. FINDINGS: The lungs are well-expanded and clear acute process. The heart size and pulmonary vascularity is normal. No gross bony abnormality seen. XR/XR chest 2V IMPRESSION: Unremarkable chest exam. No change from 01/31/2022 chest exam Electronically signed by: Jelani Haq MD 11/02/2024 01:09 PM EDT
--- NOTE | 2024-11-02 12:01 | ECG_ITS ---
Test Reason : cp Blood Pressure : */* mmHG Vent. Rate : 88 BPM Atrial Rate : 88 BPM P-R Int : 146 ms QRS Dur : 82 ms QT Int : 352 ms P-R-T Axes : 45 6 32 degrees QTcB Int : 425 ms Normal sinus rhythm Normal ECG When compared with ECG of 08-May-2023 13:06, No significant change was found Referred By: Generic ED Physician Electronically Signed By: ENRIQUE RAMIREZ
[2024-11-02 12:26] VITALS: BP 123/69; PULSE 90; RESP 16; TEMP 36.7; O2SAT 98; BMI 34.2
--- NOTE | 2024-11-02 12:26 | ED_ITS ---
HPI - Chest Pain General Chief Complaint: Upper Respiratory Symptoms Stated Complaint: Chest pain, cough Time Seen by Provider: 11/02/24 13:47 Source: patient, RN notes reviewed and old records reviewed Mode of arrival: ambulatory History of Present Illness ED Provider: Estrellita Atkins PA-C HPI narrative: 59-year-old [place]-speaking female with a past medical history polyarthralgia, HLD, anxiety, depression, GERD, hypothyroid, diabetes, presenting to the ED complaining of dry cough x4 days and diffuse myalgias x1 week. Reports chest tightness with coughing. Has been taking OTC cough medication without relief. Reports mild SOB. Denies fever, chills, travel, sick contacts Related Data Home Medications ?Medication ?Instructions ?Recorded ?Confirmed buspirone 5 mg tablet 5 mg PO TID 05/14/20 07/26/24 clonazepam 0.5 mg tablet 0.5 mg PO Q OTHER DAY PRN Anxiety 05/14/20 07/26/24 folic acid 1 mg tablet 1 mg PO DAILY 05/14/20 07/26/24 syringe with needle 3 mL 25 x 5/8 #1 ea 05/14/20 07/26/24 zolpidem 10 mg tablet 10 mg PO BEDTIME PRN Insomnia 05/14/20 07/26/24 Previous Rx's ?Medication ?Instructions ?Recorded blood sugar diagnostic #30 ea 04/23/21 syringe with needle, safety 3 mL #1 ea 05/15/21 25 gauge x 5/8 (BD Safety-Nisha Detachable Needle) blood-glucose meter (FreeStyle #1 ea 12/02/22 Lite Meter kit) simethicone 80 mg chewable tablet 160 mg (2 x 80 mg) PO BID-TID PRN 12/15/22 (Gas Relief (simethicone)) abdominal distention #90 tabs Shower Chair #1 ea 01/01/23 saliva substitute combo no.2 1 appl mucous membrane Q4H PRN dry 05/26/23 mouth #960 mL zinc acetate 50 mg (zinc) capsule 50 mg PO DAILY #90 caps 05/27/23 (Galzin) pyridoxine (vitamin B6) 100 mg 50 mg (1/2 x 100 mg) PO DAILY 90 10/06/23 tablet days #45 tabs fenofibrate 54 mg tablet 54 mg PO DAILY 90 days #90 tabs 03/10/24 lancets 28 gauge (FreeStyle #100 ea 03/20/24 Lancets) mesalamine 0.375 gram 0.375 g PO QAM #120 caps 04/11/24 capsule,extended release 24 hr (Apriso) dicyclomine 20 mg tablet 20 mg PO BID #60 tabs 04/26/24 Synthroid 137 mcg tablet 137 mcg PO DAILY 90 days #90 tabs 05/31/24 (levothyroxine) glipizide 10 mg tablet 10 mg PO DAILY 90 days #90 tabs 05/31/24 docusate sodium 100 mg capsule 100 mg PO DAILY PRN for 06/23/24 constipation #90 caps blood sugar diagnostic (FreeStyle #200 ea 07/05/24 Lite Strips) gabapentin 300 mg capsule 300 mg PO DAILY #90 caps 07/15/24 mesalamine 4 gram/60 mL enema 1 g (15 mL) [place] BEDTIME #1,680 mL 07/29/24 ondansetron 4 mg disintegrating 4 mg PO BID #60 tabs 08/08/24 tablet dulaglutide 0.75 mg/0.5 mL 0.75 mg (0.5 mL) subcut QWEEK 90 08/11/24 subcutaneous pen injector days #6.5 mL (Trulicity) atorvastatin 40 mg tablet 40 mg PO BEDTIME 90 days #90 tabs 08/29/24 cetirizine 10 mg tablet 10 mg PO DAILY PRN allergy 08/29/24 symptoms 90 days #90 tabs lansoprazole 30 mg capsule,delayed 30 mg PO BID #90 caps 09/12/24 release cholecalciferol (vitamin D3) 125 125 mcg PO DAILY 90 days #90 caps 09/15/24 mcg (5,000 unit) capsule nortriptyline 10 mg capsule 10 mg PO BEDTIME #30 caps 10/07/24 guaifenesin 600 mg tablet, 600 mg PO BID 5 days #10 tabs 10/29/24 extended release 12 hr (Mucinex) acetaminophen 500 mg tablet 500 - 1,000 mg (1 - 2 x 500 mg) PO 10/31/24 Q6H PRN pain 30 days #120 tabs prednisone 20 mg tablet 40 mg (2 x 20 mg) PO DAILY 5 days 11/02/24 #10 tabs Allergies Allergy/AdvReac Type Severity Reaction Status Date / Time clindamycin Allergy Intermediate Rash Verified 11/02/24 12:26 crab Allergy Intermediate Itch Verified 11/02/24 12:26 seafood Allergy Intermediate Itch,Rash Verified 11/02/24 12:26 Sulfa (Sulfonamide Allergy Intermediate headache Verified 11/02/24 12:26 Antibiotics) milk Allergy Unknown Verified 11/02/24 12:26 shrimp Allergy Unknown Verified 11/02/24 12:26 wheat Allergy Unknown Verified 11/02/24 12:26 budesonide AdvReac Severe Nausea Verified 11/02/24 12:26 metformin AdvReac Intermediate Abdominal Verified 11/02/24 12:26 Pain nitrofurantoin Allergy Severe Abdominal Uncoded 11/02/24 12:26 Pain ciprofloxacin Allergy Intermediate Abdominal Uncoded 11/02/24 12:26 Pain SEASONAL ALLERGIES Allergy Mild RUNNY Uncoded 11/02/24 12:26 NOSE/SNEEZING Review of Systems Review of Systems: Yes all other systems are reviewed and are negative Constitutional: Constitutional: Reports as per [facility] Past Medical History Attestation statement: The following information was validated with the patient. Source: old records reviewed Medical History History of ovarian cyst Renal cyst Renal calculi Mild recurrent major depression Mixed hyperlipidemia COVID-19 vaccine administered B12 deficiency Polyarthralgia Osteoarthritis of right knee Dyslipidemia Anxiety and depression History of postoperative nausea and vomiting Hx of renal calculi Hx of gastritis GERD (gastroesophageal reflux disease) Hypothyroid Colon polyps Diabetes Surgical History History of tubal ligation Hx of lithotripsy History of esophagogastroduodenoscopy (EGD) Hx of colonoscopy H/O: hysterectomy H/O thyroidectomy History of cholecystectomy Family History Family History Father Hx of heat stroke History of dementia Mother Hx of benign gastric tumor Family history of high blood pressure Hx of type 1 diabetes mellitus Colon cancer Maternal Uncle Pancreatic cancer Daughter Thyroid cancer Maternal Aunt Ovarian cancer Social History Social History Household Members: None Housing: Apartment Are you a primary healthcare architect to a significant other at home: No Do you presently have visiting nurse or other home services: No Alcohol intake: never Patient Tobacco Use Status: Never used Tobacco e-Cigarette/Vaping Use: Never Used Second Hand Smoke Exposure: Yes service: No Current occupational status: disabled Sexual orientation: Straight/Heterosexual Gender identity: Female Cognitive needs: No Hearing needs: No Vision needs: No Physical Exam Vital Signs: Vital Signs: Last Vital Signs Temp 98.1 F 11/02/24 12:26 Pulse 90 11/02/24 12:26 Resp 16 11/02/24 12:26 BP 123/69 11/02/24 12:26 Pulse Ox 98 11/02/24 12:26 O2 Del Method Room Air 11/02/24 12:26 BMI result Body Mass Index 34.2 Const: General: cooperative, healthy appearing and no acute distress Orientation/consciousness: patient oriented x3 Limitations: no limitations HEENT: Head: Yes normal to inspection and Yes atraumatic Ears: hearing grossly normal bilaterally General nose exam: Normal external nose present Face and sinus: Yes normal facial exam Throat: Yes posterior oropharynx normal, Yes uvula midline, No peritonsillar mass, No uvula laterally displaced and No uvular edema Eyes: General: appearance normal, both eyes and all related structures EOM: EOMs intact bilaterally Neck: Neck: Yes normal visual inspection and Yes no meningeal signs Resp: Effort & Inspection: normal respiratory effort and no respiratory distress Auscultation: clear to auscultation bilaterally, no crackles, no rales, no rhonchi and no wheezes Cardio: Rate: regular rate Heart sounds: S1 normal heart sound present and S2 normal heart sound present Skin: Rashes: no rashes Wounds: no wounds Neuro: General: patient oriented x3, tone normal and no meningeal signs Cranial nerves: Yes CN's II-XII intact bilaterally Gait exam (Neuro): Normal gait present Extrem: General: Yes normal to inspection Course Course Course Narrative: This is a Rapid Medical Exam performed in triage by Estrellita Atkins PA-C. Full HPI, ROS and PE to be performed by primary ED provider. 59-year-old [place]-speaking female with a past medical history polyarthralgia, HLD, anxiety, depression, GERD, hypothyroid, diabetes presenting to the ED c/o dry cough x4 days, myalgias x1 week, taking coughing meds w/o relief. PE: Nontoxic appearing, lungs CTA. Plan: EKG, CXR, SARs XR chest 2V IMPRESSION: Unremarkable chest exam. No change from 01/31/2022 chest exam -viral testing negative > patient given albuterol inhaler in the ED Results discussed with patient including worrisome signs and symptoms and strict return precautions, and when to return to the emergency department. They verbalized understanding and feel safe for discharge at this time. Medications Administered Discontinued Medications Generic Name Dose Route Start Last Admin Trade Name Freq PRN Reason Stop Dose Admin Albuterol Sulfate 4 puff 11/02/24 13:49 11/02/24 13:57 Albuterol Sulfate 90 Mcg 8 Gm Inhaler INHALE 11/02/24 13:50 4 puff ONCE ONE Administration Medical Decision Making Medical Decision Making [facility] Narrative: 59-year-old [place]-speaking female with a past medical history polyarthralgia, HLD, anxiety, depression, GERD, hypothyroid, diabetes, presenting to the ED complaining of dry cough x4 days and diffuse myalgias x1 week. On exam vital signs stable, NAD, nontoxic appearing, talking in complete sentences, lungs CTA, no respiratory distress. Concern for viral illness vs pneumonia vs bronchitis. Low suspicion for acute ACS, PE, CHF Plan: EKG, viral testing, CXR Please refer to course for remaining clinical decision making, interpretation of labs/imaging results, and discussions with consultants and/or family members. Differential Diagnosis Differential Diagnoses: The differential diagnosis associated with the presentation includes As above Admission/Observation Consideration of admission/observation: Escalation of care including admission/observation considered Lab Data [facility] Lab Attestation statement: I reviewed the patient's lab results. Labs: Lab Results 11/02/24 Range/Units 12:48 Influenza Type A (PCR) NEGATIVE (Negative) Influenza Type B (PCR) NEGATIVE (Negative) RSV RNA Qual (PCR) NEGATIVE (Negative) SARS-CoV-2 RNA (RT-PCR) NEGATIVE (Negative) Independent Interpretation I performed an independent interpretation of an: EKG (My interpretation EKG normal sinus rhythm rate of 88. [place] interval 146. QTC 425. No significant change when compared to prior. No STEMI) and Plain X-Ray Radiology Impression Discussion of test interpretation with radiology: I have reviewed the radiologist's reading. External Record Review External record reviewed: Inpatient record, Office record, Outpatient record, Prior outpatient labs, Prior outpatient radiology, Primary care record and Outside ED record Tests considered The following testing was considered but not selected: As above Prescription Management I considered prescription management with: Pain Medication and Antibiotic Chronic Conditions Patient?s care impacted by: Diabetes Discharge Plan Discharge Clinical Impression: Bronchitis Patient Disposition: Home, Self-Care Instructions: Acute Bronchitis (ED) Additional Instructions: Your x-ray does not show pneumonia, you likely have bronchitis You tested negative for COVID, flu, RSV Please use albuterol inhaler at home as needed for shortness of breath/wheezing In addition take prednisone as prescribed until completion. Prednisone will make your sugar elevate, watch closely and adjust as needed If your symptoms persist or worsen, pain becomes unbearable, you persistent worsening shortness breath, chest pain or fever return to the ED Prescriptions: New prednisone 20 mg tablet 40 mg PO DAILY 5 Days Qty: 10 0RF No Action (DME) blood sugar diagnostic Strip See Rx Instructions Not Applicable BID Qty: 30 11RF Rx Instructions: Use 1 test strip once a day (DME) BD Safety-Nisha Detachable Needl 3 mL 25 gauge x 5/8 syringe See Rx Instructions .ROUTE .MEDSUPPLY Qty: 1 11RF Rx Instructions: once a month (DME) blood-glucose meter [FreeStyle Lite Meter] Kit See Rx Instructions .Route Qty: 1 0RF Rx Instructions: As directed (DME) Shower Chair Misc See Rx Instructions .Route Qty: 1 0RF Rx Instructions: As directed saliva substitute combo no.2 Solution 1 appl mucous membrane Q4H PRN (Reason: dry mouth) Qty: 960 2RF Galzin 50 mg (zinc) capsule 50 mg PO DAILY Qty: 90 1RF fenofibrate 54 mg tablet 54 mg PO DAILY 90 Days Qty: 90 2RF (DME) lancets [FreeStyle Lancets] 28 gauge misc See Rx Instructions .ROUTE .COMPLEX Qty: 100 3RF Dose Instruction: TEST 2 TIMES DAILY Rx Instructions: TEST 2 TIMES DAILY mesalamine [Apriso] 0.375 gram capsule,extended release 24hr 0.375 g PO QAM Qty: 120 0RF dicyclomine 20 mg tablet 20 mg PO BID Qty: 60 3RF glipizide 10 mg tablet 10 mg PO DAILY 90 Days Qty: 90 1RF levothyroxine [Synthroid] 137 mcg tablet 137 mcg PO DAILY 90 Days Qty: 90 1RF docusate sodium 100 mg capsule 100 mg PO DAILY PRN (Reason: for constipation) Qty: 90 0RF (DME) FreeStyle Lite Strips Strip See Rx Instructions .Route Qty: 200 3RF Rx Instructions: Test 2 times daily gabapentin 300 mg capsule 300 mg PO DAILY Qty: 90 0RF mesalamine 4 gram/60 mL enema 1 g [place] BEDTIME Qty: 1680 0RF Trulicity 0.75 mg/0.5 mL pen injector 0.75 mg subcut QWEEK 90 Days Qty: 6.5 1RF atorvastatin 40 mg tablet 40 mg PO BEDTIME 90 Days Qty: 90 1RF cetirizine 10 mg tablet 10 mg PO DAILY PRN (Reason: allergy symptoms) 90 Days Qty: 90 0RF lansoprazole 30 mg capsule,delayed release(DR/EC) 30 mg PO BID Qty: 90 3RF cholecalciferol (vitamin D3) 125 mcg (5,000 unit) capsule 125 mcg PO DAILY 90 Days Qty: 90 2RF nortriptyline 10 mg capsule 10 mg PO BEDTIME Qty: 30 2RF guaifenesin [Mucinex] 600 mg tablet extended release 12hr 600 mg PO BID 5 Days Qty: 10 0RF acetaminophen 500 mg tablet 500 - 1,000 mg PO Q6H PRN (Reason: pain) 30 Days Qty: 120 0RF buspirone 5 mg tablet 5 mg PO TID (DME) BD Luer-Nisha Syringe 3 mL 25 x 5/8 syringe See Rx Instructions .ROUTE .MEDSUPPLY Qty: 1 Rx Instructions: As directed folic acid 1 mg tablet 1 mg PO DAILY zolpidem 10 mg tablet 10 mg PO BEDTIME PRN (Reason: Insomnia) clonazepam 0.5 mg tablet 0.5 mg PO Q OTHER DAY PRN (Reason: Anxiety) simethicone [Gas Relief (simethicone)] 80 mg tablet,chewable 160 mg PO BID-TID PRN (Reason: abdominal distention) Qty: 90 1RF pyridoxine (vitamin B6) 100 mg tablet 50 mg PO DAILY 90 Days Qty: 45 3RF ondansetron 4 mg tablet,disintegrating 4 mg PO BID Qty: 60 1RF Referrals: Karyna Crouch MD [Primary Care Provider] - 3 days Print Language: [place]
[2024-11-02 13:31] LABS: Influenza A PCR NEGATIVE (Negative); Influenza B PCR NEGATIVE (Negative); Resp Syncy Virus RNA Qual PCR NEGATIVE (Negative); SARS COV2 PCR INHOUSE NEGATIVE (Negative)
[2024-11-02] MEDS: Albuterol Sulfate 90 MCG 8 GM INHALER 4 PUFF INHALE (13:57)
[2024-11-02 14:09] VITALS: BP 123/69; PULSE 90; RESP 16; TEMP 36.7; O2SAT 98
== END 2024-11-02 14:09 | disposition home or self-care (01) ==
LOC: HO.ED 14:00
PROVIDERS: Physician Assistant; Emergency Provider Emergency Medicine; PCP Internal Medicine
DX: J40 Bronchitis, not specified as acute or chronic (principal); R07.9 Chest pain, unspecified; E11.9 Type 2 diabetes mellitus without complications; E03.9 Hypothyroidism, unspecified; R05.9 Cough, unspecified; Z03.818 Encounter for observation for suspected exposure to other biological agents ruled out
CPT/HCPCS: 0241U; 71046; 93005; 99283; 99284

== ENCOUNTER → 2024-11-02 12:01 | Outpatient (BNV) | payer OTHER, SELFPAY | PROVIDERS: Emergency Provider Emergency Medicine; PCP Internal Medicine; Visit Provider Internal Medicine | DX: R07.9 Chest pain, unspecified (principal) | CPT/HCPCS: 93010 ==

== ENCOUNTER → 2024-11-02 12:27 | Outpatient (BNV) | payer OTHER, SELFPAY | PROVIDERS: Emergency Provider Emergency Medicine; PCP Internal Medicine; Visit Provider Radiology Diagnostic Radiology | DX: R05.9 Cough, unspecified (principal); R07.9 Chest pain, unspecified | CPT/HCPCS: 71046 ==

== ENCOUNTER 2024-11-07 11:16 | Outpatient (AMB) | payer OTHER, SELFPAY ==
--- NOTE | 2024-11-07 11:24 | A.OFFVIS_ITS ---
Intake Visit Reasons: 6m/US(set) Intake Note: Patient presents today for follow up on: kidney stones and ultrasound results Imaging Completed: 11/01/24 Urology Medications: Vitamin B6 Allergies to Antibiotic: Clindamycin, Sulfa, Nitrofurantoin, Ciprofloxacin Blood Thinner: None Patient Accounts Manager Required: Yes Patient Accounts Manager Name: Jennifer [id number] Accompanied by: Self / Same As Patient Allergies clindamycin Allergy (Intermediate, Verified 11/07/24 11:55) Rash crab Allergy (Intermediate, Verified 11/07/24 11:55) Itch seafood Allergy (Intermediate, Verified 11/07/24 11:55) Itch,Rash Sulfa (Sulfonamide Antibiotics) Allergy (Intermediate, Verified 11/07/24 11:55) headache milk Allergy (Verified 11/07/24 11:55) Unknown shrimp Allergy (Verified 11/07/24 11:55) Unknown wheat Allergy (Verified 11/07/24 11:55) Unknown budesonide Adverse Reaction (Severe, Verified 11/07/24 11:55) Nausea metformin Adverse Reaction (Intermediate, Verified 11/07/24 11:55) Abdominal Pain nitrofurantoin Allergy (Severe, Uncoded 11/07/24 11:55) Abdominal Pain ciprofloxacin Allergy (Intermediate, Uncoded 11/07/24 11:55) Abdominal Pain SEASONAL ALLERGIES Allergy (Mild, Uncoded 11/07/24 11:55) RUNNY NOSE/SNEEZING Medication List - Last Reconciled 11/07/24 by ADEEL Cohn acetaminophen 500 - 1,000 mg (1 - 2 x 500 mg) PO Q6H PRN 30 days atorvastatin 40 mg PO BEDTIME 90 days blood sugar diagnostic Use 1 test strip once a day blood sugar diagnostic (FreeStyle Lite Strips) Test 2 times daily blood-glucose meter (FreeStyle Lite Meter kit) As directed buspirone 5 mg PO TID cetirizine 10 mg PO DAILY PRN 90 days cholecalciferol (vitamin D3) 125 mcg PO DAILY 90 days clonazepam 0.5 mg PO Q OTHER DAY PRN dicyclomine 20 mg PO BID docusate sodium 100 mg PO DAILY PRN dulaglutide (Trulicity) 0.75 mg (0.5 mL) subcut QWEEK 90 days fenofibrate 54 mg PO DAILY 90 days folic acid 1 mg PO DAILY gabapentin 300 mg PO DAILY glipizide 10 mg PO DAILY 90 days guaifenesin ER (Mucinex) 600 mg PO BID 5 days lancets (FreeStyle Lancets) TEST 2 TIMES DAILY lansoprazole 30 mg PO BID mesalamine 1 g (15 mL) ME BEDTIME mesalamine ER (Apriso) 0.375 grams PO QAM nortriptyline 10 mg PO BEDTIME ondansetron 4 mg PO BID prednisone 40 mg (2 x 20 mg) PO DAILY 5 days pyridoxine (vitamin B6) 50 mg (1/2 x 100 mg) PO DAILY 90 days saliva substitute combo no.2 1 appl mucous membrane Q4H PRN Shower Chair As directed simethicone (Gas Relief (simethicone)) 160 mg (2 x 80 mg) PO BID-TID PRN Synthroid (levothyroxine) 137 mcg PO DAILY 90 days NS syringe with needle As directed syringe with needle, safety (BD Safety-Nisha Detachable Needle) once a month zinc acetate (Galzin) 50 mg PO DAILY zolpidem 10 mg PO BEDTIME PRN HPI Comments Details: Kamille is a 59-year-old Martiniquais-speaking female of Dr. Mora. She has a past medical history of anxiety, depression, vitamin B12 deficiency, hyperlipidemia, polyarthralgia, diabetes, GERD, dyslipidemia, osteoarthritis, renal calculi, and renal cysts. She presents to the office today for follow-up of her renal calculi and renal cysts. In discussion with the patient today she denies having had any bothersome urinary issues or concerns since her last office visit here. However she does discuss her recent ER visit for respiratory and pulmonary issue she had been experiencing at which time she was diagnosed with bronchitis and has been on a course of steroids as well as inhaler. She discusses her upcoming appointment with her PCP to follow-up from this ER visit. Recent renal imaging results were reviewed with the patient today 11/04 no evidence of renal obstruction. Nonobstructing left renal calculi measuring up to 6 mm. Question vascular calcification with in the mid pole of the right kidney. Previous workup has also included a 24 hour urine collection that noted low urine volume of 1.4 L. labs are as follows: 04/05 sodium 144, potassium 4.5, chloride 109, BUN 11, creatinine 0.88, uric acid 5.8, calcium 10.1, phosphorus 3.9, and magnesium 2.1 She currently denies any bothersome urinary issues or concerns. She denies urinary urgency, urinary frequency, incontinence, nocturia, hematuria, foul smelling urine, changes to urinary stream, flank pain, fever, and or chills. She is happy with her current voiding parameters. She reports to be drinking plenty of water daily and adding 1 oz of lemon juice to water daily. She reports comlaince vitamin B6 as prescribed. In office urinalysis results reviewed with the patient today. We discussed bilirubinemia. She reports she will follow-up with her PCP regarding this issue. She otherwise offers no issues or concerns at this time. A1c 08/06 6.0 Plan 1. Repeat ultrasound in six months to monitor stone changes, extending the reassessment window upon consistent stability. Patient to report any new urinary issues, adhering to lifestyle modifications.: Patient was informed and verbally consented to the use of an ambient scribe for clinic note documentation during this visit. Discussion Notes For nephrolithiasis, I explained the stable nature of her kidney stone and the plan to continue current treatments, highlighting the role of hydration and vitamin B6 in stone management. The rationale for monitoring stone size with a six-month ultrasound was communicated, and potential future plans to extend monitoring intervals were addressed. The patient consented to the planned diagnostic approach. COUNT INCLUDES THE [facility] Medical History History of ovarian cyst Renal cyst Renal calculi Mild recurrent major depression Mixed hyperlipidemia COVID-19 vaccine administered B12 deficiency Polyarthralgia Osteoarthritis of right knee Dyslipidemia Anxiety and depression History of postoperative nausea and vomiting Hx of renal calculi Hx of gastritis GERD (gastroesophageal reflux disease) Hypothyroid Colon polyps Diabetes Surgical History History of tubal ligation Hx of lithotripsy History of esophagogastroduodenoscopy (EGD) Hx of colonoscopy H/O: hysterectomy H/O thyroidectomy History of cholecystectomy Family History Father Hx of heat stroke History of dementia Mother Hx of benign gastric tumor Family history of high blood pressure Hx of type 1 diabetes mellitus Colon cancer Maternal Uncle Pancreatic cancer Daughter Thyroid cancer Maternal Aunt Ovarian cancer Social History Household Members: None Housing: Apartment Are you a primary career services director to a significant other at home: No Do you presently have visiting nurse or other home services: No Alcohol intake: never Patient Tobacco Use Status: Never used Tobacco e-Cigarette/Vaping Use: Never Used Second Hand Smoke Exposure: Yes service: No Current occupational status: disabled Sexual orientation: Straight/Heterosexual Gender identity: Female Cognitive needs: No Hearing needs: No Vision needs: No Review of Systems Const Reports as per HPI Eyes Reports no additional complaints ENT Reports no additional complaints Card Reports as per HPI Resp Reports no additional complaints GI Reports as per HPI Reports as per HPI Musc Reports no additional complaints Neuro Reports no additional complaints Psych Reports as per HPI Endo Reports as per HPI Osman/Lymph Reports no additional complaints Aller/Immun Reports no additional complaints Physical Exam Const General: cooperative, healthy appearing, comfortable, no acute distress, well developed, alert and awake Nutritional Appearance: overweight Orientation/consciousness: patient oriented x3 Limitations: no limitations HEENT Head: Yes normal to inspection, Yes normocephalic and Yes atraumatic Ears: hearing grossly normal bilaterally Eyes General: appearance normal, both eyes and all related structures Neck Neck: Yes normal visual inspection and Yes trachea midline Chest Chest palpation & inspection: normal inspection of the chest Resp Effort & Inspection: able to speak in complete sentences Cardio Rate: regular rate GI Inspection: Yes normal to inspection General: Yes no CVA tenderness Back/Spine/Pelvis Back: no CVA tenderness Skin General skin exam: no rashes or lesions noted Neuro General: patient oriented x3 Extrem General: Yes normal to inspection Psych Appearance: grossly normal and well kempt Mental Status: mental status grossly normal Speech and movement: Normal speech and movement present and Clear speech present Affect: normal affect Attitude: cooperative Thought process: Normal thought process present Thought content: Normal thought content present Insight: Fair insight present (Psych) Judgement: Fair judgement present (Psych) Results AMB Urinalysis, Automated UA Leukoctes 15 Karin/uL Last Edit by Paul Chou on 11/07/24 11:36 UA Nitrite Last Edit by Paul Chou on 11/07/24 11:36 UA Urobilinogen 0.2 mg/dL Last Edit by Paul Chou on 11/07/24 11:36 UA Protein 30 mg/dL Last Edit by Paul Chou on 11/07/24 11:36 UA pH 6.0 Last Edit by Paul Chou on 11/07/24 11:36 UA Blood 0 Davidson/uL Last Edit by Paul Chou on 11/07/24 11:36 UA Specific [place] 1.025 Last Edit by Paul Chou on 11/07/24 11:36 UA Ketone Positive Last Edit by Paul Chou on 11/07/24 11:36 UA Bilirubin 3 mg/dL Last Edit by Paul Chou on 11/07/24 11:36 UA Glucose 0 mg/dL Last Edit by Paul Chou on 11/07/24 11:36 Results Reviewed Results Reviewed: Date of Service: 11/01/24 Procedure(s): US renal BI FINDINGS: Right kidney: Cortical medullary differentiation is maintained. Normal color flow by Doppler. Question vascular calcification within the midpole of the right kidney. No hydronephrosis. Right kidney size: 10.9 x 5.0 x 4.6 cm Left kidney: Cortical medullary differentiation is maintained. Normal color flow by Doppler. Left lower calculus measuring 0.6 x 0.4 x 0.5 cm. Left lower calculus measuring 0.5 x 0.4 x 0.5 cm. No hydronephrosis. Left kidney size: 10.7 x 5.2 x 4.1 cm IMPRESSION: 1. No evidence of renal obstruction. 2. Nonobstructing left renal calculi measuring up to 0.6 cm. 3. Question vascular calcification within the midpole of the right kidney. Assessment & Plan Assessment & Plan (1) Renal cyst: Code(s): N28.1 - Cyst of kidney, acquired Category: Medical (2) Nephrolithiasis: Code(s): N20.0 - Calculus of kidney Category: Medical Plan In office urinalysis results reviewed with the patient today; as noted above; we discussed bilirubinemia She currently denies any bothersome urinary issues or concerns. She reports be happy with current voiding parameters. Recent renal imaging results reviewed with the patient today; as noted above. Will continue with surveillance monitoring. Continue vitamin B6 as discussed and prescribed. Discussed, educated, and stressed the importance of continuing to drink plenty of water daily. Continue adding 1 oz of lemon juice to water daily. Will obtain renal ultrasound in 6 months. Follow-up in 6 months with imaging to be completed prior; or sooner with any issues, concerns, and or questions. Orders: Orders AMB Urinalysis Automated Today Z13.9 - Encounter for screening, unspecified US renal BI 6 Months N20.0 - Calculus of kidney Patient Instructions: The patient had an opportunity to ask questions regarding the treatment plan. All questions were answered. Physical exam, labs, and imaging were discussed and reviewed in detail. As well as risks, benefits, and discussion of treatment choices. No major barriers to understanding were identified. The patient expressed understanding and agreement with the above treatment plan. The patient was made aware they should contact our office by phone for worsening of their current condition, the appearance of new symptoms, or with any questions or concerns. Compliance is encouraged with any medications and follow up testing that is ordered. It is a privilege to be allowed the opportunity to participate in? your urological care.? Again, if you have any questions or c oncerns If you have any questions or concerns please do not hesitate to contact me. The office is [phone]. This note is constructed using voice recognition software. While every effort has been made to ensure accuracy vice president regulatory errors may have been included. Yours sincerely, ADEEL Cohn Coding Level of Care Code Est Pt Level 3 (62844) Complex EM visit Add On G2211 Diagnoses Renal cyst N28.1 Nephrolithiasis N20.0
== END 2024-11-07 11:56 | disposition home or self-care (01) ==
LOC: HO.HUSH 11:16
PROVIDERS: PCP Internal Medicine; Visit Provider Nurse Practitioner Family
DX: N28.1 Cyst of kidney, acquired (principal); N20.0 Calculus of kidney; Z13.9 Encounter for screening, unspecified
CPT/HCPCS: 99213; G2211

== ENCOUNTER → 2024-11-07 11:16 | Outpatient (BNVA) | payer OTHER, SELFPAY | PROVIDERS: PCP Internal Medicine; Visit Provider Nurse Practitioner Family | DX: J06.9 Acute upper respiratory infection, unspecified (principal); F33.0 Major depressive disorder, recurrent, mild; E78.2 Mixed hyperlipidemia; E11.9 Type 2 diabetes mellitus without complications; E03.9 Hypothyroidism, unspecified; E78.5 Hyperlipidemia, unspecified; E53.8 Deficiency of other specified B group vitamins; R80.9 Proteinuria, unspecified; D64.9 Anemia, unspecified; E55.9 Vitamin D deficiency, unspecified; N20.0 Calculus of kidney; N28.1 Cyst of kidney, acquired; Z09 Encounter for follow-up examination after completed treatment for conditions other than malignant neoplasm | CPT/HCPCS: 81003; 83036; 96127; 99212 ==

== ENCOUNTER 2024-11-07 13:10 | Outpatient (AMB) | payer OTHER, SELFPAY ==
--- NOTE | 2024-11-07 13:13 | A.OFFPC_ITS ---
Vital Signs 11/07/24 13:14 Height 5 ft 2 in Weight 186 lb BMI 34.0 BP 130/82 Blood Pressure Location Lt brachial Position S[place] Int[place] [facility] [place] Bronchitis Installation Service Representative Required: No Accompanied by: Self / Same As Patient Allergies clindamycin Allergy (Intermediate, Verified 11/07/24 13:33) Rash crab Allergy (Intermediate, Verified 11/07/24 13:33) Itch seafood Allergy (Intermediate, Verified 11/07/24 13:33) Itch,Rash Sulfa (Sulfonamide Antibiotics) Allergy (Intermediate, Verified 11/07/24 13:33) headache milk Allergy (Verified 11/07/24 13:33) Unknown shrimp Allergy (Verified 11/07/24 13:33) Unknown wheat Allergy (Verified 11/07/24 13:33) Unknown budesonide Adverse Reaction (Severe, Verified 11/07/24 13:33) Nausea metformin Adverse Reaction (Intermediate, Verified 11/07/24 13:33) Abdominal Pain nitrofurantoin Allergy (Severe, Uncoded 11/07/24 13:33) Abdominal Pain ciprofloxacin Allergy (Intermediate, Uncoded 11/07/24 13:33) Abdominal Pain SEASONAL ALLERGIES Allergy (Mild, Uncoded 11/07/24 13:33) RUNNY NOSE/SNEEZING Medication List - Last Reconciled 11/07/24 by Karyna Murphy MD acetaminophen 500 - 1,000 mg (1 - 2 x 500 mg) PO Q6H PRN 30 days atorvastatin 40 mg PO BEDTIME 90 days blood sugar diagnostic Use 1 test strip once a day blood sugar diagnostic (FreeStyle Lite Strips) Test 2 times daily blood-glucose meter (FreeStyle Lite Meter kit) As directed buspirone 5 mg PO TID cetirizine 10 mg PO DAILY PRN 90 days cholecalciferol (vitamin D3) 125 mcg PO DAILY 90 days clonazepam 0.5 mg PO Q OTHER DAY PRN dicyclomine 20 mg PO BID docusate sodium 100 mg PO DAILY PRN dulaglutide (Trulicity) 0.75 mg (0.5 mL) subcut QWEEK 90 days fenofibrate 54 mg PO DAILY 90 days folic acid 1 mg PO DAILY gabapentin 300 mg PO DAILY glipizide 10 mg PO DAILY 90 days lancets (FreeStyle Lancets) TEST 2 TIMES DAILY lansoprazole 30 mg PO BID mesalamine 1 g (15 mL) NM BEDTIME mesalamine ER (Apriso) 0.375 grams PO QAM nortriptyline 10 mg PO BEDTIME ondansetron 4 mg PO BID prednisone 40 mg (2 x 20 mg) PO DAILY 5 days pyridoxine (vitamin B6) 50 mg (1/2 x 100 mg) PO DAILY 90 days saliva substitute combo no.2 1 appl mucous membrane Q4H PRN Shower Chair As directed simethicone (Gas Relief (simethicone)) 160 mg (2 x 80 mg) PO BID-TID PRN Synthroid (levothyroxine) 137 mcg PO DAILY 90 days NS syringe with needle As directed syringe with needle, safety (BD Safety-Nisha Detachable Needle) once a month zinc acetate (Galzin) 50 mg PO DAILY zolpidem 10 mg PO BEDTIME PRN Tobacco use date assessed: 07/26/24 Dental Screening Dental Screen Date: 07/26/24 HPI HPI Comments History of Present Illness Details The patient is a 59-year-old female presenting with persistent cough and associated symptoms. She experienced muscle aches and cough beginning five days prior, without improvement. COVID-19, RSV, and influenza tests were negative, and a chest X-ray indicated no pneumonia. Her Hemoglobin A1c elevated from 6% in July to 7.1%, attributed in part to a recent prednisone course. The patient reports a history of inflammatory bowel disease, allergy reactions, hypothyroidism, and anxiety, managed with an array of medications. The cough has negatively impacted her quality of life, with feelings of chest tightness and difficulty breathing, especially nocturnally. [facility] Medical History (Updated 11/07/24 @ 13:50 by Karyna Murphy MD) History of ovarian cyst Renal cyst Renal calculi Mild recurrent major depression Mixed hyperlipidemia COVID-19 vaccine administered B12 deficiency Polyarthralgia Osteoarthritis of right knee Dyslipidemia Anxiety and depression History of postoperative nausea and vomiting Hx of renal calculi Hx of gastritis GERD (gastroesophageal reflux disease) Hypothyroid Colon polyps Diabetes Surgical History History of tubal ligation Hx of lithotripsy History of esophagogastroduodenoscopy (EGD) Hx of colonoscopy H/O: hysterectomy H/O thyroidectomy History of cholecystectomy Family History Father Hx of heat stroke History of dementia Mother Hx of benign gastric tumor Family history of high blood pressure Hx of type 1 diabetes mellitus Colon cancer Maternal Uncle Pancreatic cancer Daughter Thyroid cancer Maternal Aunt Ovarian cancer Social History Household Members: None Housing: Apartment Are you a primary resident care provider to a significant other at home: No Do you presently have visiting nurse or other home services: No Alcohol intake: never Patient Tobacco Use Status: Never used Tobacco e-Cigarette/Vaping Use: Never Used Second Hand Smoke Exposure: Yes service: No Current occupational status: disabled Sexual orientation: Straight/Heterosexual Gender identity: Female Cognitive needs: No Hearing needs: No Vision needs: No Questionnaire PHQ-9 Over the last 2 weeks, how often have you been bothered by any of the following problems? 1. Little interest or pleasure in doing things: several days 2. Feeling down, depressed, or hopeless: several days 3. Trouble falling or staying asleep, or sleeping too much: nearly every day 4. Feeling tired or having little energy: several days 5. Poor appetite or overeating: several days 6. Feeling bad about yourself - or that you are a failure or have let yourself or your family down: not at all 7. Trouble concentrating on things, such as reading the newspaper or watching television: not at all 8. Moving or speaking so slowly that other people could have noticed. Or the opposite - being so fidgety or restless that you have been moving around a lot more than usual: not at all 9. Thoughts that you would be better off or of hurting yourself in some way: not at all Total score: 7 Depression Screening Interpretation: Positive Depression Screening Follow-up: Existing condition and Follow-up Visit Requested Depression Screening Done: Yes 34031 - PHQ-9 Billing: Yes Source: Developed by Drs. Tom Crawford, Olivia Tesfaye, Jay Jay Stover and colleagues, with an educational reddy from [employer]. Thrive Questionnaire Date Thrive assessed: 07/26/24 I am a: Patient What is your living situation today?: I have a steady place to live Within the past 12 months, did the food you bought not last and you didn't have the money to get more?: I choose not to answer this question Within the past 12 months, did you worry whether your food would run out before you got money to buy more?: I choose not to answer this question Do you have trouble paying for medicines?: No Do you have trouble getting transportation to medical appointments?: No Do you have trouble paying your heating and electricity bill?: No Do you have trouble taking care of your child, family member or friend?: No Do you have trouble with day-to-day activities such as bathing, preparing meals, shopping, managing finances, etc.?: No Are you currently unemployed and looking for a job?: Yes Are you interested in more education?: No Please select the resources that you would like help with: None Currently or been in a relationship where the following occur: No concerns reported THRIVE Score: 0 AUDIT C Alcohol Use Questionnaire (AUDIT-C) 1. How often do you have a drink containing alcohol?: Never Total Score: 0 Score Reviewed/Action Taken: No JUDY-7 AMB Questionnaire JUDY-7 Date JUDY - 7 assessed: 07/26/24 Feeling nervous, anxious, or on edge: 0 = Not at all Not being able to stop or control worryin = Not at all Worrying too much about different things: 0 = Not at all Trouble relaxin = Not at all Being so restless that it is hard to sit still: 0 = Not at all Becoming easily annoyed or irritable: 0 = Not at all Feeling afraid as if something awful might happen: 0 = Not at all Total JUDY-7 score (0-4 normal; 5-9 mild; 10-14 moderate; 15-21 severe): 0 Source: Developed by Drs. Tom Crawford, Olivia Tesfaye, Jay Jay Stover and colleagues, with an educational reddy from [employer]. JUDY-7 Assessment Billing JUDY-7 Assessment Tool: JUDY-7 Assessment 29556 Review of Systems Const All systems reviewed & are unremarkable except as noted in HPI and below Card Denies chest pain at rest, Denies chest pain with activity, Denies edema, Denies irregular heart rhythm, Denies claudication, Reports dyspnea, Reports dyspnea on exertion, Denies orthopnea, Denies paroxysmal nocturnal dyspnea and Denies slow heart rate Resp Reports cough, Reports dyspnea, Reports dyspnea on exertion and Reports wheezing GI Denies abdominal pain, Denies change in bowel habits, Denies excessive flatus, Denies nausea and Denies vomiting Denies urinary incontinence, Denies urinary hesitancy and Denies urinary urgency Musc Denies atrophy, Denies deformity and Denies limited range of motion Aller/Immun Reports wheezing Physical exam (Primary Care) Vital Signs: Last Vital Signs BP 130/82 11/07/24 13:14 BMI result Body Mass Index 34.0 Tobacco/Smoking Status: Tobacco use Status Tobacco use date assessed 07/26/24 11/07/24 13:22 Patient Tobacco Use Status Never used Tobacco 11/07/24 13:22 e-Cigarette/Vaping Use Never Used 11/07/24 13:22 PHQ-9: PHQ-9 Score PHQ-9: Total score 7 11/07/24 13:22 Depression Screening Interpretation: Positive Depression Screening Follow-up: Existing condition and Follow-up Visit Requested Thrive Assessment: Date of Thrive Assessment Date Thrive assessed 07/26/24 11/07/24 13:22 Currently or been in a relationship where the following occur: No concerns reported Resp Effort & Inspection: normal respiratory effort Auscultation: clear to auscultation bilaterally Cardio Jugular venous distension: no JVD Rate: regular rate Rhythm: regular rhythm Heart sounds: S1 normal heart sound present and S2 normal heart sound present Skin General skin exam: no rashes or lesions noted Extrem General: Yes full ROM Results AMB Urinalysis, Automated UA Leukoctes 15 Karin/uL Last Edit by [employer] on 11/07/24 11:36 UA Nitrite Last Edit by [employer] on 11/07/24 11:36 UA Urobilinogen 0.2 mg/dL Last Edit by [employer] on 11/07/24 11:36 UA Protein 30 mg/dL Last Edit by [employer] on 11/07/24 11:36 UA pH 6.0 Last Edit by [employer] on 11/07/24 11:36 UA Blood 0 Davidson/uL Last Edit by [employer] on 11/07/24 11:36 UA Specific [place] 1.025 Last Edit by [employer] on 11/07/24 11:36 UA Ketone Positive Last Edit by Paul Chou on 11/07/24 11:36 UA Bilirubin 3 mg/dL Last Edit by Paul Chou on 11/07/24 11:36 UA Glucose 0 mg/dL Last Edit by Paul Chou on 11/07/24 11:36 AMB Hemoglobin A1c AMB Hemoglobin A1c 7.1 % Last Edit by KMARON Sanchez on 11/07/24 13:2 4 Results Reviewed Results Reviewed: Laboratory Last Values Hgb A1c (Clinic) 7.1 % (4.0-6.0) H 11/07/24 13:13 Coding Level of Care Code Est Pt Level 4 (67284) Complex EM visit Add On G2211 Diagnoses Hospital discharge follow-up Z09 URI (upper respiratory infection) J06.9 Mild recurrent major depression F33.0 Mixed hyperlipidemia E78.2 Type 2 diabetes mellitus without complication, without long-term current use of insulin E11.9 Diabetes mellitus type: type 2 Diabetes mellitus cna caregiver insulin use: without cna caregiver use Diabetes mellitus complication status: without complication Acquired hypothyroidism E03.9 Hypothyroidism type: acquired Additional Codes PHQ-9 - 07045 - PHQ-9 Billing: Yes ([id number]) JUDY-7 Assessment Billing - JUDY-7 Assessment Tool: JUDY-7 Assessment 06774 ([id number]) Time Spent (min) 24 Assessment & Plan Assessment & Plan (1) Hospital discharge follow-up: Code(s): Z09 - Encounter for follow-up examination after completed treatment for conditions other than malignant neoplasm Category: Medical (2) URI (upper respiratory infection): Code(s): J06.9 - Acute upper respiratory infection, unspecified Category: Medical (3) Mild recurrent major depression: Code(s): F33.0 - Major depressive disorder, recurrent, mild Category: Medical (4) Mixed hyperlipidemia: Code(s): E78.2 - Mixed hyperlipidemia Category: Medical (5) Diabetes: Comment: NIDDM Code(s): E11.9 - Type 2 diabetes mellitus without complications Category: Medical Qualifiers: Diabetes mellitus type: type 2 Diabetes mellitus cna caregiver insulin use: without mcc use Diabetes mellitus complication status: without complication Qualified Code(s): E11.9 - Type 2 diabetes mellitus without complications (6) Hypothyroid: Code(s): E03.9 - Hypothyroidism, unspecified Category: Medical Qualifiers: Hypothyroidism type: acquired Qualified Code(s): E03.9 - Hypothyroidism, unspecified Plan I have prescribed benzonatate for the persistent cough and will assess the patient's response. Her muscle aches might be related to prednisone use, and her treatment will be reviewed. I discussed the elevated Hemoglobin A1c, emphasizing diabetes control with her current medications. Her inflammatory bowel symptoms are managed with mesalamine. Attention was given to her allergies, advising avoidance to prevent reactions. Anxiety and sleep disturbance medications were updated and will be monitored. A follow-up appointment was scheduled. Patient was informed and verbally consented to the use of an ambient scribe for clinic note documentation during this visit. I addressed the patient's concerns regarding the persistent cough, explaining the potential benefits of benzonatate and the plan to monitor its effectiveness. We reviewed her current medication regimen for glucose management, understanding the impact of prednisone use and her Hemoglobin A1c results. I discussed the allergen avoidance strategy and management of inflammatory bowel symptoms with mesalamine. For anxiety and sleep disturbances, I reviewed her current medication, adjusting doses as necessary. Follow-up care and monitoring were emphasized to ensure symptom resolution and management efficacy. Orders: Orders AMB Hemoglobin A1c Today E11.9 - Type 2 diabetes mellitus without complications Lipid Panel Today E78.5 - Hyperlipidemia, unspecified Vitamin B12 and Folate Today E53.8 - Deficiency of other specified B group vitamins Comprehensive Lena. Panel Fast Today E78.2 - Mixed hyperlipidemia Microalbumin, Random (w Creat) Today R80.9 - Proteinuria, unspecified Complete Blood Count Auto Diff Today D64.9 - Anemia, unspecified IRON PROFILE Today D64.9 - Anemia, unspecified Vitamin D 25-OH Total Today E55.9 - Vitamin D deficiency, unspecified Thyroid Stimulating Hormone Today E03.9 - Hypothyroidism, unspecified Medications: New azithromycin Take 2 tabs the first day, then 2 tabs for the next 4 days 250 mg PO DAILY 5 days 6 tabs 0RF benzonatate 100 mg PO BID 5 days PRN 10 caps 0RF cough Patient Instructions: - Take benzonatate as prescribed for cough relief. - Avoid allergens that cause skin reactions. - Monitor blood sugar levels closely and report high readings. - Continue using current medications for inflammatory bowel disease. - Follow prescribed regimen for anxiety and sleep disturbances. - Schedule and attend follow-up appointment as planned. - Contact us if symptoms worsen or new symptoms develop.
[2024-11-07 13:14] VITALS: BP 130/82; BMI 34.0
== END 2024-11-07 13:46 | disposition home or self-care (01) ==
LOC: HO.HMCH 13:11
PROVIDERS: PCP Internal Medicine; Visit Provider Internal Medicine
DX: E78.2 Mixed hyperlipidemia (principal); E11.9 Type 2 diabetes mellitus without complications; Z09 Encounter for follow-up examination after completed treatment for conditions other than malignant neoplasm; J06.9 Acute upper respiratory infection, unspecified; F33.0 Major depressive disorder, recurrent, mild; E03.9 Hypothyroidism, unspecified

== ENCOUNTER 2024-11-15 09:53 | Outpatient (REF) | payer OTHER, SELFPAY ==
[2024-11-15 10:03] LABS: MANUAL DIFF FLAG NO
[2024-11-15 10:36] LABS: Basophils Percent Auto 0.7 % (0-2); Eosinophils Absolute Auto 0.1 X10*3/uL (0.0-0.4); Eosinophils Percent Auto 2.6 % (0-4); Hematocrit 37.5 % (37.0-47.0); Hemoglobin 12.7 g/dl (12.0-16.0); Lymphocytes Absolute Auto 1.2 X10*3/uL (1.2-4.9); Lymphocytes Percent Auto 40.1 % (20-40); Mean Corpuscular HGB Conc 33.9 g/dl (31.0-35.0); Mean Corpuscular Hemoglobin 30.3 pg (27.0-33.0); Mean Corpuscular Volume 89.5 fL (80.0-98.0); Mean Platelet Volume 9.9 fL (9.4-12.3); Monocytes Absolute Auto 0.2 X10*3/uL (0.1-1.2); Monocytes Percent Auto 7.9 % (2-11); Neutrophils Absolute Auto 1.5 x10*3/uL (2.0-8.3); Neutrophils Percent Auto 48.7 % (45-73); Platelet Count 251 X10*3/uL (160-400); Red Blood Count 4.19 X10*6/uL (4.20-5.50); Red Cell Distribution Width 13.2 % (11.0-16.0)
[2024-11-15 11:22] LABS: Alanine Aminotransferase 22 U/L (0-31); Albumin Level 4.2 g/dL (3.5-5.0); Alkaline Phosphatase 83 U/L (39-117); Anion Gap 13 (12-20); Aspartate Amino Transferase 21 U/L (5-31); Bilirubin Total 0.5 mg/dL (0.0-1.0); Blood Urea Nitrogen 14 mg/dL (9-16); Calcium 9.2 mg/dL (8.4-10.2); Carbon Dioxide 25 mmol/L (22-29); Chloride 110 mmol/L (96-108); Cholesterol 148 mg/dL (<200); Estimated Glomerular Filt Rate > 60; Glucose Fasting 140 mg/dL (60-99); Iron 70 mcg/dL (30-160); Percent Iron Saturation 25 % (15-50); Potassium 3.9 mmol/L (3.3-5.1); Sodium 144 mmol/L (135-145); Total Iron Binding Capacity 277 mcg/dL (228-428); Total Protein 7.4 g/dL (6.5-8.0); Triglycerides 194 mg/dL (<150); Unsaturated Iron Binding 207 ug/dL
[2024-11-15 11:27] LABS: Creatinine Urine 466.46 mg/dL; Microalbum/Creatinine Ratio Ur 7.5 ug/mg cr (<30)
[2024-11-15 11:31] LABS: Thyroid Stimulating Hormone 2.53 uIU/mL (0.32-4.0); Vitamin D 25-OH Total 26.2 ng/mL (>30)
[2024-11-15 11:38] LABS: HDL Cholesterol 45 mg/dL (>40); LDL Cholesterol Calculated 65 mg/dL (<100)
[2024-11-15 11:41] LABS: Vitamin B12 1096 pg/mL (200-900)
== END 2024-11-15 09:54 | disposition home or self-care (01) ==
LOC: HO.LAB 09:53
PROVIDERS: PCP Internal Medicine; Visit Provider Internal Medicine
DX: E78.2 Mixed hyperlipidemia (principal); E78.5 Hyperlipidemia, unspecified; D64.9 Anemia, unspecified; E55.9 Vitamin D deficiency, unspecified; R80.9 Proteinuria, unspecified; E03.9 Hypothyroidism, unspecified
CPT/HCPCS: 36415; 80053; 80061; 82043; 82306; 82570; 82607; 82746; 83540; 84443; 85025

== ENCOUNTER 2024-11-23 12:54 | Outpatient (AMB) | payer OTHER, SELFPAY ==
--- NOTE | 2024-11-23 13:09 | A.OFFPC_ITS ---
Vital Signs 11/23/24 13:10 Height 5 ft 2 in Weight 186 lb BMI 34.0 BP 122/70 Blood Pressure Location Lt brachial Position Sitting Intake Visit Reasons: dm, needs 30 minutes Intake Note: Patient here for a follow up DM Emergency Preparedness Manager Required: No Accompanied by: Self / Same As Patient Allergies clindamycin Allergy (Intermediate, Verified 11/23/24 13:34) Rash crab Allergy (Intermediate, Verified 11/23/24 13:34) Itch seafood Allergy (Intermediate, Verified 11/23/24 13:34) Itch,Rash Sulfa (Sulfonamide Antibiotics) Allergy (Intermediate, Verified 11/23/24 13:34) headache milk Allergy (Verified 11/23/24 13:34) Unknown shrimp Allergy (Verified 11/23/24 13:34) Unknown wheat Allergy (Verified 11/23/24 13:34) Unknown budesonide Adverse Reaction (Severe, Verified 11/23/24 13:34) Nausea metformin Adverse Reaction (Intermediate, Verified 11/23/24 13:34) Abdominal Pain nitrofurantoin Allergy (Severe, Uncoded 11/23/24 13:34) Abdominal Pain ciprofloxacin Allergy (Intermediate, Uncoded 11/23/24 13:34) Abdominal Pain SEASONAL ALLERGIES Allergy (Mild, Uncoded 11/23/24 13:34) RUNNY NOSE/SNEEZING Medication List - Last Reconciled 11/23/24 by Karyna Murphy MD acetaminophen 500 - 1,000 mg (1 - 2 x 500 mg) PO Q6H PRN 30 days atorvastatin 40 mg PO BEDTIME 90 days blood sugar diagnostic Use 1 test strip once a day blood sugar diagnostic (FreeStyle Lite Strips) Test 2 times daily blood-glucose meter (FreeStyle Lite Meter kit) As directed buspirone 5 mg PO TID cetirizine 10 mg PO DAILY PRN 90 days cholecalciferol (vitamin D3) 125 mcg PO DAILY 90 days clonazepam 0.5 mg PO Q OTHER DAY PRN dicyclomine 20 mg PO BID docusate sodium 100 mg PO DAILY PRN dulaglutide (Trulicity) 0.75 mg (0.5 mL) subcut QWEEK 90 days fenofibrate 54 mg PO DAILY 90 days folic acid 1 mg PO DAILY gabapentin 300 mg PO DAILY glipizide 10 mg PO DAILY 90 days lancets (FreeStyle Lancets) TEST 2 TIMES DAILY lansoprazole 30 mg PO BID mesalamine 1 g (15 mL) [place] BEDTIME mesalamine ER (Apriso) 0.375 grams PO QAM nortriptyline 10 mg PO BEDTIME ondansetron 4 mg PO BID prednisone 40 mg (2 x 20 mg) PO DAILY 5 days pyridoxine (vitamin B6) 50 mg (1/2 x 100 mg) PO DAILY 90 days saliva substitute combo no.2 1 appl mucous membrane Q4H PRN Shower Chair As directed simethicone (Gas Relief (simethicone)) 160 mg (2 x 80 mg) PO BID-TID PRN Synthroid (levothyroxine) 137 mcg PO DAILY 90 days NS syringe with needle As directed syringe with needle, safety (BD Safety-Nisha Detachable Needle) once a month zinc acetate (Galzin) 50 mg PO DAILY zolpidem 10 mg PO BEDTIME PRN Tobacco use date assessed: 07/26/24 Dental Screening Dental Screen Date: 07/26/24 HPI HPI Comments History of Present Illness Details The patient is a 59-year-old female presenting with follow-up concerns related to her Type 2 Diabetes Mellitus and esophageal reflux symptoms. Her diabetes is being managed with medication, including Trulicity, and her last hemoglobin A1c was 7.1% with a fasting glucose of 140 mg/dL. She is experiencing ongoing issues with gastric symptoms such as nausea following her current diabetes medication regimen. Additionally, the patient reports feelings of a blockage in her throat, indicative of esophageal reflux, which has prompted the requirement for an upper endoscopy. Current management includes Synthroid for hypothyroidism and vehement LDL control through atorvastatin, resulting in satisfactory levels. The patient is participating in ongoing surveillance for recurrent kidney stones and is maintaining compliance with her prescribed vitamin B6 supplement. Recent res piratory symptoms have delayed esophageal treatment assessment, and she awaits the rescheduling of her upper endoscopy. Additionally, an electrocardiogram was suggested following reports of chest discomfort, with attention to potential sugar levels affecting sensations of itchiness or scalp irritation. [facility] Medical History (Updated 11/23/24 @ 13:42 by Karyna Murphy MD) History of ovarian cyst Renal cyst Renal calculi Mild recurrent major depression Mixed hyperlipidemia COVID-19 vaccine administered B12 deficiency Polyarthralgia Osteoarthritis of right knee Dyslipidemia Anxiety and depression History of postoperative nausea and vomiting Hx of renal calculi Hx of gastritis GERD (gastroesophageal reflux disease) Hypothyroid Colon polyps Diabetes Surgical History History of tubal ligation Hx of lithotripsy History of esophagogastroduodenoscopy (EGD) Hx of colonoscopy H/O: hysterectomy H/O thyroidectomy History of cholecystectomy Family History Father Hx of heat stroke History of dementia Mother Hx of benign gastric tumor Family history of high blood pressure Hx of type 1 diabetes mellitus Colon cancer Maternal Uncle Pancreatic cancer Daughter Thyroid cancer Maternal Aunt Ovarian cancer Social History Household Members: None Housing: Apartment Are you a primary tire care manager to a significant other at home: No Do you presently have visiting nurse or other home services: No Alcohol intake: never Patient Tobacco Use Status: Never used Tobacco e-Cigarette/Vaping Use: Never Used Second Hand Smoke Exposure: Yes service: No Current occupational status: disabled Sexual orientation: Straight/Heterosexual Gender identity: Female Cognitive needs: No Hearing needs: No Vision needs: No Questionnaire Thrive Questionnaire Date Thrive assessed: 11/07/24 I am a: Patient What is your living situation today?: I have a steady place to live Within the past 12 months, did the food you bought not last and you didn't have the money to get more?: I choose not to answer this question Within the past 12 months, did you worry whether your food would run out before you got money to buy more?: I choose not to answer this question Do you have trouble paying for medicines?: No Do you have trouble getting transportation to medical appointments?: No Do you have trouble paying your heating and electricity bill?: No Do you have trouble taking care of your child, family member or friend?: No Do you have trouble with day-to-day activities such as bathing, preparing meals, shopping, managing finances, etc.?: No Are you currently unemployed and looking for a job?: Yes Are you interested in more education?: No Please select the resources that you would like help with: None Currently or been in a relationship where the following occur: No concerns reported THRIVE Score: 0 JUDY-7 AMB Questionnaire JUDY-7 Date JUDY - 7 assessed: 07/26/24 Source: Developed by DrsYue Crawford, Olivia Tesfaye, Jay Jay Stover and colleagues, with an educational reddy from [employer]. Review of Systems Const All systems reviewed & are unremarkable except as noted in HPI and below Card Denies chest pain at rest, Denies chest pain with activity, Denies edema, Denies irregular heart rhythm, Denies claudication, Denies dyspnea, Denies dyspnea on exertion, Denies orthopnea, Denies paroxysmal nocturnal dyspnea and Denies slow heart rate Resp Denies cough, Denies dyspnea and Denies dyspnea on exertion Physical exam (Primary Care) Vital Signs: Last Vital Signs BP 122/70 11/23/24 13:10 BMI result Body Mass Index 34.0 Tobacco/Smoking Status: Tobacco use Status Tobacco use date assessed 07/26/24 11/23/24 13:18 Patient Tobacco Use Status Never used Tobacco 11/23/24 13:18 e-Cigarette/Vaping Use Never Used 11/23/24 13:18 Thrive Assessment: Date of Thrive Assessment Date Thrive assessed 11/07/24 11/23/24 13:18 Currently or been in a relationship where the following occur: No concerns reported Resp Effort & Inspection: normal respiratory effort Auscultation: clear to auscultation bilaterally Cardio Jugular venous distension: no JVD Rate: regular rate Rhythm: regular rhythm Heart sounds: S1 normal heart sound present and S2 normal heart sound present Extrem General: Yes full ROM Coding Level of Care Code Est Pt Level 4 (70005) Complex EM visit Add On G2211 Diagnoses Chest pain R07.9 Vaginal pruritus N89.8 Mild recurrent major depression F33.0 Gastroesophageal reflux disease, unspecified whether esophagitis present K21.9 Esophagitis presence: esophagitis presence not specified Mixed hyperlipidemia E78.2 Type 2 diabetes mellitus without complication, without long-term current use of insulin E11.9 Diabetes mellitus type: type 2 Diabetes mellitus intermediate teacher insulin use: without assisted use Diabetes mellitus complication status: without complication Acquired hypothyroidism E03.9 Hypothyroidism type: acquired Time Spent (min) 23 Assessment & Plan Assessment & Plan (1) Chest pain: Code(s): R07.9 - Chest pain, unspecified Category: Medical (2) Vaginal pruritus: Code(s): N89.8 - Other specified noninflammatory disorders of vagina Category: Medical (3) Mild recurrent major depression: Code(s): F33.0 - Major depressive disorder, recurrent, mild Category: Medical (4) GERD (gastroesophageal reflux disease): Code(s): K21.9 - Gastro-esophageal reflux disease without esophagitis Category: Medical Qualifiers: Esophagitis presence: esophagitis presence not specified Qualified Code(s): K21.9 - Gastro-esophageal reflux disease without esophagitis (5) Mixed hyperlipidemia: Code(s): E78.2 - Mixed hyperlipidemia Category: Medical (6) Diabetes: Comment: NIDDM Code(s): E11.9 - Type 2 diabetes mellitus without complications Category: Medical Qualifiers: Diabetes mellitus type: type 2 Diabetes mellitus intermediate teacher insulin use: without intermediate teacher use Diabetes mellitus complication status: without complication Qualified Code(s): E11.9 - Type 2 diabetes mellitus without com plications (7) Hypothyroid: Code(s): E03.9 - Hypothyroidism, unspecified Category: Medical Qualifiers: Hypothyroidism type: acquired Qualified Code(s): E03.9 - Hypothyroidism, unspecified Plan Continued use of the current medication regimen appears effective in managing her dyslipidemia and hypothyroidism. Trulicity will be maintained for her blood sugar control, with further lifestyle interventions to enhance management. Scheduled upper endoscopy will proceed for comprehensive evaluation of her esophageal dysfunction. Her Vitamin levels will continue to be monitored. Strategies to mitigate reflux symptoms include dietary modifications and postural changes. An ECG was proposed to ensure cardiac health in response to current reports of chest discomfort. Patient was informed and verbally consented to the use of an ambient scribe for clinic note documentation during this visit. I informed the patient about the stable control of her cholesterol and thyroid functions, highlighting the effectiveness of atorvastatin and Synthroid. Dietary modifications and medication adherence were displayed as beneficial for stabilizing blood glucose ranges. We reviewed possible causes and management strategies for her esophageal reflux and confirmed the requirement of a follow- up endoscopic procedure, providing guidance on pre-existent dietary patterns to minimize reflux occurrences. For the report of chest discomfort, I detailed ECG testing as a precautionary step to assess cardiac health. Orders: Orders ECG 12 lead EKG Today R07.9 - Chest pain, unspecified Medications: New fluconazole 150 mg PO Q3D 2 tabs 0RF 2 doses Patient Instructions: - Continue with current medication regimen as prescribed. - Schedule an upper endoscopy for further evaluation of esophageal symptoms. - Avoid eating or drinking three hours before bedtime to reduce reflux symptoms. - Arrange for an electrocardiogram at the hospital as discussed. - Report any increased chest discomfort or new symptoms promptly.
[2024-11-23 13:10] VITALS: BP 122/70; BMI 34.0
== END 2024-11-23 13:44 | disposition home or self-care (01) ==
LOC: HO.HMCH 12:55
PROVIDERS: PCP Internal Medicine; Visit Provider Internal Medicine
DX: E11.9 Type 2 diabetes mellitus without complications (principal); R07.9 Chest pain, unspecified; N89.8 Other specified noninflammatory disorders of vagina; F33.0 Major depressive disorder, recurrent, mild; K21.9 Gastro-esophageal reflux disease without esophagitis; E78.2 Mixed hyperlipidemia; E03.9 Hypothyroidism, unspecified

== ENCOUNTER → 2024-11-23 12:54 | Outpatient (BNVA) | payer OTHER, SELFPAY | PROVIDERS: PCP Internal Medicine; Visit Provider Internal Medicine | DX: E11.9 Type 2 diabetes mellitus without complications (principal); R07.9 Chest pain, unspecified; N89.8 Other specified noninflammatory disorders of vagina; F33.0 Major depressive disorder, recurrent, mild; K21.9 Gastro-esophageal reflux disease without esophagitis; E78.2 Mixed hyperlipidemia; E03.9 Hypothyroidism, unspecified | CPT/HCPCS: 99212 ==

== ENCOUNTER → 2024-11-25 11:54 | Outpatient (REF) | payer OTHER, SELFPAY ==
--- NOTE | 2024-11-25 11:57 | ECG_ITS ---
Test Reason : CHEST PAIN Blood Pressure : */* mmHG Vent. Rate : 69 BPM Atrial Rate : 69 BPM P-R Int : 164 ms QRS Dur : 80 ms QT Int : 382 ms P-R-T Axes : 40 12 23 degrees QTcB Int : 409 ms Normal sinus rhythm Normal ECG When compared with ECG of 02-Nov-2024 11:58, No significant change was found Referred By: Karyna Murphy Electronically Signed By: ROB NGUYEN MD
== END ==
LOC: HO.CARD 11:54
PROVIDERS: PCP Internal Medicine; Visit Provider Internal Medicine
DX: R07.9 Chest pain, unspecified (principal)
CPT/HCPCS: 93005

== ENCOUNTER → 2024-11-25 11:57 | Outpatient (BNV) | payer OTHER, SELFPAY | PROVIDERS: PCP Internal Medicine; Visit Provider Internal Medicine Cardiovascular Disease | DX: R07.9 Chest pain, unspecified (principal) | CPT/HCPCS: 93010 ==

== ENCOUNTER 2024-12-20 10:01 | Day surgery (SDC) | payer OTHER, SELFPAY ==
[2024-10-21 13:50] VITALS: BMI 34.9
--- NOTE | 2024-12-19 09:39 | HO.ANESPROP2 ---
HPI - Anesthesia Eval Consult details Narrative: 59yo F for Upper Endoscopy with Dilitation Anesthesia Pre-Procedure Meds Is the patient on any of the following meds?: GLP1/DPP4 PMFSH Active Problems Active Problems: All Active Problems Chest pain (Acute) Hospital discharge follow-up (Acute) URI (upper respiratory infection) (Acute) Poor intravenous access (Acute) Proteinuria (Acute) Encounter for well woman exam with routine gynecological exam (Acute) Colitis (Acute) Diffuse abdominal pain (Acute) Sore throat (Acute) Dysphagia (Acute) Thyroid nodule (Acute) Dry mouth (Acute) Vaginal pruritus (Acute) Dysuria (Acute) History of ovarian cyst (Acute) Seasonal allergies (Acute) Physical exam (Acute) Chronic sinusitis (Acute) Renal cyst (Acute) Leukopenia (Acute) Encounter for annual routine gynecological examination (Acute) B12 deficiency (Acute) Myofascial pain (Acute) Spondylosis of lumbar region without myelopathy or radiculopathy (Acute) Diabetic neuropathy (Acute) Swelling of lower leg (Acute) Low vitamin D level (Acute) Cough (Acute) Renal calculi (Acute) Liver lesion (Acute) Left hand pain (Acute) Cervicalgia (Acute) Right low back pain (Acute) Low back pain (Acute) Right flank pain (Acute) RUQ pain (Acute) Mild recurrent major depression (Acute) GERD (gastroesophageal reflux disease) (Acute) Mixed hyperlipidemia (Acute) COVID-19 (Acute) Fibromyalgia (Acute) Breast pain, left (Acute) Vaginal dryness (Acute) Encounter for annual routine gynecological examination (Acute) B12 deficiency (Acute) Polyarthralgia (Acute) Epigastric abdominal pain (Acute) Patellofemoral pain syndrome of right knee (Acute) Osteoarthritis of right knee (Acute) Diabetes (Acute) Dyslipidemia (Acute) Leukopenia (Acute) Lower abdominal pain (Acute) Anxiety and depression (Acute) Nephrolithiasis (Acute) Hypothyroid (Acute) Past Medical History Medical History History of ovarian cyst Renal cyst Renal calculi Mild recurrent major depression Mixed hyperlipidemia COVID-19 vaccine administered B12 deficiency Polyarthralgia Osteoarthritis of right knee Dyslipidemia Anxiety and depression History of postoperative nausea and vomiting Hx of renal calculi Hx of gastritis GERD (gastroesophageal reflux disease) Hypothyroid Colon polyps Diabetes Family History Family History Father Hx of heat stroke History of dementia Mother Hx of benign gastric tumor Family history of high blood pressure Hx of type 1 diabetes mellitus Colon cancer Maternal Uncle Pancreatic cancer Daughter Thyroid cancer Maternal Aunt Ovarian cancer Family history of problems with anesthesia: No Surgical History Surgical History History of tubal ligation Hx of lithotripsy History of esophagogastroduodenoscopy (EGD) Hx of colonoscopy H/O: hysterectomy H/O thyroidectomy History of cholecystectomy History of Problems with Anesthesia: No Social History Social History Household Members: None Housing: Apartment Are you a primary director long term care to a significant other at home: No Do you presently have visiting nurse or other home services: No Alcohol intake: never Patient Tobacco Use Status: Never used Tobacco e-Cigarette/Vaping Use: Never Used Second Hand Smoke Exposure: Yes service: No Current occupational status: disabled Sexual orientation: Straight/Heterosexual Gender identity: Female Cognitive needs: No Hearing needs: No Vision needs: No Meds Allergies Allergy/AdvReac Type Severity Reaction Status Date / Time clindamycin Allergy Intermediate Rash Verified 11/23/24 13:34 crab Allergy Intermediate Itch Verified 11/23/24 13:34 seafood Allergy Intermediate Itch,Rash Verified 11/23/24 13:34 Sulfa (Sulfonamide Allergy Intermediate headache Verified 11/23/24 13:34 Antibiotics) milk Allergy Unknown Verified 11/23/24 13:34 shrimp Allergy Unknown Verified 11/23/24 13:34 wheat Allergy Unknown Verified 11/23/24 13:34 budesonide AdvReac Severe Nausea Verified 11/23/24 13:34 metformin AdvReac Intermediate Abdominal Verified 11/23/24 13:34 Pain nitrofurantoin Allergy Severe Abdominal Uncoded 11/23/24 13:34 Pain ciprofloxacin Allergy Intermediate Abdominal Uncoded 11/23/24 13:34 Pain SEASONAL ALLERGIES Allergy Mild RUNNY Uncoded 11/23/24 13:34 NOSE/SNEEZING Home Medications ?Medication ?Instructions ?Recorded ?Confirmed ?Last Taken ?Type buspirone 5 mg tablet 5 mg PO TID 05/14/20 12/20/24 Unknown History clonazepam 0.5 mg tablet 0.5 mg PO Q OTHER DAY PRN Anxiety 05/14/20 12/20/24 Unknown History folic acid 1 mg tablet 1 mg PO DAILY 05/14/20 12/20/24 Unknown History syringe with needle 3 mL 25 x 5/8 #1 ea 05/14/20 12/20/24 Unknown History Exam Height,Weight and Vital Signs: Height 5 ft 2 in Weight 86.636 kg Pertinent Lab Results Pertinent Lab Results: Laboratory Tests 11/15/24 09:56 WBC 3.0 L Hgb 12.7 Hct 37.5 Plt Count 251 Sodium 144 Potassium 3.9 Chloride 110 H Carbon Dioxide 25 BUN 14 Creatinine 0.81 Narrative Narrative: EKG 11/2024 Vent. Rate : 69 BPM Atrial Rate : 69 BPM P-R Int : 164 ms QRS Dur : 80 ms QT Int : 382 ms P-R-T Axes : 40 12 23 degrees QTcB Int : 409 ms Normal sinus rhythm Normal ECG When compared with ECG of 02-Nov-2024 11:58, No significant change was found Assessment and Plan Assessment Anesthesia Assessment: Chart Reviewed Final Anesthetic Review Family History of Problems with Anesthesia: No History of Problems with Anesthesia: No
[2024-12-20 10:06] VITALS: BP 126/78; PULSE 82; RESP 19; TEMP 36.9; O2SAT 97; BMI 34.0
[2024-12-20] MEDS: Lactated Ringers 1,000 ML 100 ML IVCONT (10:27)
[2024-12-20 10:33] LABS: Glucose, Whole Blood 157 mg/dL (60-115)
--- NOTE | 2024-12-20 12:34 | P.HPSUR_ITS ---
Pre-Procedural Eval Section A - 24 Hr Update-Section A only Date of Service: 12/20/24 Section B - Complete if H&P > 30 days Chief Complaint: Dysphagia, unspecified Relevant Family History (Specify if Yes): No Relevant Social History: None Present Medications: see Short Stay Collaborative assessment Medical History: Significant History (History of ovarian cyst Renal cyst Renal calculi Mild recurrent major depression Mixed hyperlipidemia COVID-19 vaccine administered B12 deficiency Polyarthralgia Osteoarthritis of right knee Dyslipidemia Anxiety and depression History of postoperative nausea and vomiting Hx of renal calculi Hx of ga) History of Previous Operations: Relevant previous surgery/procedure and date(s) ( History of tubal ligation Hx of lithotripsy History of esop hagogastroduodenoscopy (EGD) Hx of colonoscopy H/O: hysterectomy H/O thyroidectomy History of cholecystectomy) Allergies: Allergies Allergy/AdvReac Type Severity Reaction Status Date / Time clindamycin Allergy Intermediate Rash Verified 11/23/24 13:34 crab Allergy Intermediate Itch Verified 11/23/24 13:34 seafood Allergy Intermediate Itch,Rash Verified 11/23/24 13:34 Sulfa (Sulfonamide Allergy Intermediate headache Verified 11/23/24 13:34 Antibiotics) milk Allergy Unknown Verified 11/23/24 13:34 shrimp Allergy Unknown Verified 11/23/24 13:34 wheat Allergy Unknown Verified 11/23/24 13:34 budesonide AdvReac Severe Nausea Verified 11/23/24 13:34 metformin AdvReac Intermediate Abdominal Verified 11/23/24 13:34 Pain nitrofurantoin Allergy Severe Abdominal Uncoded 11/23/24 13:34 Pain ciprofloxacin Allergy Intermediate Abdominal Uncoded 11/23/24 13:34 Pain SEASONAL ALLERGIES Allergy Mild RUNNY Uncoded 11/23/24 13:34 NOSE/SNEEZING Review of Systems Sugical H&P ROS: Negative: Constitution, Cardiovascular, Respiratory, Neurological, Psychiatric, Hem-Onc, Allergic/Immunologic, Gastrointestinal, Genitourinary, Musculoskeletal, Integumentary, Endocrine and Eyes/Ears/Nose/Throat Exam Surgical H&P Exam: Normal: HEENT, Normal: Heart, Normal: Lungs, Normal: Extremities, Normal: Abdomen, Normal: Skin and Normal: Neurological Plan Diagnosis/Plan: Unchanged I have reviewed the history and physical and performed a pertinent physical examination on my patient. No changes have occurred unless specified. Time Spent With Patient Time: Total time managing care of this patient today ____ minutes.
--- NOTE | 2024-12-20 13:18 | W.PM.OPN ---
Operative Note Operative Note Date of Service: 12/20/24 Narrative: Procedure Description: EGD Indication: Dysphagia Anesthesia: MAC FLEXIBLE TRANSORAL UPPER GASTROINTESTINAL ENDOSCOPY UPPER ENDOSCOPY Consent: Indications for the procedure and potential complications of bleeding, perforation, reaction to medications and missed diagnosis were discussed with the patient and informed consent was obtained. Instrument: Olympus GIF H 190 J mid size upper endoscope Monitoring: Vital signs and clinical assessment, continuous EKG monitoring, Pulse oximetry, Carbon Dioxide monitoring and blood pressure monitoring were done throughout the procedure. Procedure: The patient was placed in the left lateral decubitis position and pre-procedure medications were administered and a bite block was placed. The endoscope was inserted into the mouth and advanced under direct vision to the third part of duodenum. A careful inspection was made as the upper endoscope was withdrawn including a retroflexed examination of the proximal stomach; Findings and interventions are described below. Findings: Larynx:normal Esophagus: GE junction at 34 cm, diaphragm hiatus at 36 cm, 2 cm sliding hiatal hernia with schatzki ring, balloon dilation done at UES and LES to 20mm, no tears seen, bx taken from GEJ and distal esophagus Stomach: patchy erythema . Biopsies were obtained. Grade 2 flap valve on retroflexed examination of the cardia. Bile acid refluxate noted Duodenum: Normal bulb and descending duodenum, Intervention: Biopsies as noted above, balloon dilation Impression/Findings: gastritis, bile acid reflux schatzki ring and hiatal hernia PLAN: consider adding ursodiol with PPI, maybe change to welchol if that doesnt work GERD precautions
[2024-12-20 13:23] VITALS: BP 88/47; PULSE 84; RESP 18; TEMP 36.6; O2SAT 96
[2024-12-20 13:38] VITALS: BP 110/73; PULSE 78; RESP 18; TEMP 36.6; O2SAT 98
== END 2024-12-20 14:44 | disposition home or self-care (01) ==
PROVIDERS: PCP Internal Medicine; Visit Provider Internal Medicine Gastroenterology
PROC: (CPT 43249; principal; 2024-12-20 13:00)
DX: R13.10 Dysphagia, unspecified (principal); K22.2 Esophageal obstruction; K29.50 Unspecified chronic gastritis without bleeding; K31.A19 Gastric intestinal metaplasia without dysplasia, unspecified site; K21.9 Gastro-esophageal reflux disease without esophagitis; K44.9 Diaphragmatic hernia without obstruction or gangrene; K52.9 Noninfective gastroenteritis and colitis, unspecified; E78.2 Mixed hyperlipidemia; E03.9 Hypothyroidism, unspecified; E11.9 Type 2 diabetes mellitus without complications; J30.2 Other seasonal allergic rhinitis; F41.9 Anxiety disorder, unspecified; Z87.442 Personal history of urinary calculi; Z79.899 Other long term (current) drug therapy; Z88.2 Allergy status to sulfonamides; Z88.8 Allergy status to other drugs, medicaments and biological substances; Z88.1 Allergy status to other antibiotic agents; Z91.011 Allergy to milk products; Z91.013 Allergy to seafood; Z91.018 Allergy to other foods; Z90.49 Acquired absence of other specified parts of digestive tract; Z98.890 Other specified postprocedural states
CPT/HCPCS: 43249; 43239; 82947; 88305; 88313; 88342; C1726; J2003; J2704

== ENCOUNTER → 2024-12-20 10:01 | Outpatient (BNV) | payer OTHER, SELFPAY | PROVIDERS: PCP Internal Medicine; Visit Provider Internal Medicine Gastroenterology | DX: R13.10 Dysphagia, unspecified (principal); K44.0 Diaphragmatic hernia with obstruction, without gangrene; K29.70 Gastritis, unspecified, without bleeding | CPT/HCPCS: 43239; 43249 ==

== ENCOUNTER 2024-12-23 11:36 | Outpatient (REF) | payer OTHER, SELFPAY ==
[2024-12-29 10:04] LABS: Phosphatidylethanol 16:0-18:1 NEGATIVE; Phosphatidylethanol 16:0-18:2 NEGATIVE
== END 2024-12-23 11:37 | disposition home or self-care (01) ==
LOC: HO.LAB 11:36
PROVIDERS: PCP Internal Medicine; Visit Provider Internal Medicine Gastroenterology
DX: R79.89 Other specified abnormal findings of blood chemistry (principal)
CPT/HCPCS: 36415; 80321

== ENCOUNTER 2025-01-06 12:57 | Outpatient (AMB) | payer OTHER, SELFPAY ==
--- NOTE | 2025-01-06 13:16 | AM.OFFVISNUR ---
Intake Visit Reasons: H Pylori Allergies clindamycin Allergy (Intermediate, Verified 01/03/25 14:30) Rash crab Allergy (Intermediate, Verified 01/03/25 14:30) Itch seafood Allergy (Intermediate, Verified 01/03/25 14:30) Itch,Rash Sulfa (Sulfonamide Antibiotics) Allergy (Intermediate, Verified 01/03/25 14:30) headache milk Allergy (Verified 01/03/25 14:30) Unknown shrimp Allergy (Verified 01/03/25 14:30) Unknown wheat Allergy (Verified 01/03/25 14:30) Unknown budesonide Adverse Reaction (Severe, Verified 01/03/25 14:30) Nausea metformin Adverse Reaction (Intermediate, Verified 01/03/25 14:30) Abdominal Pain nitrofurantoin Allergy (Severe, Uncoded 01/03/25 14:30) Abdominal Pain ciprofloxacin Allergy (Intermediate, Uncoded 01/03/25 14:30) Abdominal Pain SEASONAL ALLERGIES Allergy (Mild, Uncoded 01/03/25 14:30) RUNNY NOSE/SNEEZING Nursing Note Patient presents for collection of H Pylori breath test. Patient has been fasting for 1 hour (nothing to eat, drink, no chewing gum or smoking) has not taken any antacid medication for at least 2 weeks and has no allergies to artificial sweeteners.?? Assessment & Plan Assessment & Plan (1) GERD (gastroesophageal reflux disease): Code(s): K21.9 - Gastro-esophageal reflux disease without esophagitis Category: Medical Qualifiers: Esophagitis presence: esophagitis presence not specified Qualified Code(s): K21.9 - Gastro-esophageal reflux disease without esophagitis Plan Patient presents for collection of H Pylori breath test. Patient has been fasting for 1 hour (nothing to eat, drink, no chewing gum or smoking) has not taken any antacid medication for at least 2 weeks and has no allergies to artificial sweeteners.???This test checks for an overgrowth of bacteria in your stomach. We all have bacteria but some may have more than others. It is treatable. if the test comes back negative there is nothing else to do. If the test result is positive we will treat you with 2 antibiotics and a medication to decrease the acid in your stomach (PPI) for 2 weeks. Two weeks after you have completed the treatment we will retest you to make sure the overgrowth has resolved. Orders: Orders H Pylori Breath Test Today Patient Instructions: Process for specimen collection and reason for testing was explained to the patient. Specimen collection. Patient instructed to take a deep breath and then exhale into the blue bag, filling it up as much as possible. Patient instructed to drink a mixture of water and the artificial sweetener with a straw. A 15 minute wait period was observed. Patient instructed to take a deep breath and then exhale into the pink bag, filling it up as much as possible Coding Level of Care Code Established Pt Est Pt Level 1 (36278) Patient Type Established Medical Decision Making Straight Forward Diagnoses Gastroesophageal reflux disease, unspecified whether esophagitis present K21.9 Esophagitis presence: esophagitis presence not specified
== END 2025-01-06 13:18 | disposition home or self-care (01) ==
LOC: HO.HGI 12:58
PROVIDERS: PCP Internal Medicine; Visit Provider Internal Medicine Gastroenterology
DX: K21.9 Gastro-esophageal reflux disease without esophagitis (principal)

== ENCOUNTER 2025-01-06 12:57 | Outpatient (REF) | payer OTHER, SELFPAY ==
[2025-01-07 11:14] LABS: H Pylori Breath Test Negative (Negative)
== END 2025-01-06 12:58 | disposition home or self-care (01) ==
LOC: HO.LNP 12:57
PROVIDERS: PCP Internal Medicine; Visit Provider Internal Medicine Gastroenterology
DX: K21.9 Gastro-esophageal reflux disease without esophagitis (principal)
CPT/HCPCS: 83013; 99211

== ENCOUNTER 2025-02-10 12:25 | Outpatient (REF) | payer OTHER, SELFPAY | END 2025-02-10 12:26 | disposition home or self-care (01) | LOC: HO.MAMMO 12:25 | PROVIDERS: PCP Internal Medicine; Visit Provider Internal Medicine | DX: Z12.31 Encounter for screening mammogram for malignant neoplasm of breast (principal) | CPT/HCPCS: 77063; 77067 ==

== ENCOUNTER → 2025-02-10 12:45 | Outpatient (BNV) | payer OTHER, SELFPAY | PROVIDERS: PCP Internal Medicine; Visit Provider Internal Medicine | DX: Z12.31 Encounter for screening mammogram for malignant neoplasm of breast (principal) | CPT/HCPCS: 77063; 77067 ==

== ENCOUNTER 2025-03-07 12:57 | Outpatient (AMB) | payer OTHER, SELFPAY ==
[2025-03-07 13:15] VITALS: BP 110/74; BMI 33.8
--- NOTE | 2025-03-07 13:15 | MHC.OFFVIS ---
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 Intake Note: here for spring coverer exam Team Facilitator Required: Yes Team Facilitator Language: Kiln Placer Name: Sania [id number] Information Interpreted: non-clinical & clinical Intermediate Manager: Intermediate Manager Present (francisca) Accompanied by: Self / Same As Patient Allergies clindamycin Allergy (Intermediate, Verified 03/07/25 13:49) Rash crab Allergy (Intermediate, Verified 03/07/25 13:49) Itch seafood Allergy (Intermediate, Verified 03/07/25 13:49) Itch,Rash Sulfa (Sulfonamide Antibiotics) Allergy (Intermediate, Verified 03/07/25 13:49) headache milk Allergy (Verified 03/07/25 13:49) Unknown shrimp Allergy (Verified 03/07/25 13:49) Unknown wheat Allergy (Verified 03/07/25 13:49) Unknown budesonide Adverse Reaction (Severe, Verified 03/07/25 13:49) Nausea metformin Adverse Reaction (Intermediate, Verified 03/07/25 13:49) Abdominal Pain nitrofurantoin Allergy (Severe, Uncoded 03/07/25 13:17) Abdominal Pain ciprofloxacin Allergy (Intermediate, Uncoded 03/07/25 13:17) Abdominal Pain SEASONAL ALLERGIES Allergy (Mild, Uncoded 03/07/25 13:17) RUNNY NOSE/SNEEZING Medication List - Last Reviewed 03/07/25 by KAMRON Dao atorvastatin 40 mg PO BEDTIME 90 days blood sugar diagnostic Use 1 test strip once a day blood sugar diagnostic (FreeStyle Lite Strips) Test 2 times daily blood-glucose meter (FreeStyle Lite Meter kit) As directed buspirone 5 mg PO TID cetirizine 10 mg PO DAILY PRN 90 days cholecalciferol (vitamin D3) 125 mcg PO DAILY 90 days clonazepam 0.5 mg PO Q OTHER DAY PRN dicyclomine 20 mg PO BID docusate sodium 100 mg PO DAILY PRN dulaglutide (Trulicity) 0.75 mg (0.5 mL) subcut QWEEK 90 days fenofibrate 54 mg PO DAILY 90 days fluconazole 150 mg PO Q3D 2 doses folic acid 1 mg PO DAILY gabapentin 300 mg PO DAILY glipizide 10 mg PO DAILY 90 days lancets (FreeStyle Lancets) TEST 2 TIMES DAILY lansoprazole 30 mg PO BID mesalamine 1 g (15 mL) MS BEDTIME mesalamine ER (Apriso) 0.375 grams PO QAM nortriptyline 10 mg PO BEDTIME ondansetron 4 mg PO BID pyridoxine (vitamin B6) 50 mg (1/2 x 100 mg) PO DAILY 90 days Shower Chair As directed simethicone (Gas Relief (simethicone)) 160 mg (2 x 80 mg) PO BID-TID PRN Synthroid (levothyroxine) 137 mcg PO DAILY 90 days NS syringe with needle As directed syringe with needle, safety (BD Safety-Nisha Detachable Needle) once a month ursodiol 500 mg PO BID zinc acetate (Galzin) 50 mg PO DAILY Patient : No Do you need a note to return to daycare/school/sports/work: No HPI Comments Details: Patient is a postmenopausal woman presenting for her annual spring coverer examination. Physician Practice Consultant concerns: pain in right lower pelvis, external itching-used a topical cream in the past to alleviate symptoms, occasional urine odor. Currently not sexually active. Attempting to eat a healthy diet, skips lunch, has calcium and vitamin D, and stays active with exercise. History of total hysterectomy due to fibroids. Last mammogram; 2024. Colonoscopy is UTD. FH ovarian or colon cancer. [facility] Medical History History of ovarian cyst Renal cyst Renal calculi Mild recurrent major depression Mixed hyperlipidemia COVID-19 vaccine administered B12 deficiency Polyarthralgia Osteoarthritis of right knee Dyslipidemia Anxiety and depression History of postoperative nausea and vomiting Hx of renal calculi Hx of gastritis GERD (gastroesophageal reflux disease) Hypothyroid Colon polyps Diabetes Surgical History History of tubal ligation Hx of lithotripsy History of esophagogastroduodenoscopy (EGD) Hx of colonoscopy H/O: hysterectomy H/O thyroidectomy History of cholecystectomy Family History Father Hx of heat stroke History of dementia Mother Hx of benign gastric tumor Family history of high blood pressure Hx of type 1 diabetes mellitus Colon cancer Maternal Uncle Pancreatic cancer Daughter Thyroid cancer Maternal Aunt Ovarian cancer Social History Household Members: None Housing: Apartment Are you a primary healthcare management consultant to a significant other at home: No Do you presently have visiting nurse or other home services: No Alcohol intake: never Patient Tobacco Use Status: Never used Tobacco e-Cigarette/Vaping Use: Never Used Second Hand Smoke Exposure: Yes service: No Current occupational status: disabled Sexual orientation: Straight/Heterosexual Gender identity: Female Cognitive needs: No Hearing needs: No Vision needs: No Female Reproductive History Menstrual Total pregnancies: 3 Number of Living Children: 4 Multiple births: 1 Date of last pap smear: 12/13/19 History of abnormal pap smear: No Date of Mammogram: 02/10/25 Review of Systems Const All systems reviewed & are unremarkable except as noted in HPI and below Reports as per HPI Eyes Reports no additional complaints ENT Reports no additional complaints Card Reports no additional complaints Resp Reports no additional complaints GI Reports as per HPI and Reports no additional complaints Reports as per HPI Musc Reports no additional complaints Skin/Breast Reports as per HPI Neuro Reports no additional complaints Psych Reports no additional complaints Endo Reports no additional complaints Osman/Lymph Reports no additional complaints Aller/Immun Reports no additional complaints Physical Exam Vital Signs: Last Vital Signs BP 110/74 03/07/25 13:15 BMI result Body Mass Index 33.8 Const General: cooperative, healthy appearing, no acute distress, well developed and alert Orientation/consciousness: patient oriented x3 HEENT Head: Yes normal to inspection Eyes General: appearance normal, both eyes and all related structures Neck Neck: Yes normal visual inspection Thyroid: Thyroid normal Chest Chest palpation & inspection: normal inspection of the chest and other (no puckering, dimpling, peau de orange, retraction, discharge, masses) Breast/axilla inspection: normal inspection of the breasts Breast/axilla palpation: normal palpation of the breasts Resp Effort & Inspection: normal respiratory effort GI Inspection: Yes normal to inspection and Yes scar Palpation (GI): Soft to palpation Rectal Exam - Female: deferred General: Yes bladder normal to palpation External Female Exam: normal external appearance and normal appearance of the urethra Speculum Exam - Vagina: normal appearance of the vagina, normal palpation, normal vaginal discharge and vagina atrophic Speculum Exam - Cervix: Cervix absent (Vaginal cuff no lesions or nodules) Bimanual exam- vagina & uterus: normal bimanual exam, normal palpation, bladder normal to palpation and uterus absent Bimanual Exam- Adnexa, other: no masses Skin General skin exam: no rashes or lesions noted Rashes: no rashes Neuro General: patient oriented x3 Cognition (Neuro): normal cognition Extrem General: Yes normal to inspection Psych Attitude: cooperative Thought process: Normal thought process present Results AMB Urinalysis, Automated UA Leukoctes 2 Karin/uL Last Edit by Dejah Lares [facility] on 03/07/25 14:38 UA Nitrite Negative Last Edit by Dejah Lares [facility] on 03/07/25 14:38 UA Urobilinogen 0.5 mg/dL Last Edit by Dejah Lares [facility] on 03/07/25 14:38 UA Protein 0 mg/dL Last Edit by Dejah Lares [facility] on 03/07/25 14:38 UA pH 6.0 Last Edit by Dejah Lares [facility] on 03/07/25 14:38 UA Blood 0.5 Davidson/uL Last Edit by Dejah Lares [facility] on 03/07/25 14:38 UA Specific [place] 1.020 Last Edit by Dejah Lares [facility] on 03/07/25 14:38 UA Ketone Negative Last Edit by Dejah Lares [facility] on 03/07/25 14:38 UA Bilirubin 1 mg/dL Last Edit by Dejah Lares [facility] on 03/07/25 14:38 UA Glucose 0 mg/dL Last Edit by Dejah Lares [facility] on 03/07/25 14:38 Results Reviewed Results Reviewed: Laboratory Last Values Urine pH (Auto) 6.0 03/07/25 14:20 Specific [place] (Auto) 1.020 03/07/25 14:20 Urine Protein (Auto) 0 mg/dL 03/07/25 14:20 Glucose (UA)(Auto) 0 mg/dL 03/07/25 14:20 Urine Ketones (Auto) Negative 03/07/25 14:20 Urine Blood (Auto) 0.5 [place]/uL 03/07/25 14:20 Urine Nitrite (Auto) Negative 03/07/25 14:20 Urine Bilirubin (Auto) 1 mg/dL 03/07/25 14:20 Urine Urobilinogen (Auto) 0.5 mg/dL 03/07/25 14:20 Leukocyte Esterase (Auto) 2 Karin/uL 03/07/25 14:20 Assessment & Plan Assessment & Plan (1) Encounter for annual routine gynecological examination: Code(s): Z01.419 - Encounter for gynecological examination (general) (routine) without abnormal findings Category: Medical Plan: Discussed: Current recommendations for pap smears per ASCCP guidelines. Breast awareness, periodic self breast exams and yearly mammogram. Maintain a healthy lifestyle, well balanced diet including Calcium 1,200 mg and Vitamin D 600 IU daily, and routine exercise. Patient verbalizes understanding and agrees to the plan of care. She was given opportunity to ask questions and all questions were answered to the best of my ability. RTO in 1 year for annual spring coverer exam. This note is constructed using voice recognition software. While every effort has been made to ensure accuracy, core piler errors may have been included. (2) Abnormal urine odor: Code(s): R82.90 - Unspecified abnormal findings in urine Plan: Urine clean-catch sent to lab for processing. Await results for final plan of care. (3) Vulvar itching: Code(s): L29.2 - Pruritus vulvae Plan Counseled regarding skin care and avoidances. Prescription sent in for topical corticosteroid antifungal treatment, await cultures for a final plan of care. Consider the use of topical estrogen for atrophic changes and help with prevention of urological symptoms. Advised to call for consult if she reconsiders use. The patient expressed understanding and agreement with the plan of care. All of her questions and concerns were addressed to the best of my ability. Total time I personally spent on visit and management today: ?15 minutes. Time spent included review of pertinent office notes in the electronic health record; review of laboratory and imaging results; review of personal family medical history; performing physical exam; discussing diagnosis and plan of care with the patient; documenting the encounter in the EMR. Orders: Orders Urine Culture Today R82.90 - Unspecified abnormal findings in urine AMB Urinalysis Automated Today R82.90 - Unspecified abnormal findings in urine Bacterial Vaginosis Panel Today N89.8 - Other specified noninflammatory disorders of vagina Medications: New clotrimazole-betamethasone 1-0.05 % apply externally a thin coat to the area 1 appl topical BID 45 grams 0RF itching 7 days Coding Level of Care Code Est Pt Level 2 (03734) Est Pt Prev Care 40-64y(71606) Diagnoses Encounter for annual routine gynecological examination Z01.419 Abnormal urine odor R82.90 Vulvar itching L29.2
== END 2025-03-07 14:36 | disposition home or self-care (01) ==
LOC: HO.HWS 12:57
PROVIDERS: PCP Internal Medicine; Visit Provider Advanced Practice Midwife
DX: Z01.419 Encounter for gynecological examination (general) (routine) without abnormal findings (principal); R82.90 Unspecified abnormal findings in urine; L29.2 Pruritus vulvae
CPT/HCPCS: 99212; 99396; 99459

== ENCOUNTER 2025-03-07 12:57 | Outpatient (REF) | payer OTHER, SELFPAY ==
[2025-03-07 21:23] LABS: Bacterial Vaginosis PCR POSITIVE (Negative); Candida Group PCR NOT DETECTED (Not Detect); Candida glab krusei PCR NOT DETECTED (Not Detect); Trichomonas vaginalis PCR NOT DETECTED (Not Detect)
== END 2025-03-07 12:58 | disposition home or self-care (01) ==
LOC: HO.LAB 12:57
PROVIDERS: PCP Internal Medicine; Visit Provider Advanced Practice Midwife
DX: Z01.419 Encounter for gynecological examination (general) (routine) without abnormal findings (principal); L29.2 Pruritus vulvae; N89.8 Other specified noninflammatory disorders of vagina; R82.90 Unspecified abnormal findings in urine; Z98.51 Tubal ligation status
CPT/HCPCS: 81003; 81515; 87086; 99212; 99396

== ENCOUNTER 2025-03-27 08:55 | Outpatient (REF) | payer OTHER, SELFPAY ==
[2025-03-27 10:03] LABS: Microalbum/Creatinine Ratio Ur 7.0 ug/mg cr (<30)
[2025-03-27 10:20] LABS: Alanine Aminotransferase 16 U/L (0-31); Albumin Level 4.5 g/dL (3.5-5.0); Alkaline Phosphatase 88 U/L (39-117); Anion Gap 13 (12-20); Aspartate Amino Transferase 25 U/L (5-31); Blood Urea Nitrogen 11 mg/dL (9-16); Calcium 9.1 mg/dL (8.4-10.2); Carbon Dioxide 26 mmol/L (22-29); Chloride 110 mmol/L (96-108); Cholesterol 144 mg/dL (<200); Estimated Glomerular Filt Rate > 60; HDL Cholesterol 40 mg/dL (>40); Potassium 3.8 mmol/L (3.3-5.1); Sodium 145 mmol/L (135-145); Total Protein 7.4 g/dL (6.5-8.0); Triglycerides 215 mg/dL (<150)
[2025-03-27 10:38] LABS: Thyroid Stimulating Hormone 1.15 uIU/mL (0.32-4.0)
== END 2025-03-27 08:56 | disposition home or self-care (01) ==
LOC: HO.LAB 08:55
PROVIDERS: PCP Internal Medicine; Visit Provider Internal Medicine
DX: E55.9 Vitamin D deficiency, unspecified (principal); E03.9 Hypothyroidism, unspecified; E78.5 Hyperlipidemia, unspecified; E11.40 Type 2 diabetes mellitus with diabetic neuropathy, unspecified; R80.9 Proteinuria, unspecified
CPT/HCPCS: 36415; 80053; 80061; 82043; 82306; 82570; 84443

== ENCOUNTER 2025-04-03 12:55 | Outpatient (AMB) | payer OTHER, SELFPAY ==
--- NOTE | 2025-04-03 13:33 | MHC.PC.OV ---
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 Accompanied by: Self / Same As Patient Allergies clindamycin Allergy (Intermediate, Verified 04/03/25 13:54) Rash crab Allergy (Intermediate, Verified 04/03/25 13:54) Itch seafood Allergy (Intermediate, Verified 04/03/25 13:54) Itch,Rash Sulfa (Sulfonamide Antibiotics) Allergy (Intermediate, Verified 04/03/25 13:54) headache milk Allergy (Verified 04/03/25 13:54) Unknown shrimp Allergy (Verified 04/03/25 13:54) Unknown wheat Allergy (Verified 04/03/25 13:54) Unknown budesonide Adverse Reaction (Severe, Verified 04/03/25 13:54) Nausea metformin Adverse Reaction (Intermediate, Verified 04/03/25 13:54) Abdominal Pain nitrofurantoin Allergy (Severe, Uncoded 04/03/25 13:54) Abdominal Pain ciprofloxacin Allergy (Intermediate, Uncoded 04/03/25 13:54) Abdominal Pain SEASONAL ALLERGIES Allergy (Mild, Uncoded 04/03/25 13:54) RUNNY NOSE/SNEEZING Medication List - Last Reconciled 04/03/25 by Karyna Murphy MD atorvastatin 40 mg PO BEDTIME 90 days blood sugar diagnostic Use 1 test strip once a day blood sugar diagnostic (FreeStyle Lite Strips) Test 2 times daily blood-glucose meter (FreeStyle Lite Meter kit) As directed buspirone 5 mg PO TID cetirizine 10 mg PO DAILY PRN 90 days cholecalciferol (vitamin D3) 125 mcg PO DAILY 90 days clonazepam 0.5 mg PO Q OTHER DAY PRN clotrimazole-betamethasone 1-0.05 % 1 appl topical BID 7 days dicyclomine 20 mg PO BID docusate sodium 100 mg PO DAILY PRN dulaglutide (Trulicity) 0.75 mg (0.5 mL) subcut QWEEK 90 days fenofibrate 54 mg PO DAILY 90 days fluconazole 150 mg PO Q3D 2 doses folic acid 1 mg PO DAILY gabapentin 300 mg PO DAILY glipizide 10 mg PO DAILY 90 days lancets (FreeStyle Lancets) TEST 2 TIMES DAILY lansoprazole 30 mg PO BID nortriptyline 10 mg PO BEDTIME ondansetron 4 mg PO BID pyridoxine (vitamin B6) 50 mg (1/2 x 100 mg) PO DAILY 90 days Shower Chair As directed simethicone (Gas Relief (simethicone)) 160 mg (2 x 80 mg) PO BID-TID PRN Synthroid (levothyroxine) 137 mcg PO DAILY 90 days NS syringe with needle As directed syringe with needle, safety (BD Safety-Nisha Detachable Needle) once a month ursodiol 500 mg PO BID zinc acetate (Galzin) 50 mg PO DAILY Tobacco use date assessed: 04/03/25 Dental Screening Dental Screen Date: 04/03/25 Did you have a dental visit in the last 12 months?: Yes Did you have a dental problem in the last 6 months where you did not have access to dental care?: No Was dental information given to patient?: Patient has dentist HPI HPI Comments History of Present Illness Details The patient is a 59-year-old female presenting for follow-up on diabetes management and other chronic conditions. The patient's diabetes mellitus is currently well-controlled with an A1c of 6.2%, which is below the target of 7%. She is currently taking metformin and glipizide for diabetes management, and Trulicity was recently discontinued and replaced with Januvia. The patient also has a history of hypertension, which is well-controlled with a blood pressure reading of 110/76 mmHg, below the target of 130/80 mmHg. Hyperlipidemia is being managed with atorvastatin, and her LDL cholesterol is at 61 mg/dL, which is below the target of 70 mg/dL. The patient has a vitamin D deficiency with a level of 26.9 ng/mL, slightly below the normal range of 30 ng/mL. She has multiple allergies, including clindamycin, crab, seafood, sulfa, milk, shrimp, and wheat. [facility] Medical History History of ovarian cyst Renal cyst Renal calculi Mild recurrent major depression Mixed hyperlipidemia COVID-19 vaccine administered B12 deficiency Polyarthralgia Osteoarthritis of right knee Dyslipidemia Anxiety and depression History of postoperative nausea and vomiting Hx of renal calculi Hx of gastritis GERD (gastroesophageal reflux disease) Hypothyroid Colon polyps Diabetes Surgical History History of tubal ligation Hx of lithotripsy History of esophagogastroduodenoscopy (EGD) Hx of colonoscopy H/O: hysterectomy H/O thyroidectomy History of cholecystectomy Family History Father Hx of heat stroke History of dementia Mother Hx of benign gastric tumor Family history of high blood pressure Hx of type 1 diabetes mellitus Colon cancer Maternal Uncle Pancreatic cancer Daughter Thyroid cancer Maternal Aunt Ovarian cancer Social History Household Members: None Housing: Apartment Are you a primary care technician to a significant other at home: No Do you presently have visiting nurse or other home services: No Alcohol intake: never Patient Tobacco Use Status: Never used Tobacco e-Cigarette/Vaping Use: Never Used Second Hand Smoke Exposure: Yes service: No Current occupational status: disabled Sexual orientation: Straight/Heterosexual Gender identity: Female Cognitive needs: No Hearing needs: No Vision needs: No Questionnaire Thrive Questionnaire Date Thrive assessed: 11/07/24 I am a: Patient What is your living situation today?: I have a steady place to live Within the past 12 months, did the food you bought not last and you didn't have the money to get more?: I choose not to answer this question Within the past 12 months, did you worry whether your food would run out before you got money to buy more?: I choose not to answer this question Do you have trouble paying for medicines?: No Do you have trouble getting transportation to medical appointments?: No Do you have trouble paying your heating and electricity bill?: No Do you have trouble taking care of your child, family member or friend?: No Do you have trouble with day-to-day activities such as bathing, preparing meals, shopping, managing finances, etc.?: No Are you currently unemployed and looking for a job?: Yes Are you interested in more education?: No Please select the resources that you would like help with: None Currently or been in a relationship where the following occur: No concerns reported THRIVE Score: 0 JUDY-7 AMB Questionnaire JUDY-7 Date JUDY - 7 assessed: 07/26/24 Source: Developed by Drs. Tom Crawford, Olivia Tesfaye, Jay Jay Stover and colleagues, with an educational reddy from [employer]. Review of Systems Const All systems reviewed & are unremarkable except as noted in HPI and below Card Denies chest pain at rest, Denies chest pain with activity, Denies edema, Denies irregular heart rhythm, Denies claudication, Denies dyspnea, Denies dyspnea on exertion, Denies orthopnea, Denies paroxysmal nocturnal dyspnea and Denies slow heart rate Resp Denies cough, Denies dyspnea and Denies dyspnea on exertion GI Denies abdominal pain, Denies change in bowel habits, Denies excessive flatus, Denies nausea and Denies vomiting Physical exam (Primary Care) Vital Signs: Last Vital Signs Temp 97.3 F 04/03/25 13:34 Pulse 79 04/03/25 13:34 Resp 18 04/03/25 13:34 BP 110/76 04/03/25 13:34 Pulse Ox 95 04/03/25 13:34 Oxygen Delivery Method Room Air 04/03/25 13:34 BMI result Body Mass Index 33.7 BMI Assessment/Plan discussion: High BMI High, discussed plan: lifestyle, weight reduction, dietary and physical activity Tobacco/Smoking Status: Tobacco use Status Tobacco use date assessed 04/03/25 04/03/25 13:44 Patient Tobacco Use Status Never used Tobacco 04/03/25 13:44 e-Cigarette/Vaping Use Never Used 04/03/25 13:44 Thrive Assessment: Date of Thrive Assessment Date Thrive assessed 11/07/24 04/03/25 13:44 Currently or been in a relationship where the following occur: No concerns reported Resp Effort & Inspection: normal respiratory effort Auscultation: clear to auscultation bilaterally Cardio Jugular venous distension: no JVD Rate: regular rate Rhythm: regular rhythm Heart sounds: S1 normal heart sound present and S2 normal heart sound present Extrem General: Yes full ROM Coding Level of Care Code Est Pt Level 4 (44541) Complex EM visit Add On G2211 Diagnoses Mild recurrent major depression F33.0 Mixed hyperlipidemia E78.2 Type 2 diabetes mellitus without complication, without long-term current use of insulin E11.9 Diabetes mellitus type: type 2 Diabetes mellitus senior living insulin use: without press tender long goods use Diabetes mellitus complication status: without complication Acquired hypothyroidism E03.9 Hypothyroidism type: acquired Gastroesophageal reflux disease, unspecified whether esophagitis present K21.9 Esophagitis presence: esophagitis presence not specified Time Spent (min) 22 Assessment & Plan Assessment & Plan (1) Mild recurrent major depression: Code(s): F33.0 - Major depressive disorder, recurrent, mild Category: Medical (2) Mixed hyperlipidemia: Code(s): E78.2 - Mixed hyperlipidemia Category: Medical (3) Diabetes: Comment: NIDDM Code(s): E11.9 - Type 2 diabetes mellitus without complications Category: Medical Qualifiers: Diabetes mellitus type: type 2 Diabetes mellitus press tender long goods insulin use: without senior living use Diabetes mellitus complication status: without complication Qualified Code(s): E11.9 - Type 2 diabetes mellitus without complications (4) Hypothyroid: Code(s): E03.9 - Hypothyroidism, unspecified Category: Medical Qualifiers: Hypothyroidism type: acquired Qualified Code(s): E03.9 - Hypothyroidism, unspecified (5) GERD (gastroesophageal reflux disease): Code(s): K21.9 - Gastro-esophageal reflux disease without esophagitis Category: Medical Qualifiers: Esophagitis presence: esophagitis presence not specified Qualified Code(s): K21.9 - Gastro-esophageal reflux disease without esophagitis Plan Plan Patient was informed and verbally consented to the use of an ambient scribe for clinic note documentation during this visit. 1. Type 2 diabetes mellitus without complications E11.9 HCC 19 The patient's diabetes mellitus is well-controlled with an A1c of 6.2%. Trulicity was discontinued and replaced with Januvia to maintain glycemic control. 2. Essential (primary) hypertension I10 Hypertension is well-managed with a current blood pressure of 110/76 mmHg. 3. Hyperlipidemia, unspecified E78.5 Hyperlipidemia is managed with atorvastatin, achieving an LDL cholesterol level of 61 mg/dL. 4. Vitamin D deficiency, unspecified E55.9 The patient has a vitamin D deficiency with a level of 26.9 ng/mL, slightly below the normal range. Orders: Orders Lipid Panel 4 Months E78.5 - Hyperlipidemia, unspecified Vitamin D 25-OH Total 4 Months E55.9 - Vitamin D deficiency, unspecified AMB Hemoglobin A1c Today E11.9 - Type 2 diabetes mellitus without complications, Z13.9 - Encounter for screening, unspecified Microalbumin, Random (w Creat) 4 Months R80.9 - Proteinuria, unspecified Vitamin B12 and Folate 4 Months E53.8 - Deficiency of other specified B group vitamins Comprehensive [place]. Panel Fast 4 Months E11.9 - Type 2 diabetes mellitus without complications Thyroid Stimulating Hormone 4 Months E03.9 - Hypothyroidism, unspecified Medications: New sitagliptin phosphate (Januvia) 25 mg PO DAILY 90 tabs 1RF 90 days Discontinued zinc acetate (Galzin) Discontinued Reason: Patient Completed Course 50 mg PO DAILY 90 caps 1RF fenofibrate Discontinued Reason: Patient Completed Course 54 mg PO DAILY 90 days 90 tabs 2RF dulaglutide (Trulicity) Discontinued Reason: Patient Completed Course 0.75 mg (0.5 mL) subcut QWEEK 90 days 6.5 mL 1RF
[2025-04-03 13:34] VITALS: BP 110/76; PULSE 79; RESP 18; TEMP 36.3; O2SAT 95; BMI 33.7
== END 2025-04-03 14:09 | disposition home or self-care (01) ==
LOC: HO.HMCH 12:56
PROVIDERS: PCP Internal Medicine; Visit Provider Internal Medicine
DX: F33.0 Major depressive disorder, recurrent, mild (principal); E78.2 Mixed hyperlipidemia; E11.9 Type 2 diabetes mellitus without complications; E03.9 Hypothyroidism, unspecified; K21.9 Gastro-esophageal reflux disease without esophagitis

== ENCOUNTER → 2025-04-03 12:55 | Outpatient (BNVA) | payer OTHER, SELFPAY | PROVIDERS: PCP Internal Medicine; Visit Provider Internal Medicine | DX: E11.9 Type 2 diabetes mellitus without complications (principal); I10 Essential (primary) hypertension; E55.9 Vitamin D deficiency, unspecified; F33.0 Major depressive disorder, recurrent, mild; E78.2 Mixed hyperlipidemia; E03.9 Hypothyroidism, unspecified; K21.9 Gastro-esophageal reflux disease without esophagitis; R80.9 Proteinuria, unspecified; Z79.899 Other long term (current) drug therapy | CPT/HCPCS: 99212 ==

== ENCOUNTER 2025-04-26 12:54 | Outpatient (REF) | payer OTHER, SELFPAY ==
--- NOTE | ~2025-04-26 | US_ITS ---
EXAMINATION: US RETROPERITONEAL LIMITED (RENAL ONLY) CLINICAL INFORMATION: Renal stone. COMPARISON: Previous renal and bladder ultrasound exams most recent October [address] enterography of the abdomen and pelvis May 2024 TECHNIQUE: Real-time imaging of the kidneys. FINDINGS: RIGHT KIDNEY: 10 x 4.7 x 5.4 cm (SAG x AP x TRV). Limited visualization due to bowel gas. The kidney is normal in size, contour, and echogenicity. Renal cortical thickness is normal. Small 7 x 9 x 7 mm peripelvic cyst in the mid to lower pole. No calculi. No hydronephrosis. LEFT KIDNEY: 11 x 5 x 4.5 cm (SAG x AP x TRV). The kidney is normal in size, contour, and echogenicity. Renal cortical thickness is normal. Two stones in the lower pole measuring 7 x 4 x 6 mm and 8 x 5 x 6 mm. No focal parenchymal lesions. No hydronephrosis. US/US renal BI IMPRESSION: Right: Limited visualization due to bowel gas. Small subcentimeter cyst. No stone appreciated. Left: Two stones in the lower pole of the left kidney measuring up to 7 to 8 mm. Electronically signed by: Chantel Mathur MD 04/26/2025 01:29 PM EDT
== END 2025-04-26 12:55 | disposition home or self-care (01) ==
LOC: HO.US 12:54
PROVIDERS: PCP Internal Medicine; Visit Provider Nurse Practitioner Family
DX: N20.0 Calculus of kidney (principal)
CPT/HCPCS: 76775

== ENCOUNTER → 2025-04-26 12:56 | Outpatient (BNV) | payer OTHER, SELFPAY | PROVIDERS: PCP Internal Medicine; Visit Provider Radiology Diagnostic Radiology | DX: N20.0 Calculus of kidney (principal) | CPT/HCPCS: 76775 ==

== ENCOUNTER 2025-05-08 13:54 | Outpatient (AMB) | payer OTHER, SELFPAY ==
--- NOTE | 2025-05-08 14:18 | AM.OFFVISNUR ---
Intake Visit Reasons: Flu shot Allergies clindamycin Allergy (Intermediate, Verified 04/03/25 13:54) Rash crab Allergy (Intermediate, Verified 04/03/25 13:54) Itch seafood Allergy (Intermediate, Verified 04/03/25 13:54) Itch,Rash Sulfa (Sulfonamide Antibiotics) Allergy (Intermediate, Verified 04/03/25 13:54) headache milk Allergy (Verified 04/03/25 13:54) Unknown shrimp Allergy (Verified 04/03/25 13:54) Unknown wheat Allergy (Verified 04/03/25 13:54) Unknown budesonide Adverse Reaction (Severe, Verified 04/03/25 13:54) Nausea metformin Adverse Reaction (Intermediate, Verified 04/03/25 13:54) Abdominal Pain nitrofurantoin Allergy (Severe, Uncoded 04/03/25 13:54) Abdominal Pain ciprofloxacin Allergy (Intermediate, Uncoded 04/03/25 13:54) Abdominal Pain SEASONAL ALLERGIES Allergy (Mild, Uncoded 04/03/25 13:54) RUNNY NOSE/SNEEZING Immunizations pneumoc 20-kaitlynn conj-dip cr(PF) 0.5 mL IM syringe Performing Provider: Karyna Murphy MD [facility] Administered by: Danelle Melchor LPN on 05/08/25 14:18 Dose Route Admin Location Dispensed Lot Number Expiration Date [facility] [employer] 0.5 mL IM Left Deltoid 0.5 mL [id number] 05/12/26 9884-3254-37 [employer] Total Dispensed Waste 0.5 mL 0 % VIS Given Date VIS Provided VIS Publication Date 05/08/25 Single Vaccine 24 Eligibility Eligibility Date Funding Source Not [facility] Eligible 05/08/25 Private Assessment & Plan Assessment & Plan Orders: Orders Pneumococcal 20 Immunization Today Z23 - Encounter for immunization Coding
== END 2025-05-08 14:18 | disposition home or self-care (01) ==
LOC: HO.HMCH 13:55
PROVIDERS: PCP Internal Medicine; Visit Provider Internal Medicine
DX: Z23 Encounter for immunization (principal)

== ENCOUNTER → 2025-05-08 13:54 | Outpatient (BNVA) | payer OTHER, SELFPAY | PROVIDERS: PCP Internal Medicine; Visit Provider Internal Medicine | DX: Z23 Encounter for immunization (principal) | CPT/HCPCS: 90471; 90677 ==

== ENCOUNTER 2025-05-09 12:54 | Outpatient (AMB) | payer OTHER, SELFPAY ==
--- NOTE | 2025-05-09 13:04 | A.OFFVIS_ITS ---
Intake Visit Reasons: 6m/US Intake Note: Patient presents today for: 6m/US Urology Medications: Vitamin B6 Blood Thinner: None Nitroglycerin Nitrator Operator Batch Required: Yes Nitroglycerin Nitrator Operator Batch Services: Nitroglycerin Nitrator Operator Batch Present Nitroglycerin Nitrator Operator Batch Name: Mercy Booker Accompanied by: Self / Same As Patient Allergies clindamycin Allergy (Intermediate, Verified 05/09/25 14:02) Rash crab Allergy (Intermediate, Verified 05/09/25 14:02) Itch seafood Allergy (Intermediate, Verified 05/09/25 14:02) Itch,Rash Sulfa (Sulfonamide Antibiotics) Allergy (Intermediate, Verified 05/09/25 14:02) headache milk Allergy (Verified 05/09/25 14:02) Unknown shrimp Allergy (Verified 05/09/25 14:02) Unknown wheat Allergy (Verified 05/09/25 14:02) Unknown budesonide Adverse Reaction (Severe, Verified 05/09/25 14:02) Nausea metformin Adverse Reaction (Intermediate, Verified 05/09/25 14:02) Abdominal Pain nitrofurantoin Allergy (Severe, Uncoded 05/09/25 14:02) Abdominal Pain ciprofloxacin Allergy (Intermediate, Uncoded 05/09/25 14:02) Abdominal Pain SEASONAL ALLERGIES Allergy (Mild, Uncoded 05/09/25 14:02) RUNNY NOSE/SNEEZING Medication List - Last Reconciled 05/09/25 by ADEEL Cohn atorvastatin 40 mg PO BEDTIME 90 days blood sugar diagnostic Use 1 test strip once a day blood sugar diagnostic (FreeStyle Lite Strips) Test 2 times daily blood-glucose meter (FreeStyle Lite Meter kit) As directed buspirone 5 mg PO TID cetirizine 10 mg PO DAILY PRN 90 days cholecalciferol (vitamin D3) 125 mcg PO DAILY 90 days clonazepam 0.5 mg PO Q OTHER DAY PRN clotrimazole-betamethasone 1-0.05 % 1 appl topical BID 7 days dicyclomine 20 mg PO BID docusate sodium 100 mg PO DAILY PRN fluconazole 150 mg PO Q3D 2 doses folic acid 1 mg PO DAILY gabapentin 300 mg PO DAILY glipizide 10 mg PO DAILY 90 days lancets (FreeStyle Lancets) TEST 2 TIMES DAILY lansoprazole 30 mg PO BID nortriptyline 10 mg PO BEDTIME ondansetron 4 mg PO BID pyridoxine (vitamin B6) 50 mg (1/2 x 100 mg) PO DAILY 90 days Shower Chair As directed simethicone (Gas Relief (simethicone)) 160 mg (2 x 80 mg) PO BID-TID PRN sitagliptin phosphate (Januvia) 25 mg PO DAILY 90 days Synthroid (levothyroxine) 137 mcg PO DAILY 90 days NS syringe with needle As directed syringe with needle, safety (BD Safety-Nisha Detachable Needle) once a month ursodiol 500 mg PO BID HPI Comments Details: Kamille is a 59-year-old Bulgarian-speaking female of Dr. Mora. She has a past medical history of anxiety, depression, vitamin B12 deficiency, hyperlipidemia, polyarthralgia, diabetes, GERD, dyslipidemia, osteoarthritis, renal calculi, and renal cysts. She presents to the office today for follow-up of her renal calculi and renal cysts. In discussion with the patient today she denies having had any bothersome urinary issues or concerns since her last office visit here. Recent renal imaging results reviewed with the patient today. 05/06 right kidney small subcentimeter cyst. No right renal stones. Left kidney with 2 stones in the lower pole of the left kidney measuring up to 7-8mm. Previous workup has also included a 24 hour urine collection that noted low urine volume of 1.4 L. labs are as follows: 04/05 sodium 144, potassium 4.5, chloride 109, BUN 11, creatinine 0.88, uric acid 5.8, calcium 10.1, phosphorus 3.9, and magnesium 2.1 She currently denies any bothersome urinary issues or concerns. We did discuss surveillance monitoring verses obtaining CT KUB for further assessment evaluation. Risks and benefits of these interventions were discussed. She denies urinary urgency, urinary frequency, incontinence, nocturia, hematuria, foul smelling urine, changes to urinary stream, flank pain, fever, and or chills. She is happy with her current voiding parameters. She reports to be drinking plenty of water daily and adding 1 oz of lemon juice to water daily. She reports compliance vitamin B6 as prescribed. In office urinalysis results reviewed with the patient today. She otherwise offers no issues or concerns at this time. [facility] Medical History History of ovarian cyst Renal cyst Renal calculi Mild recurrent major depression Mixed hyperlipidemia COVID-19 vaccine administered B12 deficiency Polyarthralgia Osteoarthritis of right knee Dyslipidemia Anxiety and depression History of postoperative nausea and vomiting Hx of renal calculi Hx of gastritis GERD (gastroesophageal reflux disease) Hypothyroid Colon polyps Diabetes Surgical History History of tubal ligation Hx of lithotripsy History of esophagogastroduodenoscopy (EGD) Hx of colonoscopy H/O: hysterectomy H/O thyroidectomy History of cholecystectomy Family History Father Hx of heat stroke History of dementia Mother Hx of benign gastric tumor Family history of high blood pressure Hx of type 1 diabetes mellitus Colon cancer Maternal Uncle Pancreatic cancer Daughter Thyroid cancer Maternal Aunt Ovarian cancer Social History Household Members: None Housing: Apartment Are you a primary caregiver assisted living to a significant other at home: No Do you presently have visiting nurse or other home services: No Alcohol intake: never Patient Tobacco Use Status: Never used Tobacco e-Cigarette/Vaping Use: Never Used Second Hand Smoke Exposure: Yes service: No Current occupational status: disabled Sexual orientation: Straight/Heterosexual Gender identity: Female Cognitive needs: No Hearing needs: No Vision needs: No Review of Systems Const Reports as per HPI Eyes Reports no additional complaints ENT Reports no additional complaints Card Reports as per HPI Resp Reports no additional complaints GI Reports as per HPI Reports as per HPI Musc Reports no additional complaints Neuro Reports no additional complaints Psych Reports as per HPI Endo Reports as per HPI Osman/Lymph Reports no additional complaints Aller/Immun Reports no additional complaints Physical Exam Const General: cooperative, healthy appearing, comfortable, no acute distress, well developed, alert and awake Nutritional Appearance: overweight Orientation/consciousness: patient oriented x3 Limitations: no limitations HEENT Head: Yes normal to inspection, Yes normocephalic and Yes atraumatic Ears: hearing grossly normal bilaterally Eyes General: appearance normal, both eyes and all related structures Neck Neck: Yes normal visual inspection and Yes trachea midline Chest Chest palpation & inspection: normal inspection of the chest Resp Effort & Inspection: able to speak in complete sentences Cardio Rate: regular rate GI Inspection: Yes normal to inspection General: Yes no CVA tenderness Back/Spine/Pelvis Back: no CVA tenderness Skin General skin exam: no rashes or lesions noted Neuro General: patient oriented x3 Extrem General: Yes normal to inspection Psych Appearance: grossly normal and well kempt Mental Status: mental status grossly normal Speech and movement: Normal speech and movement present and Clear speech present Affect: normal affect Attitude: cooperative Thought process: Normal thought process present Thought content: Normal thought content present Insight: Fair insight present (Psych) Judgement: Fair judgement present (Psych) Results AMB Urinalysis, Automated UA Leukoctes 70 Karin/uL Last Edit by ROSS Day on 05/09/25 13:23 UA Nitrite Last Edit by ROSS Day on 05/09/25 13:23 UA Urobilinogen 0.2 mg/dL Last Edit by ROSS Day on 05/09/25 13:2 3 UA Protein 15 mg/dL Last Edit by ROSS Day on 05/09/25 13:23 UA pH 5.5 Last Edit by ROSS Day on 05/09/25 13:23 UA Blood 10 Davidson/uL Last Edit by ROSS Day on 05/09/25 13:23 UA Specific [place] 1.025 Last Edit by ROSS Day on 05/09/25 13: 23 UA Ketone Last Edit by ROSS Day on 05/09/25 13:23 UA Bilirubin 1 mg/dL Last Edit by ROSS Day on 05/09/25 13:23 UA Glucose 0 mg/dL Last Edit by ROSS Day on 05/09/25 13:23 Results Reviewed Results Reviewed: Laboratory Last Values Urine pH (Auto) 5.5 05/09/25 13:22 Specific [place] (Auto) 1.025 05/09/25 13:22 Urine Protein (Auto) 15 mg/dL 05/09/25 13:22 Glucose (UA)(Auto) 0 mg/dL 05/09/25 13:22 Urine Blood (Auto) 10 Davidson/uL 05/09/25 13:22 Urine Bilirubin (Auto) 1 mg/dL 05/09/25 13:22 Urine Urobilinogen (Auto) 0.2 mg/dL 05/09/25 13:22 Leukocyte Esterase (Auto) 70 Karin/uL 05/09/25 13:22 Date of Service: 04/26/25 Procedure(s): US renal BI FINDINGS: RIGHT KIDNEY: 10 x 4.7 x 5.4 cm (SAG x AP x TRV). Limited visualization due to bowel gas. The kidney is normal in size, contour, and echogenicity. Renal cortical thickness is normal. Small 7 x 9 x 7 mm peripelvic cyst in the mid to lower pole. No calculi. No hydronephrosis. LEFT KIDNEY: 11 x 5 x 4.5 cm (SAG x AP x TRV). The kidney is normal in size, contour, and echogenicity. Renal cortical thickness is normal. Two stones in the lower pole measuring 7 x 4 x 6 mm and 8 x 5 x 6 mm. No focal parenchymal lesions. No hydronephrosis. IMPRESSION: Right: Limited visualization due to bowel gas. Small subcentimeter cyst. No stone appreciated. Left: Two stones in the lower pole of the left kidney measuring up to 7 to 8 mm. Assessment & Plan Assessment & Plan (1) Nephrolithiasis: Code(s): N20.0 - Calculus of kidney Category: Medical (2) Renal calculi: Code(s): N20.0 - Calculus of kidney Category: Medical (3) Renal cyst: Code(s): N28.1 - Cyst of kidney, acquired Category: Medical Plan In office urinalysis results reviewed the patient today; as noted above. Recent renal imaging results reviewed with the patient today; as noted above. We did discussed further interventions to include surveillance monitoring verses further assessment evaluation with CT KUB; risks and benefits of these interventions were discussed. We discuss importance of adequate hydration relation to nephrolithiasis as well as overall health and well-being. Continue adding 1 oz of lemon juice to water daily. Continue vitamin B6. She denies any bothersome urinary issues. She reports be happy with current voiding parameters. Will obtain CT KUB for further assessment evaluation. Follow-up in 1-3 months with imaging to be completed prior; or sooner with any issues, concerns, and or questions. Orders: Orders AMB Urinalysis Automated Today Z13.9 - Encounter for screening, unspecified CT kidney stone Today N20.0 - Calculus of kidney, N28.1 - Cyst of kidney, acquired Patient Instructions: The patient had an opportunity to ask questions regarding the treatment plan. All questions were answered. Physical exam, labs, and imaging were discussed and reviewed in detail. As well as risks, benefits, and discussion of treatment choices. No major barriers to understanding were identified. The patient expressed understanding and agreement with the above treatment plan. The patient was made aware they should contact our office by phone for worsening of their current condition, the appearance of new symptoms, or with any questions or concerns. Compliance is encouraged with any medications and follow up testing that is ordered. It is a privilege to be allowed the opportunity to participate in? your urological care.? Again, if you have any questions or concerns If you have any questions or concerns please do not hesitate to contact me. The office is [phone]. This note is constructed using voice recognition software. While every effort has been made to ensure accuracy cold food packer errors may have been included. Yours sincerely, ADEEL Cohn Coding Level of Care Code Est Pt Level 4 (08118) Diagnoses Nephrolithiasis N20.0 Renal cyst N28.1 Time Spent (min) 40
== END 2025-05-09 14:04 | disposition home or self-care (01) ==
LOC: HO.HUSH 12:55
PROVIDERS: PCP Internal Medicine; Visit Provider Nurse Practitioner Family
DX: N20.0 Calculus of kidney (principal); N28.1 Cyst of kidney, acquired; Z13.9 Encounter for screening, unspecified
CPT/HCPCS: 99214

== ENCOUNTER → 2025-05-09 12:54 | Outpatient (BNVA) | payer OTHER, SELFPAY | PROVIDERS: PCP Internal Medicine; Visit Provider Nurse Practitioner Family | DX: N20.0 Calculus of kidney (principal); N28.1 Cyst of kidney, acquired | CPT/HCPCS: 81003; 99212 ==

== ENCOUNTER 2025-05-15 10:56 | Outpatient (AMB) | payer OTHER, SELFPAY ==
--- NOTE | 2025-05-15 11:09 | A.OFFVIS_ITS ---
Vital Signs 05/15/25 11:14 Height 5 ft 2 in Weight 185 lb 3.013 oz BMI 33.9 BP 123/72 Blood Pressure Location Lt brachial Position Sitting Pulse 75 Intake Visit Reasons: f/u dusphagia Intake Note: Kamille presents in the office as a f/u for dysphagia. CC: She states that she stopped taking one medication due to the side effects -- it was the Ursodiol medication that was given after her last EGD. University Archivist Required: Yes University Archivist Name: Nina [id number] Allergies clindamycin Allergy (Intermediate, Verified 05/15/25 11:15) Rash crab Allergy (Intermediate, Verified 05/15/25 11:15) Itch seafood Allergy (Intermediate, Verified 05/15/25 11:15) Itch,Rash Sulfa (Sulfonamide Antibiotics) Allergy (Intermediate, Verified 05/15/25 11:15) headache milk Allergy (Verified 05/15/25 11:15) Unknown shrimp Allergy (Verified 05/15/25 11:15) Unknown wheat Allergy (Verified 05/15/25 11:15) Unknown budesonide Adverse Reaction (Severe, Verified 05/15/25 11:15) Nausea metformin Adverse Reaction (Intermediate, Verified 05/15/25 11:15) Abdominal Pain nitrofurantoin Allergy (Severe, Uncoded 05/15/25 11:15) Abdominal Pain ciprofloxacin Allergy (Intermediate, Uncoded 05/15/25 11:15) Abdominal Pain SEASONAL ALLERGIES Allergy (Mild, Uncoded 05/15/25 11:15) RUNNY NOSE/SNEEZING HPI HPI f/u dusphagia: Details: 59 yr old f here for f/u RECAP: She had noted more constipation, new for her she wants to go, but she can't pass any stool, sometimes 2 d before passes stool takes laxatives to help denies blood in stool but had pos stool FOB 10/2018 going on for 2 months before that she was going every other day to toilet, but no tenesmus l christina sensation she also has epigastric pain and discomfort, worse wt food she takes advil occasionally, meloxicam on chart but takes occasionally she has nausea, and some reflux sx she is on omeprazole 40 mg once daily seh also has pernicious anemia, on b12 shots she had EGD 08/12/2017- severe gastritis noted colonoscopy done 5 yrs ago and one polyp removed FH of crc in mother aged 72 cbc 02/2019 meditech was normal, hgb 12.6. She had EGD/colonoscopy:04/2019-- chronic gastritis, and chronic GEJ junction, severe diverticulosis, mycosis, ADENOMATOUS polyps prep was fair H pylori breath test done and was negative advised on high fiber diet she still had epigastric pain and discomfort at f/u, she was stressed due to daughter with thyroid cancer and mum with stomach tumour she endorsed anxiety she was changed from omeprazole to pantoprazole and given low dose TCA she had been taking the pantoprazole and it was helping a lot she was given flagly in case of SIBO and pelvic us was ordered (CT then ordered by PCP-as below) she feels nortriptiline didn;t help her she did feel lansoprazole has been helping a lot Srivastava with out any significant reflux REPT COLONOSCOPY 2019-- redundant colon, tubular adenoma and hyperplastic polyps pelvic us 07/2020--nml CT A/P- 08/2020--renal stones, diverticuli, incl duodenum, fatty liver GES 11/2020--rapid gastric emptying, 1 hr 26% left and 2 hr 2% left RAST--low level pos for wheat, cows milk, shrimp TSH--nml MRI 11/01 steatosis, focal nodular hyperplasia US 01/31: vascular calcification left kidney and cyst KUB 11/03-- left renal stone, moderate fecal loading, right side more US 11/11/23- renal stones, hepatic stetosis Ba swallow 12/02/23- severe gerd, esophageal dysmotility she did have a high lactoferrin in past but was intolerant of budeosnide trial --22 x 2 readings EGD: 01/04 Impression/Findings: gastritis, bile acid reflux schatzki ring and hiatal hernia bx with chronic gastritis, prob autimmune, I checked H pylori breath test and it was neg INTERIM: she feels entyvio has been helping a lot pain is much more controlled and diminished she feels dysphagia is ongoing --she feels dilation may not have helped she has much lesss reflux she was unable to take urosdiol she is gettign eval for kidney stones EXAM: GENERAL: The patient is well developed and nontoxic. VITAL SIGNS:see workflow HEENT: Nonicteric sclerae, PERRLA, EOMI. Oropharynx clear. Moist mucous membranes. Conjunctivae appear well perfused. No thyroid mass. CHEST: Chest wall is nontender. HEART: Regular rate and rhythm without murmurs. LUNGS: Clear to auscultation bilaterally. ABDOMEN: Soft, positive bowel sounds, non tender no organomegaly. SKIN: No rash, no excessive bruising, petechiae, or purpura. NEUROLOGIC: Cranial nerves II-XII intact without motor/sensory deficit. Assessment & Plan 1/ Chronic autoimmune gastritis, neg H pylori 2/ diarrhea and high fecal lactoferrin, unable to take large caps and foods--now on entyvio with some good results Plan: 1/ cont entyvio 2/ rept EGD in 1-2 yr and may need b12 3/ repeat colo due to hx of colon polyps --suprep [facility] Medical History History of ovarian cyst Renal cyst Renal calculi Mild recurrent major depression Mixed hyperlipidemia COVID-19 vaccine administered B12 deficiency Polyarthralgia Osteoarthritis of right knee Dyslipidemia Anxiety and depression History of postoperative nausea and vomiting Hx of renal calculi Hx of gastritis GERD (gastroesophageal reflux disease) Hypothyroid Colon polyps Diabetes Surgical History History of tubal ligation Hx of lithotripsy History of esophagogastroduodenoscopy (EGD) Hx of colonoscopy H/O: hysterectomy H/O thyroidectomy History of cholecystectomy Family History Father Hx of heat stroke History of dementia Mother Hx of benign gastric tumor Family history of high blood pressure Hx of type 1 diabetes mellitus Colon cancer Maternal Uncle Pancreatic cancer Daughter Thyroid cancer Maternal Aunt Ovarian cancer Social History Household Members: None Housing: Apartment Are you a primary home care specialist to a significant other at home: No Do you presently have visiting nurse or other home services: No Alcohol intake: never Patient Tobacco Use Status: Never used Tobacco e-Cigarette/Vaping Use: Never Used Second Hand Smoke Exposure: Yes service: No Current occupational status: disabled Sexual orientation: Straight/Heterosexual Gender identity: Female Cognitive needs: No Hearing needs: No Vision needs: No Physical Exam Vital Signs: Last Vital Signs Pulse 75 05/15/25 11:14 BP 123/72 05/15/25 11:14 BMI result Body Mass Index 33.9 Assessment & Plan Assessment & Plan (1) Colon polyps: Code(s): K63.5 - Polyp of colon Category: Medical Plan: as above Orders: Referrals GI Procedure Notification K63.5 - Polyp of colon Medications: New colesevelam (WelChol) must dilute powder in liquid before taking 3,750 mg PO DAILY 30 ea 2RF sodium,potassium,mag sulfates 17.5-3.13-1.6 gram (Suprep Bowel Prep Kit) DILUTE; drink 1/2 at 6-8 pm and half at 11 PM- 1AM 354 mL 0RF Discontinued ursodiol Discontinued Reason: Doctor's Order 500 mg PO BID 60 tabs 2RF Coding Level of Care Code Est Pt Level 3 (90320) Diagnoses Colon polyps K63.5
[2025-05-15 11:14] VITALS: BP 123/72; PULSE 75; BMI 33.9
== END 2025-05-15 12:02 | disposition home or self-care (01) ==
LOC: HO.HGI 10:56
PROVIDERS: PCP Internal Medicine; Visit Provider Internal Medicine Gastroenterology
DX: K63.5 Polyp of colon (principal)
CPT/HCPCS: 99213

== ENCOUNTER → 2025-05-15 10:56 | Outpatient (BNVA) | payer OTHER, SELFPAY | PROVIDERS: PCP Internal Medicine; Visit Provider Internal Medicine Gastroenterology | DX: K63.5 Polyp of colon (principal) | CPT/HCPCS: 99212 ==